=== PATIENT | female | born 1995 | race Caucasian/White ===

== ENCOUNTER → 2023-09-09 13:26 | Outpatient (CLI) | payer OTHER, SELFPAY ==
[2023-09-09 19:04] LABS: Basophils # 0.1 K/mm3 (0-0.2); Basophils % 0.6 % (0.1-2.0); Eosinophils # 0.1 K/mm3 (0.0-0.4); Eosinophils % 0.8 % (0.1-12.0); Hematocrit 39.2 % (37.0-47.0); Lymphocytes # 3.3 K/mm3 (0.7-4.5); Lymphocytes % 35.5 % (10-50); Mean Corpuscular HGB Conc 33.3 g/dL (31.8-35.4); Mean Corpuscular Hemoglobin 28.4 pg (27.0-31.2); Mean Corpuscular Volume 85.3 fl (81-99); Monocytes # 0.4 K/mm3 (0.1-1.0); Monocytes % 3.9 % (1.7-9.3); Neutrophils # 5.4 K/mm3 (1.8-7.8); Neutrophils % 59.1 % (37.0-80.0); Platelet Count 339 K/mm3 (142-424); Red Blood Count 4.59 M/mm3 (4.20-5.40); Red Cell Distribution Width 15.4 % (11.5-17.5); White Blood Count 9.1 K/mm3 (4.8-10.8)
[2023-09-09 19:27] LABS: Alanine Aminotransferase 35 U/L (12-78); Albumin Level 5.1 g/dl (3.5-5.0); Albumin/Globulin Ratio 1.4 (1.1-1.8); Alkaline Phosphatase 50 U/L (38-126); Anion Gap 18.2 mEq/L (5-15); Aspartate Amino Transferase 45 U/L (14-36); Bilirubin,Total 0.4 mg/dl (0.2-1.3); Blood Urea Nitrogen 9 mg/dl (7-17); Calcium 9.4 mg/dl (8.4-10.2); Carbon Dioxide 21 mmol/L (22.0-30.0); Chloride 103 mmol/L (98-107); Estimated Glomerular Filt Rate 122 ml/min (>60); GFR (African American) 147 ML/MIN (>60); Globulin 3.7 g/dL (1.3-3.2); Glucose 93 mg/dl (74-100); Potassium 4.2 mmoL/L (3.5-5.1); Sodium 138 mmol/L (136-145); Total Protein,Serum 8.8 g/dl (6.3-8.2)
[2023-09-09 19:45] LABS: 25-OH Vitamin D, Total 46.1 ng/mL (30-100); T4 (Thyroxine) 10.7 ug/dl (5.53-11.0); Triiodothryronine (T3) Uptake 28 % (23.5-40.5)
[2023-09-09 19:57] LABS: Thyroid Stimulating Hormone 1.21 uIU/mL (0.465-4.68)
[2023-09-09 20:16] LABS: Vitamin B12 261 pg/mL (239-931)
== END ==
PROVIDERS: PCP Family Medicine; Visit Provider Family Medicine
DX: Z00.00 Encounter for general adult medical examination without abnormal findings (principal); R53.83 Other fatigue; E66.9 Obesity, unspecified; Z68.32 Body mass index [BMI] 32.0-32.9, adult; Z79.899 Other long term (current) drug therapy
CPT/HCPCS: 80053; 82306; 82607; 84436; 84443; 84479; 85025

== ENCOUNTER 2023-10-09 09:34 | Outpatient (CLI) | payer OTHER, SELFPAY | END 2023-10-09 23:59 | LOC: RT 09:35 | PROVIDERS: PCP Family Medicine; Visit Provider Family Medicine | DX: R00.2 Palpitations (principal) | CPT/HCPCS: 93270 ==

== ENCOUNTER → 2024-05-01 07:48 | Outpatient (CLI) | payer OTHER, SELFPAY | LOC: SL 07:51 | PROVIDERS: PCP Family Medicine; Visit Provider Family Medicine | DX: R06.83 Snoring (principal); R40.0 Somnolence; G47.33 Obstructive sleep apnea (adult) (pediatric) | CPT/HCPCS: G0399 ==

== ENCOUNTER → 2024-10-15 20:23 | Outpatient (CLI) | payer OTHER, SELFPAY | LOC: SL 20:26 | PROVIDERS: PCP Family Medicine; Visit Provider Family Medicine | DX: F51.5 Nightmare disorder (principal); R06.83 Snoring | CPT/HCPCS: 95810 ==

== ENCOUNTER 2025-03-09 11:53 | Emergency (ER) | payer OTHER, SELFPAY ==
--- OUTSIDE RECORDS SUMMARY | 2025-02-18 09:43 | XMS_ITS | Continuity of Care Document ---
Author Organization [facility] Phone Care Team Providers Care Utilization Management Rn Name Role Phone KEERTHI MACK Unavailable SEVERO HERNADEZ Unavailable KEERTHI MACK Admitting KEERTHI MACK Primary Attending NO, FAMILY P Primary Care ALLERGIES AND ADVERSE REACTIONS ALLERGIES AND ADVERSE REACTIONS Code System Allergy Substance Adverse Reaction Date Reaction (Severity) Comment Status Reported By Updated By Jose Enrique (Free Text Allergy) Anaphylaxis due to substance (Moderate) active [id number] on February 11, 2025 2:28:08 PM [place] 7804 RXNorm oxyCODONE Anaphylaxis due to substance (Moderate) active [id number] on February 11, 2025 2:28:08 PM UTC Percocet (Free Text Allergy) Anaphylaxis due to substance (Moderate) active [id number] on February 11, 2025 2:28:08 PM UTC ASSESSMENTS Suicidal thoughts ; Anxiety ; Depressive disorder ; PROBLEMS PATIENT PROBLEMS Code Description/Comments Category Status Upda chip By [id number] Suicidal thoughts active [id number] on February 11, 2025 1:58:56 PM UTC [id number] Anxiety active [id number] on February 11, 2025 1:59:02 PM UTC [id number] Depressive disorder active [id number] on February 11, 2025 1:59:09 PM UTC RESULTS Patient: NIKHIL Gonzalez Date of : [birth year] 0 LABORATORY RESULTS ORDER 600: LIPID PANEL (CECELIA C: 40480-5) ORDER DATE: February 11, 2025 2:00:00 PM UTC Specimen Source: Serum/Plasm a Specimen Type: Acellular blo od (serum or plasma) specimen PERFORMING LAB: [address] [id number] Result Comment: Final Result Date: February 12, 2025 10:58:00 AM UTC (TECH: LT) LOINC TEST FLAG RESULT REFERENCE RANGE UPDA CHIP BY 2571-8 Triglyceride [Mass/volume] in Serum or Plasma N 125 mg/dL 20 mg/dL - 200 mg/dL February 12, 2025 10:58:00 AM UTC (TECH: LT) 2093-3 Cholesterol [Mass/volume] in Serum or Plasma N 143 mg/dL 0 mg/dL - 200 mg/dL February 12, 2025 10:58:00 AM UTC (TECH: LT) 2084-9 Cholesterol in HDL [Mass/volume] in Serum or Plasma L 53 mg/dL 60 mg/dL February 12, 2025 10:58:00 AM UTC (TECH: LT) 72851-5 Cholesterol in LDL [Mass/volume] in Serum or Plasma by calculation L 65 mg/dL 100 mg/dL February 12, 2025 10:58:00 AM UTC (TECH: LT) 2094-8 Cholesterol in HDL/Cholesterol.tota l [Mass Ratio] in Serum or Plasma N 3 - 5 February 12, 2025 10:58:00 AM UT (TECH: LT) ORDER 700: THYROID STIMULATI NG HORMONE (LOINC: 3016-3) ORDER DATE: February 11, 2025 2:00:00 PM UT Specimen Source: Serum/Plasm a Specimen Type: Acellular blo od (serum or plasma) specimen PERFORMING LAB: [address] [id number] Result Comment: Final Result Date: February 12, 2025 10:58:00 AM UT (TECH: LT) LOINC TEST FLAG RESULT REFERENCE RANGE UPDA CHIP BY 3016-3 Thyrotropin [Units/volume] in Serum or Plasma N 2.32 mIU/mL 0.34 mIU/mL - 4.80 mIU/mL February 12, 2025 10:58:00 AM UT (TECH: LT) ORDER 800: RPR QUAL W REFLEX (LOINC: 01973-5) ORDER DATE: February 11, 2025 2:00:00 PM UTC Specimen Source: Serum Specimen Type: Serum specime n PERFORMING LAB: [address] [id number] Result Comment: February 13, 2025 12:11:00 PM UTC Performed at: [facility] Result Comment: February 13, 2025 12:11:00 PM UTC [address] [place] [id number] Result Comment: February 13, 2025 12:11:00 PM UTC Merchandising Director: Joon Jamison PhD, Phone: [phone] Result Comment: February 13, 2025 12:11:00 PM UTC Final Result Date: February 12, 2025 10:19:00 AM UTC (TECH: LAB) LOINC TEST [place] [address]-2 Reagin Ab [Presence] in Serum by RPR N Non Reactive Non Reactive February 12, 2025 10:19:00 AM UT (TECH: LAB) ORDER 900: BILIRUBIN DIRECT (LOINC: 1967-) ORDER DATE: February 11, 2025 2:00:00 PM UTC Specimen Source: Serum/Plasm a Specimen Type: Acellular blo od (serum or plasma) specimen PERFORMING LAB: [address] [id number] Result Comment: Final Result Date: February 12, 2025 10:58:00 AM UT (TECH: LT) LOINC TEST FLAG RESULT REFERENCE RANGE UPDA CHIP BY 1968-03 Bilirubin.direct [Mass/volume] in Serum or Plasma N 0.2 mg/dL 0.0 mg/dL - 0.3 mg/dL February 12, 2025 10:58:00 AM UT (TECH: LT) ORDER 1000: T4 TOTAL (LOINC: 3026-2) ORDER DATE: February 11, 2025 2:00:00 PM UT Specimen Source: Serum/Plasm a Specimen Type: Acellular blo od (serum or plasma) specimen PERFORMING LAB: [address] [id number] Result Comment: Final Result Date: February 12, 2025 10:58:00 AM UT (TECH: LT) LOINC TEST FLAG RESULT REFERENCE RANGE UPDA CHIP BY 3026-2 Thyroxine (T4) [Mass/volume] in Serum or Plasma N 6.6 ug/dL 4.8 ug/dL - 13.9 ug/dL February 12, 2025 10:58:00 AM UTC (TECH: LT) ORDER 1100: GLUCOSE (LOINC: 2345-7) ORDER DATE: February 11, 2025 2:00:00 PM UTC Specimen Source: Serum/Plasm a Specimen Type: Acellular blo od (serum or plasma) specimen PERFORMING LAB: [address] [id number] Result Comment: Final Result Date: February 12, 2025 10:58:00 AM UTC (TECH: LT) LOINC TEST FLAG RESULT REFERENCE RANGE UPDA CHIP BY 2345-7 Glucose [Mass/volume] in Serum or Plasma N 86 mg/dL 70 mg/dL - 110 mg/dL February 12, 2025 10:58:00 AM UTC (TECH: LT) ORDER 1200: HEMOGLOBIN A1C ( LOINC: 4548-4) ORDER DATE: February 11, 2025 2:00:00 PM UTC Specimen Source: Whole Blood Specimen Type: Whole blood s ample PERFORMING LAB: [address] [id number] Result Comment: Final Result Date: February 12, 2025 10:41:00 AM UTC (TECH: LT) LOINC TEST FLAG RESULT REFERENCE RANGE UPDA CHIP BY 4548-4 Hemoglobin A1c/Hemoglobin.tota l in Blood N 5.5 % 4.5 % - 6.2 % February 12, 2025 10:41:00 AM UT (TECH: LT) 82006-2 Glucose mean value [Mass/volume] in Blood Estimated from glycated hemoglobin N 111 mg/dl 82 mg/dl - 131 mg/dl February 12, 2025 10:41:00 AM UTC (TECH: LT) ORDER 1400: CBC AUTO W DIFF (LOINC: 26585-1) ORDER DATE: February 11, 2025 6:53:00 PM UTC Specimen Source: Whole Blood Specimen Type: Whole blood s ample PERFORMING LAB: [address] [id number] Result Comment: Final Result Date: February 12, 2025 10:28:00 AM UTC (TECH: LT) LOINC TEST FLAG RESULT REFERENCE RANGE UPDA CHIP BY 6690-2 Leukocytes [#/volume ] in Blood by Automated count N 8.3 10^3/uL 4.5 10^3/uL - 11.5 10^3/uL February 12, 2025 10:28:00 AM UTC (TECH: LT) 789-8 Erythrocytes [#/volu me] in Blood by Automated count N 4.34 10^6/uL 4.25 10^6/uL - 5.57 10^6/uL February 12, 2025 10:28:00 AM UTC (TECH: LT) 718-7 Hemoglobin [Mass/volume] in Blood N 12.7 g/dL 12.0 g/dL - 15.7 g/dL February 12, 2025 10:28:00 AM UTC (TECH: LT) 60457-4 Hematocrit [Volume Fraction] of Blood N 38.6 % 36.0 % - 47.0 % February 12, 2025 10:28:00 AM UTC (TECH: LT) 787-2 Erythrocyte mean corpuscular volume [Entitic volume] by Automated count N 88.9 fl 80 fl - 95 fl February 12, 2025 10:28:00 AM UTC (TECH: LT) 71547-4 Erythrocyte mean corpuscular hemoglobin [Entitic mass] in Blood from Fetus by Automated count N 29.3 pg 27.0 pg - 34.0 pg February 12, 2025 10:28:00 AM UTC (TECH: LT) 04281-8 Erythrocyte mean corpuscular hemoglobin concentration [Mass/volume] in Blood from Fetus by Automated count N 32.9 g/dL 32.0 g/dL - 36.0 g/dL February 12, 2025 10:28:00 AM UTC (TECH: LT) 58081-9 Platelets [#/volume] in Blood N 315 10^3/uL 150 10^3/uL - 450 10^3/uL February 12, 2025 10:28:00 AM UTC (TECH: LT) 56321-8 Erythrocyte distribution width [Ratio] N 13.5 % 12.3 % - 15.1 % February 12, 2025 10:28:00 AM UTC (TECH: LT) 79835-1 Platelet mean volume [Entitic volume] in Blood by Automated count H 10.7 fl 7.4 fl - 10.4 fl February 12, 2025 10:28:00 AM UTC (TECH: LT) 33171-7 Granulocytes/100 leukocytes in Blood by Automated count N 47.0 % 40 % - 75 % February 12, 2025 10:28:00 AM UTC (TECH: LT) 736-9 Lymphocytes/100 leukocytes in Blood by Automated count N 42.0 % 15 % - 57 % February 12, 2025 10:28:00 AM UTC (TECH: LT) 5905-5 Monocytes/100 leukocytes in Blood by Automated count N 7.9 % 4.0 % - 12.0 % February 12, 2025 10:28:00 AM UTC (TECH: LT) 713-8 Eosinophils/100 leukocytes in Blood by Automated count N 1.9 % 0.0 % - 4.0 % February 12, 2025 10:28:00 AM UTC (TECH: LT) 706-2 Basophils/100 leukocytes in Blood by Automated count N 0.5 % 0.0 % - 1.0 % February 12, 2025 10:28:00 AM UTC (TECH: LT) 80660-3 Immature granulocyte s [#/volume] in Blood N 0.7 % 0.0 % - 0.8 % February 12, 2025 10:28:00 AM UTC (TECH: LT) 62671-6 Granulocytes [#/volu me] in Blood by Automated count N 3.91 10^3/uL February 12, 2025 10:28:00 AM UTC (TECH: LT) 731-0 Lymphocytes [#/volum e] in Blood by Automated count N 3.50 10^3/uL February 12, 2025 10:28:00 AM UTC (TECH: LT) 742-7 Monocytes [#/volume] in Blood by Automated count N 0.66 10^3/uL February 12, 2025 10:28:00 AM UTC (TECH: LT) 711-2 Eosinophils [#/volum e] in Blood by Automated count N 0.16 10^3/uL February 12, 2025 10:28:00 AM UTC (TECH: LT) 704-7 Basophils [#/volume] in Blood by Automated count N 0.04 10^3/uL February 12, 2025 10:28:00 AM UTC (TECH: LT) 18769-3 Immature granulocyte s [#/volume] in Blood N 0.06 10^3/uL February 12, 2025 10:28:00 AM UTC (TECH: LT) 93414-5 Manual differential performed [Presence] in Blood N NO February 12, 2025 10:28:00 AM UTC (TECH: LT) LABORATORY NARRATIVE RESULTS Information is not available RADIOLOGY RESULTS Information is not available PATHOLOGY NARRATIVE RESULTS Information is not available MICROBIOLOGY RESULTS No Micro Labs/Results Exist for Patient BLOOD ADMIN RESULTS Information is not available TREATMENT PLAN DISCHARGE MEDICATIONS Status RXNORM Medication Dose Route Frequency Dates Comments U pdated By Continued 426022 folic acid (FOLATE) 1 MG ORAL ONCE DAILY Prescri bed: February 16, 2025 1:33:21 PM UT supplement [id number] on February 16, 2025 1:33:21 PM [facility] Continued 288361 propranolol (INDERAL) 10 MG ORAL THREE TIMES A DAY Prescri bed: February 16, 2025 1:33:21 PM UT Hold if BP is less than 90/60 or MO less than 60/mt [id number] on February 16, 2025 1:33:21 PM [facility] Continued 428382 SEROquel Oral Tablet 100 MG 100 MG ORAL AT BEDTIME Prescri bed: February 16, 2025 1:33:21 PM [facility] [id number] on February 16, 2025 1:33:21 PM [facility] Continued 894245 lisinopril (ZESTRIL) 5 MG ORAL ONCE DAILY Prescri bed: February 16, 2025 1:33:21 PM [facility] [id number] on February 16, 2025 1:33:21 PM [facility] Continued 356142 THIAMINE MONONITRATE 100 MG ORAL ONCE DAILY Prescri bed: February 16, 2025 1:33:21 PM [facility] supplement [id number] on February 16, 2025 1:33:21 PM [facility] Continued 799790 DULoxetine HCl Oral Capsule Delayed Release Particles 60 MG 60 MG ORAL ONCE DAILY Prescri bed: February 16, 2025 1:33:21 PM [facility] [id number] on February 16, 2025 1:33:21 PM [facility] PATIENT OPEN ORDERS Code System Description Frequency Occurrences Priority Start Date Ordering Physician Updated By Patient open order informati on is not available. SCHEDULED PROCEDURES Code System Description Status Scheduled Date Upd ated By Patient scheduled procedure information is not available. MEDICATIONS HOME MEDICATIONS Status RXNORM [facility] Medication Dose Route Frequency Dates Comments Reported By Updated By Active [id number] 9611 lisinopril (ZESTRIL) 5.0 MG ORAL DAILY Last Dose: [id number] on February 11, 2025 2:25:27 PM [facility] DISCHARGE MEDICATIONS Status RXNORM NDC Medication Dose Route Frequency Dates Comments Physician Updated By Continue d 078259 40795 47699 1 folic acid (FOLATE) 1.0 MG ORAL ONCE DAILY Prescr ibed: February 16, 2025 1:33:2 1 PM UT rachel PENDLETON MD Y [id number] on February 16, 2025 1:33:21 PM UTC Continue d 346271 84675 07550 1 propranolol (INDERAL) 10.0 MG ORAL THREE TIMES A DAY Prescr ibed: February 16, 2025 1:33:2 1 PM UT Hold if BP is less than 90/60 or MO less than 60/mt MARTINA PENDLETON MD Ro [id number] on February 16, 2025 1:33:21 PM UTC Continue d 472996 72462 87171 0 SEROquel Oral Tablet 100 MG 100.0 MG ORAL AT BEDTIME Prescr ibed: February 16, 2025 1:33:2 1 PM UT MARTINA PENDLETON MD [facility] [id number] on February 16, 2025 1:33:21 PM UT Continue d 997190 98207 16952 1 lisinopril (ZESTRIL) 5.0 MG ORAL ONCE DAILY Prescr ibed: February 16, 2025 1:33:2 1 PM UT MARTINA PENDLETON MD Y [id number] on February 16, 2025 1:33:21 PM UTC Continue d 006464 28319 76711 1 THIAMINE MONONITRATE 100.0 MG ORAL ONCE DAILY Prescr ibed: February 16, 2025 1:33:2 1 PM UT rachel PENDLETON MD Y [id number] on February 16, 2025 1:33:21 PM UT Continue d 451871 10598 38316 5 DULoxetine HCl Oral Capsule Delayed Release Particles 60 MG 60.0 MG ORAL ONCE DAILY Prescr ibed: February 16, 2025 1:33:2 1 PM UT MARTINA PENDLETON MD Y [id number] on February 16, 2025 1:33:21 PM UT INPATIENT MEDICATIONS Status RXNORM [facility] Medication Dose Route Frequency Rat e Quantity Dates Comments Physician Updated By Mari inued 0012 1176 130 MAG-AL PLUS 200-200-20 MG/5 ML LIQD 30.0 ML ORAL EVERY TWO HOURS NEEDED Start: February 11, 2025 1:58:0 0 PM UTC End: February 16, 2025 1:33:2 1 PM UTC MARTINA PENDLETON MD [id number] on February 17, 2025 4:25:00 AM UTC Discont inued 973900 2299 9069 020 loperamide (IMODIUM) 2 MG CAPS 4.0 MG ORAL NEEDED Start: February 11, 2025 1:58:0 0 PM UTC End: February 11, 2025 3:19:3 7 PM UTC MARTINA PENDLETON MD [id number] on February 11, 2025 3:19:00 PM UTC Discont inued 376671 2059 9069 020 loperamide (IMODIUM) 2 MG CAPS 2.0 MG ORAL NEEDED Start: February 11, 2025 1:58:0 0 PM UTC End: February 16, 2025 1:33:2 1 PM UTC MARTINA PENDLETON MD [id number] on February 17, 2025 4:25:00 AM UTC Discont inued 397824 5430 7062 211 SENNOSIDES- DOCUSATE SODIUM 8.6-50 MG TABS 1.0 TAB ORAL TWICE A DAY NEEDED Start: February 11, 2025 1:58:0 0 PM UTC End: February 16, 2025 1:33:2 1 PM UTC MARTINA PENDLETON MD [id number] on February 17, 2025 4:25:00 AM UTC Discont inued 521395 5698 7036 911 dicyclomine (BENTYL) 10 MG CAPS 10.0 MG ORAL EVERY EIGHT HOURS NEEDED Start: February 11, 2025 1:58:0 0 PM UTC End: February 11, 2025 3:19:3 7 PM UTC MARTINA PENDLETON MD [id number] on February 11, 2025 3:19:00 PM UTC Discont inued 380559 2459 4019 501 promethazin e (PHENERGAN) 25 MG TABS 25.0 MG ORAL EVERY FOUR HOURS NEEDED Start: February 11, 2025 1:58:0 0 PM UTC End: February 11, 2025 3:19:3 7 PM UTC MARTINA PENDLETON MD [id number] on February 11, 2025 3:19:00 PM UTC Discont inued 372535 8770 7055 811 cyclobenzap rine (FLEXERIL) 10 MG TABS 10.0 MG ORAL EVERY EIGHT HOURS NEEDED Start: February 11, 2025 1:58:0 0 PM UTC End: February 11, 2025 3:19:3 7 PM UTC MARTINA PENDLETON MD [id number] on February 11, 2025 3:19:00 PM UTC Discont inued 557988 5357 9007 820 hydrOXYzine PAMOATE (VISTARIL) 50 MG CAPS 50.0 MG ORAL EVERY FOUR HOURS NEEDED Start: February 11, 2025 1:58:0 0 PM UTC End: February 11, 2025 3:19:5 7 PM UTC MARTINA PENDLETON MD [id number] on February 11, 2025 3:19:00 PM UTC Discont inued 870203 4949 4032 055 OLANZapine (ZYPREXA ZYDIS) 5 MG TBDP 5.0 MG ORAL EVERY SIX HOURS NEEDED Start: February 11, 2025 1:58:0 0 PM UTC End: February 16, 2025 1:33:2 1 PM UTC MARTINA PENDLETON MD [id number] on February 17, 2025 4:25:00 AM UTC Discont inued 381368 7489 7044 311 traZODone (DESYREL) 50 MG TABS 50.0 MG ORAL AT BEDTIME NEEDED Start: February 11, 2025 1:58:0 0 PM UTC End: February 11, 2025 3:19:3 7 PM UTC MARTINA PENDLETON MD [id number] on February 11, 2025 3:19:00 PM UTC Discont inued 8068 1014 202 CERTAVITE/A NTIOXIDANTS TABS 1.0 TAB ORAL ONCE DAILY Start: February 12, 2025 1:00:0 0 PM UTC End: February 16, 2025 1:33:2 1 PM UTC MARTINA PENDLETON MD [id number] on February 17, 2025 4:25:00 AM UTC Discont inued 006273 8592 7068 111 folic acid (FOLATE) 1 MG TABS 1.0 MG ORAL ONCE DAILY Start: February 12, 2025 1:00:0 0 PM UTC End: February 16, 2025 3:13:0 0 PM UTC MARTINA PENDLETON MD [id number] on February 17, 2025 4:25:00 AM UTC Discont inued 271759 7350 8085 111 THIAMINE MONONITRATE 100 MG TABS 100.0 MG ORAL ONCE DAILY Start: February 12, 2025 1:00:0 0 PM UTC End: February 16, 2025 3:13:0 0 PM UTC MARTINA PENDLETON MD [id number] on February 17, 2025 4:25:00 AM UTC Discont inued 142964 9872 0762 730 ibuprofen (MOTRIN) 600 MG TABS 600.0 MG ORAL EVERY SIX HOURS NEEDED Start: February 11, 2025 1:58:0 0 PM UTC End: February 16, 2025 1:33:2 1 PM UTC MARTINA PENDLETON MD [id number] on February 17, 2025 4:25:00 AM UTC Discont inued 066228 7987 7044 311 traZODone (DESYREL) 50 MG TABS 50.0 MG ORAL AT BEDTIME NEEDED Start: February 11, 2025 3:19:0 0 PM UTC End: February 11, 2025 3:21:4 4 PM UTC MARTINA PENDLETON MD [id number] on February 11, 2025 3:21:00 PM UTC Discont inued 535173 4202 4655 061 propranolol (INDERAL) 10 MG TABS 10.0 MG ORAL THREE TIMES A DAY Start: February 11, 2025 7:00:0 0 PM UTC End: February 16, 2025 3:13:0 0 PM UTC MARTINA PENDLETON MD [id number] on February 17, 2025 4:25:00 AM UTC Discont inued 199324 3826 4068 311 DULOXETINE HCL 30 MG CPEP 30.0 MG ORAL ONCE DAILY Start: February 11, 2025 3:31:0 0 PM UTC End: February 12, 2025 1:02:4 7 PM UTC MARTINA PENDLETON MD [id number] on February 12, 2025 1:02:00 PM UTC Discont inued 293097 2097 509 588 QUEtiapine (SEROQUEL) 200 MG TABS 100.0 MG ORAL AT BEDTIME Start: February 12, 2025 1:00:0 0 AM UTC End: February 16, 2025 1:33:2 1 PM UTC MARTINA PENDLETON MD [id number] on February 17, 2025 4:25:00 AM UTC Discont inued 171562 1062 4019 611 lisinopril (ZESTRIL) 5 MG TABS 5.0 MG ORAL ONCE DAILY Start: February 12, 2025 1:00:0 0 PM UTC End: February 16, 2025 3:13:0 0 PM UTC SATYA FAVIA HOURLY CAREGIVER [id number] on February 17, 2025 4:25:00 AM UTC Discont inued 848806 4304 4068 311 DULOXETINE HCL 30 MG CPEP 60.0 MG ORAL ONCE DAILY Start: February 13, 2025 1:00:0 0 PM UTC End: February 16, 2025 1:33:2 1 PM UTC TONE Akhtar MD [id number] on February 17, 2025 4:25:00 AM UTC Discont inued XXXX XXX0 063 *PATIENT INFORMATION [facility] [place] 1.0 EA SEE COMMEN TS NEEDED Start: February 15, 2025 5:35:0 0 PM UTC End: February 16, 2025 1:33:2 1 PM UTC TONE Akhtar MD [id number] on February 17, 2025 4:25:00 AM UT SOCIAL HISTORY SOCIAL HISTORY SNOMED-CT Social History Element Description Effective Dates Offered Cessation Comment UpdatedBy [id number] Current Tobacco smoking status Never Smoked [id number] on February 11, 2025 2:26:53 PM UT SOCIAL HISTORY - Gender Sex: Female SOCIAL HISTORY - Status : status i nformation is not available Intention in Next Year: intention information is not available SOCIAL HISTORY - Sexual Behavior Sexual Orientation Gender Identity SNOMED-CT Description SNO MED -CT Description Activity Level No of Partners Partner Type UpdatedBy Information is not available VITAL SIGNS PATIENT VITAL SIGNS This section displays the mo st recent value for each vital sign as of February 18, 2025 1:43:07 PM UT Loinc Code Vital Sign Activity Date Result Updated By 8302-2 Body height February 11, 2025 2:24:03 PM UT 162.56 cm (64.0 in) [id number] on February 11, 2025 2:24:03 PM UTC 8310-5 Body temperature February 15, 2025 11:05:00 PM UTC 98.6 [degF] [id number] on February 16, 2025 2:33:07 AM UTC 8462-4 Diastolic blood pressure February 15, 2025 11:05:00 PM UTC 62.0 mm[Hg] OHT7903 on February 16, 2025 2:33:07 AM UTC 8867-4 Heart rate February 15, 2025 11:05:00 PM UTC 75 /min [id number] on February 16, 2025 2:33:07 AM UTC 23494-2 Oxygen saturation in Arterial blood by Pulse oximetry February 15, 2025 11:05:00 PM UTC 99.0 % [id number] on February 16, 2025 2:33:07 AM UTC 9279-1 Respiratory rate February 15, 2025 11:05:00 PM UTC 18 /min [id number] on February 16, 2025 2:33:07 AM UTC 8480-6 Systolic blood pressure February 15, 2025 11:05:00 PM UTC 105.0 mm[Hg] [id number] on February 16, 2025 2:33:07 AM UTC PEDIATRIC GROWTH CHART - VITAL SIGNS This section displays Head C ircumference Percentile, Weight for Length Percentile and BMI Percentile Loinc Code Pediatric Measure Age (Months) Result Updat ed By No Pediatric Growth Chart Pe rcentile Information Available. GOALS PATIENT GOALS Goal Assigned Date Updated By REBECCA TEJEDA REMAINS [place]YTON E FROM COMPLICATIONS FOR BEHAVIORAL HEALTH ADMIT February 11, 2025 [id number] on February 11, 2025 2:02 :03 PM UT REBECCA PRETTYBERT WILL REMAIN FREE FROM SELF HARM DURING THE CARE PERIOD February 11, 2025 [id number] on February 11 2:02:03 PM [facility] REBECCA PERTTYBERT REMAINS [place] E FROM COMPLICATIONS OF ALCOHOL ABUSE - WITHDRAWAL DURING THE CARE PERIOD February 11, 2025 [id number] on February 11 2:02:07 PM UT HEALTH CONCERNS Problems Concern Status Health Concern problem infor mation not available. Smoking Status Status Years Used Consumed packs p er day Health Concern smoking histo ry information not available. Family History Concern Status Health Concern family histor y information not available. ENCOUNTERS ENCOUNTER INFORMATION Reason for Visit MDD W/ SI Admission February 11, 2025 1:52:00 PM [facility] [address] [facility] [id number] Discharge February 16, 2025 3:13:00 PM [facility] DISC HARGED TO HOME OR SELF CARE ENCOUNTER DIAGNOSES Notes information is not eda ilable. Code System Diagnosis Onset Date Diagnosis information is not available. ABSTRACT DIAGNOSES Code System Diagnosis Updated By F33.2 ICD10 MAJOR DEPRESSIVE DISORDER, RECURRENT SEVERE WITHOUT PSYCHOTIC FEATURES [id number] on February 18, 2025 1:42:42 PM UT F33.2 ICD10 MAJOR DEPRESSIVE DISORDER, RECURRENT SEVERE WITHOUT PSYCHOTIC FEATURES [id number] on February 18, 2025 1:42:42 PM [facility] R45.851 ICD10 SUICIDAL IDEATIONS [id number] o n February 18, 2025 1:42:42 PM UT F43.12 ICD10 POST-TRAUMATIC S TRESS DISORDER, CHRONIC [id number] on February 18, 2025 1:42:42 PM UT F41.9 ICD10 ANXIETY DISORDER, UNSPECIFIE D [id number] on February 18, 2025 1:42:42 PM UT F51.5 ICD10 NIGHTMARE DISORDER [id number] o n February 18, 2025 1:42:42 PM UT Z81.3 ICD10 FAMILY HISTORY O F OTHER PSYCHOACTIVE SUBSTANCE ABUSE AND DEPENDENCE [id number] on February 18, 2025 1:42:42 PM UT Z81.8 ICD10 FAMILY HISTORY O F OTHER MENTAL AND BEHAVIORAL DISORDERS [id number] on February 18, 2025 1:42:42 PM UT Z88.5 ICD10 ALLERGY STATUS TO NARCOTIC A GENT [id number] on February 18, 2025 1:42:42 PM UT Z88.8 ICD10 ALLERGY STATUS T O OTHER DRUGS, MEDICAMENTS AND BIOLOGICAL SUBSTANCES [id number] on February 18, 2025 1:42:42 PM UT I10 ICD10 ESSENTIAL (PRIMARY) HYPERTEN ELIE [id number] on February 18, 2025 1:42:42 PM UT Z91.51 ICD10 PERSONAL HISTORY OF SUICIDAL BEHAVIOR [id number] on February 18, 2025 1:42:42 PM UT Z79.899 ICD10 OTHER MASTER PLANNER (CURRENT) DR CRAIN THERAPY [id number] on February 18, 2025 1:42:42 PM [facility] D72.829 ICD10 ELEVATED WHITE B LOOD CELL COUNT, UNSPECIFIED [id number] on February 18, 2025 1:42:42 PM [facility] CARE TEAM Care Utilization Management Rn Role KEERTHI MACK Referring SEVERO CYRP Consulting KEERTHI MACK Admitting KEERTHI MACK Primary Attending FAMILY NO Primary Care HOSPITAL DISCHARGE INSTRUCTION DISCHARGE INSTRUCTION Encounter [id number] Admit Date February 11, 2025 1:52:00 PM UT Discharge Date February 16, 2025 3:13:00 PM [facility] PATIENT EDUCATION SUMMARY Patient/Visit Information: Patient Name: REBECCA TEJEDA Diag: Attending Caregiver: MARTINA PENDLETON MD Discharge Instruction Sheets Provided: *[facility] Transition Record () () Patient Instructions: Followup Appointments/Instructions: To schedule or confirm your next appointment, please contact: February 23, 2025 8am: - [facility] [address] [facility] [address] [place] [address] If you need assistance finding another health care provider, call the number on your health insurance card. HISTORY AND PHYSICAL NOTE HISTORY AND PHYSICAL NOTE Note Title Behavioral Health Me dical Admission H&P Date Of Service February 11, 2025 1:58:14 PM [facility] Created By [id number] on February 11 1:58:14 PM [facility] Signed By [id number] on February 11 6:52:24 PM [facility] Chief Complaint Depressive disorder, suicidal ideation Reason for consultation: Admission history and physical History of Present Illness 29-year-old female admitted from [facility] after being medically cleared. She reported feeling depressed and suicidal. She stated she attempted to take her life when her was 2-month-old. She stated she overdosed on gabapentin. She recently started having suicidal thoughts again. She stated she drank up to 6 alcoholic beverages last night. She states she does not consume alcohol regularly. She reports she had also been taking Adipex for weight loss. She denies any physical complaints other than occasional headache which she attributes to crying and stress. She also reports weight loss, loss of appetite. Past Medical History Suicide attempt H/O: depression H/O: hypertension Anemia Past Surgical History Esophagogastroduodenoscopy section Extraction of wisdom tooth Home Medications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
[2025-03-09] VITALS (61 sets, daily range): BP systolic 61–137; BP diastolic 31–100; PULSE 66–103; RESP 16–19; TEMP 34.2–37.6; O2SAT 96–100; BMI 28.0
--- NOTE | 2025-03-09 11:54 | PC.NURSE ---
RESPIRATORY REQUESTED FOR INTUBATION
--- NOTE | 2025-03-09 11:55 | PC.NURSE ---
[facility] called for wether check
--- NOTE | 2025-03-09 11:58 | PC.NURSE ---
[facility] declined due to weather
--- NOTE | 2025-03-09 12:04 | PC.NURSE ---
I spoke with Jerald at poison control. He explained some symptoms that may arise. He states supportive care is the plan of treatment. He states if IVF are not adequate for her pressure to try glucagon then pressors. I notified him of the medications the pt may have potentially taken and the amounts that should be in her bottles versus no meds in bottles. He states he will check in later.
--- NOTE | 2025-03-09 12:04 | XR_ITS ---
FINAL REPORT CLINICAL HISTORY: AMS, overdose COMPARISON: None FINDINGS: CHEST 1 VIEW FRONTAL Three images of the chest were obtained. On the first image taken at 1:14 PM, the ET tube extends approximately 1.5 cm into the right mainstem bronchus and needs to be retracted approximately 3 cm. On the second image taken at 1:19 PM, the ET tube has been retracted and now extends 1 cm above the roger. The heart size is normal. There is linear atelectasis noted at the left lung base. There are no pleural effusions. There is no pneumothorax. There is no osseous abnormality. IMPRESSION: On the second image, the ET tube extends 1 cm above the roger. Linear atelectasis left lung base. Reviewed, Interpreted and Dictated by Otto Morales MD Transcribed by Tiffanie Weiss Authenticated and [facility]
--- NOTE | 2025-03-09 12:11 | ED_ITS ---
Discharge Plan Disposition Patient Disposition: Xfer Short-Term Hosp Condition: Critical Prescriptions Prescriptions: No Action propranolol 40 mg tablet 40 mg PO ONCE Qty: 30 2RF sumatriptan succinate 25 mg tablet See Rx Instructions PO .COMPLEX Qty: 14 0RF Rx Instructions: take 1 tab at onset of headache; if no relief may repeat 1 tab after at least 2 hrs; max = 4 tabs/24 hr PO desvenlafaxine succinate [Pristiq] 50 mg tablet extended release 24 hr 50 mg PO DAILY Qty: 30 2RF hydroxyzine HCl 25 mg tablet 25 mg PO TID PRN (Reason: anxiety) Qty: 90 1RF Referrals Follow up/Referrals: Provider,Referral, MD [Primary Care Provider, Medical] - See instructions Clinical Impressions Clinical Impression: Intentional overdose, Intentional propranolol overdose, Altered mental status Print Language Print Language: German Discharge ED Provider: Deepali Jesus General Adult HPI General Chief complaint: Overdose Stated complaint: OD Time Seen by Provider: 03/09/25 11:55 History of Present Illness HPI narrative: This patient is a 29-year-old female with a history of PTSD, OCD, bipolar disorder, and multiple prior suicide attempts presenting to the emergency department for evaluation with concern for intentional overdose. History is provided by EMS and police officers who are on scene. They report that the patient was found unresponsive in her home by her dad this morning with multiple suicide notes. She was found next to empty bottles of propranolol, quetiapine, and Tylenol PM. The quetiapine bottle was #30 100 mg tablets which was filled 02/16/2025, propranolol #90 10 mg tablets (TID), acetaminophen/diphehydramine hcl (500mg/25mg) #24 tablets. If she takes the quetiapine and propranolol as prescribed, we estimate she likely had 10 (1,000mg) and 30 tablets (300mg) left respectively. EMS note that the patient was persistently hypotensive en route with systolics in the 70s. They were unable to establish IV access because the patient was combative. Fingerstick blood Leukos was normal per EMS. Upon arrival, patient is somnolent but arouses to sternal rub and painful stimuli. She does not contribute to history, falling back asleep very quickly. Her father arrived and helped provide further history. He noted that he was with her last night because she was having a hard time and was upset. He states that he left after she fell asleep, and he spoke with her around 3:45 in the morning and she seemed to be doing well. he states that she texted him around 7:00 this morning and said I am sorry. Once he found this message around 9:30 AM, he went to her house and found her unresponsive with suicide notes written to multiple people in her family. He got a blood pressure cuff and checked her blood pressure, and it was very low. He found multiple pill bottles as above and called EMS. Related Data Previous Rx's ?Medication ?Instructions ?Recorded desvenlafaxine succinate 50 mg 50 mg PO DAILY #30 tabs 11/25/23 tablet,extended release 24 hr (Pristiq) hydroxyzine HCl 25 mg tablet 25 mg PO TID PRN anxiety #90 tabs 11/25/23 propranolol 40 mg tablet 40 mg PO ONCE migraine #30 tabs 12/02/23 sumatriptan succinate 25 mg tablet See Rx Instructions PO .COMPLEX 12/02/23 #14 tabs Allergies Allergy/AdvReac Type Severity Reaction Status Date / Time acetaminophen (From PERCOCET) Allergy Unknown ANAPHYLAXIS Verified 12/02/23 13:51 hydrocodone (From LORTAB) Allergy Unknown ITCHING Verified 12/02/23 13:51 oxycodone (From PERCOCET) Allergy Unknown ANAPHYLAXIS Verified 12/02/23 13:51 PFSH PFSH Disclaimer: The information contained in this section may have been updated after the patient was seen, as this information can be updated by other users. Medical History Chronic post-traumatic stress disorder (PTSD) OCD (obsessive compulsive disorder) Generalized anxiety disorder with panic attacks Iron deficiency anemia Anemia Family History Grandmother Cancer Grandfather Cancer Diabetes Mother COPD (chronic obstructive pulmonary disease) Social History Smoking Status: Unknown if ever smoked alcohol intake: current alcohol intake frequency: holidays/special occasions only substance use type: denies use current occupational status: employed Travel in the last 8 weeks?: None household members: children number of children: 2 Have you lived/traveled outside [place] in past 30 days?: No Contact w/someone who lives/traveled outside [place] past 30 days?: No Exposure to someone with infectious disease in past 14 days?: No Do you have a fever (greater than 100.4 F or 38 C)?: No Have you tested positive for COVID-19?: No Exposed to someone with COVID-19 in past 14 days?: No Do you have a sore throat?: No Do you have a cough?: No Do you have any weakness?: No Do you have any diarrhea?: No Are you experiencing any unusual bleeding?: No Do you have any muscle aches/pain?: No Do you have any abdominal pain?: No Are you experiencing loss of taste or smell?: No Other Medical History Have you received the Pneumonia Vaccine: No ROS Obtained: Yes unobtainable due to mental status Physical Exam General General appearance: obtunded Head Head exam: atraumatic and normocephalic Eye Eye exam: Present normal appearance, PERRL and EOMI ENT ENT exam: Present normal exam and normal oropharynx Neck Neck exam: Present normal inspection Chest Chest inspection: Present normal inspection and symmetric chest wall rise Respiratory Respiratory exam: Present normal lung sounds bilaterally; Absent respiratory distress Cardiovascular Cardiovascular exam: Present regular rate and normal rhythm Abdominal Exam Abdominal exam: Present soft; Absent distention, tenderness or guarding Extremities Exam Extremities exam: Present normal inspection; Absent tenderness or edema Back Exam Back exam: Present normal inspection Neurological Exam Neurological exam: Absent alert Expanded Neurological Exam Coma scale eye opening: To pain Coma scale motor response: Localizes to pain Coma scale verbal response: Inappropriate Coma scale total: 10 Skin Skin exam: Present warm and dry Medical Decision Making Medical Records Screening: Per USPSTF and CDC recommendations, given the prevalence of disease in our region, it is our hospital?s policy to screen for HIV and viral Hepatitis for all patients aged 18 and over and those with ongoing risk factors. [place] Inquiry Pt receiving controlled substance: No Vital Signs: 03/09/25 12:00 03/09/25 12:09 03/09/25 12:23 Temperature 93.6 F L 96.3 F L Temperature Source Core Pulse Rate 78 Pulse Rate [Left] 77 Respiratory Rate 16 19 Blood Pressure 74/44 L 73/44 L Blood Pressure [Right Arm] 90/50 L Blood Pressure Mean 54 51 Blood Pressure Mean [Right Arm] 63 Blood Pressure Source [Right Arm] Manual Cuff/ Auscultation Blood Pressure Position [Right Arm] Supine 02 Sat by Pulse Oximetry 97 98 Oxygen Delivery Method Room Air Fraction of Inspired Oxygen 03/09/25 12:30 03/09/25 12:45 03/09/25 13:00 Temperature 97.3 F L 97.3 F L 97.3 F L Temperature Source Pulse Rate 73 103 H 85 Pulse Rate [Left] Respiratory Rate 19 Blood Pressure 76/48 L 85/48 L 82/46 L Blood Pressure [Right Arm] Blood Pressure Mean 54 59 57 Blood Pressure Mean [Right Arm] Blood Pressure Source [Right Arm] Blood Pressure Position [Right Arm] 02 Sat by Pulse Oximetry 98 100 96 Oxygen Delivery Method Fraction of Inspired Oxygen 03/09/25 13:30 03/09/25 13:33 03/09/25 13:35 Temperature 97.3 F L 97.3 F L 97.3 F L Temperature Source Pulse Rate 77 77 72 Pulse Rate [Left] Respiratory Rate 16 16 16 Blood Pressure 61/31 L 63/31 L 65/31 L Blood Pressure [Right Arm] Blood Pressure Mean 41 41 40 Blood Pressure Mean [Right Arm] Blood Pressure Source [Right Arm] Blood Pressure Position [Right Arm] 02 Sat by Pulse Oximetry 97 99 Oxygen Delivery Method Fraction of Inspired Oxygen 03/09/25 13:40 03/09/25 13:45 03/09/25 13:45 Temperature 97.3 F L 97.3 F L Temperature Source Pulse Rate 76 80 Pulse Rate [Left] Respiratory Rate 16 16 17 Blood Pressure 67/35 L 70/35 L Blood Pressure [Right Arm] Blood Pressure Mean 46 44 Blood Pressure Mean [Right Arm] Blood Pressure Source [Right Arm] Blood Pressure Position [Right Arm] 02 Sat by Pulse Oximetry 99 98 Oxygen Delivery Method Fraction of Inspired Oxygen 30 03/09/25 13:50 03/09/25 14:00 03/09/25 14:05 Temperature 97.3 F L 97.5 F L 97.5 F L Temperature Source Pulse Rate 74 71 78 Pulse Rate [Left] Respiratory Rate 17 16 16 Blood Pressure 68/34 L 80/46 L 84/52 L Blood Pressure [Right Arm] Blood Pressure Mean 43 44 Blood Pressure Mean [Right Arm] Blood Pressure Source [Right Arm] Blood Pressure Position [Right Arm] 02 Sat by Pulse Oximetry 99 99 99 Oxygen Delivery Method Mechanical Ventilation Mechanical Ventilation Fraction of Inspired Oxygen 03/09/25 14:10 03/09/25 14:15 03/09/25 14:20 Temperature 97.5 F L 97.5 F L 97.5 F L Temperature Source Pulse Rate 76 80 75 Pulse Rate [Left] Respiratory Rate 16 16 16 Blood Pressure 81/38 L 81/39 L 88/50 L Blood Pressure [Right Arm] Blood Pressure Mean 52 52 Blood Pressure Mean [Right Arm] Blood Pressure Source [Right Arm] Blood Pressure Position [Right Arm] 02 Sat by Pulse Oximetry 100 99 100 Oxygen Delivery Method Mechanical Ventilation Mechanical Ventilation Mechanical Ventilation Fraction of Inspired Oxygen 03/09/25 14:25 03/09/25 14:30 03/09/25 14:40 Temperature 97.7 F 97.9 F Temperature Source Pulse Rate 84 79 Pulse Rate [Left] Respiratory Rate 16 16 Blood Pressure 80/39 L 91/52 L 92/52 L Blood Pressure [Right Arm] Blood Pressure Mean 54 54 54 Blood Pressure Mean [Right Arm] Blood Pressure Source [Right Arm] Blood Pressure Position [Right Arm] 02 Sat by Pulse Oximetry 99 99 Oxygen Delivery Method Mechanical Ventilation Fraction of Inspired Oxygen Lab Data Lab Results 03/09/25 11:55: WBC 12.6 H, RBC 3.95 L, Hgb 11.8 L, Hct 36.1 L, MCV 91.4, MCH 29.9, MCHC 32.7, RDW 14.8, Plt Count 255, MPV 10.9 H, Neut % (Auto) 80.5 H, Lymph % (Auto) 15.5, [place] % (Auto) 2.9, Eos % (Auto) 0.5, Baso % (Auto) 0.4, N eut # (Auto) 10.1 H, Lymph # (Auto) 2.0, [place] # (Auto) 0.4, Eos # (Auto) 0.1, Baso # (Auto) 0.1, PT 11.3, INR 1.02, Sodium 141, Potassium 3.8, Chloride 105, Carbon Dioxide 26, Anion Gap 13.8, BUN 13, Creatinine 1.00, Estimated GFR 67, Est GFR ( Amer) 80, Glucose 132 H, Calcium 9.2, Magnesium 1.6, Total Bilirubin 0.4, AST 25, ALT 20, Alkaline Phosphatase 45, Troponin I < 0.01, Total Protein 7.1, Albumin 4.3, Globulin 2.8, Albumin/Globulin Ratio 1.5, Serum HCG, Qual Negative, Salicylates < 1.0 L, Acetaminophen < 10 L, Plasma/Serum Alcohol 152 H, HCV Ab KARLY w/Rflx PCR Qn Negative, HIV Ag/Ab Combo Qual Negative 03/09/25 12:04: VBG pH 7.33, VBG pCO2 43.7, VBG pO2 44.7 H, VBG HCO3 22.7 L, VBG Total CO2 24.1, VBG O2 Saturation 74.7 H, VBG Base Excess -3.1 L, VBG Lactic Acid 3.2 H 03/09/25 12:16: Urine Color Yellow, Urine Appearance Clear, Urine pH 5.5, Ur Specific Dickinson >= 1.030, Urine Protein 2+ A, Urine Glucose (UA) Negative, Urine Ketones Negative, Urine Blood Negative, Urine Nitrate Negative, Urine Bilirubin 1+ A, Urine Urobilinogen 0.2, Ur Leukocyte Esterase Negative, Urine WBC 10-20, Ur Squamous Epith Cells 3-5, Urine Bacteria 2+, Urine Opiates Screen Negative, Urine Methadone Screen Negative, Ur Barbituates Screen Negative, Ur Phencyclidine Scrn Negative, Ur Amphetamines Screen Negative, U Benzodiazepines Scrn Negative, Urine Cocaine Screen Negative, U Marijuana (THC) Screen Negative 03/09/25 12:30: Specimen Source Art line, O2 % Room air, ABG pH 7.36, ABG pCO2 33.6 L, ABG pO2 86.7, ABG HCO3 18.4 L, ABG Total CO2 19.5 L, ABG O2 Saturation 95, ABG Base Excess -7.1 L, Frankie Test Patient unable 03/09/25 13:38: Specimen Source A line, O2 % 30%, ABG pH 7.30 L, ABG pCO2 34.0 L , ABG pO2 121.1 H, ABG HCO3 16.4 L, ABG Total CO2 17.4 L, ABG O2 Saturation 98, ABG Base Excess -10.0 L, Vent Rate 16, Tidal Volume 420, PEEP 5 03/09/25 11:55 03/09/25 11:55 Orders (Tests/Meds): ED MEDICATIONS Generic Name Dose Route Start Last Admin Trade Name Freq PRN Reason Stop Dose Admin Miscellaneous 5 ml/ Sodium 50 mls @ 20 mls/hr 03/09/25 13:00 03/09/25 13:57 Chloride IV 03/09/25 15:29 20 mls/hr ONCE ONE Administration Fentanyl Citrate 1,000 mcg/ 100 mls @ 1 mls/hr 03/09/25 13:15 03/09/25 13:49 Sodium Chloride IV 04/08/25 13:14 25 mcg/hr .Q24H SHABNAM 2.5 mls/hr Protocol Administration 10 MCG/HR Midazolam/Sodium Chloride 50 mg in 50 mls @ 1.579 mls/hr 03/09/25 13:15 03/09/25 13:57 Midazolam 50 Mg/50 Ml-0.9%Nacl IV 04/08/25 13:14 0.05 mg/kg/hr .Q24H SHABNAM 3.95 mls/hr Protocol Titration 0.02 MG/KG/HR Norepinephrine/Dextrose 8 mg in 250 mls @ 15 mls/hr 03/09/25 14:00 03/09/25 14:21 Levophed 8mg/250ml-D5w Premix IV 04/08/25 13:59 22 mcg/min .[id number] SHABNAM 41.25 mls/hr Protocol Titration 8 MCG/MIN Calcium Gluconate/Sodium Chloride 2 gm in 100 mls @ 50 mls/hr 03/09/25 15:01 Calcium Gluconate 2,000mg/100ml Nacl Premix IV 03/09/25 17:00 ONCE ONE Sodium Chloride 10 ml 03/09/25 12:04 Sodium Chloride 0.9% 10ml Flush Syringe IV 04/08/25 12:03 NEEDED PRN Maintain IV Site Discontinued Medications Generic Name Dose Route Start Last Admin Trade Name Freq PRN Reason Stop Dose Admin Etomidate 20 mg 03/09/25 12:45 03/09/25 12:51 Etomidate 40mg/20ml Vial IV 03/09/25 12:46 20 mg ONCE ONE Administration Fentanyl Citrate 100 mcg 03/09/25 13:02 03/09/25 13:05 Fentanyl 100mcg/2ml Vial IV 03/09/25 13:03 100 mcg ONCE ONE Administration Glucagon 5 mg 03/09/25 12:56 03/09/25 12:41 Glucagon 1 Mg/Ml Vial IV 03/09/25 12:57 5 mg ONCE ONE Administration Glucagon 5 mg 03/09/25 12:50 03/09/25 12:52 Glucagon 1 Mg/Ml Vial IV 03/09/25 12:51 5 mg ONCE ONE Administration Lactated Ringer's 1,000 mls @ 2,000 mls/hr 03/09/25 12:09 03/09/25 12:20 Lactated Ringer's 1000 Ml Bag IV 03/09/25 12:38 2,000 mls/hr .Q30M ONE Administration Succinylcholine Chloride 80 mg 03/09/25 12:45 03/09/25 12:52 Succinylcholine 20mg/Ml 10 Ml Mdv IV 03/09/25 12:46 80 mg ONCE ONE Administration ORDERS Category Date Time Status Consult to Behavioral Health [CONS] Stat Cons 03/09/25 12:54 Active Consult to Case Management [CONS] Routine Cons 03/09/25 12:04 Active XR chest portable Stat Exams 03/09/25 12:04 Taken Acetaminophen Stat Lab 03/09/25 11:55 Completed Complete Blood Count Auto Diff Stat Lab 03/09/25 11:55 Completed Comprehensive Metabolic Panel Stat Lab 03/09/25 11:55 Completed Drug Screen,Urine Stat Lab 03/09/25 12:16 Completed Ethyl Alcohol Stat Lab 03/09/25 11:55 Completed HCG Qualitative, Serum Stat Lab 03/09/25 11:55 Completed HIV Combo Stat Lab 03/09/25 11:55 Completed Hepatitis C Ab Qual. W/ RFX Stat Lab 03/09/25 11:55 Completed Magnesium Stat Lab 03/09/25 11:55 Completed Prothrombin Time INR Stat Lab 03/09/25 11:55 Completed Salicylate Stat Lab 03/09/25 11:55 Completed Troponin I Q3H Lab 03/09/25 15:15 Ordered Troponin I Q3H Lab 03/09/25 18:15 Ordered Troponin I Stat Lab 03/09/25 11:55 Completed Urinalysis and Microscopic Stat Lab 03/09/25 12:16 Completed Sputum Culture & Gram Stain Stat Micro 03/09/25 13:11 Received Urine Culture Stat Micro 03/09/25 12:16 Received Arterial Blood Gas Routine RT 03/09/25 12:30 Completed Arterial Blood Gas Routine RT 03/09/25 13:38 Completed Venous Blood Gas Stat RT 03/09/25 12:04 Completed ECG Data Tracing #1: I reviewed this ECG and interpreted as documented below: Normal sinus rhythm with a ventricular rate of 77 beats per minute, no acute ST changes concerning for STEMI, normal intervals ECG initial impression date: 03/09/25 ECG initial impression time: 11:56 Medical Decision Narrative: In summary, this patient is a 29-year-old female presenting to the Emergency Department for evaluation of intentional overdose. Differential diagnoses considered include but are not limited to intentional overdose, hypoglycemia, hypotension, acetaminophen toxicity, QTc prolongation, among others. Ruling out the most morbid conditions drove assessment. It should be noted patient's history includes extensive psychiatric history which is not at goal therapy. This complicates all aspects of care by increasing patient's risk for morbidity. I reviewed patient's past medical records and noted prior behavioral health evaluations in the past. On exam, the patient is obtunded with a GCS of 10. She is hypotensive with systolics in the 70s. Fingerstick glucose is normal, heart rate is in the 70s. She is protecting her airway upon arrival. 2 large-bore peripheral IVs were placed and a right radial arterial line was placed for hemodynamic monitoring because we had a difficult time getting good blood pressure measurements. Patient was given 2 pressure bags of IV fluids without good improvement in her pressure. Patient was given 5 mg of IV glucagon with good improvement in her blood pressure and heart rate. Her blood glucose increased appropriately afterward. Once the glucagon had worn off after about 15 minutes, her blood pressure dropped down again into the 70s, so she was given a second push of glucagon and glucagon drip was prepped. She was then initiated on a glucagon drip and maintenance IV fluids at 200 mL/h. We closely monitored her glucose and vital signs on cardiac telemetry with art line in place. Workup included broad lab evaluation to evaluate for toxic, metabolic derangements. Nursing had an interactive discussion with poison control on my behalf who recommended glucagon, blood pressure support, and further supportive care. Ultimately, mental status progressively declined while in the emergency department with GCS of 6. Given concern that she may not protect her airway with continued decline, I elected to intubate the patient with RSI. Patient was given IV etomidate and succinylcholine was intubated with 1 attempt successfully with no immediate complications. Sedation was initiated with IV fentanyl and Versed. With initiation of sedation despite being on the glucagon drip, she did have a drop in blood pressure and thus was started on Levophed. She was maintained on minimal ventilator settings, as she was not requiring any supplemental oxygen beforehand. She was simply intubated for airway protection. I independently interpreted x-ray after intubation and OG tube placement and noted satisfactory placement of both tubes. Labs obtained demonstrate mild leukocytosis at 12.6, mild anemia with hemoglobin of 11.8. Blood gas demonstrates mildly elevated lactic acid but otherwise is reassuring. Chemistry is reassuring. Ethanol level is elevated at 152. Salicylate and acetaminophen levels initially are negative. Unclear what time of ingestion was, though believed to be sometime around 7 AM according to dad. No one witnessed this, however. Patient tolerated support well on IV fentanyl, Versed, glucagon, and Levophed drips. Blood glucose was appropriately elevated in the setting of glucagon drip. IV fluid resuscitation continues. I administered IV calcium gluconate for persistent hypotension. Given intentional overdose, I feel patient would benefit from transfer to higher level of care with toxicology and psychiatric services. I then had an interactive discussion with Dr. Robles in the transfer center at who graciously excepted the patient for transfer to [facility]. As of 1418, we are awaiting callback for ICU bed placement. We have depleted the hospital's stores of glucagon preparing our drip, which is enough to run for a total of 2 hours. Ultimately, EMS transport was arranged and the patient was transferred in stable condition. Procedures Intubation Mallampati Score:: Class II Time out performed: Yes sedative: Etomidate Mg Given: 20 paralytic: Succinylcholine Mg Given: 80 Laryngoscope: Oswaldo (MAC3 video-assisted) ET Tube Size: 7.5 ET Tube Uncuffed: No Tube Secured Depth (cm): 21 Tube Secured Location: teeth Tube Placement Confirmation: visualized tube passing through cords, equal breath sounds bilaterally, no breath sounds over epigastrium and confirmation by capnometry Patient Tolerated Procedure: well and no complications Intubation Complications: none Arterial Line Time Out Performed: Yes Size (Gauge): 20 Technique Used: direct puncture technique Post-Procedure: line sutured into place and dry sterile dressing placed Patient Tolerated Procedure: well and no complications Complications: none Site: right and radial Critical Care Critical Care Time Critical Care Time: Yes Attestation: On 03/09/25, the high probability of a clinically significant, sudden or life threatening deterioration of the following system(s) required my full and direct attention, intervention and personal management. The time I documented below is in addition to time spent performing reported procedures but includes the following listed in this critical care notation. Total Time Total Critical Care Time: 75
[2025-03-09 12:12] LABS: Basophils # 0.1 K/mm3 (0-0.2); Basophils % 0.4 % (0.1-2.0); Eosinophils # 0.1 Kmm3 (0.0-0.4); Eosinophils % 0.5 % (0.1-12.0); Hematocrit 36.1 % (37.0-47.0); Hemoglobin 11.8 g/dL (12.2-16.2); Immature Granulocytes # 0.03 10^3uL; Immature Granulocytes % 0.2 %; Lymphocytes % 15.5 % (10-50); Mean Corpuscular HGB Conc 32.7 g/dL (31.8-35.4); Mean Corpuscular Hemoglobin 29.9 pg (27.0-31.2); Mean Corpuscular Volume 91.4 fl (81-99); Mean Platelet Volume 10.9 fl (7.4-10.4); Monocytes # 0.4 K/mm3 (0.1-1.0); Monocytes % 2.9 % (1.7-9.3); Neutrophils # 10.1 K/mm3 (1.8-7.8); Neutrophils % 80.5 % (37.0-80.0); Nucleated Red Blood Cells # 0 10^3/uL; Nucleated Red Blood Cells % 0 %; Platelet Count 255 K/mm3 (142-424); Red Blood Count 3.95 M/mm3 (4.20-5.40); Red Cell Distribution Width 14.8 % (11.5-17.5); Red Cell Distribution Width-SD 49.7 fL; White Blood Count 12.6 K/mm3 (4.8-10.8)
--- OUTSIDE RECORDS SUMMARY | 2025-03-09 12:12 | XMS_ITS | Clinical Summary ---
Author Organization Healthcare Address [address] [place] [address] Care Team Providers Care Produce Specialist Name Role Phone Provider, Moon Newby Primary Care Provid er Unavailable Allergies Active Allergy Reactions Criticality Noted Date Comments Hydrocodone Itching Medium 07/28/2021 Oxycodone Anaphylaxis High 07/28/2021 Medications * This document contains information received from the source organization and may not represent a complete record from that organization. famotidine (Pepcid) 20 MG tablet Take 1 tablet (20 mg) by mouth 2 (two) times a day. 120 tablet 2 4 Active Additional Information Patient not taking.Reported on 12/11/2024 Oral Electrolytes (Liquid I.V.) pack Take by mouth if needed. Active Ferrous Sulfate (Iron) 325 (65 Fe) MG tablet Take 1 tablet by mouth 2 (two) times a day. 60 tablet 11 4 Active Additional Information Patient not taking.Reported on 12/11/2024 lisinopril 10 MG tabletIndication s:Hypertension, unspecified type Take 1 tablet (10 mg) by mouth 1 (one) time each day. 30 tablet 11 5 10/16/19 26 Active cariprazine (Vraylar) 1.5 MG capsule Take 1 capsule (1.5 mg) by mouth in the morning. 30 capsule 5 Active sertraline (Zoloft) 50 MG tablet Take 1 tablet by mouth daily. 30 tablet 5 5 06/29/20 25 Active Active Problems Problem Noted Date Diagnosed Date Encounter for routine follow-up 09/25 History of shoulder dystocia in prior 09/02/2024 Family history of congenital heart defect 2023 Psychophysiological insomnia 11/07/2022 Overview (07/08/2023): Last Assessment & Plan: Psychological condition is newly identified. Start trazodone 50 mg 1/2 to 1 tablet at bedtime. Side effects discussed Psychological condition will be reassessed in 4 weeks. Bipolar depression 10/03/2022 07/08/2023 Overview (07/08/2023): Last Assessment & Plan: Psychological condition is improving with treatment. Patient will decrease Vraylar to 3 times weekly to see if this will help with insomnia and tremor Psychological condition will be reassessed in 4 weeks. ALLYSON (generalized anxiety disorder) 10/03/2022 07/08/2023 Resolved Problems Problem Noted Date Diagnosed Date Resolved Date 39 weeks gestation of 08/28/2024 09/25/2024 Breech presentation 08/13/2024 09/02/20 36 weeks gestation of 06/25/2024 09/02/2024 Uterine size-date discrepanc y in third trimester 06/25/2024 09/25/2024 Supervision of high risk pre gnancy, antepartum 03/30/2024 06/25/2024 Increased nuchal translucenc y space on ultrasound 03/03/2024 09/25/2024 Supervision of other normal , antepartum 01/15/2024 06/25/2024 Complete 02/15/2021 06/25/2024 Encounters Date Type Department Care Team Description 12/31/2024 Telephone Obstetrics & Gynecology [address] [place] [address] Kg Leal MD 12/24/2024 Results Follow-Up Obstetrics & Gynecology [address] [place] [address] Mae Villa MD 12/22/2024 3:00 PM EDT Clinical Support Obstetrics & Gynecology [address] [place] [address] Urinary tract infection without hematuria, site unspecified (Primary Dx) 12/22/2024 Travel 12/22/2024 Telephone Obstetrics & Gynecology [address] [place] [address] [address] Mae Villa MD from Last 3 Months Immunizations Immunization Administration Dates Next Due DTaP, Unspecified 11/03/2002, 9,05/23/1998,12/24 HPV, Quadrivalent 11/16/2015, 2,06/18/2011,03/28 Hep B, Adolescent or Pediatric 1997,1997 HiB, unspecified 03/17/1998,1997 Hib / Hep B 10/28/1998 IPV 11/03/2002,1997 Influenza, Unspecified 08/12/2019 Influenza, injectable, quadr ivalent, preservative free 11/29/2022 MMR 11/03/2002,10/28/1998 Meningococcal B, Recombinant 11/16/2015 Meningococcal MCV4, Unspecified 03/28/2011 Meningococcal MPSV4 11/16/2015 OPV 10/28/1998,03/17/1998 Tdap 07/10/2024,05/04/2009 Varicella 03/28/2011,01/18/1999 Family History Medical History Relation Name Comments No Known Problems Brother 1 No Known Problems Brother 2 Heart defect Daughter BAV No Known Problems Father No Known Problems Father's Brother No Known Problems Maternal Grandfather COPD Maternal Grandmother COPD Mother Lung cancer Mother No Known Problems Mother's Sister No Known Problems Paternal Grandfather Breast cancer Paternal Grandmother Relation Name Status Comments Brother 1 Alive Brother 2 Daughter Alive Father Alive Father's Brother Alive Maternal Grandfather Maternal Grandmother Mother Mother's Sister Alive Paternal Grandfather Alive Paternal Grandmother Social History Tobacco Use Types Packs/Day Years Used Date Smoking Tobacco: Never Passive Smoke Exposure: Never Smokeless Tobacco: Never Tobacco Cessation:Counseling Given: Not Answered Alcohol Use Standard Drinks/Week Comments Not Currently 1 (1 standard drink = 0.6 oz pur e alcohol) 1 drink a month PHQ-2 Answer Date Recorded Patient Health Questionnaire-2 Score 3 11/30/2024 [place] Depression Scale Answer Date Recorded [place] Depression Scale Total 19 11/09/2024 The thought of harming myself has occurred to me . Never 11/09/2024 PHQ-9 Answer Date Recorded Patient Health Questionnaire-9 Score 21 11/30/2024 PHQ-2A Answer Date Recorded Depression Risk 0 08/13/2024 PHQ-9A Answer Date Recorded Depression Risk Score 0 08/13/2024 Comments No Sex and Gender Information Value Date Recorded Sex Assigned at Not on file Legal Sex Female 6:41 PM EDT Gender Identity Not on file Sexual Orientation Not on file Last Filed Vital Signs Vital Sign Reading Time Taken Comments Blood Pressure 126/74 11/30/2024 1:28 AM EDT Pulse 108 11/30/2024 1:28 AM EDT Temperature 36.6 C (97.8 F) 11/30/2024 1:28 AM EDT Respiratory Rate 20 11/29/2024 10:48 PM EDT Oxygen Saturation 98% 11/30/2024 1:28 AM EDT Inhaled Oxygen Concentration - - Weight 88 kg (194 lb) 11/30/2024 1:31 AM EDT Height 162.6 cm (5' 4 ) 11/30/2024 1:31 AM EDT Body Mass Index 33.3 11/30/2024 1:31 AM EDT Plan of Treatment Health Maintenance Due Date Last Done Comments [facility]-Infant/Child/Adol SDOH Screenings 1997 [facility]- SDOH Screenings 2015 [facility]-Adult SDOH Screenings 2015 [facility]-Pap Smear 2018 [facility]-GDVOP-13 Vaccine ( season) 2024 10/25/2020, 10/04/2020 [facility]-Influenza Vaccine (Season Ended) 2025 11/29/2022, 08/12/2019 [facility]-Depression Screening 11/30/2025 025, 11/30/2024, 11/09/2024, Additional history exists [facility]-DTaP,Tdap,and Td Vaccines (7 - Td or Tdap) 07/10/2034 07/10/2024, 05/04/2009, 11/03/2002, Additional history exists [facility]-Zoster Vaccines (1 of 2) 2047 03/28/2011, 01/18/1999 [facility]-HIB Vaccines Completed 10/28/1998, , 1997 [facility]-Hepatitis B Vaccines Completed 999, 1997, 1997 [facility]-IPV Vaccines Completed 11/03/2002, 01/1999, 03/17/1998, Additional history exists [facility]-Varicella Vaccines Completed 03/28/2011, 1998 HPV Vaccines Completed 11/16/2015, 11/21, 06/18/2011, Additional history exists [facility]-HIV Screening Completed 01/15/2024, , 02/01/2021, Additional history exists [facility]-Hepatitis C Screening Completed 2023, 04/16/2023, 02/01/2021, Additional history exists [facility]-Obesity Intervention Completed 025, 11/09/2024, 10/16/2024, Additional history exists [facility]-Hepatitis A Vaccines Aged Out No longer eligible based on patient's age to complete this topic [facility]-Pneumococcal Vaccine: Pediatrics (0 to 5 Years) and At-Risk Patients (6 to 49 Years) Aged Out No longer eligible based on patient's age to complete this topic [facility]-Rotavirus Vaccines Aged Out No lo nger eligible based on patient's age to complete this topic Procedures Procedure Name Priority Date/Time Associated Diagnosis Comments POCT URINALYSIS DIPSTICK Routine 12/22/2024 3:43 PM EDT Urinary tract infection without hematuria, site unspecified URINE CULTURE Routine 12/22/2024 3:34 PM EDT Urinary tract infection without hematuria, site unspecified HEPATITIS C ANTIBODY W/REFLEX TO HCV QUANT PCR Routine 01/15/2024 3:19 PM EDT Missed period HIV 1/2 ANTIBODY/ANTIGEN SCREEN WITH REFLEX TO HIV I/II DIFFERENTIATION Routine 01/15/2024 3:19 PM EDT Missed period from Last 3 Months or Most Recently Relevant to Health Maintenance Results * (ABNORMAL) POCT Urinalysis Dipstick (12/22/2024 3:43 PM EDT) [facility] POCT Urine Color Yellow POCT Urine Clarity Clear POCT Glucose Urine Negative Negative mg/dL POCT Bilirubin, Urine Negative Negative POCT Ketones, Urine Trace(A) Negative mg/dL POCT Specific Ranson, Urine >=1.030 POCT Blood, Urine Negative Negative POCT pH, Urine 6.0 5.0 to 8.0 POCT Protein, Urine 100(A) Negative mg/dL POCT Urobilinogen, Urine 0.2 0.2, 1 E.U./dL POCT Nitrite, Urine Negative Negative POCT Leukocyte Esterase, Urine Negative Negative Test Strip Lot Number [id number] Test Strip Lot Expiration 07/23/25 Urine Urine specimen obtained by clean catch procedure / Unknown 12/22/2024 3:43 PM EDT Mae Villa MD POINT OF CARE TEST ENTER /EDIT ORDERABLES Final Result * Urine Culture (12/22/2024 3:34 PM EDT) [facility] Culture <10,000 CFU/mL Mixed urogenital, fecal, or skin adela present. 12/24/2024 10:37 AM EDT [facility] Urine Urine specimen obtained by clean catch procedure / Unknown Non-blood Collection / Unknown 12/22/2024 3:34 PM EDT 12/22/2024 6:18 PM EDT Mae Villa MD LAB MICROBIOLOGY - GENER AL ORDERABLES Final Result [facility] [address] [place] [address] * HIV 1 & 2 Antibody/Antigen Screen (01/15/2024 3:19 PM EDT) [facility] HIV 1 & 2 Antibody/Antigen Screen Non Reactive Non Reactive 01/15/2024 7:02 PM EDT [facility] Comment:Screening for HIV 1 & 2 antibodies, and P24 antigen is NONREACTIVE. No confirmatory testing is required. Blood Venous blood specimen / Unknown Venipuncture / Unknown 01/15/2024 3:19 PM EDT 01/15/2024 6:29 PM EDT Chioma Wilson APRN, [facility] LAB BLOOD ORDERABLE S Final Result [facility] [address] [place] [address] * Hepatitis C Antibody w/Reflex to HCV Quant PCR (01/15/2024 3:19 PM EDT) Hepatitis C Antibody Negative Negative 01/15/2024 6:56 PM EDT [facility] Blood Venous blood specimen / Unknown Venipuncture / Unknown 01/15/2024 3:19 PM EDT 01/15/2024 6:14 PM EDT Chioma Wilson APRN, [facility] LAB BLOOD ORDERABLE S Final Result Performing Organization Address City/[facility] Co de Phone Number [facility] [address] [place] [address] from Last 3 Months or Most Recently Relevant to Health Maintenance Insurance [employer] [facility] MEDICAID Care Teams Produce Specialist Relationship Specialty Start Date End Date Provider, Moon [place] PCP - General 03/21/21
--- OUTSIDE RECORDS SUMMARY | 2025-03-09 12:13 | XMS_ITS | Encounter Summary ---
Author Organization Healthcare Address [address] [place] [address] Care Team Providers Care Rail Express Clerk Name Role Phone Provider, Moon [place] Primary Care Provid er Unavailable Encounter Details Date Type Department Care Team ([facility] st Contact Info) Description 12/24/2024 Results Follow-Up Obstetrics & Gynecology [address] [place] [address] Mae Villa MD [address] [place] [address] Social History Tobacco Use Types Packs/Day Years Used Date Smoking Tobacco: Never Passive Smoke Exposure: Never Smokeless Tobacco: Never Alcohol Use Standard Drinks/Week Comments Not Currently 1 (1 standard drink = 0.6 oz pur e alcohol) 1 drink a month PHQ-2 Answer Date Recorded Patient Health Questionnaire-2 Score 3 11/30/2024 [place] Depression Scale Answer Date Recorded [place] Depression Scale Total 19 11/09/2024 The thought [...] on file Sexual Orientation Not on file documented as of this encounter Plan of Treatment Not on file documented as of this encounter Visit Diagnoses Not on filedocumented in this encounter Additional Health Concerns Assessment Noted Time PHQ-9 Depression Total Score: 21 025 1:41 AM EDT A fall risk assessment has been complete d for the patient 11/09/2024 1:11 PM EST A Body Mass Index follow-up plan has been documented for the patient 12/22/2024 3:44 PM EDT documented as of this encounter Care Teams Rail Express Clerk Relationship Specialty Start Date End Date Provider, Moon Newby PCP - General 03/21/21 documented as of this encounter
--- OUTSIDE RECORDS SUMMARY | 2025-03-09 12:13 | XMS_ITS | Data Portability ---
Author Organization [facility] AD[facility] Address [address] [place] [phone] Assessment No assessment recorded. Plan of Treatment Reminders Order Date Submit Date Provider Last Modified By Organization Details Last Modified Time Details Appointments None recorded. Lab rapid strep group A, throat 2021 022 [email or web address] 2 Not available 15:45:55 influenza virus A + B + SARS-CoV-2 (COVID19) Ag panel, rapid IA, upper respiratory specimen 2021 022 [email or web address] 2 Not available 15:45:55 Referral None recorded. Procedures None recorded. Surgeries None recorded. Imaging None recorded. Medication Orders ondansetron HCl 8 mg tablet 2021 [id number], [address] [place], [address], 03:38:12 Patient TargetsNo targets recorded. Patient Instructions Encounter Date Encounter Id Patient Instructions Last Modified By Organization Details Last Modified Time 08/03/2022 [id number] Viral Infections : Care Instructions Overview You don't feel well, but it's not clear what's causing it. You may have a viral infection. Viruses cause many illnesses, such as the common cold, influenza, fever, rashes, and the diarrhea, nausea, and vomiting that are symptoms of a stomach infection. You may wonder if antibiotic medicines could make you feel better. But antibiotics only treat infections caused by bacteria. They don't work on viruses. The good news is that viral infections usually aren't serious. Most will go away in a few days without medical treatment. In the meantime, there are a few things you can do to make yourself more comfortable. Follow-up care is a drake part of your treatment and safety. Be sure to make and go to all appointments, and call your doctor if you are having problems. It's also a good idea to know your test results and keep a list of the medicines you take. How can you care for yourself at home? Get plenty of rest if you feel tired. Take an zoou-dph-emzarar pain medicine if needed, such as acetaminophen (Tylenol), ibuprofen (Advil, Motrin), or naproxen (Aleve). Read and follow all instructions on the label. Be careful when taking mlot-lfb-zxbxqve cold or flu medicines and Tylenol at the same time. Many of these medicines have acetaminophen, which is Tylenol. Read the labels to make sure that you are not taking more than the recommended dose. Too much acetaminophen (Tylenol) can be harmful. Drink plenty of fluids. If you have kidney, heart, or liver disease and have to limit fluids, talk with your doctor before you increase the amount of fluids you drink. Stay home from work, school, and other public places while you have a fever. When should you call for help? Call anytime you think you may need emergency care. For example, call if: You have severe trouble breathing. You passed out (lost consciousness). Call your doctor now or seek immediate medical care if: You seem to be getting much sicker. You have a new or higher fever. You have blood in your stools. You have new belly pain, or your pain gets worse. You have a new rash. Watch closely for changes in your health, and be sure to contact your doctor if: You start to get better and then get worse. You do not get better as expected. Care instructions adapted under license by [employer]. This care instruction is for use with your licensed healthcare professional. If you have questions about a medical condition or this instruction, always ask your healthcare professional. [employer], [employer] disclaims any warranty or liability for your use of this information. [email or web address] Not available 08/03/2022 14:44:51 Reason for Referral None Reported. Results Created Date Observation Date Name Description Value Unit Range Abnormal Flag Note LastModifiedBy Organization Detail LastModifiedTime 08/03/20 22 08/03/2022 influ amira virus A + B + SARS- CoV-2 (COVI D19) Ag panel , rapid IA, upper respi rator y speci men FLU A negati ve Not Available [facility] [address], [place], [address], 08/03/2022 13:59:09 08/03/20 22 08/03/2022 influ amira virus A + B + SARS- CoV-2 (COVI D19) Ag panel , rapid IA, upper respi rator y speci men FLU B negati ve Not Available [facility] [address], [place], [address], 08/03/2022 13:59:09 08/03/20 22 08/03/2022 influ amira virus A + B + SARS- CoV-2 (COVI D19) Ag panel , rapid IA, upper respi rator y speci men SARS COV + SARS OV 2 negati ve Not Available [facility] [address], [place], [address], 08/03/2022 13:59:09 08/03/20 22 08/03/2022 rapid strep group A, throa t Strep negati ve Not Available [facility] [address], [place], [address], 08/03/2022 13:49:01 Result Notes None recorded. Procedures Surgical History Date Name Laterality Status Provider Name and Address Organization Details Recorded Time extraction of wisdom tooth completed Maite Gracia [place] [facility] 08/03/2022 13:46:09 Imaging Results None recorded. Procedure Notes None recorded. Medical Equipment None Reported. Allergies No known drug allergies Medications Name Sig Start Date Stop Date Status Note LastModified by Organization Details LastModified Time Iron (ferrous sulfate) 325 mg (65 mg iron) tablet Take 1 tablet every day by oral route. active Not Available Not Available No t Available ondansetron HCl 8 mg tablet Take 1 tablet every 8 hours by oral route as directed for 5 days. 2021 active Not Available Not Available Not Avai lable Vitals Date Recorded Body height Body mass index (BMI) Body weight Body temperature Oxygen saturation Oxygen saturation in Arterial blood by Pulse oximetry Heart rate Systolic blood pressure Diastolic blood pressure Provider Name and Address Organization Details Last Updated DateTime 2 160.02 cm 32 kg/m2 46542.5 g 98.3 [degF] 100 % 100 % 90 /min 115 mm[Hg] 58 mm[Hg] Maite Garcia [facility] & [place] 2 13:45:17 Social History None recorded. Functional Status None recorded. Mental Status None recorded. Family History Nothing Reported. Medical History Condition Response Coronary Artery Disease N None N Other N Gout N Blood Diseases N Kidney Stones N Hyperthyroidism N Breast Cancer N Blood Transfusion N COPD N Depression N Hypothyroidism N Lung Disease N Defects or Inherited Disease N Developmental or Behavioral Disorders N Breast Problem N Difficulty Swallowing N Anesthesia Complications N Anxiety Disorder N Meniere's disease N Muscle, Joint, or Bone Problems N Vision or Eye Problems N Arthritis N Infertility N Polyps N Cancer N Stroke N Varicosities N Endometriosis N Bladder or Kidney Problems N High Cholesterol N Liver Disease N Headaches N Fibromyalgia N Kidney Disease N Allergies/Hayfever N Heart Problems N Ear or Hearing Problems N Hospitalizations N Thyroid Problems N GI Problems N ADD/ADHD N Eating Disorder N Skin Problems N Anemia N Constipation N Mental Illness N Diabetes N Ovarian Cancer N Bedwetting N Seizures/Epilepsy N Tuberculosis N Eczema N Abuse/Domestic Violence N Diverticulitis N Asthma N Reflux/GERD N Jaundice N Hepatitis N Heart Disease N Pulmonary Embolism N Chronic Ear Infections N Pre-Eclampsia N Hypertension N Chicken Pox N Autism Spectrum Disorder (ASD) N Osteoporosis N Thrombophilias N Gynecological HistoryNo gynecological history recorded. Obstetrics History GPAL:G 0 P 0 0 0 0 Past Encounters Encounter ID Performer Location Encounter Start Date Encounter Closed Date Diagnosis/Indication Diagnosis SNOMED-CT Code Diagnosis ICD10 Code Diagnosis Note [id number] Trudy Fortune in, ENGINEERING DESIGNER [facility] [address] [facility] [address] [place] [address] 08/03/2022 12:18:52 08/03/2022 14:18:47 Pain in throat 388604631 R07.0 Viral gastroenteritis 11 [id number] A08.4 Health Concerns Section Related Observation LastModified by Organization Detai ls LastModified Time None Recorded Concern Status LastModified by Organization Details LastModified Time None Recorded Advance Directives Directive None Recorded Payers Insurance Date Sequence Insurance Name Policy Number Policy Rodrigez Covered Member ID Rodrigez Member ID Guarantor Name 08/03/2022 1 AETNA [facility] (MEDICAID HMO) Jade Aaron [id number] Notes Date Note Type Note Provider Name and Address Organization Details Recorded Time 08/03/2022 text/html patient presents to clinic for stomach cramps, nausea, vomiting, and diarrhea over the last few days. Denies any fever. Reports some chills. Denies any headache. Deneis any sore throat. Denies and chest pain or SOB Trudy Ayala, ENGINEERING DESIGNER [address], [place], [address], [facility] - [place] & [place] 08/03/2022 14:55:55 OBGyn Episode No OBEpisode recorded.
[2025-03-09 12:15] LABS: VBG Base Excess -3.1 mmol/L (-2.4-2.3); VBG HCO3 22.7 mmol/L (23-30); VBG Oxygen Saturation 74.7 % (50-70); VBG PCO2 43.7 mmol/L (35-51); VBG PH 7.33 mmol/L (7.31-7.41); VBG PO2 44.7 mmol/L (28-40); VBG Total CO2 24.1 mmol/L (23-27)
[2025-03-09 12:17] LABS: Lactate Venous 3.2 mmol/L (0.4-2.0)
[2025-03-09 12:20] LABS: Ethyl Alcohol 152 mg/dl (0-10)
[2025-03-09] MEDS: LACTATED RINGERS 1000ML 1,000 ML 2000 ML IV (12:20)
[2025-03-09 12:21] LABS: Alanine Aminotransferase 20 U/L (12-78); Albumin Level 4.3 g/dl (3.5-5.0); Albumin/Globulin Ratio 1.5 (1.1-1.8); Alkaline Phosphatase 45 U/L (38-126); Anion Gap 13.8 mEq/L (5-15); Aspartate Amino Transferase 25 U/L (14-36); Bilirubin,Total 0.4 mg/dl (0.2-1.3); Blood Urea Nitrogen 13 mg/dl (7-17); Calcium 9.2 mg/dl (8.4-10.2); Carbon Dioxide 26 mmol/L (22.0-30.0); Chloride 105 mmol/L (98-107); Estimated Glomerular Filt Rate 67 ml/min (>60); GFR (African American) 80 ML/MIN (>60); Globulin 2.8 g/dL (1.3-3.2); Glucose 132 mg/dl (74-100); Magnesium 1.6 mg/dl (1.6-2.3); Potassium 3.8 mmoL/L (3.5-5.1); Sodium 141 mmol/L (136-145); Total Protein,Serum 7.1 g/dl (6.3-8.2)
[2025-03-09 12:22] LABS: Microscopic, Urine URINE MICROSCOPIC (MICROSCOPIC)
[2025-03-09 12:24] LABS: Appearance,Urine CLEAR (Clear); Blood, Urine Negative (Negative); Color,Urine YELLOW (Yellow); Glucose,Urine (UA) Negative (Negative); Ketones,Urine Negative (Negative); Leukocyte Esterase,Urine Negative (Negative); Nitrate,Urine Negative (Negative); PH,Urine 5.5 (5.0-8.5); Protein,Urine 2+ (Negative); Specific Gravity, Urine >= 1.030 (1.005-1.030); Urobilinogen,Urine 0.2 EU/dl (0.2)
[2025-03-09 12:28] LABS: Acetaminophen < 10 ug/ml (10-30); Salicylate < 1.0 mg/dL (2.0-20.0)
[2025-03-09 12:31] LABS: Bilirubin,Urine 1+ (Negative)
[2025-03-09 12:33] LABS: HCG Qualitative, Serum Negative (Negative); Troponin I < 0.01 ng/ml (0.00-0.034)
[2025-03-09 12:35] LABS: INR 1.02 (0.9-1.1); Prothrombin Time 11.3 seconds (10.1-12.5)
[2025-03-09 12:36] LABS: Amphetamine/Metha Screen,Urine Negative ng/ml (<1000)
[2025-03-09 12:37] LABS: Barbiturates Screen,Urine Negative ng/ml (<200); Benzodiazepines Screen,Urine Negative ng/ml (<200)
[2025-03-09 12:37] LABS: ABG Base Excess -7.1 mmol/L (-2.4-2.3); ABG HCO3 18.4 mmhg (22.0-26.0); ABG Oxygen Saturation 95 % (90-100); ABG PCO2 33.6 mmhg (35.0-45.0); ABG PH 7.36 mmol/L (7.35-7.45); ABG PO2 86.7 mmhg (80-100); ABG TCO2 19.5 mmhg (23-27)
[2025-03-09 12:38] LABS: Cannabinoid Screen,Urine Negative ng/ml (<50)
[2025-03-09 12:38] LABS: Allen's Test Patient Unable; Oxygen Room Air %; Source Art Line
[2025-03-09 12:40] LABS: Opiate Screen,Urine Negative ng/ml (<300); Phencyclidine Screen,Urine Negative ng/ml (<25)
[2025-03-09] MEDS: GLUCAGON 1 MG/ML VIAL 5 MG IV ×2 (12:41→12:52)
--- NOTE | 2025-03-09 12:49 | PC.NURSE ---
Called [facility] at 1159 and they called back and declined due to weather
[2025-03-09] MEDS: ETOMIDATE 40MG/20ML VIAL 20 MG IV (12:51)
--- NOTE | 2025-03-09 12:51 | PC.NURSE ---
Called [facility] at 1157 and they called back and declined for weather
[2025-03-09] MEDS: SUCCINYLCHOLINE 20MG/ML 10 ML MDV 80 MG IV (12:52)
[2025-03-09] MEDS: FENTANYL 100MCG/2ML VIAL 100 MCG IV (13:05)
[2025-03-09 13:07] LABS: Bacteria,Urine 2+ /lpf
[2025-03-09 13:13] LABS: Cocaine Screen,Urine Negative ng/ml (<300); Methadone Screen,Urine Negative ng/ml (<300)
--- NOTE | 2025-03-09 13:17 | PC.NURSE ---
Called [facility] to see about tre[facility]ferring this pt. [facility] advised that they would call us back
[2025-03-09] MEDS: MIDAZOLAM HCL IN 0.9 % NACL/PF 50 MG/50 ML PLAST..BAG IV (13:19)
--- NOTE | 2025-03-09 13:30 | PC.NURSE ---
Intubation Documentation 1252 7.[address] Jesus, Positive Color Change per RT Tube secured at 22cm at the Lip Bilateral breath Sound noted per Dr. Jesus 1259 OG 16 Occitan placed, 60 CM at the lip See MAR/Chart for further details.
--- NOTE | 2025-03-09 13:31 | PC.NURSE ---
called back and is speaking with Dr Jesus at this time
[2025-03-09 13:41] LABS: ABG HCO3 16.4 mmhg (22.0-26.0); ABG Oxygen Saturation 98 % (90-100); ABG PO2 121.1 mmhg (80-100); ABG TCO2 17.4 mmhg (23-27)
[2025-03-09 13:43] LABS: Oxygen 30% %; PEEP 5; Source A LINE; Tidal Volume 420; Vent Rate 16
[2025-03-09] MEDS: FENTANYL CITRATE/PF 1,000 MCG in 0.9 % SODIUM CHLORIDE 80 ML 2.5 MCG IV (13:49)
--- NOTE | 2025-03-09 13:52 | PC.NURSE ---
[facility] called back and is speaking with Dr Jesus once again
--- NOTE | 2025-03-09 13:53 | PC.NURSE ---
Katherine Correa checked the FSBS and it was [phone]
[2025-03-09] MEDS: NOREPINEPHRINE BITARTRATE/D5W 8 MG/250 ML PLAST..BAG 30 MG IV (13:54)
[2025-03-09 13:56] LABS: HIV Combo NEGATIVE (Negative)
[2025-03-09 14:03] LABS: Hepatitis C Ab Qual. W/ RFX NEGATIVE (Negative)
--- NOTE | 2025-03-09 14:21 | PC.NURSE ---
call made to [employer] [facility] for weather check
--- NOTE | 2025-03-09 14:21 | PC.NURSE ---
[facility] declined due to weather
--- NOTE | 2025-03-09 15:06 | PC.NURSE ---
Called [facility] again to do a weather check to see if they could fly this pt to . Advised that they would call us back
--- NOTE | 2025-03-09 15:07 | PC.NURSE ---
Mara nieto [facility] called to report Patient has Bed Assignment, ICU 460, Call report to [phone].
--- NOTE | 2025-03-09 15:11 | PC.NURSE ---
[facility] [place] back and [place] both declined due to weather
[2025-03-09] MEDS: CALCIUM GLUC IN NACL, ISO-OSM 2 GM/100 ML BAG IV (15:40)
--- NOTE | 2025-03-09 15:45 | PC.NURSE ---
Patient report called to MAKENZIE Laboy at [facility] ICU.
--- NOTE | 2025-03-09 15:48 | PC.NURSE ---
Called [facility] and they also declined for weather
[2025-03-09] MEDS: SODIUM BICARB 8.4% 50ML SYRINGE (CRASH CART) 50 MEQ IV (16:03)
[2025-03-09 16:18] LABS: Reflex Lactic Add Lactic Reflex
--- NOTE | 2025-03-09 16:55 | PC.NURSE ---
MAKENZIE Reyes spoke with poison control, states the only additional thing they recommend is high doses of insulin. Dr. Cosby notified, no further orders at this time.
--- NOTE | 2025-03-09 17:23 | PC.NURSE ---
Called [employer] [facility] to check weather to see about flying this pt. [facility] would call us back and let us know
[2025-03-09] MEDS: DEXTROSE 10 % AND 0.45 % NACL 1,000 ML 125 ML IV (18:34)
--- NOTE | 2025-03-09 18:38 | PC.NURSE ---
EMS at bedside for transport to [facility].
--- NOTE | 2025-03-09 18:43 | PC.NURSE ---
Updated patient report called to MAKENZIE Laboy at [facility].
[2025-03-09] MEDS: KETAMINE 50MG/1ML SYRINGE 50 MG IV (18:55)
--- NOTE | 2025-03-12 08:35 | PC.NURSE ---
Sputum culture results faxed to [facility].
== END 2025-03-09 19:05 | disposition short-term general hospital (02) ==
PROVIDERS: Emergency Provider Emergency Medicine
DX: T44.7X2A Poisoning by beta-adrenoreceptor antagonists, intentional self-harm, initial encounter (principal); T43.592A Poisoning by other antipsychotics and neuroleptics, intentional self-harm, initial encounter; F43.11 Post-traumatic stress disorder, acute; F31.4 Bipolar disorder, current episode depressed, severe, without psychotic features; Z91.51 Personal history of suicidal behavior
CPT/HCPCS: 31500; 51702; 71045; 80053; 80307; 80320; 80329; 81001; 82803; 83735; 84484; 84703; 85025; 85610; 86803; 87070; 87077; 87086; 87186; 87205; 87389; 96365; 96366; 96375; 99291; J0330; J0612; J1611; J2251; J3010; J7120

== ENCOUNTER 2025-05-05 07:21 | Inpatient (IN) | payer OTHER, SELFPAY ==
--- OUTSIDE RECORDS SUMMARY | 2025-03-09 19:57 | XMS_ITS | Encounter Summary ---
Author Organization Healthcare Address [address] [place] [address] Care Team Providers Care Pest Control Service Technician Name Role Phone Provider, Moon Glencoe Primary Care Provid er Unavailable Reason for Visit * Auth/Cert (Routine) Specialty Diagnoses / Procedures Referred By Jeremi t Referred To Contact Diagnoses Acute respiratory failure Intentional overdose Fransico Teran MD [address] [address] Phone: tel: fax: [facility] [address] [place] [address] Phone: tel: Referral ID Status Reason Start Date Expiration Date Visits Re quested Visits Authorized [id number] 1 1 Encounter Details Date Type Department Care Team (Latest Contact Info) Description 03/09/2025 7:57 PM EDT - 03/10/2025 5:54 PM EDT Hospital Encounter [facility] [address] [place] [address] Fransico Teran MD [address] [facility] [address] [place] [address] Suicide attempt by beta-adrenergic antagonist overdose, initial encounter (CMS/HCC) (Primary Dx); Acute respiratory failure with hypoxia; Shock (CMS/HCC) Discharge Disposition: Psychiatric Hospital Social History Tobacco Use Types Packs/Day Years Used Date Smoking Tobacco: Never Passive Smoke Exposure: Never Smokeless Tobacco: Never Alcohol Use Standard Drinks/Week Comments Yes 6 (1 standard drink = 0.6 oz pur e alcohol) 1 drink a month PHQ-2 Answer Date Recorded Patient Health Questionnaire-2 Score 3 11/30/2024 [place] Depression Scale Answer Date Recorded [place] Depression Scale Total 19 11/09/2024 The thought of harming myself has occurred to me . Never 11/09/2024 PHQ-9 Answer Date Recorded Patient Health Questionnaire-9 Score 21 11/30/2024 Humiliation, Afraid, Rape, and Kick questionnair e Answer Date Recorded Within the last year, have y ou been afraid of your partner or ex-partner? No 03/10/2025 Within the last year, have y ou been humiliated or emotionally abused in other ways by your partner or ex-partner? No Within the last year, have y ou been kicked, hit, slapped, or otherwise physically hurt by your partner or ex-partner? No 03/10/2025 Within the last year, have y ou been raped or forced to have any kind of sexual activity by your partner or ex-partner? No 03/10/2025 Social Connection and Isolation Panel Answer Date Recorded In a typical week, how many times do you talk on the phone with family, friends, or neighbors? More than three times a week 03/10/2025 How often do you get togethe r with friends or relatives? More than three times a week 03/10/2025 How often do you attend [facility] or yarsanism services? Never 03/10/2025 Do you belong to any clubs o r organizations such as congregational groups, unions, fraternal or athletic groups, or school groups? No 03/10/2025 How often do you attend meet ings of the clubs or organizations you belong to? Never 03/10/2025 Are you , , di vorced, , never , or living with a partner? Never 03/10/2025 AUDIT-C Answer Date Recorded Q1: How often do you have a drink containing alc ohol? 2-3 times a week 03/10/2025 Q2: How many drinks containi ng alcohol do you have on a typical day when you are drinking? 3 or 4 03/10/2025 Q3: How often do you have si x or more drinks on one occasion? Less than monthly 03/10/2025 Exercise Vital Sign Answer Date Recorde d On average, how many days pe r week do you engage in moderate to strenuous exercise (like a brisk walk)? 2 days 03/10/2025 On average, how many minutes do you engage in exercise at this level? 60 min 03/10/2025 Hunger Vital Sign Answer Date Recorded Within the past 12 months, y ou worried that your food would run out before you got the money to buy more. Never true 03/10/20 25 Within the past 12 months, t he food you bought just didn't last and you didn't have money to get more. Never true 03/10/2025 PRAPARE - Transportation Answer Date Re corded In the past 12 months, has l ack of transportation kept you from medical appointments or from getting medications? No 02/21 In the past 12 months, has l ack of transportation kept you from meetings, work, or from getting things needed for daily living? No 03/10/2025 Housing Stability Vital Sign Answer Stan e Recorded In the last 12 months, was t here a time when you were not able to pay the mortgage or rent on time? No 03/10/2025 Number of Times Moved in the Last Year Not on fi le 03/10/2025 At any time in the past 12 m [facility], were you homeless or living in a senior care (including now)? No 03/10/2025 Safety and Environment Answer Date Mohit rded Do you worry that your child may have been physically abused? No 03/10/2025 Do you worry that your child may have been sexua lly abused? No 03/10/2025 Are there any guns kept in o r around your home or where your child spends time? No 03/10/2025 Guns Unloaded or Locked Away Not on file Utilities Answer Date Recorded In the past 12 months has th e electric, gas, oil, or water company threatened to shut off services in your home? No 03/10/2025 PHQ-2A Answer Date Recorded Depression Risk 0 08/13/2024 PHQ-9A Answer Date Recorded Depression Risk Score 0 08/13/2024 Comments Unknown Sex and Gender Information Value Date Recorded Sex Assigned at Not on file Legal Sex Female 6:41 PM EDT Gender Identity Not on file Sexual Orientation Not on file documented as of this encounter Last Filed Vital Signs Vital Sign Reading Time Taken Comments Blood Pressure 89/54 03/09/2025 9:00 PM EDT Pulse 66 03/10/2025 4:00 PM EDT Temperature 37.3 C (99.1 F) 03/10/2025 4:00 PM EDT Respiratory Rate 16 03/10/2025 4:00 PM EDT Oxygen Saturation 98% 03/10/2025 4:00 PM EDT Inhaled Oxygen Concentration - - Weight 81 kg (178 lb 9.2 oz) 03/10/2025 9:00 AM EDT Height 162.6 cm (5' 4.02 ) 03/10/2025 9:00 AM ED T Body Mass Index 30.64 03/10/2025 9:00 AM EDT documented in this encounter Functional Status * AUDIT-C Score Answer Date of Assessment Author 5 03/10/2025 6:44 PM EDT Orlando Baker RN * Question Answer Date of Assessment Author Q1: How often do you have a drink containing alcohol? 2-3 times a week 03/10/2025 6:44 PM EDT Amado Baker RN Q2: How many drinks containing alcohol do you have on a typical day when you are drinking? 3 or 4 03/10/2025 6:44 PM EDT Amado Baker RN Q3: How often do you have six or more drinks on one occasion? Less than monthly 03/10/2025 6:44 PM EDT Amado Baker RN * Calculated C-SSRS Risk Score (Lifetime/Recent) Answer Date of Assessment Author High Risk 03/10/2025 6:29 PM EDT Orlando Baker RN * Question Answer Date of Assessment Author 1. Wish to be (Past 1 Month) Yes 025 6:29 PM EDT Amado Baker RN 2. Non-Specific Active Suici karyn Thoughts (Past 1 Month) Yes 03/10/2025 6:29 PM EDT Cristina Baker RN 3. Active Suicidal Ideation with any Methods (Not Plan) Without Intent to Act (Past 1 Month) No 03/10/2025 6:29 PM EDT Wade Baker RN 4. Active Suicidal Ideation with Some Intent to Act, Without Specific Plan (Past 1 Month) No 03/10/2025 6:29 PM EDT Wade Baker RN 5. Active Suicidal Ideation with Specific Plan and Intent (Past 1 Month) Yes 03/10/2025 6:29 PM EDT Amado Baker RN 6. Suicidal Behavior (Lifetime) Yes 6:29 PM EDT Amado Baker RN documented as of this encounter Medications at Time of Discharge lisinopril 10 MG tabletIndications :Hypertension Take 1 tablet (10 mg) by mouth 1 (one) time each day. 30 tablet 11 10/16/2024 10/16/2025 mirtazapine (Remeron) 15 MG tabletIndications :Mood disorder Take 1 tablet by mouth nightly. 30 tablet 03/13/2025 documented as of this encounter Miscellaneous Notes * Discharge Summary - Ron Mendoza APRN - 03/10/2025 4:52 PM EDT Hospitalization Admit Date/Time: 03/09/2025 7:57 PM Admitting Attending: Fransico Teran Discharge Date: 03/10/2025 Discharge Attending Physician: Fransico Teran MD PCP name and Address: Provider, [facility] None Referring provider name and address: Deepali Jesus, [address] [place] [address] Chief Concern, Brief History of Present Illness, and Hospital Course Jacqueline Aaron is a 29 y.o. female with past medical history of depression, anxiety, bipolar and prior suicide attempts. Patient presented to OSH after being found down at home unresponsive secondary to suicide attempt with intentional drug overdose. Per documentation patient had empty bottles of propranolol, quetiapine and Tylenol PM (unsure pill count). She was intubated upon arrival to OSH for airway protection. Patient had some response to glucagon at OSH with SBP 90s but remained hypotensive so levophed gtt was started. She was transferred to [facility] for further care. On arrival, patient required low dose levophed to maintain adequate blood pressure. Toxicology followed patient to assist with management. Family unavailable to obtain further history. She had no acute events overnight. In the AM the propofol was discontinued and soon after the norepinephrine was stopped and the patient was extubated. NAC discontinued after finding normal LFTs and negative Tylenol level. D10 decreased to 50ml/hr, 72 hour hold initiated, suicide precautions with 1:1 sitter ordered. Later in the afternoon was evaluated by psych and transfer requested. She is hemodynamically stable on room air and will be discharged from the MICU and admitted to [facility] service. Surgeries and Procedures Procedures performed in this encounter Procedures Critical Care Critical Care Medication List .. folic acid 1 MG tablet Commonly known as: Folvite Take 1 tablet by mouth daily. lisinopril 10 MG tablet Take 1 tablet (10 mg) by mouth 1 (one) time each day. thiamine 100 MG tablet Commonly known as: Vitamin B-1 Take 1 tablet by mouth daily. Discharge Diagnosis Medical Problems Active and Resolved Hospital Problems Hospital * (Principal) RESOLVED: Acute respiratory failure Post Discharge Instructions NA Outpatient Follow-Up No future appointments. Test Results Pending At Discharge Pending Labs Order Current Status Benzodiazepine Confirm Urine In process Comprehensive Urine Drug Screening, Qualitative Assay, >= 27 Drug Classes In process Fentanyl Urine Confirm In process Methadone Confirm LCMSMS In process Multi Drug Resistance Test In process Blood Culture (Aerobic/Anaerobet Set) Preliminary result Blood Culture (Aerobic/Anaerobet Set) Preliminary result Pertinent Physical Exam At Time of Discharge Physical Exam HENT: Head: Normocephalic and atraumatic. Right Ear: External ear normal. Left Ear: External ear normal. Nose: Nose normal. Mouth/Throat: Mouth: Mucous membranes are dry. Eyes: Extraocular Movements: Extraocular movements intact. Cardiovascular: Rate and Rhythm: Normal rate and regular rhythm. Pulmonary: Effort: Pulmonary effort is normal. Breath sounds: Normal breath sounds. Abdominal: Palpations: Abdomen is soft. Musculoskeletal: General: Normal range of motion. Cervical back: Normal range of motion and neck supple. Skin: General: Skin is warm and dry. Capillary Refill: Capillary refill takes less than 2 seconds. Neurological: General: No focal deficit present. Mental Status: She is alert. Discharge Disposition/Condition Disposition: Psychiatric facility (specify) [facility] Condition: Stable (s/sx potential problems absent or manageable) I spent < 30 minutes of patient care and instruction time in preparation for this discharge. Cosigned by Fransico Teran MD at 03/12/2025 1:22 PM EDT Associated attestation - Fransico Teran MD - 03/12/2025 1:22 PM EDT Signature only. * Consults - Hannah Stone DO - 03/10/2025 3:25 PM EDTAssociated Order(s): IP CONSULT TO TOXICOLOGY Toxicology Consultation I saw and evaluated the patient and performed the history and physical examination. I spent 60 minutes evaluating this patient and reviewing studies/records at least 50% of which was time spent in consultation and coordination of care. Note: Consulting Physician: Marin Arnold MD Referring Physician: Fransico Teran MD Reason for Consultation: Poisoning by Seroquel, unknown intent, Poisoning by Propranolol, unknown intent, Poisoning by Tylenol, unknown intent, Poisoning by Benadryl, unknown intent HPI: Patient is a 29 yo female with PMH of depression, anxiety, BPD, AUD, and prior suicide attempts whopresented to [facility] on 03/09 as a transfer from OSH as a direct admit to [facility] ICU. Patient is currently intubated and sedated. History is obtained from primary team and chart review. Patient was reported found down at home unresponsive after a suspected overdose of multiple substances. There were empty bottles of propranolol, quetiapine and tylenol PM surrounding the patient when she was found. Shewas transported to OSH where she was intubated for airway protection. Systolics in the 90s on arrival to OSH hospital with some response to glucagon. She was started on levophed gtt at OSH and transferred to [facility] for admission to the ICU. On arrival to [facility], patient remained on levophed gtt, was initiated on NAC protocol. This morning, levophed gtt was discontinued, patient was extubated this morning. Her home medications include quetiapine, 100mg PO at bedtime, propranolol 10mg PO TID. She does endorse ETOH use, about 5-6 drinks 2-3 times per week. Denies any other drug use. She denies intentional overdose or thoughts of self-harm. She states he has been struggling with depression and anxiety since giving about 6 months ago. She reports previously taking Zoloft, however, she discontinued this because she was not able to sleep. She states she is taking Adipex as well but has not taken it in two weeks. 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 She also took her 1 tablet of 10 mg propranolol and 100 mg tablet Seroquel. She reports that she was still not able to sleep so she took two more Seroquel 100 mg tablets. She states she laid down and then does not remember anything after that up until she woke up in the hospital here. Shedenies intentional self-harm, denies suicidal or homicidal ideations. Denies hallucinations, nausea, vomiting, fever, chills, headache, abdominal pain. PMH: Past Medical History[1] Meds : Current Facility-Administered Medications Medication Dose Route Frequency Provider Last Rate Last Admin dextrose 10 % continuous infusion 50 mL/hr Intravenous Continuous Ron Mendoza APRN 50 mL/hr at03/10/25 0928 50 mL/hr at 03/10/25 09 glucose (Glutose) 40 % oral gel 15-30 grams of glucose 15-30 grams of glucose Sublingual q15 min PRN Blake Julio APRN Or dextrose 50 % solution 12.5-25 g 12.5-25 g Intravenous q15 min PRN Blake Julio APRN 25 g at 03/09/252008 Or glucagon (human recombinant) injection 1 mg 1 mg Intramuscular q15 min Blake Sheth APRN enoxaparin (Lovenox) syringe 40 mg 40 mg Subcutaneous Daily Ron Mendoza APRN folic acid injection 1 mg 1 mg Intravenous Daily Ron Mendoza APRN insulin regular (HumuLIN R,NovoLIN R) 100 units/mL injection - Correction - Standard Dose 0-5 UnitsSubcutaneous q6h [facility] Blake Julio APRN mupirocin (Bactroban) 2 % ointment 1 Application 1 Application Each Nostril BID Blake Julio APRN 1 Application at 03/10/25 0804 potassium & sodium phosphates (Phos-NaK) 280-160-250 MG packet 1 packet 1 packet Oral q8h Ron Mendoza APRN 1 packet at 03/10/25 0946 sodium chloride 0.9 % flush 3 mL 3 mL Intravenous PRN Blake Julio APRN thiamine (Vitamin B1) injection 200 mg 200 mg Intravenous q8h Ron Mendoza APRN 200 mg at 03/10/25 0946 No current outpatient medications on file. Facility-Administered Medications Ordered in Other Encounters Medication Dose Route Frequency Provider Last Rate Last Admin acetaminophen (Tylenol) tablet 650 mg 650 mg Oral q6h PRN Lumm, Rich B, DO calcium carbonate (Tums) chewable tablet 750 mg 750 mg Oral 4x daily PRN Lumm, Rich B, DO LORazepam (Ativan) injection 2 mg 2 mg Intramuscular q6h PRN Lumm, Rich B, DO And diphenhydrAMINE (Benadryl) injection 50 mg 50 mg Intramuscular q6h PRN Lumm, Rich B, DO And haloperidol lactate (Haldol) injection 5 mg 5 mg Intramuscular q6h PRN Lumm, Rich B, DO hydrOXYzine pamoate (Vistaril) capsule 25 mg 25 mg Oral q6h PRN Lumm, Rich B, DO melatonin tablet 3 mg 3 mg Oral Nightly PRN Lumm, Rich B, DO OLANZapine zydis (ZyPREXA) disintegrating tablet 5 mg 5 mg Sublingual q6h PRN Lumm, Rich B, DO Social: reports that she has never smoked. She has never been exposed to tobacco smoke. She has never used smokeless tobacco. She reports that she does not currently use alcohol after a past usage ofabout 1.0 standard drink of alcohol per week. She reports that she does not use drugs. All: Allergies[2] FHx: Family History[3] ROS: The patient reports no [place], chest pain, shortness of breath, abdominal pain, dysuria, sore throat, vision changes, easy bleeding, rash or weight loss. All systems reviewed and negative except as noted above. Physical Exam _ Vital Signs: Visit Vitals BP 89/54 Pulse 66 Temp 37.3 ??C (99.1 ??F) Resp 16 Ht 1.626 m (5' 4.02 ) Wt 81 kg (178 lb 9.2 oz) SpO2 98% BMI 30.64 kg/m?? OB Status Unknown Smoking Status Never BSA 1.91 m?? General: No acute distress. Cooperative. HEENT: Pupils L 2 mm R 2 mm. PERRL. Neck: No meningismus. Trachea midline. CV: Regular rate and rhythm. Normal S1/S2. 2+ radial and DP pulses bilaterally. Pulm: CTA bilaterally. No wheezes, rales, rhonchi. Abd: Soft/nontender, nondistended. Extremities: Atraumatic. No edema Skin: Warm/Dry. No rash. Neuro: Alert and oriented x 4. moves all extremities spontaneously. Psych: normal mood, cooperative. Pleasant. Labs: APAP level <5.0. CMP AST/ALT WNL UDS (+) benzodiazepines, methadone, fentanyl ECG demonstrates QTC WNL 445. Toxic alcohol: (-) Salicylates (-) Labs in last 18 hours CBC WBC 10.32 (H) Hb 10.1 (L) Plt 176 Hct 30.1 (L) ANC ?? INR 1.1, PTT ??, Anti-Xa ?? BMP Na 141 Cl 108 (H) BUN 7 Glu 107 (H) K 3.9 Co2 24 Cr 0.56 (L) Ca 8.7 (L) iCa 4.7 Mg 3.2 (H), Phos 2.3 (L) Lactate 1.8 (H) LFT AST 18 AlkPhos 44 T Prot 5.7 (L) ALK 16 Bili <0.2 (L) Alb ?? D.Bili ?? Medical Decision Making: Impression: Poisoning by Seroquel, unknown intent Poisoning by Propranolol, unknown intent Poisoning by Tylenol, unknown intent Poisoning by Benadryl, unknown intent Mood Disorder, NOS Recommendations: #Poisoning by Seroquel, unknown intent QTC WNL Levophed gtt d/c'd 03/10 AM patient maintaining BP >65 without vasopressors S/p extubation 03/10, GCS 15, AXOX4 Plan: - no additional intervention necessary #Poisoning by Propranolol, unknown intent Known to cause bradycardia, heart-block and hypotension. Symptoms usually occur within 6 hours, but can be as early as 20 minutes and may be delayed with sustained release products. - levophed gtt dc'd 03/10 AM - HDS - ECG demonstrates NSR, QTC WNL Plan: - no additional intervention necessary - methadone (+) on UDS, possible false positive 2/2 to quetiapine, follow up confirmatory testing #Poisoning by Tylenol, unknown intent APAP level <5.0. CMP AST/ALT WNL S/p NAC protocol Plan: - no additional intervention necessary #Poisoning by Benadryl, unknown intent S/p extubation 03/10 AXOX4, GCS 15 Plan: - no additional intervention necessary #Mood Disorder, NOS - agree with psych consult For any further questions or recommendations contact the Poison Center at [phone]. I can be reached via [employer]. Cat DO Chase, Ed Emergency Medicine PGY-2 Marin Arnold MD Director, Medical Toxicology Security Intern, [facility] [1] Past Medical History: Diagnosis Date Anxiety Bipolar depression (CMS/HCC) Nonscarring hair loss, unspecified Hair loss Other hemorrhoids Internal hemorrhoid Personal history of other complications of , childbirth and the puerperium History of spontaneous Personal history of other complications of , childbirth and the puerperium History of threatened Personal history of other diseases of the digestive system History of rectal bleeding [2] Allergies Allergen Reactions Oxycodone Anaphylaxis Hydrocodone Itching [3] Family History Problem Relation Name Age of Onset Lung cancer Mother COPD Mother No Known Problems Father No Known Problems Brother No Known Problems Brother Heart defect Daughter BAV COPD Maternal Grandmother No Known Problems Maternal Grandfather Breast cancer Paternal Grandmother No Known Problems Paternal Grandfather No Known Problems Mother's Sister No Known Problems Father's Brother Cosigned by Marin Arnold MD at 03/11/2025 7:57 PM EDT Associated attestation - Marin Arnold MD - 03/11/2025 7:57 PM EDT I saw and evaluated the patient with the resident/fellow. I discussed the case with the resident/fellow and agree with the findings and plan as documented. * Care Plan - Maria Alejandra Mo - 03/10/2025 3:10 PM EDT Problem: Adult Inpatient Plan of Care Goal: Plan of Care Review Outcome: Ongoing, Progressing Flowsheets (Taken 03/10/2025 1508) Progress: improving Plan of Care Reviewed With: patient Goal: Patient-Specific Goal (Individualized) Outcome: Ongoing, Progressing Goal: Absence of Hospital-Acquired Illness or Injury Outcome: Ongoing, Progressing Intervention: Identify and Manage Fall Risk Flowsheets (Taken 03/10/2025 1508) Safety Promotion/Fall Prevention: activity supervised Intervention: Prevent Skin Injury Flowsheets (Taken 03/10/2025 1400) Body Position: weight shifting Intervention: Prevent and Manage VTE (Venous Thromboembolism) Risk Flowsheets (Taken 03/10/2025 1200) VTE Prevention/Management: bilateral SCDs (sequential compression devices) on Intervention: Prevent Infection Flowsheets (Taken 03/10/2025 1508) Infection Prevention: hand hygiene promoted Goal: Optimal Comfort and Wellbeing Outcome: Ongoing, Progressing Intervention: Monitor Pain and Promote Comfort Flowsheets (Taken 03/10/2025 1508) Pain Management Interventions: medication (see MAR) Intervention: Provide Person-Centered Care Flowsheets (Taken 03/10/2025 1508) Trust Relationship/Rapport: care explained Goal: Readiness for Transition of Care Outcome: Ongoing, Progressing Intervention: Mutually Develop Transition Plan Flowsheets (Taken 03/10/2025 1508) Concerns to be Addressed: mental health suicidal * Progress Notes - Pau Ramirez - 03/10/2025 2:39 PM EDT Case Management Adult Progress Note Jacqueline Gonzalez Agnieszka 29 y.o. female CSN: [id number] Admission: 03/09/2025 7:57 PM Primary Problem: Acute respiratory failure Additional Comments SW attempted to conduct initial assessment with pt or family. No family was present at bedside and pt was sleeping. SW will continue to follow and assist. Pau Ramirez * Consults - Rich Khan DO - 03/10/2025 1:13 PM EDTAssociated Order(s): Inpatient consult to Psychiatry Images from the original note were not included. Initial Psychiatry Evaluation 03/10/25 Inpatient consult to Psychiatry Consult performed by: Rich Khan DO Consult ordered by: Ron Mendoza APRN Chief Complaint: I just wanted to sleep Subjective Patient is a 29 y.o. female with a reported psychiatric history of depression (post-?), anxiety, bipolar(?) disorder, PTSD, and prior suicide attempts. Psychiatry consulted for risk assessment. Hospital Course/recent hx per chart review: Patient initially presented to OSH after being found down at home unresponsive secondary to suspected suicide attempt via overdose. Per documentation, patient was found with empty bottles of propranolol, quetiapine and Tylenol PM (unclear pill count). Shewas intubated upon arrival to OSH for airway protection. Patient had some response to glucagon at OSH with SBP 90s but remained hypotensive so levophed gtt was started. She was subsequently transferred to [facility] for [facility] care. [facility], patient continued to require low dose Levophed to maintain adequate BP. Toxicology was consulted/following. NAC was initiated for Tylenol OD as indicated per protocol. Patient has subsequently been extubated, weaned off pressors, and cleared by Toxicology/poison control (see note from toxicology). Poison control case #[id number] closed. Per chart additional chart review, patient presented to ED/[facility] earlier this year (11/29/2024). Per chart review, patient had been found by EMS in her car/SUV attempting to hang herself. In the ED, she reported suffering from severe anxiety and depression since August 2024 when she had hermost recent child. She was started on Zoloft 2 months prior, reported no improvement in symptoms orbenefit. On arrival at [facility] it is documented that she reports nothing like this has ever happened and she is no way wants to . She would like to get back onto Vraylar which she states worked inthe past aside from causing some drooling (of note, on further chart review, patient had been takin giancarlo Garciaaylar in the past for ???bipolar depression?? in 2022 per her PCP). 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 Goes on to report that this was when EMS found her in her SUV in her driveway at home attempting to hang herself. Collateral also reported that patient seems to haveissues with alcohol and utilizes to cope. Patient was ultimately discharged home from [facility], with re-initiation of previous/historical medication Vraylar, and plan for her [id number] to stay withher for several days following event. She was scheduled for follow-up with Umer Chapman on 12/01/2024. Upon my evaluation today, patient is notably evasive and guarded throughout duration of discussion.When asked about events leading to current presentation, patient states ???I was not trying to killmyself, I just wanted to be able to sleep ???. She goes on to state that she typically takes 1 tab of Seroquel 50 mg nightly for sleep, and occasionally takes Tylenol PM as well if she can not fall asleep still. Reports that she used to take Seroquel 100 mg nightly, but somewhat recently dose was decreased due to morning drowsiness/grogginess per patient. She states that last night she took 1 Seroquel in 2 Tylenol PM after drinking 6-7 vodka cranberry drinks, and still felt that she could not fall asleep, so she decided to take another 50 mg Seroquel tab. States she does not remember what happened after this, aside from remembering that she texted everyone good night and said she was goingto bed early that night. When asked how recently she had filled her medications she stated some time last month, and does not have an explanation for/can not elaborate regarding why her pill bottleswere reportedly empty at the scene when she was found down/unresponsive. She also does not seem to note the discrepancy between her reporting history that she has been able to take Seroquel 100 mg nightly for much of recent history, including on nights when drinking similar amounts, and when occasio jayme using Tylenol PM as well, and nothing similar happened any of those nights, certainly not intubation and/or ICU admission. When asked about propranolol, she states she did not take the and states ???I would not have taken more of that, I know it is a blood pressure medication and I wouldn't be that is stupid???. Appears to have no explanation for why her propranolol bottle was seen to be empty either. Patient states that her OBGYN has referred to her current/recent low mood as ???the baby blues??? and she feels that's all this is , despite continued insignificant low mood lasting 6 months now since mid August 2024, with at least 1 prior suicide attempt at that time before OD leading to current admission. Discussed the significance of her symptom burden and recent actions, and patient does not seem to appreciate the gravity of recent events. Stressors: states none aside from feeling unenthused lately Supports: my ex's mother and really his whole family Access to lethal weapons: denies Reasons to live: future-oriented Collateral: Spoke with Edgard Aaron, patient's father ([phone]) in-person outside patient's room in [facility]. Edgard states that he was the one who found the patient in called 911 following her overdose. He reports receiving a text message stating ???I love you jen, thank you for everything??? out of theblue and felt that something may be wrong, later found out that she had not shown up for work. He went to her house and found her unconscious for unknown period of time, but stated he gives how she was still breathing and called for EMS. He found the empty propranolol, Seroquel, and Tylenol PM bottles near her, as well as 3 detailed suicide notes written to each of her 3 daughters (who were staying with their father at the time). He corroborates chart review that patient has 1 recent interrupted attempt to hang herself in November. He also reports history of several other suicide attempts including 1 other recurrence of overdose. He is not sure when these occurred. He reports feeling at the patient has been on this study decline in terms of her mental health for a long time, worse since giving childbirth to her most recent/youngest child in August 2024. He states that he is very concerned about jacqueline, particularly given that her suicide attempts appear to be escalating and their potential lethality, and he worries that future attempts will have higher risk/potential to be successful. Psychiatric Review Of Systems: Sleep: difficulty falling asleep Appetite changes: decreased but states this is in the setting of recent initiation of phentermine outpatient Energy: no change Anhedonia: absent Guilt: absent Concentration difficulty: absent Anxiety: absent Suicidal thoughts: denies Homicidal thoughts: Denies Auditory/visual hallucinations: denies Carole: absent Past Psychiatric History: Diagnoses: Depression (most recently post-), anxiety, bipolar disorder/bipolar depression? Previous Medications: Vraylar, which patient reports made her feel activated and made it difficult to sleep. Zoloft, which patient reports ???did nothing?? . Current Medications: Seroquel 50 mg nightly for sleep, previously taking 100 mg dose recently decreased due to morning drowsiness per patient Outpatient: [facility] per PCP at this time Inpatient: Reports recently admitted in [facility] on voluntary admission after her family ???convinced her decided for psychiatric admission?? , reports this occurred ???3 weeks ago??? and was 4day stay for ???crying a lot?? and mood lability per patient Previous suicide attempts: Fred, although there is documented history of a recent interrupted attempt in 11/2024 to hang herself, as well as collateral reports other historical attempts as well Past trauma history: Patient reports trauma, possibly PTSD diagnosis from an ex- significant other, does not disclose the nature of the trauma. 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 Legal history: MYRNAI at 20 years old (2015) Support system: my ex's entire family, particularly his mom, the grandmother of my children Substance use History: Tobacco Use: Denies Alcohol Use: Reports drinking 6-7 drinks (reports these to be standard size vodka cranberry) when she drinks, and reports drinking about 3 nights per week when her children are at their dad's house History of complicated withdrawal: N/A Recreational Drug Use: Denies any other substance use Medical Review Of Systems: Patient endorses no specific medical concerns or complaints at this time, states her voice is a bithoarse following extubation but overall she feels alright . A 14 point review of systems was otherwise negative. Objective Visit Vitals BP 89/54 Pulse 72 Temp 37.2 ??C (99 ??F) (Bladder) Resp 18 Ht 1.626 m (5' 4.02 ) Wt 81 kg (178 lb 9.2 oz) SpO2 98% BMI 30.64 kg/m?? OB Status Unknown Smoking Status Never BSA 1.91 m?? Mental Status Evaluation: Appearance: appears stated age, wearing hospital attire, fair hygiene Attitude: evasive, withholding, ambivalent towards treatment Eye Contact: appropriate Speech: appropriate rate and volume, non-pressured Involuntary Movements: absent Psychomotor Activity: no significant depression or agitation Level of Consciousness: alert and attentive Memory: grossly intact Mood: Fine Affect: congruent with stated mood Thought Process: linear, organized Thought Content: no overt delusions, not responding to internal stimuli AVH: denied SI: denied HI: denied Insight: poor Judgment: poor Physical Exam: General: alert, no acute distress Eyes: extraocular movements intact, conjunctivae clear ENT: external ears normal, moist mucus membranes Heart: regular rate Lungs: No overt respiratory distress Abdomen: Nondistended Extremities: no overt clubbing, edema, or cyanosis Skin: no rashes or lesions noted over exposed skin Neuro: oriented x4, moving all 4 extremities spontaneously Data: Recent Results (from the past 24 hours) POCT glucose meter Collection Time: 03/09/25 8:02 PM Result Value Ref Range POCT Glucose 61 (L) 74 - 99 mg/dL Comment Machine Spreader ID StreetOsitode Device ID [id number] Specimen Type POC Capillary ECG Adult Collection Time: 03/09/25 8:19 PM Result Value Ref Range EKG DIAGNOSIS CLASS Normal Ventricular Rate 69 BPM Atrial Rate 69 BPM ME Interval 150 ms QRSD Interval 82 ms QT Interval 432 ms QTC Interval 462 ms P [place] 58 degrees R [place] 48 degrees T Wave [place] 45 degrees Diagnosis Normal sinus rhythm Diagnosis Normal ECG Diagnosis Diagnosis Confirmed by Ron Chahal ([id number]) on 03/09/2025 10:28:54 PM Ionized calcium, serum Collection Time: 03/09/25 8:45 PM Result Value Ref Range Ionized Calcium, Serum 4.7 4.6 - 5.3 mg/dL Hemoglobin A1c Collection Time: 03/09/25 8:45 PM Result Value Ref Range Hemoglobin A1c 5.1 <5.7 % Blood Culture (Aerobic/Anaerobet Set) Collection Time: 03/09/25 8:45 PM Specimen: Foot, Left; Blood Result Value Ref Range Culture Culture in lab Blood Culture (Aerobic/Anaerobet Set) Collection Time: 03/09/25 8:45 PM Specimen: Arm, Right; Blood Result Value Ref Range Culture Culture in lab Creatine Kinase, Total, Plasma Collection Time: 03/09/25 8:45 PM Result Value Ref Range Creatine Kinase, Plasma 200 (H) 37 - 168 U/L Comprehensive Metabolic Panel, Plasma Collection Time: 03/09/25 8:45 PM Result Value Ref Range Glucose, Plasma 131 (H) 74 - 99 mg/dL BUN, Plasma 13 7 - 21 mg/dL Creatinine, Plasma 0.75 0.60 - 1.10 mg/dL BUN/Creatinine Ratio 17 Sodium, Plasma 137 136 - 145 mmol/L Potassium, Plasma 3.1 (L) 3.6 - 4.9 mmol/L Chloride, Plasma 103 97 - 107 mmol/L CO2, Plasma 24 22 - 29 mmol/L Anion Gap 10 6 - 16 mmol/L Total Calcium, Plasma 8.7 (L) 8.9 - 10.2 mg/dL Total Protein 5.5 (L) 6.3 - 7.9 g/dL Albumin, Plasma 3.5 3.5 - 5.2 g/dL AST, Plasma 20 10 - 35 U/L ALT, Plasma 14 10 - 35 U/L Alkaline Phosphatase, Plasma 42 35 - 104 U/L Total Bilirubin, Plasma 0.4 0.2 - 1.1 mg/dL eGFRcr 112.1 mL/min/1.73m*2 CBC and Differential Collection Time: 03/09/25 8:45 PM Result Value Ref Range WBC Count 8.57 3.70 - 10.30 10*3/uL RBC Count 3.23 (L) 3.90 - 5.20 10*6/uL HGB 9.7 (L) 11.2 - 15.7 g/dL HCT 29.2 (L) 34.0 - 45.0 % Platelet Count 165 155 - 369 10*3/uL MCV 90 79 - 98 fL MCH 30.0 26.0 - 32.0 pg MCHC 33.2 30.7 - 35.5 g/dL RDW 14.8 (H) 11.5 - 14.5 % MPV 11.3 8.8 - 12.5 fL nRBC 0.0 <=0.0 per 100 WBCs Differential Type Automated Neutrophils % 64 % Lymphocytes % 28 % Monocytes % 6 % Eosinophils % 1 % Basophils % 1 % Immature Granulocytes % 0 % Neutrophils Absolute 5.54 1.60 - 6.10 10*3/uL Lymphocytes Absolute 2.43 1.20 - 3.90 10*3/uL Monocytes Absolute 0.48 0.30 - 0.90 10*3/uL Eosinophils Absolute 0.05 0.00 - 0.50 10*3/uL Basophils Absolute 0.04 0.00 - 0.10 10*3/uL Immature Granulocytes Absolute 0.03 0.00 - 0.06 10*3/uL IONIZED CALCIUM, WHOLE BLOOD Collection Time: 03/09/25 8:45 PM Result Value Ref Range Ionized Calcium, Whole Blood 4.6 4.6 - 5.1 mg/dL Phosphorus, Plasma Collection Time: 03/09/25 8:45 PM Result Value Ref Range Phosphorus, Plasma 4.0 2.5 - 4.5 mg/dL Magnesium, Plasma Collection Time: 03/09/25 8:45 PM Result Value Ref Range Magnesium, Plasma 1.3 (L) 1.9 - 2.4 mg/dL Prothrombin Time/INR Collection Time: 03/09/25 8:45 PM Result Value Ref Range Prothrombin Time 13.7 12.0 - 14.3 sec INR 1.0 0.9 - 1.1 Ammonia, Plasma Collection Time: 03/09/25 8:45 PM Result Value Ref Range Ammonia 23 11 - 51 umol/L Type and Screen Collection Time: 03/09/25 8:45 PM Result Value Ref Range ABO/Rh O Positive Antibody Screen Negative Specimen Expiration 03/12/2025 23:59 Acetaminophen, Quantitative, Plasma Collection Time: 03/09/25 8:45 PM Result Value Ref Range Acetaminophen <5.0 (L) 10.0 - 30.0 g/mL Salicylate level Collection Time: 03/09/25 8:45 PM Result Value Ref Range Salicylate, Quantitative, Plasma <1.0 <25 mg/dL mg/dL Alcohol Profile Plasma Collection Time: 03/09/25 8:45 PM Result Value Ref Range Methanol Plasma <10 <10 mg/dL Acetone Plasma <10 <10 mg/dL Isopropanol Plasma <10 <10 mg/dL Ethanol Plasma <10 <10 mg/dL Procalcitonin Collection Time: 03/09/25 8:45 PM Result Value Ref Range Procalcitonin, Plasma 0.43 (H) <0.09 ng/mL C-reactive protein Collection Time: 03/09/25 8:45 PM Result Value Ref Range CRP, Plasma <3.0 <=8.0 mg/L TSH Reflex FT4 Collection Time: 03/09/25 8:45 PM Result Value Ref Range Thyroid Stimulating Hormone, Plasma 2.09 0.40 - 4.20 uIU/mL Folate Collection Time: 03/09/25 8:45 PM Result Value Ref Range Folate, Serum 6.7 >4.6 ng/mL Vitamin B12 Collection Time: 03/09/25 8:45 PM Result Value Ref Range Vitamin B12, Serum 245 210 - 1,033 pg/mL Acute Hepatitis Panel Collection Time: 03/09/25 8:45 PM Result Value Ref Range Hepatitis B Surf Antigen Negative Negative Hepatitis C Antibody Negative Negative Hepatitis A Antibody IgM Negative Negative Hepatitis B Core Antibody IgM Negative Negative POCT glucose meter Collection Time: 03/09/25 8:45 PM Result Value Ref Range POCT Glucose 117 (H) 74 - 99 mg/dL Comment Machine Spreader ID ElovaughnHaider hinesy Device ID [id number] Specimen Type POC Venous POCT arterial blood gas gem Collection Time: 03/09/25 8:49 PM Result Value Ref Range pH, Arterial 7.49 (H) 7.35 - 7.45 pCO2, Arterial 35 35 - 48 mm Hg pO2, Arterial 130 (H) 83 - 108 mm Hg SO2, Arterial 100 (H) 94 - 98 % FIO2 30.0 % Base Excess, Arterial 3.3 (H) -2 - 3 mmol/L HCO3, Arterial 26.7 (H) 22 - 26 mmol/L Total Hemoglobin, Arterial, Whole Blood 9.5 (L) 11.2 - 15.7 g/dL Hematocrit, Arterial 29.0 (L) 34.0 - 45.0 % Sodium, Arterial 132 (L) 136 - 145 mmol/L Potassium, Arterial 3.0 (L) 3.6 - 4.9 mmol/L Chloride, Whole Blood 104 97 - 107 mmol/L Glucose, Arterial 115 (H) 74 - 99 mg/dL Ionized Calcium, Arterial 4.9 4.6 - 5.1 mg/dL Lactate, Arterial 2.3 (H) 0.5 - 1.6 mmol/L Body Temperature 37.0 Celsius pH, Temp Corrected, Arterial 7.49 (H) 7.35 - 7.45 pCO2, Temp Corrected, Arterial 35 35 - 48 mm Hg pO2, Temp Corrected, Arterial 130 (H) 83 - 108 mm Hg Machine Spreader ID Toshia Rogers Sandy auris Surveillance by PCR Collection Time: 03/09/25 8:54 PM Specimen: Axilla and Groin; Swab Result Value Ref Range Sandy auris PCR Result Not Detected Not Detected Methicillin Resistant Staphylococcus aureus (MRSA) by PCR Collection Time: 03/09/25 8:54 PM Specimen: Nares; Swab Result Value Ref Range Methicillin Resistant Staphylococcus aureus (MRSA) by PCR Not Detected Not Detected POCT glucose meter Collection Time: 03/09/25 10:37 PM Result Value Ref Range POCT Glucose 143 (H) 74 - 99 mg/dL Comment Machine Spreader ID Estephania Pena Device ID [id number] Specimen Type POC Capillary Streptococcus pneumoniae and Legionella Urinary Antigen Collection Time: 03/09/25 10:59 PM Specimen: Urine, Clean Catch Result Value Ref Range Legionella pneumophila serogroup 1 Antigen Result (Urine) Negative Negative Streptococcus pneumoniae Antigen Result (Urine) Negative Negative Urinalysis with reflex microscopic (Culture NOT Included) Collection Time: 03/09/25 10:59 PM Result Value Ref Range Color, Urine Yellow Clarity, Urine Clear Spec Dar[place], Urine 1.024 1.005 - 1.030 pH, Urine 6.5 5.0 - 8.0 Protein, Urine 30 (A) Negative mg/dL Glucose, Urine 250 (A) Negative mg/dL Ketones, Urine Trace (A) Negative mg/dL Blood, Urine Trace (A) Negative Bilirubin, Urine Negative Negative Urobilinogen, Urine 1.0 0.2 to 1.0 mg/dL Leukocytes, Urine Trace (A) Negative Nitrite, Urine Negative Negative RBC, Urine 4 - 10 (A) 0 to 3 /HPF WBC, Urine 6 - 10 (A) 0 to 5 /HPF Squamous Epithelial Cells 0 - 2 0 to 5 /HPF Hyaline Casts 0 - 2 0 to 5 /LPF Bacteria, Urine Present Negative Mucus Present Urine Gonsalez Panel Collection Time: 03/09/25 10:59 PM Result Value Ref Range Extra Reflex urine culture not indicated Drug Abuse Screen Urine Collection Time: 03/09/25 10:59 PM Result Value Ref Range Amphetamine Screen Urine Negative Cutoff: 500 ng/mL Benzodiazepines Screen Urine Cutoff: 200 ng/mL Presumptive positive. Confirmation by LC-MS/MS to follow. Cannabinoid Screen Urine Negative Cutoff: 50 ng/mL Cocaine Screen Urine Negative Cutoff: 300 ng/mL Barbiturate Screen Urine Negative Cutoff: 200 ng/mL Opiate Screen Urine Negative Cutoff: 300 ng/mL Methadone Screen Urine Cutoff: 300 ng/mL Presumptive positive. Confirmation by LC-MS/MS to follow. Buprenorphine Screen Urine Negative Cutoff: 10 ng/mL Fentanyl Screen Urine Cutoff: 1 ng/mL Presumptive positive. Confirmation by LC-MS/MS to follow. Oxycodone Screen Urine Negative Cutoff: 100 ng/mL Lactate Dehydrogenase, Plasma Collection Time: 03/09/25 11:01 PM Result Value Ref Range LDH, Plasma 124 116 - 250 U/L Prothrombin Time/INR Collection Time: 03/09/25 11:01 PM Result Value Ref Range Prothrombin Time 14.6 (H) 12.0 - 14.3 sec INR 1.1 0.9 - 1.1 POCT glucose meter Collection Time: 03/09/25 11:38 PM Result Value Ref Range POCT Glucose 127 (H) 74 - 99 mg/dL Comment Machine Spreader ID [address] Device ID [id number] Specimen Type POC Capillary POCT glucose meter Collection Time: 03/10/25 6:00 AM Result Value Ref Range POCT Glucose 112 (H) 74 - 99 mg/dL Comment Machine Spreader ID Estephania Pena Device ID [id number] Specimen Type POC Capillary Acetaminophen, Quantitative, Plasma Collection Time: 03/10/25 7:39 AM Result Value Ref Range Acetaminophen <5.0 (L) 10.0 - 30.0 g/mL Comprehensive Metabolic Panel, Plasma Collection Time: 03/10/25 7:39 AM Result Value Ref Range Glucose, Plasma 107 (H) 74 - 99 mg/dL BUN, Plasma 7 7 - 21 mg/dL Creatinine, Plasma 0.56 (L) 0.60 - 1.10 mg/dL BUN/Creatinine Ratio 13 Sodium, Plasma 141 136 - 145 mmol/L Potassium, Plasma 3.9 3.6 - 4.9 mmol/L Chloride, Plasma 108 (H) 97 - 107 mmol/L CO2, Plasma 24 22 - 29 mmol/L Anion Gap 9 6 - 16 mmol/L Total Calcium, Plasma 8.7 (L) 8.9 - 10.2 mg/dL Total Protein 5.7 (L) 6.3 - 7.9 g/dL Albumin, Plasma 3.4 (L) 3.5 - 5.2 g/dL AST, Plasma 18 10 - 35 U/L ALT, Plasma 16 10 - 35 U/L Alkaline Phosphatase, Plasma 44 35 - 104 U/L Total Bilirubin, Plasma <0.2 (L) 0.2 - 1.1 mg/dL eGFRcr 128.5 mL/min/1.73m*2 Hemogram (CBC) Collection Time: 03/10/25 7:39 AM Result Value Ref Range WBC Count 10.32 (H) 3.70 - 10.30 10*3/uL RBC Count 3.38 (L) 3.90 - 5.20 10*6/uL HGB 10.1 (L) 11.2 - 15.7 g/dL HCT 30.1 (L) 34.0 - 45.0 % Platelet Count 176 155 - 369 10*3/uL MCV 89 79 - 98 fL MCH 29.9 26.0 - 32.0 pg MCHC 33.6 30.7 - 35.5 g/dL RDW 14.9 (H) 11.5 - 14.5 % MPV 10.9 8.8 - 12.5 fL nRBC 0.0 <=0.0 per 100 WBCs Ionized calcium, whole blood Collection Time: 03/10/25 7:39 AM Result Value Ref Range Ionized Calcium, Whole Blood 4.7 4.6 - 5.1 mg/dL Magnesium Collection Time: 03/10/25 7:39 AM Result Value Ref Range Magnesium, Plasma 3.2 (H) 1.9 - 2.4 mg/dL Phosphorus Collection Time: 03/10/25 7:39 AM Result Value Ref Range Phosphorus, Plasma 2.3 (L) 2.5 - 4.5 mg/dL Creatine Kinase (CK), Total Collection Time: 03/10/25 7:39 AM Result Value Ref Range Creatine Kinase, Plasma 207 (H) 37 - 168 U/L hCG, Total Beta, Quantitative, Plasma Collection Time: 03/10/25 7:39 AM Result Value Ref Range hCG, Total Beta <1 <5 mIU/mL POCT arterial blood gas gem Collection Time: 03/10/25 7:50 AM Result Value Ref Range pH, Arterial 7.48 (H) 7.35 - 7.45 pCO2, Arterial 34 (L) 35 - 48 mm Hg pO2, Arterial 114 (H) 83 - 108 mm Hg SO2, Arterial 100 (H) 94 - 98 % FIO2 24.0 % Base Excess, Arterial 2.0 -2 - 3 mmol/L HCO3, Arterial 25.3 22 - 26 mmol/L Total Hemoglobin, Arterial, Whole Blood 10.2 (L) 11.2 - 15.7 g/dL Hematocrit, Arterial 31.0 (L) 34.0 - 45.0 % Sodium, Arterial 133 (L) 136 - 145 mmol/L Potassium, Arterial 3.9 3.6 - 4.9 mmol/L Chloride, Whole Blood 107 97 - 107 mmol/L Glucose, Arterial 103 (H) 74 - 99 mg/dL Ionized Calcium, Arterial 4.8 4.6 - 5.1 mg/dL Lactate, Arterial 1.7 (H) 0.5 - 1.6 mmol/L Body Temperature 36.7 Celsius pH, Temp Corrected, Arterial 7.49 (H) 7.35 - 7.45 pCO2, Temp Corrected, Arterial 34 (L) 35 - 48 mm Hg pO2, Temp Corrected, Arterial 112 (H) 83 - 108 mm Hg Machine Spreader ID Deepak Nyrobb ECG Adult Collection Time: 03/10/25 9:21 AM Result Value Ref Range EKG DIAGNOSIS CLASS Normal Ventricular Rate 65 BPM Atrial Rate 65 BPM ME Interval 142 ms QRSD Interval 84 ms QT Interval 428 ms QTC Interval 445 ms P [place] 27 degrees R [place] 35 degrees T Wave [place] 38 degrees Diagnosis Normal sinus rhythm Diagnosis Normal ECG Diagnosis Diagnosis Confirmed by Ron Chahal ([id number]) on 03/10/2025 11:05:32 AM POCT arterial blood gas gem Collection Time: 03/10/25 10:05 AM Result Value Ref Range pH, Arterial 7.48 (H) 7.35 - 7.45 pCO2, Arterial 32 (L) 35 - 48 mm Hg pO2, Arterial 165 (H) 83 - 108 mm Hg SO2, Arterial 100 (H) 94 - 98 % FIO2 40.0 % Base Excess, Arterial 0.7 -2 - 3 mmol/L HCO3, Arterial 23.8 22 - 26 mmol/L ETCO2, Arterial 22 mmol/L Total Hemoglobin, Arterial, Whole Blood 10.2 (L) 11.2 - 15.7 g/dL Hematocrit, Arterial 31.0 (L) 34.0 - 45.0 % Sodium, Arterial 133 (L) 136 - 145 mmol/L Potassium, Arterial 4.0 3.6 - 4.9 mmol/L Chloride, Whole Blood 108 (H) 97 - 107 mmol/L Glucose, Arterial 102 (H) 74 - 99 mg/dL Ionized Calcium, Arterial 4.7 4.6 - 5.1 mg/dL Lactate, Arterial 1.8 (H) 0.5 - 1.6 mmol/L Body Temperature 37.2 Celsius pH, Temp Corrected, Arterial 7.48 (H) 7.35 - 7.45 pCO2, Temp Corrected, Arterial 32 (L) 35 - 48 mm Hg pO2, Temp Corrected, Arterial 166 (H) 83 - 108 mm Hg Machine Spreader ID Yamil Monahan ANTIPSYCHOTIC MONITORING TOOL Current antipsychotic(s): Quetiapine Glucose parameters: Lab Results Component Value Date HGBA1C 5.1 03/09/2025 Lab Results Component Value Date GLUCOSE 107 (H) 03/10/2025 GLUCOSE 131 (H) 03/09/2025 POCGLU 102 (H) 03/10/2025 POCGLU 103 (H) 03/10/2025 Concern for diabetes? No Lipid parameters: No results found for: CHOL , HDL , LDLCALC , TRIG Fasting lipid panel? No Current antidiabetic: N/A Current antilipemic: N/A Blood pressure parameters: BP REVIEW BP (ultimate) 03/09/2025 9:00 PM 89/54 03/09/2025 3:05 PM 96/53 03/09/2025 1:33 PM 73/46 11/30/2024 1:28 AM 126/74 Concern for hypertension? No Weight parameters: Height: 162.6 cm (5' 4.02 ) Weight: 81 kg (178 lb 9.2 oz) BMI (Calculated): 30.64 Current antihypertensive: N/A QTc: 445 EKG Date/Time: 03/10/25 09 Patient is not between the ages of 40-75y, LDL <70, and/or without diagnosis of diabetes, therefore 10-year ASCVD risk was not calculated. The ASCVD Risk score (Fidelina CONKLIN, et al., 2019) failed to calculate for the following reasons: The 2019 ASCVD risk score is only valid for ages 40 to 79 Patient does not require statin therapy at this time. Clinical indication for treatment of metabolic concerns pertaining to ongoing antipsychotic use wasdeferred to primary treatment team for further discussion. Assessment/Plan Diagnoses: Mood Disorder Unspecified Risk Assessment: Patient is currently at an acutely elevated risk of harm to self or others given recent suspected suicide attempt and overdose of high lethality. Patient is not demonstrating ACTIVE suicidal intent at this time, however, she is evasive and guarded, not forthcoming about recent hx and overdose. She DOES NOT appear to be able to control impulsivity, and IS exhibiting pervasive mood symptom burden im pacting daily functioning. It should be noted that this patient is at a chronically elevated risk at baseline due to the following exhibited risk factors NOT modifiable by hospitalization demonstrated in their history: historyof psychiatric disorder, prior suicide attempt(s), never //, living alone, family discord, impulsivity, and history of substance use. The patient does, however, exhibit the following strengths/protective factors: calm/cooperative, adherent to current medications, denying access to firearms, and future-oriented, access to housing, steady employment, financial stability, knowledge of medications, vocational interests/hobbies, and good interpersonal relationships and supports. Risk factors modifiable by psychiatric hospitalization include acute exacerbation of a suspectedpsychiatric condition requiring treatment and are recommended to be addressed by initiating treatment for signs/symptoms of suspected psychiatric condition as appropriate. Involuntary hospitalization on a 72 hour hold for safety, further psychiatric evaluation, and crisis stabilization is currently indicated. Patient is holdable under KRS as she does meet ALL holdcriteria: having a mental illness, being an acute risk of harm to self or others, reasonable expectation of benefit from admission, AND inpatient being least restrictive means of treatment. Formulation: Jacqueline Aaron is a 29 y.o. female with no known significant PMHx, and reported psychiatric hx ofdepression (post-?), anxiety, bipolar(?) disorder, PTSD, who presented to [facility] ICU as direct admission via EMS from OSH ([facility]) with concerns of acute hypoxic respiratory failure r equiring intubation and ventilation and shock with hypotension requiring pressors in the setting ofrecent overdose and suspected suicide attempt, and admitted 03/09/2025 to ICU for continued management of same. The following day, patient successfully extubated and weaned off of pressors (Levophed),deemed appropriate for psychiatric evaluation. Cleared by Poison Control (case #[id number]), toxicology also wrote note documenting no need for further interview or monitoring. Psychiatry consulted for risk assessment. They are subsequently being admitted to [facility] 03/10/2025 on 72 hour hold for continued evaluation and management of mood symptom burden. Psychiatric history significant for recent inpatient stay at [facility] x4 days (3 wks ago) on voluntary status for low mood and mood lability (?), as well as history of multiple suicide attempts per collateral. Additionally, per collateral and per chart review, this is patient's second significant suicide attempt in the past 3 mon ths, with recent [facility] presentation 11/2024 following interrupted attempt to hang herself (interrupted by EMS performing wellness check). Patient denies having any recent psychosocial stressors. Most likely diagnosis at this time is unspecified mood/affective disorder, given history of depression (particularly per chart review and per patient), with recent suspected suicide attempt via overdose of high potential lethality requiring intubation and ICU level care. Patient currently denies all mood symptom burden aside from recent low mood since childbirth (August 2024), however, she is guarded, evasive, and significantly minimizes the severity and risk of events leading to current admission. Most likely depressive disorder given this information, low suspicion for bipolar disorder given patient reports of related symptom burden being daily mood lability and irritability throughout her entire life, inpatient denying history of any occurrences/periods of time consistent withmanic episode. Difficult to exclude PTSD, cluster B traits. Admit Status: Involuntary - 72hr hold signed by [facility] ICU provider. Hold start date/time 03/10/25 at 1230, hold end date/time 03/16/25 at 1230. Diagnoses: PSYCHIATRIC MANAGEMENT 1.) Mood Disorder Unspecified PLAN: Admit to [facility] for further inpatient psychiatric management Behavioral checks q15 minutes per unit protocol Notify physician if medications for agitation required Comfort medications PRN Encourage participation in groups and benefit from therapeutic milieu Daily meetings and supportive therapy from treatment team Further management per primary team on [facility] Defer initiation of any potential psychotropic medications to primary treatment team on U, will elect not to start or resume any scheduled medications this evening given recent OD on psychotropic medications Holding home propranolol - unclear indication, if for anxiety vs HTN?, resume as able pending trended VS/BP (BP currently bordering on hypotensive still s/p recent OD), and pending formal medication reconciliation per pharmacy MEDICAL MANAGEMENT 1.) Insomnia - holding home Seroquel 50 mg nightly in the setting of recent OD, resume as able Disposition: Likely home, TBD Barriers to discharge: Psychiatric Stabilization This patient was staffed with attending psychiatrist, Dr. Albarado, who agrees with the assessment and plan. Rich Khan DO PGY-1, Psychiatry Note to patient: The Century Cures Act makes medical notes like these available to patients inthe interest of transparency. However, be advised this is a medical document. It is intended as peer to peer communication. It is written in medical language and may contain abbreviations or verbiagethat are unfamiliar. It may appear blunt or direct. Medical documents are intended to carry relevant information, facts as evident, and the clinical opinion of the practitioner. [1] Past Medical History: Diagnosis Date Anxiety Bipolar depression ([facility]) Nonscarring hair loss, unspecified Hair loss Other hemorrhoids Internal hemorrhoid Personal history of other complications of , childbirth and the puerperium History of spontaneous Personal history of other complications of , childbirth and the puerperium History of threatened Personal history of other diseases of the digestive system History of rectal bleeding [2] Allergies Allergen Reactions Oxycodone Anaphylaxis Hydrocodone Itching Cosigned by Juan Albarado MD at 03/12/2025 8:39 AM EDT Associated attestation - Juan Albarado MD - 03/12/2025 8:39 AM EDT Signature only. * Consults - Reggie Braga - 03/10/2025 12:35 PM EDT Pastoral Care Note [facility] initiated a relationship of care and support for the patient and family present at the bedside. Referral From: Ancillary services Pastoral Care Provided For: Patient, Parent(s) Patient Profile: Consult Reasons: Initial visit Spiritual Assessment: Support Systems/ Spiritual Resources: Family Interventions: Interventions Provided: Supportive Listening, Introduced Patient/Family to [facility] Pastoral Care Outcomes: * Care Plan - Diane Dan - 03/10/2025 10:57 AM EDT Problem: Mechanical Ventilation Invasive Goal: Effective Communication Outcome: Met Goal: Optimal Device Function Outcome: Met Goal: Mechanical Ventilation Liberation Outcome: Met * Clinician Note - Ankush Fagan - 03/10/2025 8:00 AM EDT Physical Therapy Attempt Patient Name: Jacqueline Aaron Today's Date: 03/10/2025 Patient was attempted to be seen by physical therapy 03/10/2025 for PT Evaluation however Patient intubated and sedated.. Physical therapy team will follow-up when medically appropriate. Written by Ankush Fagan on 03/10/25 at 8:00 AM. * Clinician Note - Ct Jeffries - 03/10/2025 7:49 AM EDT Occupational Therapy Attempt Patient Name: Jacqueline Aaron Today's Date: 03/10/2025 Patient was attempted to be seen by occupational therapy 03/10/2025 for OT Evaluation however Patient intubated and sedated.. Occupational therapy team will follow-up when medically appropriate. Written by Ct Jeffries on 03/10/25 at 7:49 AM. * Care Plan - Yamil Monahan - 03/10/2025 7:11 AM EDT Problem: Mechanical Ventilation Invasive Goal: Effective Communication Outcome: Ongoing, Progressing Goal: Optimal Device Function Outcome: Ongoing, Progressing Goal: Mechanical Ventilation Liberation Outcome: Ongoing, Progressing Goal: Absence of Device-Related Skin and Tissue Injury Outcome: Ongoing, Progressing Goal: Absence of Ventilator-Induced Lung Injury Outcome: Ongoing, Progressing * Teleconsult - Juan Garcia MD - 03/10/2025 3:41 AM EDT 03/10/25 Jacqueline Aaron Asked by RN to review patient and order restraints. Chart reviewed and patient visualized. Patient has need for restraints. Order placed. Juan Garcia MD * H&P - Blake Julio APRN - 03/10/2025 12:13 AM EDTAssociated Order(s): Critical Care Post-Procedure Diagnose(s): Shock ([facility]); Acute respiratory failure with hypoxia; Suicide attempt by beta-adrenergic antagonist overdose, initial encounter ([facility]) MICU H&P Chief Complaint Overdose History Of Present Illness Jacqueline Aaron is a 29 y.o. female with past medical history of depression, anxiety, bipolar and prior suicide attempts. Patient presented to OSH after being found down at home unresponsive secondary to suicide attempt with intentional drug overdose. Per documentation patient had empty bottles of propranolol, quetiapine and Tylenol PM (unsure pill count). She was intubated upon arrival to OSH for airway protection. Patient had some response to glucagon at OSH with SBP 90s but remained hypotensive so levophed gtt was started. She was [facility] for further care. On arrival, patient requiring low dose levophed to maintain adequate blood pressure. Toxicology following patient to assist with management. Family unavailable to obtain further history. Past Medical History She has a past medical history of Anxiety, Bipolar depression (CMS/HCC), Nonscarring hair loss, unspecified, Other hemorrhoids, Personal history of other complications of , childbirth and the puerperium, Personal history of other complications of , childbirth and the puerperium, and Personal history of other diseases of the digestive system. Surgical History She has a past surgical history that includes Riddle tooth extraction; Tonsillectomy; and Dilation and curettage of uterus. Family History Family History[1] Social History She reports that she has never smoked. She has never been exposed to tobacco smoke. She has never used smokeless tobacco. She reports that she does not currently use alcohol after a past usage of about 1.0 standard drink of alcohol per week. She reports that she does not use drugs. Review of Systems: Unable to obtain a complete 14 point review of systems due to patient status and intubation Allergies Oxycodone and Hydrocodone Home Medications Prior to Admission medications Medication Sig Start Date End Date Taking? Authorizing Provider cariprazine (Vraylar) 1.5 MG capsule Take 1 capsule (1.5 mg) by mouth in the morning. 11/30/24 Amparo Davies APRN, JUAN famotidine (Pepcid) 20 MG tablet Take 1 tablet (20 mg) by mouth 2 (two) times a day. Patient not taking: Reported on 12/11/2024 03/13/24 Chioma Wilson APRN, CNM Ferrous Sulfate (Iron) 325 (65 Fe) MG tablet Take 1 tablet by mouth 2 (two) times a day. Patient not taking: Reported on 12/11/2024 06/01/24 Chioma Wilson APRN, CNM lisinopril 10 MG tablet Take 1 tablet (10 mg) by mouth 1 (one) time each day. 10/16/24 10/16/25 Mae Villa MD Oral Electrolytes (Liquid I.V.) pack Take by mouth if needed. Provider, MD John sertraline (Zoloft) 50 MG tablet Take 1 tablet by mouth daily. 12/31/24 06/29/25 Kg Leal MD Medications Current Scheduled Medications[2] Current Continuous Medications[3] Current PRN Medications[4] Physical Exam Vitals reviewed. Constitutional: General: She is not in acute distress. Appearance: She is ill-appearing. Interventions: She is intubated. HENT: Head: Normocephalic and atraumatic. Nose: No rhinorrhea. Mouth/Throat: Mouth: Mucous membranes are moist. Pharynx: No posterior oropharyngeal erythema. Eyes: General: No scleral icterus. Conjunctiva/sclera: Conjunctivae normal. Pupils: Pupils are equal, round, and reactive to light. Neck: Vascular: No carotid bruit. Cardiovascular: Rate and Rhythm: Regular rhythm. Bradycardia present. Pulses: Radial pulses are 1+ on the right side and 1+ on the left side. Posterior tibial pulses are 1+ on the right side and 1+ on the left side. Heart sounds: No murmur heard. No gallop. Pulmonary: Effort: She is intubated. Breath sounds: Normal breath sounds. No wheezing or rhonchi. Abdominal: General: Bowel sounds are normal. There is no distension. Palpations: Abdomen is soft. Tenderness: There is no abdominal tenderness. Genitourinary: Pubic Area: No rash. Labia: Right: No rash or lesion. Left: No rash or lesion. Vagina: No vaginal discharge. Musculoskeletal: General: Normal range of motion. Cervical back: No rigidity. Right lower leg: No edema. Left lower leg: No edema. Skin: General: Skin is warm and dry. Capillary Refill: Capillary refill takes less than 2 seconds. Neurological: General: No focal deficit present. Comments: Withdraws to stimuli in all extremities Last Recorded Vitals Blood pressure 89/54, pulse 59, temperature 36.4 ??C (97.5 ??F), resp. rate 16, weight 80.2 kg (176lb 12.9 oz), SpO2 100%, unknown if currently . Results CBC WBC 8.57 Hb 9.7 (L) Plt 165 Hct 29.2 (L) ANC 5.54 INR 1.1, PTT ??, Anti-Xa ?? BMP Na 137 Cl 103 BUN 13 Glu 131 (H) K 3.1 (L) Co2 24 Cr 0.75 Ca 8.7 (L) iCa 4.6 Mg 1.3 (L), Phos 4.0 Lactate 2.3 (H) LFT AST 20 AlkPhos 42 T Prot 5.5 (L) ALK 14 Bili 0.4 Alb ?? D.Bili ?? Results from last 7 days Lab Units 03/09/252048 PH ART 7.49* PCO2 ART mm Hg 35 PO2 ART mm Hg 130* HCO3 ART mmol/L 26.7* BASE EXC ART mmol/L 3.3* Radiology XR Chest 1 View - bedside Result Date: 03/09/2025 Impression: Endotracheal tube tip at the roger. Left basilar opacities may represent atelectasis or aspiration. CRITICAL RESULT: No. COMMUNICATION: Per this written report. Drafted by Omaira Hager MD on 03/09/2025 8:26 PM Final report signed by Omaira Hager MD on 03/09/2025 8:27 PM Assessment and Plan Acute respiratory failure on mechanical ventilator - Intubated for airway protection Plan: - Continue MV to optimize oxygenation and ventilation, maintain sats >92% - Added propofol gtt to facilitate in vent compliance - ABG and CXR pending - PS trails when medically appropriate - Follow infectious workup Shock secondary to drug overdose (POA) Intentional drug overdose (POA) Suicide attempt (POA) History of suicide attempts History of depression History of anxiety History of bipolar disorder - Empty bottles of propranolol, Seroquel and tylenol PM Plan: - Consult toxicology on admission - Continue levophed to maintain MAPs >65 - EKG to monitor QTC - N-acetyl cysteine protocol - CT head pending - Consult psychiatry when medically appropriate - Pharmacy to reconcile home medications on admission, resume as medically appropriate - 72 hour hold to begin once extubated Obese (POA) - Complicates all aspects of care Disposition: - MICU - Full Code Edited by: Blake Julio APRN at 03/10/2025 0013 Critical Care Performed by: Blake Julio APRN Authorized by: Blake Julio APRN Critical care provider statement: Critical care time (minutes): 120 Critical care time was exclusive of: Separately billable procedures and treating other patients Critical care was time spent personally by me on the following activities: Development of treatmentplan with patient or surrogate, evaluation of patient's response to treatment, examination of patient, obtaining history from patient or surrogate, ordering and performing treatments and interventions, ordering and review of laboratory studies, ordering and review of radiographic studies, review ofold charts and ventilator management Comments: Patient was presented in multidisciplinary rounds. All vital signs, laboratory data, radiographic data, and events were discussed with pulmonary critical care attending, MD Juan Garcia. Pharmacy support services were present. This patient is critically ill with shock in setting of intentional beta rk overdose. Thus far, I have spent the above referenced minutes, devoted solely to this patient managing life/organ supporting interventions that required physical assessment. This includes time spent making adjustments in ventilator settings, reviewing and adjusting antibiotics and all medications, discussion of patient with consultants and other care providers as well as updating patient and/or family (if patient by virtue of his/her condition is unable to participate in decision making). This does not include time spent performing separately billed procedures. Time is not concurrent with that of other providers. [1] Family History Problem Relation Name Age of Onset Lung cancer Mother COPD Mother No Known Problems Father No Known Problems Brother No Known Problems Brother Heart defect Daughter BAV COPD Maternal Grandmother No Known Problems Maternal Grandfather Breast cancer Paternal Grandmother No Known Problems Paternal Grandfather No Known Problems Mother's Sister No Known Problems Father's Brother [2] acetylcysteine (Acetadote) infusion, 250 mg/kg, Intravenous, Once insulin regular, 0-5 Units, Subcutaneous, q6h SHABNAM mupirocin, 1 Application, Each Nostril, BID [3] dextrose, 100 mL/hr, Last Rate: 100 mL/hr (03/09/252058) norepinephrine, 0-0.4 mcg/kg/min, Last Rate: 0.04 mcg/kg/min (03/09/252299) propofol, 10-50 mcg/kg/min, Last Rate: 25 mcg/kg/min (03/09/252299) [4] PRN medications: glucose OR dextrose OR glucagon (human recombinant), Insert peripheralIV AND Saline lock IV AND sodium chloride * Hospital Course - Ron Mendoza APRN - 03/09/2025 4:21 PM EDT Jacqueline Aaron is a 29 y.o. female with past medical history of depression, anxiety, bipolar and prior suicide attempts. Patient presented to OSH after being found down at home unresponsive secondary to suicide attempt with intentional drug overdose. Per documentation patient had empty bottles of propranolol, quetiapine and Tylenol PM (unsure pill count). She was intubated upon arrival to OSH for airway protection. Patient had some response to glucagon at OSH with SBP 90s but remained hypotensive so levophed gtt was started. She was transferred to [facility] for further care. On arrival, patient required low dose levophed to maintain adequate blood pressure. Toxicology followed patient to assist with management. Family unavailable to obtain further history. She had no acute events overnight. In the AM the propofol was discontinued and soon after the norepinephrine was stopped and the patient was extubated. NAC discontinued after finding normal LFTs and negative Tylenol level. D10 decreased to 50ml/hr, 72 hour hold initiated, suicide precautions with 1:1 sitter ordered. Later in the afternoon was evaluated by psych and transfer requested. She is hemodynamically stable on room air and will be discharged from the MICU and admitted to [facility] service. documented in this encounter Plan of Treatment Scheduled Orders Name Type Priority Associated Diagnoses Orde r Schedule POCT Arterial Blood Gas GEM Point of Care Testing - Docked Devices Routine Once (Lab) for 1 Occurrences starting 03/10/2025 until 03/10/2025 documented as of this encounter Procedures Procedure Name Priority Date/Time Associated Diagnosis Comments POCT ARTERIAL BLOOD GAS GEM UNSOLICITED RESULTS Routine 03/10/2025 10:05 AM EDT EXTUBATION Routine 03/10/2025 9:26 AM EDT ECG ADULT STAT 03/10/2025 9:21 AM EDT POCT ARTERIAL BLOOD GAS GEM UNSOLICITED RESULTS Routine 03/10/2025 7:50 AM EDT IONIZED CALCIUM, WHOLE BLOOD Routine 03/10/2025 7:39 AM EDT CREATINE KINASE, TOTAL, PLASMA Add-On 03/10/2025 7:39 AM EDT ACETAMINOPHEN, QUANTATATIVE, PLASMA Routine 03/10/2025 7:39 AM EDT CBC W/O DIFFERENTIAL Routine 03/10/2025 7:39 AM EDT HCG, QUANTITATIVE Add-On 03/10/2025 7:3 9 AM EDT PHOSPHORUS, PLASMA Routine 03/10/2025 7: 39 AM EDT MAGNESIUM, PLASMA Routine 03/10/2025 7:3 9 AM EDT COMPREHENSIVE METABOLIC PANEL, PLASMA Routine 03/10/2025 7:39 AM EDT XR CHEST 1 VIEW STAT 03/10/2025 7:36 AM EDT POCT GLUCOSE METER UNSOLICITED RESULTS Routine 03/10/2025 6:[address] HEAD WO IV CONTRAST STAT 2:33 AM EDT END TIDAL CO2 MONITORING Routine 03/10/2025 1:40 AM EDT END TIDAL CO2 MONITORING Routine 03/10/2025 1:40 AM EDT SBT - SPONTANEOUS BREATHING TRIAL Routine 03/10/2025 1:40 AM EDT VENTILATOR - ADULT Routine 03/10/2025 1: 40 AM EDT VENTILATOR - ADULT Routine 03/10/2025 1: 40 AM EDT ME CRITICAL CARE, ADDL 30 MIN Routine 03/10/2025 12:13 AM EDT Acute respiratory failure with hypoxia Suicide attempt by beta-adrenergic antagonist overdose, initial encounter ([facility]) Shock ([facility]) ME CRITICAL CARE, E/M 30-74 MINUTES Routine 03/10/2025 12:13 AM EDT Acute respiratory failure with hypoxia Suicide attempt by beta-adrenergic antagonist overdose, initial encounter ([facility]) Shock ([facility]) POCT GLUCOSE METER UNSOLICITED RESULTS Routine 03/09/2025 11:38 PM EDT PROTHROMBIN TIME(PT) / INR STAT 03/09/2025 11:01 PM EDT LACTATE DEHYDROGENASE, PLASMA STAT 03/09/2025 11:01 PM EDT STREPTOCOCCUS PNEUMONIAE AND LEGIONELLA URINARY ANTIGEN Routine 03/09/2025 10:59 PM EDT URINALYSIS WITH REFLEX MICROSCOPIC AND CULTURE Routine 03/09/2025 10:59 PM EDT URINE GONSALEZ PANEL Routine 03/09/2025 10:5 9 PM EDT URINALYSIS MICROSCOPIC FOR UA REFLEX Routine 03/09/2025 10:59 PM EDT METHADONE, LCMSMS STAT 03/09/2025 10: 59 PM EDT DRUG ABUSE SCREEN, URINE STAT 03/09/2025 10:59 PM EDT FENTANYL, URINE STAT 03/09/2025 10:59 PM EDT BENZODIAZEPINE, URINE, QUANTITATIVE STAT 03/09/2025 10:59 PM EDT COMPREHENSIVE URINE DRUG SCREENING,QUALITATIVE ASSAY, >= 27 DRUG CLASSES Routine 03/09/2025 10:59 PM EDT URINALYSIS WITH REFLEX MICROSCOPIC Routine 03/09/2025 10:59 PM EDT POCT GLUCOSE METER UNSOLICITED RESULTS Routine 03/09/2025 10:37 PM EDT SANDY AURIS SURVEILLANCE BY PCR Routine 03/09/2025 8:54 PM EDT MULTI DRUG RESISTANCE TEST Routine 03/09/2025 8:54 PM EDT METHICILLIN RESISTANT STAPHYLOCOCCUS AUREUS (MRSA) BY PCR Routine 03/09/2025 8:54 PM EDT POCT ARTERIAL BLOOD GAS GEM UNSOLICITED RESULTS Routine 03/09/2025 8:49 PM EDT TSH REFLEX FT4 Routine 03/09/2025 8:45 PM EDT IONIZED CALCIUM, WHOLE BLOOD Routine 03/09/2025 8:45 PM EDT IONIZED CALCIUM, SERUM Routine 8:45 PM EDT POCT GLUCOSE METER UNSOLICITED RESULTS Routine 03/09/2025 8:45 PM EDT ALCOHOL PROFILE, PLASMA Routine 03/09/2025 8:45 PM EDT CREATINE KINASE, TOTAL, PLASMA STAT 03/09/2025 8:45 PM EDT PROCALCITONIN, PLASMA Routine 03/09/2025 8:45 PM EDT ACETAMINOPHEN, QUANTATATIVE, PLASMA Routine 03/09/2025 8:45 PM EDT ACUTE HEPATITIS PANEL Routine 03/09/2025 8:45 PM EDT BLOOD CULTURE (AEROBIC/ANAEROBIC SET) Routine 03/09/2025 8:45 PM EDT BLOOD CULTURE (AEROBIC/ANAEROBIC SET) Routine 03/09/2025 8:45 PM EDT PROTHROMBIN TIME(PT) / INR STAT 03/09/2025 8:45 PM EDT CBC WITH AUTO DIFFERENTIAL STAT 03/09/2025 8:45 PM EDT TYPE AND SCREEN Routine 03/09/2025 8:45 PM EDT C-REACTIVE PROTEIN, PLASMA Routine 03/09/2025 8:45 PM EDT PHOSPHORUS, PLASMA STAT 03/09/2025 8: 45 PM EDT MAGNESIUM, PLASMA STAT 03/09/2025 8:4 5 PM EDT HEMOGLOBIN A1C Routine 03/09/2025 8:45 PM EDT FOLATE, SERUM Routine 03/09/2025 8:45 PM EDT VITAMIN B12, SERUM Routine 03/09/2025 8: 45 PM EDT AMMONIA, PLASMA STAT 03/09/2025 8:45 PM EDT SALICYLATE, QUANTITATIVE, PLASMA Routine 03/09/2025 8:45 PM EDT COMPREHENSIVE METABOLIC PANEL, PLASMA STAT 03/09/2025 8:45 PM EDT XR CHEST 1 VIEW STAT 03/09/2025 8:22 PM EDT ECG ADULT Routine 03/09/2025 8:19 PM EDT POCT GLUCOSE METER UNSOLICITED RESULTS Routine 03/09/2025 8:02 PM EDT documented in this encounter Results * (ABNORMAL) POCT arterial blood gas gem (03/10/2025 10:05 AM EDT) pH, Arterial 7.48(H) 7.35 - 7.45 03/10/2025 10:07 AM EDT [facility] pCO2, Arterial 32(L) 35 - 48 mm Hg 03/10/2025 10:07 AM EDT [facility] pO2, Arterial 165(H) 83 - 108 mm Hg 03/10/2025 10:07 AM [facility] SO2, Arterial 100(H) 94 - 98 % 03/10/2025 10:07 AM [facility] FIO2 40.0 % 03/10/2025 10:07 AM [facility] Base Excess, Arterial 0.7 -2 - 3 mmol/L 03/10/2025 10:07 AM [facility] HCO3, Arterial 23.8 22 - 26 mmol/L 03/10/2025 10:07 AM [facility] ETCO2, Arterial 22 mmol/L 10:07 AM [facility] Total Hemoglobin, Arterial, Whole Blood 10.2(L) 11.2 - 15.7 g/dL 03/10/2025 10:07 AM [facility] Hematocrit, Arterial 31.0(L) 34.0 - 45.0 % 03/10/2025 10:07 AM [facility] Sodium, Arterial 133(L) 136 - 145 mmol/L 03/10/2025 10:07 AM [facility] Potassium, Arterial 4.0 3.6 - 4.9 mmol/L 03/10/2025 10:07 AM [facility] Chloride, Whole Blood 108(H) 97 - 107 mmol/L 03/10/2025 10:07 AM [facility] Glucose, Arterial 102(H) 74 - 99 mg/dL 03/10/2025 10:07 AM [facility] Ionized Calcium, Arterial 4.7 4.6 - 5.1 mg/dL 03/10/2025 10:07 AM [facility] Lactate, Arterial 1.8(H) 0.5 - 1.6 mmol/L 03/10/2025 10:07 AM [facility] Body Temperature 37.2 Celsius 03/10/2025 10:07 AM [facility] pH, Temp Corrected, Arterial 7.48(H) 7.35 - 7.45 03/10/2025 10:07 AM [facility] pCO2, Temp Corrected, Arterial 32(L) 35 - 48 mm Hg 03/10/2025 10:07 AM [facility] pO2, Temp Corrected, Arterial 166(H) 83 - 108 mm Hg 03/10/2025 10:07 AM EDT [facility] Machine Spreader ID Yamil Monahan 03/10/2025 10:07 AM EDT [facility] Blood, Arterial Whole blood specimen / Unknown 03/10/2025 10:05 AM EDT 03/10/2025 10:07 AM EDT Frasnico Teran MD LAB POINT OF CARE TE ST DOCKED DEVICE UNSOLICITED RESULTS Final Result Performing Organization Address [facility] Co de Phone Number [facility] [address] [place] [address] * ECG Adult (03/10/2025 9:21 AM EDT) EKG DIAGNOSIS CLASS Normal MUSE ECG Ventricular Rate 65 BPM MUSE ECG Atrial Rate 65 BPM MUSE ECG ME Interval 142 ms MUSE ECG QRSD Interval 84 ms MUSE ECG QT Interval 428 ms MUSE ECG QTC Interval 445 ms MUSE ECG P [place] 27 degrees MUSE ECG R [place] 35 degrees MUSE ECG T Wave [place] 38 degrees MUSE ECG Diagnosis Normal sinus rhythm MUSE ECG Diagnosis Normal ECG MUSE ECG Diagnosis MUSE ECG Diagnosis Confirmed by Ron Chahal ([id number]) on 03/10/2025 11:05:32 AM MUSE ECG 03/10/2025 9:21 AM EDT 03/10/2025 11:05 AM EDT Fransico Teran MD ECG ORDERABLES Final Result Performing Organization Address [facility] Co de Phone Number MUSE ECG * (ABNORMAL) POCT arterial blood gas gem (03/10/2025 7:50 AM EDT) pH, Arterial 7.48(H) 7.35 - 7.45 03/10/2025 7:51 AM EDT [facility] pCO2, Arterial 34(L) 35 - 48 mm Hg 03/10/2025 7:51 AM EDT [facility] pO2, Arterial 114(H) 83 - 108 mm Hg 03/10/2025 7:51 AM EDT [facility] SO2, Arterial 100(H) 94 - 98 % 03/10/2025 7:51 AM EDT [facility] FIO2 24.0 % 03/10/2025 7:51 AM EDT [facility] Base Excess, Arterial 2.0 -2 - 3 mmol/L 03/10/2025 7:51 AM EDT [facility] HCO3, Arterial 25.3 22 - 26 mmol/L 03/10/2025 7:51 AM EDT [facility] Total Hemoglobin, Arterial, Whole Blood 10.2(L) 11.2 - 15.7 g/dL 03/10/2025 7:51 AM T [facility] Hematocrit, Arterial 31.0(L) 34.0 - 45.0 % 03/10/2025 7:51 AM EDT [facility] Sodium, Arterial 133(L) 136 - 145 mmol/L 03/10/2025 7:51 AM T [facility] Potassium, Arterial 3.9 3.6 - 4.9 mmol/L 03/10/2025 7:51 AM T [facility] Chloride, Whole Blood 107 97 - 107 mmol/L 03/10/2025 7:51 AM T [facility] Glucose, Arterial 103(H) 74 - 99 mg/dL 03/10/2025 7:51 AM [facility] Ionized Calcium, Arterial 4.8 4.6 - 5.1 mg/dL 03/10/2025 7:51 AM T [facility] Lactate, Arterial 1.7(H) 0.5 - 1.6 mmol/L 03/10/2025 7:51 AM T [facility] Body Temperature 36.7 Celsius 03/10/2025 7:51 AM [facility] pH, Temp Corrected, Arterial 7.49(H) 7.35 - 7.45 03/10/2025 7:51 AM [facility] pCO2, Temp Corrected, Arterial 34(L) 35 - 48 mm Hg 03/10/2025 7:51 AM T [facility] pO2, Temp Corrected, Arterial 112(H) 83 - 108 mm Hg 03/10/2025 7:51 AM T [facility] Machine Spreader ID Srikanth Sotelo 03/10/2025 7:51 AM [facility] Blood, Arterial Whole blood specimen / Unknown 03/10/2025 7:50 AM EDT 03/10/2025 7:51 AM EDT Fransico Teran MD LAB POINT OF CARE TE ST DOCKED DEVICE UNSOLICITED RESULTS Final Result Performing Organization Address [facility] Co de Phone Number [facility] [address] [place] [address] * hCG, Total Beta, Quantitative, Plasma (03/10/2025 7:39 AM EDT) hCG, Total Beta <1 <5 mIU/mL 03/10/2025 11:35 AM EDT [facility] Blood Arterial blood specimen / Unknown Arterial Line / Unknown 03/10/2025 7:39 AM EDT 03/10/2025 7:44 AM EDT Narrative [facility]ALTH[facility]ARE LAB - 03/10/2025 11:35 AM EDT Patients: Normal Range Premenopausal Female < 5 mIU/mL Male < 3 mIU/mL Postmenopausal Female < 8 mIU/mL The Freddy Elecsys hCG+beta assay is standardized to the 4th IS for Chorionic Gonadotropin. The combination of the specific monoclonal antibodies used in this assay recognizes the holo-hormone, nicked forms of hCG, the Beta-core Fragment and the free beta-subunit. Elevated hCG concentrations not associated with are found in patients with gestational trophoblastic disease and choriocarcinoma as well as germ cell, ovarian, bladder, pancreas, stomach, lung and liver tumors. Performed by the Freddy electrochemiluminescent immunoassay which is traceable to the 4th International Standard for hCG (NIBSC 75/589). Results obtained with different test methods or kits cannot be used interchangeably. us Ron Mendoza APRN LAB BLOOD ORDERABLES Final R esult Performing Organization Address [facility] Co de Phone Number [facility] [address] [place] [address] * (ABNORMAL) Creatine Kinase (CK), Total (03/10/2025 7:39 AM EDT) Creatine Kinase, Plasma 207(H) 37 - 168 U/L 03/10/2025 9:06 AM EDT [facility] Blood Arterial blood specimen / Unknown Arterial Line / Unknown 03/10/2025 7:39 AM EDT 03/10/2025 7:44 AM EDT Ron Mendoza POLE FRAME CONSTRUCTION WORKER LAB BLOOD ORDERABLES Final R psychiatric hospital Performing Organization Address [facility] de Phone Number [facility] [address] [place] [address] * (ABNORMAL) Phosphorus (03/10/2025 7:39 AM EDT) Phosphorus, Plasma 2.3(L) 2.5 - 4.5 mg/dL 03/10/2025 8:04 AM EDT [facility] Blood Arterial blood specimen / Unknown Arterial Line / Unknown 03/10/2025 7:39 AM EDT 03/10/2025 7:44 AM EDT Ron Mendoza APRN LAB BLOOD ORDERABLES Final R psychiatric hospital Performing Organization Address [facility] de Phone Number [facility] [address] [place] [address] * (ABNORMAL) Magnesium (03/10/2025 7:39 AM EDT) Magnesium, Plasma 3.2(H) 1.9 - 2.4 mg/dL 03/10/2025 8:04 AM EDT [facility] Blood Arterial blood specimen / Unknown Arterial Line / Unknown 03/10/2025 7:39 AM EDT 03/10/2025 7:44 AM EDT Ron Mendoza [employer]LE [employer]AME CONSTRUCTION WORKER LAB BLOOD ORDERABLES Final R psychiatric hospital Performing Organization Address [facility] de Phone Number [facility] [address] [place] [address] * Ionized calcium, whole blood (03/10/2025 7:39 AM EDT) Ionized Calcium, Whole Blood 4.7 4.6 - 5.1 mg/dL LAB HEMATOLOGY METHOD 03/10/2025 7:46 AM EDT [facility] Blood Arterial blood specimen / Unknown Arterial Line / Unknown 03/10/2025 7:39 AM EDT 03/10/2025 7:44 AM EDT us Ron Mendoza [employer]LE [employer]AME CONSTRUCTION WORKER LAB BLOOD ORDERABLES Final R esult [facility] [address] [place] [address] * (ABNORMAL) Hemogram (CBC) (03/10/2025 7:39 AM EDT) WBC Count 10.32(H) 3.70 - 10.30 10*3/uL LAB HEMATOLOGY METHOD 03/10/2025 7:46 AM EDT [facility] RBC Count 3.38(L) 3.90 - 5.20 10*6/uL LAB HEMATOLOGY METHOD 03/10/2025 7:46 AM EDT [facility] HGB 10.1(L) 11.2 - 15.7 g/dL LAB HEMATOLOGY METHOD 03/10/2025 7:46 AM EDT [facility] HCT 30.1(L) 34.0 - 45.0 % LAB HEMATOLOGY METHOD 03/10/2025 7:46 AM EDT [facility] Platelet Count 176 155 - 369 10*3/uL LAB HEMATOLOGY METHOD 03/10/2025 7:46 AM EDT [facility] MCV 89 79 - 98 fL LAB HEMATOLOGY METHOD 03/10/2025 7:46 AM EDT [facility] MCH 29.9 26.0 - 32.0 pg LAB HEMATOLOGY METHOD 03/10/2025 7:46 AM EDT [facility] MCHC 33.6 30.7 - 35.5 g/dL LAB HEMATOLOGY METHOD 03/10/2025 7:46 AM EDT [facility] RDW 14.9(H) 11.5 - 14.5 % LAB HEMATOLOGY METHOD 03/10/2025 7:46 AM EDT [facility] MPV 10.9 8.8 - 12.5 fL LAB HEMATOLOGY METHOD 03/10/2025 7:46 AM EDT [facility] nRBC 0.0 <=0.0 per 100 WBCs LAB HEMATOLOGY METHOD 03/10/2025 7:46 AM EDT [facility] Blood Arterial blood specimen / Unknown Arterial Line / Unknown 03/10/2025 7:39 AM EDT 03/10/2025 7:44 AM EDT us Ron Mendoza POLE FRAME CONSTRUCTION WORKER LAB BLOOD ORDERABLES Final R esult [facility] [address] [place] [address] * (ABNORMAL) Comprehensive Metabolic Panel, Plasma (03/10/2025 7:39 AM EDT) Glucose, Plasma 107(H) 74 - 99 mg/dL 03/10/2025 8:04 AM EDT [facility] BUN, Plasma 7 7 - 21 mg/dL 03/10/2025 8:04 AM EDT [facility] Creatinine, Plasma 0.56(L) 0.60 - 1.10 mg/dL 03/10/2025 8:04 AM EDT [facility] BUN/Creatinine Ratio 13 03/10/2025 8:04 AM EDT [facility] Sodium, Plasma 141 136 - 145 mmol/L 03/10/2025 8:04 AM EDT [facility] Potassium, Plasma 3.9 3.6 - 4.9 mmol/L 03/10/2025 8:04 AM EDT [facility] Chloride, Plasma 108(H) 97 - 107 mmol/L 03/10/2025 8:04 AM EDT [facility] CO2, Plasma 24 22 - 29 mmol/L 03/10/2025 8:04 AM EDT [facility] Anion Gap 9 6 - 16 mmol/L 03/10/2025 8:04 AM EDT [facility] Total Calcium, Plasma 8.7(L) 8.9 - 10.2 mg/dL 03/10/2025 8:04 AM EDT [facility] Total Protein 5.7(L) 6.3 - 7.9 g/dL 03/10/2025 8:04 AM EDT [facility] Albumin, Plasma 3.4(L) 3.5 - 5.2 g/dL 03/10/2025 8:04 AM EDT [facility] AST, Plasma 18 10 - 35 U/L 03/10/2025 8:04 AM EDT [facility] ALT, Plasma 16 10 - 35 U/L 03/10/2025 8:04 AM EDT [facility] Alkaline Phosphatase, Plasma 44 35 - 104 U/L 03/10/2025 8:04 AM EDT [facility] Total Bilirubin, Plasma <0.2(L) 0.2 - 1.1 mg/dL 03/10/2025 8:04 AM EDT [facility] eGFRcr 128.5 mL/min/1.7 3m*2 03/10/2025 8:04 AM EDT [facility] Comment:Reported eGFRcr in m L/min/1.73m2 is based the CKD-EPI 2020 equation that does not use a race coefficient. Blood Arterial blood specimen / Unknown Arterial Line / Unknown 03/10/2025 7:39 AM EDT 03/10/2025 7:44 AM EDT us Blake Julio APRN LAB BLOOD ORDERABLES Final Re sult Performing Organization Address [facility] de Phone Number [facility] [address] [place] [address] * (ABNORMAL) Acetaminophen, Quantitative, Plasma (03/10/2025 7:39 AM EDT) Acetaminophen <5.0(L) 10.0 - 30.0 g/mL 03/10/2025 8:04 AM EDT [facility] Blood Arterial blood specimen / Unknown Arterial Line / Unknown 03/10/2025 7:39 AM EDT 03/10/2025 7:44 AM EDT Narrative [facility]ALTHCARE LAB - 03/10/2025 8:04 AM EDT Therapeutic: 10 to 30 ug/mL Supratherapeutic: >35 ug/mL us Blake Julio APRN LAB BLOOD ORDERABLES Final Re sult Performing Organization Address [facility] de Phone Number [facility] [address] [place] [address] * XR Chest 1 View (03/10/2025 7:36 AM EDT) Anatomical Region Laterality Modality Chest Digital Radiogra phy Impressions 03/10/2025 8:26 AM EDT ET tube in satisfactory position. Otherwise stable exam. CRITICAL RESULT: No. COMMUNICATION: Per this written report. Drafted by Olivier Jesus MD on 03/10/2025 8:26 AM Final report signed by Olivier Jesus MD on 03/10/2025 8:26 AM Narrative 03/10/2025 8:26 AM EDT CLINICAL INDICATION: resp failure TECHNIQUE: XR CHEST 1 VIEW COMPARISON: March 09, 2025 FINDINGS: Endotracheal tube has been retracted, now has its tip 4.5 cm above the roger. NG tube remains in place. Stable basilar atelectasis, left greater than right. No edema or consolidation. No pneumothorax. Procedure Note Olivier Jesus MD - 03/10/2025 CLINICAL INDICATION: resp failure TECHNIQUE: XR CHEST 1 VIEW COMPARISON: March 09, 2025 FINDINGS: Endotracheal tube has been retracted, now has its tip 4.5 cm above thecarina. NG tube remains in place. Stable basilar atelectasis, left greaterthan right. No edema or consolidation. No pneumothorax. IMPRESSION: ET tube in satisfactory position. Otherwise stable exam. CRITICAL RESULT: No. COMMUNICATION: Per this written report. Drafted by Olivier Jesus MD on 03/10/2025 8:26 AM Final report signed by Olivier Jesus MD on 03/10/2025 8:26 AM Ron Mendoza POLE FRAME CONSTRUCTION WORKER IMG XR PROCEDURES Final Resu lt * (ABNORMAL) POCT glucose meter (03/10/2025 6:00 AM EDT) POCT Glucose 112(H) 74 - 99 mg/dL 03/10/2025 6:02 AM EDT [facility] Comment:Accuracy of a glucos e result obtained from a capillary whole blood specimen relies upon adequate, non-compromised capillary blood flow. If the capillary glucose result is not consistent with the patient's clinical signs and symptoms, glucose testing should be repeated with either an arterial or venous sample on the glucometer or sent to the main labortory for testing. Comment 03/10/2025 6:02 AM EDT [employer] [facility] Machine Spreader ID Estephania Pena 03/10/2025 6:02 AM EDT [employer] [facility] Device ID [id number] 03/10/2025 6:02 AM EDT HEALTHCARE LAB Specimen Type POC Capillary 03/10/2025 6:02 AM EDT [facility] Blood Capillary blood specimen / Unknown 03/10/2025 6:00 AM EDT 03/10/2025 6:02 AM EDT Fransico Teran MD LAB POINT OF CARE TE ST DOCKED DEVICE UNSOLICITED RESULTS Final Result [facility] [address] [place] [address] * CT Head wo IV Contrast (03/10/2025 2:33 AM EDT) Anatomical Region Laterality Modality Head Computed Tomogra phy Impressions 03/10/2025 4:16 AM EDT No acute intracranial abnormality. CRITICAL RESULT: No. COMMUNICATION: Per this written report. Drafted by Ruperto Hodgson MD on 03/10/2025 4:11 AM Final report signed by Ruperto Hodgson MD on 03/10/2025 4:16 AM Narrative 03/10/2025 4:16 AM EDT CLINICAL INDICATION: Mental status change, unknown cause TECHNIQUE: Spiral axial CT images of the head were obtained without contrast administration. Total DLP (Dose-Length Product): 706.52 mGy.cm. Please note: The reported value represents the total of one or more individual components during the CT acquisition on this date and at this time, and as such, the same value may appear in more than one CT report depending on the interpreting/reporting physicians. COMPARISON: None. FINDINGS: Diagnostic Quality: Adequate. Soft Tissues: No significant soft tissue swelling is present. Skull: There are no calvarial destructive lesions or fractures. Sinuses and Mastoids: The visualized portions of the paranasal sinuses are clear. The mastoid air cells are clear. The ventricles and sulci are normal in size. There is no acute large cortical infarct, intracranial hemorrhage or large mass on this noncontrast study. Procedure Note Ruperto Hodgson MD - 03/10/2025 CLINICAL INDICATION: Mental status change, unknown cause TECHNIQUE: Spiral axial CT images of the head were obtained without contrastadministration. Total DLP (Dose-Length Product): 706.52 mGy.cm. Please note: The reportedvalue represents the total of one or more individual components during theCT acquisition on this date and at this time, and as such, the same valuemay appear in more than one CT report depending on theinterpreting/reporting physicians. COMPARISON: None. FINDINGS: Diagnostic Quality: Adequate. Soft Tissues: No significant soft tissue swelling is present. Skull: There are no calvarial destructive lesions or fractures. Sinuses and Mastoids: The visualized portions of the paranasal sinuses areclear. The mastoid air cells are clear. The ventricles and sulci are normal in size. There is no acute large cortical infarct, intracranial hemorrhage or largemass on this noncontrast study. IMPRESSION: No acute intracranial abnormality. CRITICAL RESULT: No. COMMUNICATION: Per this written report. Drafted by Ruperto Hodgson MD on 03/10/2025 4:11 AM Final report signed by Ruperto Hodgson MD on 03/10/2025 4:16 AM Blake Julio APRN IMG CT PROCEDURES Final Resul t * ME CRITICAL CARE, E/M 30-74 MINUTES, ME [facility], ADDL 30 MIN (03/10/2025 12:13 AM EDT) Narrative Blake Julio APRN - 03/10/2025 12:13 AM EDT Blake Julio APRN 03/10/2025 12:23 AM Critical Care Performed by: Blake Julio APRN Authorized by: Blake Julio APRN Critical care provider statement: Critical care time (minutes): 120 Critical care time was exclusive of: Separately billable procedures and treating other patients Critical care was time spent personally by me on the following activities: Development of treatment plan with patient or surrogate, evaluation of patient's response to treatment, examination of patient, obtaining history from patient or surrogate, ordering and performing treatments and interventions, ordering and review of laboratory studies, ordering and review of radiographic studies, review of old charts and ventilator management Comments: Patient was presented in multidisciplinary rounds. All vital signs, laboratory data, radiographic data, and events were discussed with pulmonary critical care attending, MD Juan Garcia. Pharmacy support services were present. This patient is critically ill with shock in setting of intentional beta rk overdose. Thus far, I have spent the above referenced minutes, devoted solely to this patient managing life/organ supporting interventions that required physical assessment. This includes time spent making adjustments in ventilator settings, reviewing and adjusting antibiotics and all medications, discussion of patient with consultants and other care providers as well as updating patient and/or family (if patient by virtue of his/her condition is unable to participate in decision making). This does not include time spent performing separately billed procedures. Time is not concurrent with that of other providers. us Blake Julio APRN IN CLINIC/BEDSIDE ORDERABLES Final Result * (ABNORMAL) POCT glucose meter (03/09/2025 11:38 PM EDT) Pathologist [facility] POCT Glucose 127(H) 74 - 99 mg/dL 03/09/2025 11:39 PM EDT [facility] Comment:Accuracy of a glucos e result obtained from a capillary whole blood specimen relies upon adequate, non-compromised capillary blood flow. If the capillary glucose result is not consistent with the patient's clinical signs and symptoms, glucose testing should be repeated with either an arterial or venous sample on the glucometer or sent to the main labortory for testing. Comment 03/09/2025 11:39 PM EDT [facility]ALTH[facility]ARE LAB Machine Spreader ID [address] 03/09/2025 11:39 PM EDT [facility]ALTH[facility]ARE LAB Device ID [id number] 03/09/2025 11:39 PM EDT [facility]ALTH[facility] LAB Specimen Type POC Capillary 03/09/2025 11:39 PM EDT [facility] Blood Capillary blood specimen / Unknown 03/09/2025 11:38 PM EDT 03/09/2025 11:39 PM EDT us Fransico Teran MD LAB POINT OF CARE TE ST DOCKED DEVICE UNSOLICITED RESULTS Final Result [facility] [address] [place] [id number] * (ABNORMAL) Prothrombin Time/INR (03/09/2025 11:01 PM EDT) Pathologist [facility] Prothrombin Time 14.6(H) 12.0 - 14.3 sec 03/09/2025 11:26 PM EDT [facility]ALTH[facility] INR 1.1 0.9 - 1.1 03/09/2025 11:26 PM EDT [facility] Blood Venous blood specimen / Unknown Venipuncture / Unknown 03/09/2025 11:01 PM EDT 03/09/2025 11:15 PM EDT Narrative [facility] - 03/09/2025 11:26 PM EDT OPTIMAL INR RANGES FOR PATIENT ON ORAL ANTICOAGULANT THERAPY Prevention of venous thromboembolism INR 2.0 to 3.0 In patients with heart disease: Atrial fibrillation INR 2.0 to 3.0 Valvular heart disease INR 2.0 to 3.0 Tissue heart valves INR 2.0 to 3.0 Mechanical prosthetic valves INR 2.5 to 3.5 Prevention of recurrent [place] INR 2.5 to 3.5 us Blake Julio APRN LAB BLOOD ORDERABLES Final Re sult Performing Organization Address City/[facility]/ZIP Co de Phone Number [facility] [address] [place] [address] * Lactate Dehydrogenase, Plasma (03/09/2025 11:01 PM EDT) LDH, Plasma 124 116 - 250 U/L 03/09/2025 11:44 PM EDT [facility] Blood Venous blood specimen / Unknown Venipuncture / Unknown 03/09/2025 11:01 PM EDT 03/09/2025 11:15 PM EDT us Blake Julio APRN LAB BLOOD ORDERABLES Final Re sult Performing Organization Address City/[facility]/ZIP Co de Phone Number [facility] [address] [place] [address] * Methadone Confirm LCMSMS (03/09/2025 10:59 PM EDT) Methadone <50 <50 ng/mL 03/12/2025 12:56 PM EDT [facility] EDDP - Methadone Metabolite <50 <50 ng/mL 03/12/2025 12:56 PM EDT [facility] Urine Urine specimen obtained by clean catch procedure / Unknown Non-blood Collection / Unknown 03/09/2025 10:59 PM EDT 03/09/2025 11:15 PM EDT Narrative [facility] - 03/12/2025 12:56 PM EDT Drug analysis is confirmed by LC-MS/MS (LC Tandem Mass Spectrometry) on Urine specimens. This test was developed and its performance characteristics determined by [facility]. It has not been cleared or approved by the FDA. The laboratory is regulated under CLIA as qualified to perform high-complexity testing. This test is used for clinical purposes. Testing is performed at the [facility]. us Blake Julio APRN LAB URINE ORDERABLES Final Re sult Performing Organization Address [facility] de Phone Number [facility] [address] [place] [address] * (ABNORMAL) Fentanyl Urine Confirm (03/09/2025 10:59 PM EDT) Fentanyl 1(H) <1 ng/mL 03/12/2025 12:56 PM EDT [facility] Norfentanyl 71(H) <2 ng/mL 03/12/2025 12:56 PM EDT [facility] Urine Urine specimen obtained by clean catch procedure / Unknown Non-blood Collection / Unknown 03/09/2025 10:59 PM EDT 03/09/2025 11:15 PM EDT Narrative [facility] - 03/12/2025 12:56 PM EDT Drug analysis is confirmed by LC-MS/MS (LC Tandem Mass Spectrometry) on Urine specimens. This test was developed and its performance characteristics determined by [facility]. It has not been cleared or approved by the FDA. The laboratory is regulated under CLIA as qualified to perform high-complexity testing. This test is used for clinical purposes. Testing is performed at the [facility]. us Blake Julio APRN LAB URINE ORDERABLES Final Re sult Performing Organization Address [facility] [facility] Co de Phone Number [facility] [address] [place] [address] * Benzodiazepine Confirm Urine (03/09/2025 10:59 PM EDT) [place] Alprazolam <20 <20 ng/mL 03/12 12:56 PM EDT [facility] Alpha [place] Midazolam <20 <20 ng/mL 2024 12:56 PM EDT [facility] [place] Triazolam <20 <20 ng/mL 2024 12:56 PM EDT [facility] Alprazolam <10 <10 ng/mL 03/12/2025 12:56 PM EDT [facility] Aminoclonazepam <20 <20 ng/mL 12:56 PM EDT [facility] Clonazepam <10 <10 ng/mL 03/12/2025 12:56 PM EDT [facility] Diazepam <10 <10 ng/mL 03/12/2025 12:56 PM EDT [facility] Lorazepam <20 <20 ng/mL 03/12/2025 12:56 PM EDT [facility] Lorazepam Glucuronide <50 <50 ng/mL 03/12/2025 12:56 PM EDT [facility] Midazolam 03/12/2025 12:56 PM EDT [facility] Nordiazepam <20 <20 ng/mL 03/12/2025 12:56 PM EDT [facility] Oxazepam <20 <20 ng/mL 03/12/2025 12:56 PM EDT [facility] Oxazepam Glucuronide <50 <50 ng/mL 02/22 12:56 PM EDT [facility] Temazepam <20 <20 ng/mL 03/12/2025 12:56 PM EDT [facility] Temazepam Glucuronide <50 <50 ng/mL 03/12/2025 12:56 PM EDT [facility] Triazolam 03/12/2025 12:56 PM EDT [facility] Urine Urine specimen obtained by clean catch procedure / Unknown Non-blood Collection / Unknown 03/09/2025 10:59 PM EDT 03/09/2025 11:15 PM EDT Narrative [facility] - 03/12/2025 12:56 PM EDT Drug analysis is confirmed by LC-MS/MS (LC Tandem Mass Spectrometry) on Urine specimens. This test was developed and its performance characteristics determined by [facility]. It has not been cleared or approved by the FDA. The laboratory is regulated under CLIA as qualified to perform high-complexity testing. This test is used for clinical purposes. Testing is performed at the [facility]. us Blake Julio APRN LAB URINE ORDERABLES Final Re sult Performing Organization Address [facility]/ZIP Co de Phone Number [facility] [address] [place] [address] * Urinalysis Microscopic Examination (03/09/2025 10:59 PM EDT) Urine Urine specimen obtained by clean catch procedure / Unknown Non-blood Collection / Unknown 03/09/2025 10:59 PM EDT 03/09/2025 11:15 PM EDT Blake Julio APRN LAB URINE ORDERABLES Final Re sult Performing Organization Address [facility] Co de Phone Number [facility] [address] [place] [address] * Drug Abuse Screen Urine (03/09/2025 10:59 PM EDT) Amphetamine Screen Urine Negative Cutoff: 500 ng/mL 03/10/2025 12:01 AM EDT [facility] Benzodiazepines Screen Urine Presumptive positive. Confirmation by LC-MS/MS to follow. Cutoff: 200 ng/mL 03/10/2025 12:01 AM EDT [facility] Cannabinoid Screen Urine Negative Cutoff: 50 ng/mL 03/10/2025 12:01 AM EDT [facility] Cocaine Screen Urine Negative Cutoff: 300 ng/mL 03/10/2025 12:01 AM EDT [facility] Barbiturate Screen Urine Negative Cutoff: 200 ng/mL 03/10/2025 12:01 AM EDT [facility] Opiate Screen Urine Negative Cutoff: 300 ng/mL 03/10/2025 12:01 AM EDT [facility] Methadone Screen Urine Presumptive positive. Confirmation by LC-MS/MS to follow. Cutoff: 300 ng/mL 03/10/2025 12:01 AM EDT [facility] Buprenorphine Screen Urine Negative Cutoff: 10 ng/mL 03/10/2025 12:01 AM EDT [facility] Fentanyl Screen Urine Presumptive positive. Confirmation by LC-MS/MS to follow. Cutoff: 1 ng/mL 03/10/2025 12:01 AM EDT [facility] Oxycodone Screen Urine Negative Cutoff: 100 ng/mL 03/10/2025 12:01 AM EDT [facility] Urine Urine specimen obtained by clean catch procedure / Unknown Non-blood Collection / Unknown 03/09/2025 10:59 PM EDT 03/09/2025 11:15 PM EDT us Blake Julio APRN LAB URINE ORDERABLES Final Re sult [facility] [address] [place] [address] * (ABNORMAL) Comprehensive Urine Drug Screening, Qualitative Assay, >= 27 Drug Classes (0:59 PM EDT) Acetaminophen Positive(A) Negative 03/11/2025 8:28 AM EDT [facility] Alprazolam Negative Negative 03/11/2025 8:28 AM EDT [facility] Amantadine Negative Negative 03/11/2025 8:28 AM EDT [facility] Amitriptyline Negative Negative 03/11/2025 8:28 AM EDT [facility] Amphetamine Negative Negative 03/11/2025 8:28 AM EDT [facility] Atenolol Negative Negative 03/11/2025 8:28 AM EDT [facility] Benzoylecgonine Negative Negative 8:28 AM EDT [facility] Bisoprolol Negative Negative 03/11/2025 8:28 AM EDT [facility] Bupropion Negative Negative 03/11/2025 8:28 AM EDT [facility] Butalbital Negative Negative 03/11/2025 8:28 AM EDT [facility] Carbamazepine Negative Negative 03/11/2025 8:28 AM EDT [facility] Carisoprodol Negative Negative 03/11/2025 8:28 AM EDT [facility] Chlorpheniramine Negative Negative 03/11/20 8:28 AM EDT [facility] Citalopram Negative Negative 03/11/2025 8:28 AM EDT [facility] Clindamycin Negative Negative 03/11/2025 8:28 AM EDT [facility] Clonidine Negative Negative 03/11/2025 8:28 AM EDT [facility] Clopidogrel / Ticlopidine Negative Negative 03/11/2025 8:28 AM EDT [facility] Cocaethylene Negative Negative 03/11/2025 8:28 AM EDT [facility] Cocaine Negative Negative 03/11/2025 8:28 AM EDT [facility] Codeine Negative Negative 03/11/2025 8:28 AM EDT [facility] Cyclobenzaprine Negative Negative 8:28 AM EDT [facility] Desvenlafaxine Negative Negative 03/11/2025 8:28 AM EDT [facility] Dextromethorphan Negative Negative 03/11/20 8:28 AM EDT [facility] Diazepam Negative Negative 03/11/2025 8:28 AM EDT [facility] Diltiazem Negative Negative 03/11/2025 8:28 AM EDT [facility] Diphenhydramine Positive(A) Negative 03/11/20 8:28 AM EDT [facility] Doxepine Negative Negative 03/11/2025 8:28 AM EDT [facility] Doxylamine Negative Negative 03/11/2025 8:28 AM EDT [facility] EDDP-Methadone metabolite Negative Negative 03/11/2025 8:28 AM EDT [facility] Fentanyl Negative Negative 03/11/2025 8:28 AM EDT [facility] Fluconazole Negative Negative 03/11/2025 8:28 AM EDT [facility] Fluoxetine Negative Negative 03/11/2025 8:28 AM EDT [facility] Guaifenesin Negative Negative 03/11/2025 8:28 AM EDT [facility] Haloperidol Negative Negative 03/11/2025 8:28 AM EDT [facility] Heroin/6-JUAN F Negative Negative 03/11/2025 8:28 AM EDT [facility] Hydrocodone Negative Negative 03/11/2025 8:28 AM EDT [facility] Hydroxyzine / Cetirizine metabolite Negative Negative 03/11/2025 8:28 AM EDT [facility] Ibuprofen Negative Negative 03/11/2025 8:28 AM EDT [facility] Imipramine Negative Negative 03/11/2025 8:28 AM EDT [facility] Ketamine Positive(A) Negative 03/11/2025 8:28 AM EDT [facility] Labetolol Negative Negative 03/11/2025 8:28 AM EDT [facility] Lamotrigine Negative Negative 03/11/2025 8:28 AM EDT [facility] Levetiracetam Negative Negative 03/11/2025 8:28 AM EDT [facility] Lidocaine Negative Negative 03/11/2025 8:28 AM EDT [facility] MDA Negative Negative 03/11/2025 8:28 AM EDT [facility] MDMA Negative Negative 03/11/2025 8:28 AM EDT [facility] Memantine Negative Negative 03/11/2025 8:28 AM EDT [facility] Meperidine Negative Negative 03/11/2025 8:28 AM EDT [facility] Meprobamate Negative Negative 03/11/2025 8:28 AM EDT [facility] Metaxalone Negative Negative 03/11/2025 8:28 AM EDT [facility] Methamphetamine Negative Negative 8:28 AM EDT [facility] Methocarbamol Negative Negative 03/11/2025 8:28 AM EDT [facility] Methylecgonine Negative Negative 03/11/2025 8:28 AM EDT [facility] Metoclopramide Negative Negative 03/11/2025 8:28 AM EDT [facility] Metoprolol Negative Negative 03/11/2025 8:28 AM EDT [facility] Metronidazole Negative Negative 03/11/2025 8:28 AM EDT [facility] Midazolam Negative Negative 03/11/2025 8:28 AM EDT [facility] Midazolam Metabolite Negative Negative 03/11/2025 8:28 AM EDT [facility] Mirtazapine Negative Negative 03/11/2025 8:28 AM EDT [facility] Misc Test Result Negative Negative 03/11/20 8:28 AM EDT [facility] Naproxen Negative Negative 03/11/2025 8:28 AM EDT [facility] Nefazodone Negative Negative 03/11/2025 8:28 AM EDT [facility] Norfentanyl Negative Negative 03/11/2025 8:28 AM EDT [facility] Nortriptyline Negative Negative 03/11/2025 8:28 AM EDT [facility] Ordanstron Negative Negative 03/11/2025 8:28 AM EDT [facility] Oxcarbazepine Negative Negative 03/11/2025 8:28 AM EDT [facility] Oxycodone Negative Negative 03/11/2025 8:28 AM EDT [facility] Paroxethine Negative Negative 03/11/2025 8:28 AM EDT [facility] Phenobarbital Negative Negative 03/11/2025 8:28 AM EDT [facility] Phentermine Negative Negative 03/11/2025 8:28 AM EDT [facility] Phenytoin Negative Negative 03/11/2025 8:28 AM EDT [facility] Primidone Negative Negative 03/11/2025 8:28 AM EDT [facility] Promethazine Negative Negative 03/11/2025 8:28 AM EDT [facility] Propofol Positive(A) Negative 03/11/2025 8:28 AM EDT [facility] Propranolol Negative Negative 03/11/2025 8:28 AM EDT [facility] Quetiapine Positive(A) Negative 03/11/2025 8:28 AM EDT [facility] Quinine Negative Negative 03/11/2025 8:28 AM EDT [facility] Rantidine Negative Negative 03/11/2025 8:28 AM EDT [facility] Sertraline Negative Negative 03/11/2025 8:28 AM EDT [facility] Spironolactone Negative Negative 03/11/2025 8:28 AM EDT [facility] Tizanidine Negative Negative 03/11/2025 8:28 AM EDT [facility] Topiramate Negative Negative 03/11/2025 8:28 AM EDT [facility] Tramadol Negative Negative 03/11/2025 8:28 AM EDT [facility] Trazadone/ Trazadone metabolite Negative Negative 03/11/2025 8:28 AM EDT [facility] Trimethoprim Negative Negative 03/11/2025 8:28 AM EDT [facility] Valproic Acid Negative Negative 03/11/2025 8:28 AM EDT [facility] Venlafaxine Negative Negative 03/11/2025 8:28 AM EDT [facility] Verapamil Negative Negative 03/11/2025 8:28 AM EDT [facility] Zolpidem Negative Negative 03/11/2025 8:28 AM EDT [facility] Xylazine Negative Negative 03/11/2025 8:28 AM EDT [facility] Urine Urine specimen obtained by clean catch procedure / Unknown Non-blood Collection / Unknown 03/09/2025 10:59 PM EDT 03/09/2025 11:15 PM EDT us Blake Julio APRN LAB URINE ORDERABLES Final Re sult Performing Organization Address City/[facility] Co de Phone Number [facility] [address] [place] [address] * Urine Gonsalez Panel (03/09/2025 10:59 PM EDT) Extra Reflex urine culture not indicated 03/10/2025 1:03 AM EDT [facility] Urine Urine specimen obtained by clean catch procedure / Unknown Non-blood Collection / Unknown 03/09/2025 10:59 PM EDT 03/09/2025 11:15 PM EDT us Blake Julio APRN LAB URINE ORDERABLES Final Re sult Performing Organization Address City/[facility] Co de Phone Number [facility] [address] [place] [address] * (ABNORMAL) Urinalysis with reflex microscopic (Culture NOT Included) (03/09/2025 10:59 PM EDT) Color, Urine Yellow LAB URINALYSIS - AUTOMATED METHOD 03/09/2025 11:38 PM EDT [facility] Clarity, Urine Clear LAB URINALYSIS - AUTOMATED METHOD 03/09/2025 11:38 PM EDT [facility] Spec [place], Urine 1.024 1.005 - 1.030 LAB URINALYSIS - AUTOMATED METHOD 03/09/2025 11:38 PM [facility] pH, Urine 6.5 5.0 - 8.0 LAB URINALYSIS - AUTOMATED METHOD 03/09/2025 11:38 PM [facility] Protein, Urine 30(A) Negative mg/dL LAB URINALYSIS - AUTOMATED METHOD 03/09/2025 11:38 PM [facility] Glucose, Urine 250(A) Negative mg/dL LAB URINALYSIS - AUTOMATED METHOD 03/09/2025 11:[facility] Ketones, Urine Trace(A) Negative mg/dL LAB URINALYSIS - AUTOMATED METHOD 03/09/2025 11:38 PM [facility] Blood, Urine Trace(A) Negative LAB URINALYSIS - AUTOMATED METHOD 03/09/2025 11:38 PM [facility] Bilirubin, Urine Negative Negative LAB URINALYSIS - AUTOMATED METHOD 03/09/2025 11:38 PM [facility] Urobilinogen, Urine 1.0 0.2 to 1.0 mg/dL LAB URINALYSIS - AUTOMATED METHOD 03/09/2025 11:38 PM [facility] Leukocytes, Urine Trace(A) Negative LAB URINALYSIS - AUTOMATED METHOD 03/09/2025 11:38 PM [facility] Nitrite, Urine Negative Negative LAB URINALYSIS - AUTOMATED METHOD 03/09/2025 11:38 PM [facility] RBC, Urine 4 - 10(A) 0 to 3 /HPF 03/09/2025 11:38 PM T [facility] Comment:This result was prev iously suppressed from the chart. WBC, Urine 6 - 10(A) 0 to 5 /HPF 03/09/2025 11:38 PM T [facility] Comment:This result was prev iously suppressed from the chart. Squamous Epithelial Cells 0 - 2 0 to 5 /HPF 03/09/2025 11:38 PM T [facility] Comment:This result was prev iously suppressed from the chart. Hyaline Casts 0 - 2 0 to 5 /LPF 03/09/2025 11:38 PM EDT [facility] Comment:This result was prev iously suppressed from the chart. Bacteria, Urine Present Negative 03/09/2025 11:38 PM EDT [facility] Comment:This result was prev iously suppressed from the chart. Mucus Present 03/09/2025 11:38 PM EDT [facility] Comment:This result was prev iously suppressed from the chart. Urine Urine specimen obtained by clean catch procedure / Unknown Non-blood Collection / Unknown 03/09/2025 10:59 PM EDT 03/09/2025 11:15 PM EDT Narrative [facility] - 03/09/2025 11:38 PM EDT Performed by manual method us Blake Julio APRN LAB URINE ORDERABLES Final Re sult Performing Organization Address [facility] Co de Phone Number [facility] [address] [place] [address] * Streptococcus pneumoniae and Legionella Urinary Antigen (03/09/2025 10:59 PM EDT) [facility] Legionella pneumophila serogroup 1 Antigen Result (Urine) Negative Negative 03/10/2025 6:38 AM EDT [facility] Streptococcus pneumoniae Antigen Result (Urine) Negative Negative 03/10/2025 6:38 AM EDT [facility] Urine Urine specimen obtained by clean catch procedure / Unknown Non-blood Collection / Unknown 03/09/2025 10:59 PM EDT 03/09/2025 11:14 PM EDT us Blake Julio APRN LAB MICROBIOLOGY - GENERAL OR DERABLES Final Result Performing Organization Address [facility]/ZIP Co de Phone Number [facility] [address] [place] [address] * (ABNORMAL) POCT glucose meter (03/09/2025 10:37 PM EDT) [facility] POCT Glucose 143(H) 74 - 99 mg/dL 03/09/2025 10:39 PM EDT [facility] Comment:Accuracy of a glucos e result obtained from a capillary whole blood specimen relies upon adequate, non-compromised capillary blood flow. If the capillary glucose result is not consistent with the patient's clinical signs and symptoms, glucose testing should be repeated with either an arterial or venous sample on the glucometer or sent to the main labortory for testing. Comment 03/09/2025 10:39 PM EDT [facility] Machine Spreader ID Estephania Pena 03/09/2025 10:39 PM EDT [facility] Device ID [id number] 03/09/2025 10:39 PM EDT [facility] Specimen Type POC Capillary 03/09/2025 10:39 PM EDT [facility] Blood Capillary blood specimen / Unknown 03/09/2025 10:37 PM EDT 03/09/2025 10:39 PM EDT Fransico Teran MD LAB POINT OF CARE TE ST DOCKED DEVICE UNSOLICITED RESULTS Final Result Performing Organization Address [facility] Co de Phone Number [facility] [address] [place] [address] * Methicillin Resistant Staphylococcus aureus (MRSA) by PCR (03/09/2025 8:54 PM EDT) Methicillin Resistant Staphylococcus aureus (MRSA) by PCR Not Detected Not Detected 03/10/2025 1:33 AM EDT [facility] Swab Both anterior nares / Unknown Non-blood Collection / Unknown 03/09/2025 8:54 PM EDT 03/09/2025 9:39 PM EDT Narrative [facility] - 03/10/2025 1:33 AM EDT This test is FDA approved for use with nares swab specimens using the eSwabs. This test is used for clinical purposes. It should not be regarded as investigational or for research. This laboratory is certified under the Clinical Laboratory improvement Amendments of 1988 (CLIA-88 as qualified to perform high complexity clinical laboratory testing. us Blake Julio APRN LAB MICROBIOLOGY - GENERAL OR DERABLES Final Result Performing Organization Address City/[facility]/ZIP Co de Phone Number [facility] [address] [place] [address] * Multi Drug Resistance Test (03/09/2025 8:54 PM EDT) Culture No growth at day 1 03/11/2025 6:00 AM EDT [facility] Swab (Nares and Nayeli Rectal) Non-blood Collection / Unknown 03/09/2025 8:54 PM EDT 03/09/2025 9:38 PM EDT Narrative [facility] - 03/11/2025 6:00 AM EDT This test was developed and its performance characteristics determined by the [facility]. Although the media is FDA-approved, it is not FDA-approved for all specimen types submitted. The FDA has determined that such clearance or approval is not necessary. This test is used for surveillance purposes. It should not be regarded as investigational or for research. The [facility] is certified under the Clinical Laboratory Improvement Amendments of 1988 (CLIA-88) as qualified to perform high complexity clinical laboratory testing. Blake LLANOS MICROBIOLOGY - GENERAL OR DERABLES Final Result Performing Organization Address [facility] Co de Phone Number [facility] [address] [place] [address] * Sandy auris Surveillance by PCR (03/09/2025 8:54 PM EDT) Sandy auris PCR Result Not Detected Not Detected 03/10/2025 12:48 PM EDT [facility] Swab (Axilla and Groin) Non-blood Collection / Unknown 03/09/2025 8:54 PM EDT 03/09/2025 9:39 PM EDT Narrative [facility] - 03/10/2025 12:48 PM EDT This PCR assay was developed and its performance characteristics determined by [facility] as appropriate for clinical purposes. This assay has not been cleared or approved by the FDA, but is performed in a CLIA regulated laboratory that is qualified to perform high-complexity testing. us Blake Julio APRN LAB MICROBIOLOGY - GENERAL OR DERABLES Final Result Performing Organization Address [facility] Co de Phone Number [facility] [address] [place] [address] * (ABNORMAL) POCT arterial blood gas gem (03/09/2025 8:49 PM EDT) pH, Arterial 7.49(H) 7.35 - 7.45 03/09/2025 8:50 PM EDT [facility] pCO2, Arterial 35 35 - 48 mm Hg 03/09/2025 8:50 PM EDT [facility] pO2, Arterial 130(H) 83 - 108 mm Hg 03/09/2025 8:50 PM EDT [facility] SO2, Arterial 100(H) 94 - 98 % 03/09/2025 8:50 PM EDT [facility] FIO2 30.0 % 03/09/2025 8:50 PM EDT [facility] Base Excess, Arterial 3.3(H) -2 - 3 mmol/L 03/09/2025 8:50 PM EDT [facility] HCO3, Arterial 26.7(H) 22 - 26 mmol/L 03/09/2025 8:50 PM EDT [facility] Total Hemoglobin, Arterial, Whole Blood 9.5(L) 11.2 - 15.7 g/dL 03/09/2025 8:50 PM EDT [facility] Hematocrit, Arterial 29.0(L) 34.0 - 45.0 % 03/09/2025 8:50 PM EDT [facility] Sodium, Arterial 132(L) 136 - 145 mmol/L 03/09/2025 8:50 PM EDT [facility] Potassium, Arterial 3.0(L) 3.6 - 4.9 mmol/L 03/09/2025 8:50 PM EDT [facility] Chloride, Whole Blood 104 97 - 107 mmol/L 03/09/2025 8:50 PM EDT [facility] Glucose, Arterial 115(H) 74 - 99 mg/dL 03/09/2025 8:50 PM EDT [facility] Ionized Calcium, Arterial 4.9 4.6 - 5.1 mg/dL 03/09/2025 8:50 PM EDT [facility] Lactate, Arterial 2.3(H) 0.5 - 1.6 mmol/L 03/09/2025 8:50 PM EDT [facility] Body Temperature 37.0 Celsius 03/09/2025 8:50 PM EDT [facility] pH, Temp Corrected, Arterial 7.49(H) 7.35 - 7.45 03/09/2025 8:50 PM EDT [facility] pCO2, Temp Corrected, Arterial 35 35 - 48 mm Hg 03/09/2025 8:50 PM EDT [facility] pO2, Temp Corrected, Arterial 130(H) 83 - 108 mm Hg 03/09/2025 8:50 PM EDT [facility] Machine Spreader ID Toshia Rogers 03/09/2025 8:50 PM EDT [facility] Blood, Arterial Whole blood specimen / Unknown 03/09/2025 8:49 PM EDT 03/09/2025 8:50 PM EDT us Fransico Teran MD LAB POINT OF CARE TE ST DOCKED DEVICE UNSOLICITED RESULTS Final Result Performing Organization Address City/[facility] Co de Phone Number [facility] [address] [place] [address] * (ABNORMAL) POCT glucose meter (03/09/2025 8:45 PM EDT) [facility] POCT Glucose 117(H) 74 - 99 mg/dL 03/09/2025 8:46 PM EDT [facility] Comment:Accuracy of a glucos e result obtained from a capillary whole blood specimen relies upon adequate, non-compromised capillary blood flow. If the capillary glucose result is not consistent with the patient's clinical signs and symptoms, glucose testing should be repeated with either an arterial or venous sample on the glucometer or sent to the main labortory for testing. Comment 03/09/2025 8:46 PM EDT [facility] Machine Spreader ID Estephania Pena 03/09/2025 8:46 PM EDT [facility] Device ID [id number] 03/09/2025 8:46 PM EDT [facility] Specimen Type POC Venous 03/09/2025 8:46 PM EDT [facility] Blood Venous blood specimen / Unknown 03/09/2025 8:45 PM EDT 03/09/2025 8:46 PM EDT us Fransico Teran MD LAB POINT OF CARE TE ST DOCKED DEVICE UNSOLICITED RESULTS Final Result [facility] [address] [place] [address] * Acute Hepatitis Panel (03/09/2025 8:45 PM EDT) Pathologist [facility] Hepatitis B Surf Antigen Negative Negative 03/10/2025 12:38 AM EDT [facility] Hepatitis C Antibody Negative Negative 03/10/2025 12:38 AM EDT [facility] Hepatitis A Antibody IgM Negative Negative 03/10/2025 12:38 AM EDT [facility] Hepatitis B Core Antibody IgM Negative Negative 03/10/2025 12:38 AM EDT [facility] Blood Venous blood specimen / Unknown Venipuncture / Unknown 03/09/2025 8:45 PM EDT 03/09/2025 8:59 PM EDT us Blake Julio APRN LAB BLOOD ORDERABLES Final Re sult Performing Organization Address City/[facility]/ZIP Co de Phone Number [facility] [address] [place] [address] * Vitamin B12 (03/09/2025 8:45 PM EDT) Pathologist [facility] Vitamin B12, Serum 245 210 - 1,033 pg/mL 03/10/2025 12:27 AM EDT [facility] Blood Venous blood specimen / Unknown Venipuncture / Unknown 03/09/2025 8:45 PM EDT 03/09/2025 8:59 PM EDT us Blake Julio APRN LAB BLOOD ORDERABLES Final Re sult [facility] [address] [place] [address] * Folate (03/09/2025 8:45 PM EDT) Pathologist [facility] Folate, Serum 6.7 >4.6 ng/mL 03/10/2025 12:27 AM EDT [facility] Blood Venous blood specimen / Unknown Venipuncture / Unknown 03/09/2025 8:45 PM EDT 03/09/2025 8:59 PM EDT us Blake Julio POLE FRAME CONSTRUCTION WORKER LAB BLOOD ORDERABLES Final Re sult Performing Organization Address City/[facility]/ZIP Co de Phone Number [facility] [address] [place] [address] * TSH Reflex FT4 (03/09/2025 8:45 PM EDT) [facility] Thyroid Stimulating Hormone, Plasma 2.09 0.40 - 4.20 uIU/mL 03/09/2025 9:39 PM EDT [facility] Blood Venous blood specimen / Unknown Venipuncture / Unknown 03/09/2025 8:45 PM EDT 03/09/2025 8:59 PM EDT [facility] - 03/09/2025 9:39 PM EDT Trimester Specific Ranges TSH ( IU/mL) 1st Trimester 0.1 - 3.0 2nd Trimester 0.19 - 4.06 3rd Trimester 0.3 - 3.7 us Blake Julio APRN LAB BLOOD ORDERABLES Final Re sult Performing Organization Address [facility] Co de Phone Number [facility] [address] [place] [address] * C-reactive protein (03/09/2025 8:45 PM EDT) [facility] CRP, Plasma <3.0 <=8.0 mg/L 03/09/2025 9:39 PM EDT [facility] Blood Venous blood specimen / Unknown Venipuncture / Unknown 03/09/2025 8:45 PM EDT 03/09/2025 8:59 PM EDT [facility] - 03/09/2025 9:39 PM EDT This CRP test is appropriate for assessment of infection, systemic inflammation and/or tissue injury. To assess cardiovascular disease risk order high sensitivity CRP (CRPH). us Blake Julio POLE FRAME CONSTRUCTION WORKER LAB BLOOD ORDERABLES Final Re sult Performing Organization Address [facility] Co de Phone Number [facility] [address] [place] [address] * (ABNORMAL) Procalcitonin (03/09/2025 8:45 PM EDT) Procalcitonin, Plasma 0.43(H) <0.09 ng/mL 03/09/2025 9:29 PM EDT [facility] Blood Venous blood specimen / Unknown Venipuncture / Unknown 03/09/2025 8:45 PM EDT 03/09/2025 8:59 PM EDT Narrative [facility] - 03/09/2025 9:29 PM EDT Procalcitonin concentrations in healthy individuals are <0.09 ng/mL. Published data support the following interpretive risk assessment: An elevated procalcitonin result does not always indicate sepsis. Various non-infectious conditions are known to increase procalcitonin. Results should be considered in the context of clinical symptoms and other laboratory tests. Procalcitonin >2.0 ng/mL: Concentrations >2.0 ng/mL on the first day of ICU admission are associated with a higher risk of progression to severe sepsis and/or septic shock. The change in PCT over time may help predict 28 day mortality risk. Please consult [email or web address] for more information. Test performed at [facility]. us Blake Julio APRN LAB BLOOD ORDERABLES Final Re sult [facility] [address] [place] [id number] * Alcohol Profile Plasma (03/09/2025 8:45 PM EDT) Methanol Plasma <10 <10 mg/dL 3:02 AM EDT [facility] Acetone Plasma <10 <10 mg/dL 03/10/2025 3:02 AM EDT [facility] Isopropanol Plasma <10 <10 mg/dL 03/10/2025 3:02 AM EDT [facility] Ethanol Plasma <10 <10 mg/dL 03/10/2025 3:02 AM EDT [facility] Blood Venous blood specimen / Unknown Venipuncture / Unknown 03/09/2025 8:45 PM EDT 03/09/2025 8:59 PM EDT Narrative [facility] - 03/10/2025 3:02 AM EDT Test performed by Gas Chromatography at the [facility]. This test was developed and its performance characteristics determined by [facility]. It has not been cleared or approved by the FDA.The laboratory is regulated under CLIA as qualified to perform high-complexity testing. This test is used for clinical purposes only. us Blake Julio APRN LAB BLOOD ORDERABLES Final Re sult Performing Organization Address [facility] de Phone Number [facility] [address] [place] [address] * Salicylate level (03/09/2025 8:45 PM EDT) Salicylate, Quantitative, Plasma <1.0 <25 mg/dL mg/dL 03/09/2025 9:28 PM EDT [facility] Blood Venous blood specimen / Unknown Venipuncture / Unknown 03/09/2025 8:45 PM EDT 03/09/2025 8:59 PM EDT [facility] - 03/09/2025 9:28 PM EDT Therapeutic Range: <25 mg/dL Supratherapeutic Level: >30 mg/dL us Blake Julio APRN LAB BLOOD ORDERABLES Final Re sult Performing Organization Address [facility] de Phone Number [facility] [address] [place] [address] * (ABNORMAL) Acetaminophen, Quantitative, Plasma (03/09/2025 8:45 PM EDT) Acetaminophen <5.0(L) 10.0 - 30.0 g/mL 03/09/2025 9:39 PM EDT [facility] Blood Venous blood specimen / Unknown Venipuncture / Unknown 03/09/2025 8:45 PM EDT 03/09/2025 8:59 PM EDT [facility] - 03/09/2025 9:39 PM EDT Therapeutic: 10 to 30 ug/mL Supratherapeutic: >35 ug/mL us Blake A Julio POLE FRAME CONSTRUCTION WORKER LAB BLOOD ORDERABLES Final Re sult Performing Organization Address [facility] Co de Phone Number [facility] [address] [place] [address] * Type and Screen (03/09/2025 8:45 PM EDT) ABO/Rh O Positive 03/09/2025 7:55 PM EDT [facility]LO[facility] Antibody Screen Negative 03/09/2025 7:55 PM EDT [facility]LO[facility] B[facility] Specimen Expiration 03/12/2025 23:59 03/09/2025 7:55 PM EDT [facility] Blood Venous blood specimen / Unknown Venipuncture / Unknown 03/09/2025 8:45 PM EDT 03/09/2025 8:52 PM EDT us Blake Julio APRN LAB BLOOD BANK TEST ORDERABLE S Final Result Performing Organization Address [facility] de Phone Number BLOOD BANK [address] [place] [address], * Ammonia, Plasma (03/09/2025 8:45 PM EDT) Ammonia 23 11 - 51 umol/L 03/09/2025 9:25 PM EDT [facility] Blood Venous blood specimen / Unknown Venipuncture / Unknown 03/09/2025 8:45 PM EDT 03/09/2025 8:59 PM EDT us Blake Julio APRN LAB BLOOD ORDERABLES Final Re sult Performing Organization Address [facility] Co de Phone Number [facility] [address] [place] [address] * Prothrombin Time/INR (03/09/2025 8:45 PM EDT) Prothrombin Time 13.7 12.0 - 14.3 sec 03/09/2025 9:14 PM EDT [facility] INR 1.0 0.9 - 1.1 03/09/2025 9:14 PM EDT [facility] Blood Venous blood specimen / Unknown Venipuncture / Unknown 03/09/2025 8:45 PM EDT 03/09/2025 9:02 PM EDT [facility] - 03/09/2025 9:14 PM EDT OPTIMAL INR RANGES FOR PATIENT ON ORAL ANTICOAGULANT THERAPY Prevention of venous thromboembolism INR 2.0 to 3.0 In patients with heart disease: Atrial fibrillation INR 2.0 to 3.0 Valvular heart disease INR 2.0 to 3.0 Tissue heart valves INR 2.0 to 3.0 Mechanical prosthetic valves INR 2.5 to 3.5 Prevention of recurrent MN INR 2.5 to 3.5 us Blake Julio APRN LAB BLOOD ORDERABLES Final Re sult Performing Organization Address [facility] Co de Phone Number [facility] [address] [place] [address] * (ABNORMAL) Magnesium, Plasma (03/09/2025 8:45 PM EDT) Magnesium, Plasma 1.3(L) 1.9 - 2.4 mg/dL 03/09/2025 9:39 PM EDT [facility] Blood Venous blood specimen / Unknown Venipuncture / Unknown 03/09/2025 8:45 PM EDT 03/09/2025 8:59 PM EDT us Blake Julio APRN LAB BLOOD ORDERABLES Final Re sult Performing Organization Address [facility] de Phone Number [facility] [address] [place] [address] * Phosphorus, Plasma (03/09/2025 8:45 PM EDT) Phosphorus, Plasma 4.0 2.5 - 4.5 mg/dL 03/09/2025 9:39 PM EDT [facility] Blood Venous blood specimen / Unknown Venipuncture / Unknown 03/09/2025 8:45 PM EDT 03/09/2025 8:59 PM EDT us Blake Julio APRN LAB BLOOD ORDERABLES Final Re sult Performing Organization Address [facility] Co de Phone Number [facility] [address] [place] [address] * IONIZED CALCIUM, WHOLE BLOOD (03/09/2025 8:45 PM EDT) Pathologist [facility] Ionized Calcium, Whole Blood 4.6 4.6 - 5.1 mg/dL LAB HEMATOLOGY METHOD 03/09/2025 9:07 PM EDT [facility] Blood Venous blood specimen / Unknown Venipuncture / Unknown 03/09/2025 8:45 PM EDT 03/09/2025 9:01 PM EDT us Blake Julio APRN LAB BLOOD ORDERABLES Final Re sult [facility] [address] [place] [address] * (ABNORMAL) CBC and Differential (03/09/2025 8:45 PM EDT) [facility] WBC Count 8.57 3.70 - 10.30 10*3/uL LAB HEMATOLOGY METHOD 03/09/2025 9:05 PM EDT [facility] RBC Count 3.23(L) 3.90 - 5.20 10*6/uL LAB HEMATOLOGY METHOD 03/09/2025 9:05 PM EDT [facility] HGB 9.7(L) 11.2 - 15.7 g/dL LAB HEMATOLOGY METHOD 03/09/2025 9:05 PM EDT [facility] HCT 29.2(L) 34.0 - 45.0 % LAB HEMATOLOGY METHOD 03/09/2025 9:05 PM EDT [facility] Platelet Count 165 155 - 369 10*3/uL LAB HEMATOLOGY METHOD 03/09/2025 9:05 PM EDT [facility] MCV 90 79 - 98 fL LAB HEMATOLOGY METHOD 03/09/2025 9:05 PM EDT [facility] MCH 30.0 26.0 - 32.0 pg LAB HEMATOLOGY METHOD 03/09/2025 9:05 PM EDT [facility] MCHC 33.2 30.7 - 35.5 g/dL LAB HEMATOLOGY METHOD 03/09/2025 9:05 PM EDT [facility] RDW 14.8(H) 11.5 - 14.5 % LAB HEMATOLOGY METHOD 03/09/2025 9:05 PM EDT [facility] MPV 11.3 8.8 - 12.5 fL LAB HEMATOLOGY METHOD 03/09/2025 9:05 PM EDT [facility] nRBC 0.0 <=0.0 per 100 WBCs LAB HEMATOLOGY METHOD 03/09/2025 9:05 PM EDT [facility] Differential Type Automated LAB HEMATOLOGY METHOD 03/09/2025 9:05 PM EDT [facility] Neutrophils % 64 % LAB HEMATOLOGY METHOD 03/09/2025 9:05 PM EDT [facility] Lymphocytes % 28 % LAB HEMATOLOGY METHOD 03/09/2025 9:05 PM EDT [facility] Monocytes % 6 % LAB HEMATOLOGY METHOD 03/09/2025 9:05 PM EDT [facility] Eosinophils % 1 % LAB HEMATOLOGY METHOD 03/09/2025 9:05 PM EDT [facility] Basophils % 1 % LAB HEMATOLOGY METHOD 03/09/2025 9:05 PM EDT [facility] Immature Granulocytes % 0 % LAB HEMATOLOGY METHOD 03/09/2025 9:05 PM EDT [facility] Neutrophils Absolute 5.54 1.60 - 6.10 10*3/uL LAB HEMATOLOGY METHOD 03/09/2025 9:05 PM EDT [facility] Lymphocytes Absolute 2.43 1.20 - 3.90 10*3/uL LAB HEMATOLOGY METHOD 03/09/2025 9:05 PM EDT [facility] Monocytes Absolute 0.48 0.30 - 0.90 10*3/uL LAB HEMATOLOGY METHOD 03/09/2025 9:05 PM EDT [facility] Eosinophils Absolute 0.05 0.00 - 0.50 10*3/uL LAB HEMATOLOGY METHOD 03/09/2025 9:05 PM EDT [facility] Basophils Absolute 0.04 0.00 - 0.10 10*3/uL LAB HEMATOLOGY METHOD 03/09/2025 9:05 PM EDT [facility] Immature Granulocytes Absolute 0.03 0.00 - 0.06 10*3/uL LAB HEMATOLOGY METHOD 03/09/2025 9:05 PM EDT [facility] Blood Venous blood specimen / Unknown Venipuncture / Unknown 03/09/2025 8:45 PM EDT 03/09/2025 9:02 PM EDT [facility] - 03/09/2025 9:05 PM EDT Therapeutic decision making should be based on absolute values, rather than percentages. us Blake Julio POLE FRAME CONSTRUCTION WORKER LAB BLOOD ORDERABLES Final Re sult [facility] [address] [place] [address] * (ABNORMAL) Comprehensive Metabolic Panel, Plasma (03/09/2025 8:45 PM EDT) Glucose, Plasma 131(H) 74 - 99 mg/dL 03/09/2025 10:08 PM EDT [facility] BUN, Plasma 13 7 - 21 mg/dL 03/09/2025 10:08 PM EDT [facility] Creatinine, Plasma 0.75 0.60 - 1.10 mg/dL 03/09/2025 10:08 PM EDT [facility] BUN/Creatinine Ratio 17 03/09/2025 10:08 PM EDT [facility] Sodium, Plasma 137 136 - 145 mmol/L 03/09/2025 10:08 PM EDT [facility] Potassium, Plasma 3.1(L) 3.6 - 4.9 mmol/L 03/09/2025 10:08 PM EDT [facility] Chloride, Plasma 103 97 - 107 mmol/L 03/09/2025 10:08 PM EDT [facility] CO2, Plasma 24 22 - 29 mmol/L 03/09/2025 10:08 PM EDT [facility] Anion Gap 10 6 - 16 mmol/L 03/09/2025 10:08 PM EDT [facility] Total Calcium, Plasma 8.7(L) 8.9 - 10.2 mg/dL 03/09/2025 10:08 PM EDT [facility] Total Protein 5.5(L) 6.3 - 7.9 g/dL 03/09/2025 10:08 PM EDT [facility] Albumin, Plasma 3.5 3.5 - 5.2 g/dL 03/09/2025 10:08 PM EDT [facility] AST, Plasma 20 10 - 35 U/L 03/09/2025 10:08 PM EDT [facility] ALT, Plasma 14 10 - 35 U/L 03/09/2025 10:08 PM EDT [facility] Alkaline Phosphatase, Plasma 42 35 - 104 U/L 03/09/2025 10:08 PM EDT [facility] Total Bilirubin, Plasma 0.4 0.2 - 1.1 mg/dL 03/09/2025 10:08 PM EDT [facility] eGFRcr 112.1 mL/min/1.7 3m*2 03/09/2025 10:08 PM EDT [facility] Comment:Reported eGFRcr in m L/min/1.73m2 is based the CKD-EPI 2020 equation that does not use a race coefficient. Blood Venous blood specimen / Unknown Venipuncture / Unknown 03/09/2025 8:45 PM EDT 03/09/2025 8:59 PM EDT us Blake Julio APRN LAB BLOOD ORDERABLES Final Re sult Performing Organization Address [facility] Co de Phone Number [facility] [address] [place] [address] * (ABNORMAL) Creatine Kinase, Total, Plasma (03/09/2025 8:45 PM EDT) Creatine Kinase, Plasma 200(H) 37 - 168 U/L 03/09/2025 9:28 PM EDT [facility] Blood Venous blood specimen / Unknown Venipuncture / Unknown 03/09/2025 8:45 PM EDT 03/09/2025 8:59 PM EDT us Blake Julio APRN LAB BLOOD ORDERABLES Final Re sult Performing Organization Address [facility] Co de Phone Number [facility] [address] [place] [address] * Blood Culture (Aerobic/Anaerobet Set) (03/09/2025 8:45 PM EDT) Culture No growth at day 5 03/15/2025 12:26 AM EDT [facility] Blood Structure of part of right upper limb / Unknown Venipuncture / Unknown 03/09/2025 8:45 PM EDT 03/09/2025 8:58 PM EDT us Blake Julio APRN LAB MICROBIOLOGY - GENERAL OR DERABLES Final Result Performing Organization Address [facility] Co de Phone Number [facility] [address] [place] [address] * Blood Culture (Aerobic/Anaerobet Set) (03/09/2025 8:45 PM EDT) Culture No growth at day 5 03/15/2025 1:05 AM EDT [facility] Blood Structure of left foot / Unknown Venipuncture / Unknown 03/09/2025 8:45 PM EDT 03/09/2025 8:58 PM EDT us Blake Julio APRN LAB MICROBIOLOGY - GENERAL OR DERABLES Final Result [facility] [address] [place] [address] * Hemoglobin A1c (03/09/2025 8:45 PM EDT) Hemoglobin A1c 5.1 <5.7 % 03/10/2025 12:01 PM EDT [facility] Blood Venous blood specimen / Unknown Venipuncture / Unknown 03/09/2025 8:45 PM EDT 03/09/2025 9:02 PM EDT Narrative [facility] - 03/10/2025 12:01 PM EDT HA1C Interpretive Data: Diagnosis of Diabetes: Diabetic > or = 6.5% Pre-diabetic 5.7 to 6.4% Non-diabetic < or = 5.6% Glycemic Targets for Type I and Type II Diabetics: Non- Adults <7.0% Adults <6.0% Children and Adolescents <7.5% Source: [place] [employer]. Standards of medical care in diabetes,2017. Diabetes Care.2017:40 (suppl 1):S1-S135. us Blake Julio APRN LAB BLOOD ORDERABLES Final Re sult [facility] [address] [place] [address] * Ionized calcium, serum (03/09/2025 8:45 PM EDT) Ionized Calcium, Serum 4.7 4.6 - 5.3 mg/dL LAB HEMATOLOGY METHOD 03/09/2025 9:09 PM EDT [facility] Blood Venous blood specimen / Unknown Venipuncture / Unknown 03/09/2025 8:45 PM EDT 03/09/2025 8:59 PM EDT us Blake uJlio APRN LAB BLOOD ORDERABLES Final Re sult [facility] [address] [place] [address] * XR Chest 1 View - bedside (03/09/2025 8:22 PM EDT) Anatomical Region Laterality Modality Chest Digital Radiogra phy Impressions 03/09/2025 8:27 PM EDT Endotracheal tube tip at the roger. Left basilar opacities may represent atelectasis or aspiration. CRITICAL RESULT: No. COMMUNICATION: Per this written report. Drafted by Omaira Hager MD on 03/09/2025 8:26 PM Final report signed by Omaira Hager MD on 03/09/2025 8:27 PM Narrative 03/09/2025 8:27 PM EDT CLINICAL INDICATION: Intubation TECHNIQUE: XR CHEST 1 VIEW COMPARISON: None. FINDINGS: Endotracheal tube tip at the level of the roger. Nasogastric tube terminates below the diaphragm. Streaky left basilar opacities. No pneumothorax. Cardiac silhouette is within normal limits. Procedure Note Omaira Hager MD - 03/09/2025 CLINICAL INDICATION: Intubation TECHNIQUE: XR CHEST 1 VIEW COMPARISON: None. FINDINGS: Endotracheal tube tip at the level of the roger. Nasogastric tubeterminates below the diaphragm. Streaky left basilar opacities. Nopneumothorax. Cardiac silhouette is within normal limits. IMPRESSION: Endotracheal tube tip at the roger. Left basilar opacities may represent atelectasis or aspiration. CRITICAL RESULT: No. COMMUNICATION: Per this written report. Drafted by Omaira Hager MD on 03/09/2025 8:26 PM Final report signed by Omaira Hager MD on 03/09/2025 8:27 PM us Blake Julio APRN IMG XR PROCEDURES Final Resul t * ECG Adult (03/09/2025 8:19 PM EDT) EKG DIAGNOSIS CLASS Normal MUSE ECG Ventricular Rate 69 BPM MUSE ECG Atrial Rate 69 BPM MUSE ECG ME Interval 150 ms MUSE ECG QRSD Interval 82 ms MUSE ECG QT Interval 432 ms MUSE ECG QTC Interval 462 ms MUSE ECG P [place] 58 degrees MUSE ECG R [place] 48 degrees MUSE ECG T Wave [place] 45 degrees MUSE ECG Diagnosis Normal sinus rhythm MUSE ECG Diagnosis Normal ECG MUSE ECG Diagnosis MUSE ECG Diagnosis Confirmed by Ron Chahal ([id number]) on 03/09/2025 10:28:54 PM MUSE ECG 03/09/2025 8:19 PM EDT 03/09/2025 10:28 PM EDT us Blake Julio APRN ECG ORDERABLES Final Result Performing Organization Address [facility] Co de Phone Number MUSE ECG * (ABNORMAL) POCT glucose meter (03/09/2025 8:02 PM EDT) [facility] POCT Glucose 61(L) 74 - 99 mg/dL 03/09/2025 8:04 PM EDT [facility] Comment:Accuracy of a glucos e result obtained from a capillary whole blood specimen relies upon adequate, non-compromised capillary blood flow. If the capillary glucose result is not consistent with the patient's clinical signs and symptoms, glucose testing should be repeated with either an arterial or venous sample on the glucometer or sent to the main labortory for testing. Comment 03/09/2025 8:04 PM EDT [facility] Machine Spreader ID [address] 03/09/2025 8:04 PM EDT [facility] Device ID [id number] 03/09/2025 8:04 PM EDT [facility] Specimen Type POC Capillary 03/09/2025 8:04 PM EDT [facility] Blood Capillary blood specimen / Unknown 03/09/2025 8:02 PM EDT 03/09/2025 8:04 PM EDT us Fransico Teran MD LAB POINT OF CARE TE ST DOCKED DEVICE UNSOLICITED RESULTS Final Result [facility] [address] [place] [address] documented in this encounter Visit Diagnoses Diagnosis Acute respiratory failure- Primary Acute respiratory failure with hypoxia Suicide attempt by beta-adrenergic antagonist overdose, initial encounter ([facility]) Shock ([facility]) Unspecified shock documented in this encounter Admitting Diagnoses Diagnosis Acute respiratory failure documented in this encounter Administered Medications Inactive Administered Medications - up to 3 most recent administrations Medication Order MAR Action Action Date Dose Rate Site acetylcysteine (Acetadote) 12,000 mg in dextrose 5 % 500 mL infusion 12,000 mg (rounded from 12,030 mg = 150 mg/kg 80.2 kg), Intravenous, Once, 1 dose, On Sat03/09/25 at 2115, Administer over 1 Hours, STAT New Bag 03/09/2025 9:42 PM EDT 12,000 mg 605 mL/hr acetylcysteine (Acetadote) 20,000 mg in dextrose 5 % 1,000 mL infusion 20,000 mg (rounded from 20,050 mg = 250 mg/kg 80.2 kg), Intravenous, Once, 1 dose, On Sat03/09/25 at 2215, Administer over 20 Hours, STAT Given 03/09/2025 10:52 PM EDT 20,000 mg 57.3 mL/hr dextrose 10 % continuous infusion 50 mL/hr, Intravenous, Continuous, Starting on Sat03/09/25 at 2100, Until Sat03/10/25 at 1757, Routine Rate/Dose Change 03/10/2025 9:28 AM EDT 50 mL/hr 50 mL/hr New Bag 03/10/2025 9:09 AM EDT 100 mL/hr 100 mL/hr Rate/Dose Verify 03/10/2025 8:00 AM EDT 100 mL/hr 100 mL/ hr dextrose 50 % solution 12.5-25 g 12.5-25 g, Intravenous, Every 15 min PRN, Starting on Sat03/09/25 at 1954, Until Sat03/10/25 at 1757, Routine, low blood sugar Given 03/09/2025 8:09 PM EDT 25 g enoxaparin (Lovenox) syringe 40 mg 40 mg, Subcutaneous, Daily, First dose on Sat03/10/25 at 1015, Until Discontinued, Routine folic acid injection 1 mg 1 mg, Intravenous, Daily, First dose on Sat03/11/25 at 0900, Until Discontinued, Routine glucagon (human recombinant) injection 1 mg 1 mg, Intramuscular, Every 15 min PRN, Starting on Sat03/09/25 at 1954, Until Sat03/10/25 at 1757, Routine, low blood sugar per Hypoglycemia Prevention and Treatment protocol glucose (Glutose) 40 % oral gel 15-30 grams of glucose 15-30 grams of glucose, Sublingual, Every 15 min PRN, Starting on Sat03/09/25 at 4, Until Sat03/10/25 at 1757, Routine, low blood sugar, per Hypoglycemia Prevention and Treatment protocol insulin regular (HumuLIN R,NovoLIN R) 100 units/mL injection - Correction - Standard Dose 0-5 Units, Subcutaneous, Every 6 hours scheduled, First dose on Sat03/09/25 at 2044, Until Discontinued, Routine ketorolac (Toradol) injection 15 mg 15 mg, Intravenous, Once, 1 dose, On Sat03/10/25 at 1300, Routine Given 03/10/2025 12:12 PM EDT 15 mg magnesium sulfate IVPB 4 g 4 g, Intravenous, Every 4 hours, 2 doses, First dose on Sat03/10/25 at 0115, Last dose on Sat03/10/25 at 0515, at 25 mL/hr, Administer over 4 Hours, Routine New Bag 03/10/2025 5:55 AM EDT 4 g 25 mL/hr New Bag 03/10/2025 12:55 AM EDT 4 g 25 mL/hr mupirocin (Bactroban) 2 % ointment 1 Application Each Nostril, 2 times daily, 10 doses, First dose on Sat03/09/25 at 2100, Last dose on Sat03/14/25 at 0900, Routine Given 03/10/2025 8:04 AM EDT 1 Application Given 03/09/2025 10:09 PM EDT 1 Application norepinephrine 8 mg/250 mL (0.032 mg/mL) infusion 0-0.4 mcg/kg/min 80.2 kg (0-60.15 mL/hr), 0.032 mg/mL, Intravenous, Titrated, Starting on Sat03/09/25 at 204, Until Sat03/10/25 at 1100, STAT Rate/Dose Change 03/10/2025 7:58 AM EDT 0.02 mcg/kg/min 3.01 mL/hr Rate/Dose Change 03/10/2025 7:00 AM EDT 0.04 mcg/kg/min 6. 02 mL/hr Rate/Dose Verify 03/10/2025 6:57 AM EDT 0.02 mcg/kg/min 3. 01 mL/hr potassium & sodium phosphates (Phos-NaK) 280-160-250 MG packet 1 packet 1 packet, Oral, Every 8 hours, 3 doses, First dose on Sat03/10/25 at 0915, Last dose on Ying 03/11/25 at 0115, Routine Given 03/10/2025 9:46 AM EDT 1 packe t potassium chloride (Klor-Con) packet 40 mEq 40 mEq, Oral, Every 4 hours, 2 doses, First dose on Sat03/10/25 at 0115, Last dose on Sat03/10/25 at 0515, Routine Given 03/10/2025 5:55 AM EDT 40 mEq Given 03/10/2025 1:08 AM EDT 40 mEq propofol (Diprivan) infusion 10 mg/mL 10-50 mcg/kg/min 80.2 kg (4.812-24.06 mL/hr, rounded to 4.81-24.06 mL/hr), Intravenous, Titrated, Starting on Sat03/09/25 at 2045, Until Sat03/10/25 at 1100, Routine Rate Change - Dual Sign 03/10/2025 8:03 AM EDT 20 mcg/kg/min 9.62 mL/hr New Bag 03/10/2025 6:26 AM EDT 40 mcg/kg/min 19.25 mL/h r Rate/Dose Verify 03/10/2025 6:00 AM EDT 40 mcg/kg/min 19. 25 mL/hr sodium chloride 0.9 % flush 3 mL 3 mL, Intravenous, As needed, Starting on Sat03/09/25 at 1954, Until Sat03/10/25 at 1757, Routine, line care, 3 mL flush for PERIPHERAL IV CARE ONLY. thiamine (Vitamin B1) injection 200 mg 200 mg, Intravenous, Every 8 hours, 9 doses, First dose on Sat03/10/25 at 1015, Last dose on Sat03/13/25 at 0215, Routine Given 03/10/2025 9:46 AM EDT 200 mg documented in this encounter Active and Recently Administered Medications Times are shown in EDT. Scheduled Medication Order 03/08/2025 03/09/2025 03/10/2025 acetylcysteine (Acetadote) 12,000 mg in dextrose 5 % 500 mL infusion (COMPLETED)(Linked Group 1) 12,000 mg (rounded from 12,030 mg = 150 mg/kg 80.2 kg), Intravenous, Once, 1 dose, On Sat03/09/25 at 2115, Administer over 1 Hours, STAT 2142 (New Bag - Provider: Estephania Pena RN) acetylcysteine (Acetadote) 20,000 mg in dextrose 5 % 1,000 mL infusion (COMPLETED)(Linked Group 1) 20,000 mg (rounded from 20,050 mg = 250 mg/kg 80.2 kg), Intravenous, Once, 1 dose, On Sat03/09/25 at 2215, Administer over 20 Hours, STAT 2252 (Given - Provider: Estephania Pena RN) 1054 (Stopped - Provider: Maria Alejandra Mo) enoxaparin (Lovenox) syringe 40 mg 40 mg, Subcutaneous, Daily, First dose on Sat03/10/25 at 1015, Until Discontinued, Routine 0946 (Not Given - Provider: Maria Alejandra Mo - Reason: Patient/family refused) folic acid injection 1 mg 1 mg, Intravenous, Daily, First dose on Sat03/11/25 at 0900, Until Discontinued, Routine insulin regular (HumuLIN R,NovoLIN R) 100 units/mL injection - Correction - Standard Dose 0-5 Units, Subcutaneous, Every 6 hours scheduled, First dose on Sat03/09/25 at 2045, Until Discontinued, Routine 2203 (Not Given - Provider: Estephania Pena RN - Reason: Order parameters not met - Comment: BLOOD SUGAR LESS THAN 150)2347 (Not Given - Provider: Estephania Pena RN - Reason: Order parameters not met - Comment: blood sugar 124) 0605 (Not Given - Provider: Estephania Pena RN - Reason: Order parameters not met - Comment: blood sugar 112)1148 (Not Given - Provider: Maria Alejandra Mo - Reason: Patient/family refused - Comment: pt refused BG stick) ketorolac (Toradol) injection 15 mg (COMPLETED) 15 mg, Intravenous, Once, 1 dose, On Sat03/10/25 at 1300, Routine 1212 (Given - Provid er: Maria Alejandra Mo) magnesium sulfate IVPB 4 g (COMPLETED) 4 g, Intravenous, Every 4 hours, 2 doses, First dose on Sat03/10/25 at 0115, Last dose on Sat03/10/25 at 0515, at 25 mL/hr, Administer over 4 Hours, Routine 0055 (New Bag - Provider: Estephania Pena, MAKENZIE)0555 (New Bag - Provider: Estephania Pena RN) mupirocin (Bactroban) 2 % ointment 1 Application Each Nostril, 2 times daily, 10 doses, First dose on Sat03/09/25 at 2100, Last dose on Sat03/14/25 at 0900, Routine 2209 (Given - Provider: Estephania Pena RN) 0804 (Given - Provider: Maria Alejandra Mo) potassium & sodium phosphates (Phos-NaK) 280-160-250 MG packet 1 packet 1 packet, Oral, Every 8 hours, 3 doses, First dose on Sat03/10/25 at 0915, Last dose on Sat03/11/25 at 0115, Routine 0946 (Given - Provid er: Maria Alejandra Mo)1715 (Due) potassium chloride (Klor-Con) packet 40 mEq (COMPLETED) 40 mEq, Oral, Every 4 hours, 2 doses, First dose on Sat03/10/25 at 0115, Last dose on Sat03/10/25 at 0515, Routine 0108 (Given - Provid er: Estephania Pena, MAKENZIE)0555 (Given - Provider: Estephania Pena RN) thiamine (Vitamin B1) injection 200 mg 200 mg, Intravenous, Every 8 hours, 9 doses, First dose on Sat03/10/25 at 1015, Last dose on Sat03/13/25 at 0215, Routine 0946 (Given - Provid er: Maria Aljeandra Mo) Continuous Medication Order 03/08/2025 03/09/2025 03/10/2025 dextrose 10 % continuous infusion 50 mL/hr, Intravenous, Continuous, Starting on Sat03/09/25 at 2100, Until Sat03/10/25 at 1757, Routine 205 (New Bag - Provider: Estephania Pena RN) 0632 (New Bag - Provider: Estephania Pena RN)0800 (Rate/Dose Verify - Provider: Maria Alejandra Mo)0909 (New Bag - Provider: Maria Alejandra Mo)0928 (Rate/Dose Change - Provider: Maria Alejandra Mo) norepinephrine 8 mg/250 mL (0.032 mg/mL) infusion (CANCELED) 0-0.4 mcg/kg/min 80.2 kg (0-60.15 mL/hr), 0.032 mg/mL, Intravenous, Titrated, Starting on Sat03/09/25 at 2045, Until Sat03/10/25 at 1100, STAT 221 (New Bag - Provider: Estephania Pena RN)2213 (Rate/Dose Change - Provider: Estephania Pena RN)2300 (Rate/Dose Verify - Provider: Estephania Pena RN) 0000 (Rate/Dose Verify - Provider: Estephania Pena RN)0100 (Rate/Dose Verify - Provider: Estephania Pena RN)0200 (Rate/Dose Verify - Provider: Estephania Pena RN)0300 (Rate/Dose Change - Provider: Estephania Pena RN)0400 (Rate/Dose Verify - Provider: Estephania Pena RN)0500 (Rate/Dose Verify - Provider: Estephania Pena RN)0555 (Stopped - Provider: Estephania Pena RN)0657 (Rate/Dose Verify - Provider: Estephania Pena RN)0700 (Rate/Dose Change - Provider: Estephania Pena RN)0758 (Rate/Dose Change - Provider: Maria Alejandra Mo)0809 (Stopped - Provider: Maria Alejandra Mo) propofol (Diprivan) infusion 10 mg/mL (CANCELED) 10-50 mcg/kg/min 80.2 kg (4.812-24.06 mL/hr, rounded to 4.81-24.06 mL/hr), Intravenous, Titrated, Starting on Sat03/09/25 at 2045, Until Sat03/10/25 at 1100, Routine 2213 (New Bag - Provider: Estephania Pena RN - Comment: sedation continued from OSH)2300 (Rate/Dose Verify - Provider: Estephania Pena RN) 0104 (New Bag - Provider: Estephania Pena RN)0200 (Rate/Dose Verify - Provider: Estephania Pena RN)0300 (Rate/Dose Verify - Provider: Estephania Pena RN)0400 (Rate/Dose Verify - Provider: Estephania Pena RN)0500 (Rate/Dose Verify - Provider: Estephania Pena RN)0555 (Rate/Dose Verify - Provider: Estephania Pena RN)0600 (Rate/Dose Verify - Provider: Estephania Pena RN)0626 (New Bag - Provider: Estpehania Pena RN)0803 (Rate Change - Dual Sign - Provider: Maria Alejandra Mo - Comment: [employer] wants to try SPONT)0928 (Stopped - Provider: Maria Alejandra Mo) PRN Medication Order 03/08/2025 03/09/2025 03/10/2025 dextrose 50 % solution 12.5-25 g(Linked Group 2) 12.5-25 g, Intravenous, Every 15 min PRN, Starting on Sat03/09/25 at 1954, Until Sat03/10/25 at 1757, Routine, low blood sugar 2008 (Given - Provider: Estephania Pena, MAKENZIE) glucagon (human recombinant) injection 1 mg(Linked Group 2) 1 mg, Intramuscular, Every 15 min PRN, Starting on Sat03/09/25 at 1954, Until Sat03/10/25 at 1757, Routine, low blood sugar per Hypoglycemia Prevention and Treatment protocol 2008 (See Alternative - Provider: Estephania Pena, MAKENZIE) glucose (Glutose) 40 % oral gel 15-30 grams of glucose(Linked Group 2) 15-30 grams of glucose, Sublingual, Every 15 min PRN, Starting on Sat03/09/25 at 1954, Until Sat03/10/25 at 1757, Routine, low blood sugar, per Hypoglycemia Prevention and Treatment protocol 2008 (See Alternative - Provider: Estephania Pena RN) sodium chloride 0.9 % flush 3 mL(Linked Group 3) 3 mL, Intravenous, As needed, Starting on Sat03/09/25 at 1953, Until Sat03/10/25 at 1757, Routine, line care, 3 mL flush for PERIPHERAL IV CARE ONLY. Linked Groups Order Group 1: acetylcysteine (Acetadote) 12,000 mg in dextrose 5 % 500 mL infusion (COMPLETED)Jump to med 12,000 mg (rounded from 12,030 mg = 150 mg/kg 80.2 kg), Intravenous, Once, 1 dose, On Sat03/09/25 at 2115, Administer over 1 Hours, STAT Followed by acetylcysteine (Acetadote) 20,000 mg in dextrose 5 % 1,000 mL infusion (COMPLETED)Jump to med 20,000 mg (rounded from 20,050 mg = 250 mg/kg 80.2 kg), Intravenous, Once, 1 dose, On Sat03/09/25 at 2215, Administer over 20 Hours, STAT Group 2: glucose (Glutose) 40 % oral gel 15-30 grams of glucoseJump to med 15-30 grams of glucose, Sublingual, Every 15 min PRN, Starting on Sat03/09/25 at 1953, Until Sat03/10/25 at 1757, Routine, low blood sugar, per Hypoglycemia Prevention and Treatment protocol Or dextrose 50 % solution 12.5-25 gJump to med 12.5-25 g, Intravenous, Every 15 min PRN, Starting on Sat03/09/25 at 1953, Until Sat03/10/25 at 1757, Routine, low blood sugar Or glucagon (human recombinant) injection 1 mgJump to med 1 mg, Intramuscular, Every 15 min PRN, Starting on Sat03/09/25 at 1953, Until Sat03/10/25 at 1757, Routine, low blood sugar per Hypoglycemia Prevention and Treatment protocol Group 3: Insert peripheral IV (CANCELED) Once, On Sat03/09/25 at 1954, For 1 occurrence And Saline lock IV (CANCELED) Once, On Sat03/09/25 at 1955, For 1 occurrence And sodium chloride 0.9 % flush 3 mLJump to med 3 mL, Intravenous, As needed, Starting on Sat03/09/25 at 1954, Until Sat03/10/25 at 1757, Routine, line care, 3 mL flush for PERIPHERAL IV CARE ONLY. documented in this encounter Additional Health Concerns Assessment Noted Time PHQ-9 Depression Total Score: 21 025 1:41 AM EDT A fall risk assessment has been complete d for the patient 11/09/2024 1:11 PM EST A Body Mass Index follow-up plan has been documented for the patient 12/22/2024 3:44 PM EDT documented as of this encounter Care Teams Pest Control Service Technician Relationship Specialty Start Date End Date Provider, Moon Costawn PCP - General 03/21/21 documented as of this encounter
--- OUTSIDE RECORDS SUMMARY | 2025-03-10 17:57 | XMS_ITS | Encounter Summary ---
Author Organization Healthcare Address [address] [place] [address] Care Team Providers Care Director Of Rooms Name Role Phone Provider, Moon [place] Primary Care Provid er Unavailable Reason for Visit * Auth/Cert (Routine) Specialty Diagnoses / Procedures Referred By Contanum t Referred To Contact Diagnoses Unspecified mood (affective) disorder (CMS/HCC) Juan Albarado MD [address] [place] [address] Phone: tel: fax: [facility] S Inpatient Psychiatry [address] [place] [address] Phone: tel: Referral ID Status Reason Start Date Expiration Date Visits Re quested Visits Authorized [id number] 1 1 Encounter Details Date Type Department Care Team (Latest Contact Info) Description 03/10/2025 5:57 PM EDT - 03/13/2025 10:03 AM EDT Hospital Encounter [facility] S Inpatient Psychiatry [address] [place] [address] Juan Albarado MD [address] [place] [address] Discharge Disposition: Home or Self Care Social History Tobacco Use Types Packs/Day Years Used Date Smoking Tobacco: Never Passive Smoke Exposure: Never Smokeless Tobacco: Never Alcohol Use Standard Drinks/Week Comments Yes 6 (1 standard drink = 0.6 oz pur e alcohol) 1 drink a month PHQ-2 Answer Date Recorded Patient Health Questionnaire-2 Score 3 11/30/2024 Mclean Depression Scale Answer Date Recorded Mclean Depression Scale Total 19 11/09/2024 The thought [...] week 03/10/2025 How often do you attend chur or moravian services? Never 03/10/2025 Do you belong to any clubs o r organizations such as buddhist groups, unions, fraternal or athletic groups, or [...] any time in the past 12 m [facility], were you homeless or living in a residential (including now)? No 03/10/2025 Safety and Environment [...] Sign Reading Time Taken Comments Blood Pressure 131/87 03/13/2025 6:27 AM EDT Pulse 79 03/13/2025 6:27 AM EDT Temperature 36.8 C (98.2 F) 03/13/2025 6:27 AM EDT Respiratory Rate 18 03/12/2025 6:27 AM EDT Oxygen Saturation 99% 03/13/2025 6:27 AM EDT Inhaled Oxygen Concentration - - Weight 81 kg (178 lb 9.2 oz) 03/12/2025 10:00 PM EDT Height 162.6 cm (5' 4.02 ) 03/12/2025 10:00 PM E DT Body Mass Index 30.64 03/12/2025 10:00 PM EDT documented in this encounter Functional Status [...] as of this encounter Miscellaneous Notes * Nursing Note - Christine Collier RN - 03/13/2025 9:45 AM EDT Patient discharged from unit at 0940 accompanied by [facility] staff- ambulatory. Patient denies current SI/HI/AVH at time of discharge. Patient's belongings/valuables returned and patient verified return of belongings. Safety plan, medications, discharge appointment, crisis information, and discharge summ ash reviewed with the patient. Patient was offered family/significant other involvement which patient declined. Patient was given the opportunity to ask questions and verbally stated understanding ofall information reviewed. Discharge review took place at patient's room. Pt understands that they can return to [facility] ED at any time for further psychiatric evaluation or call the suicide hotline whichwas provided in paperwork. Christine Collier RN * Care Plan - Christine Collier RN - 03/13/2025 9:44 AM EDT Problem: Adult Behavioral Health Plan of Care Goal: Plan of Care Review Outcome: Met Goal: Patient-Specific Goal (Individualization) Outcome: Met Flowsheets (Taken 03/13/2025 0800) Patient/Family-Specific Goals (Include Timeframe): Pt hopes to go home Individualized Care Needs: Emotional support Anxieties, Fears or Concerns: pt hopes to go home Note: Goal Met Goal: Adheres to Safety Considerations for Self and Others Outcome: Met Flowsheets (Taken 03/13/2025938) Adheres to Safety Considerations for Self and Others: achieves outcome Goal: Absence of New-Onset Illness or Injury Outcome: Met Goal: Optimized Coping Skills in Response to Life Stressors Outcome: Met Flowsheets (Taken 03/13/2025938) Optimized Coping Skills in Response to Life Stressors: achieves outcome Goal: Develops/Participates in Therapeutic [place] to Support Successful Transition Outcome: Met Flowsheets (Taken 03/13/2025938) Develops/Participates in Therapeutic [place] to Support Successful Transition: achieves outcome Intervention: Mutually Develop Transition Plan Flowsheets (Taken 03/13/2025938) Transition Support: community resources reviewed crisis management plan promoted crisis management plan verbalized follow-up care coordinated Patient/Family Anticipates Transition to: home Problem: Suicidal Behavior Goal: Suicidal Behavior is Absent or Managed Outcome: Met Flowsheets (Taken 03/13/2025938) Mutually Determined Action Steps (Suicidal Behavior Absent/Managed): identifies crisis plan * Discharge Summary - Kimmie Singh MD - 03/13/2025 8:15 AM EDT Images from the original note were not included. [facility] Behavioral Health Unit Discharge Summary Admit Date/Time: 03/10/2025 5:57 PM Admitting Attending: Juan Albarado Discharge Date: 03/13/25 Length of Stay: 3 Days Discharge Attending Physician: Juan Albarado MD PCP name and Address: ProviderMoon Referring provider name and address: No referring provider defined for this encounter. Chief Concern and Brief History of Present Illness 29-year-old female with a psychiatric history significant for depression, anxiety, bipolar disorder(unconfirmed), alcohol use disorder and multiple prior suicide attempts presented to an outside facility following an intentional polypharmaceutical overdose during alcohol intoxication. She was found unresponsive at home with empty bottles of propranolol, quetiapine, and Tylenol PM at the scene. Upon arrival to OSH, she was intubated for airway protection and initiated on glucagon with mild improvement in systolic blood pressure to the 90s. Due to persistent hypotension, a norepinephrine infusion was started and she was transferred to [facility] MICU. On admission to the MICU, the patient remained on low-dose norepinephrine. Toxicology was consultedfor co-management. Patient norepinephrine was eventually weaned off, and the patient was successfully extubated leading to eventual medical clearance. A 72-hour involuntary psychiatric hold was initiated, and the patient was placed on 1:1 observationfor suicide precautions. Psychiatry evaluated the patient recommended transfer to the Behavioral Health Unit. For further details on history of present illness, please see H&P Hospital Course and Condition on Discharge Prior to U admission, patient was initially evaluated by [facility] C/L physician/ARMOND who determined further inpatient psychiatric management was needed. On initial U evaluation, patient demonstratedguarded and evasive affect with significant mood symptom burden evidenced by recent overdose. Initial workup (vitals, physical exam, labs) revealed metabolic labs grossly within normal limits, UDS Opiates: fentanyl and norfentanyl in very low quantities, and other notable findings: Refer to ICU discharge summary for abnormal labs during that admission... Following medication reconciliation by pharmacy, patient's home medication regimen was found to include Seroquel 50 mg nightly, propranolol 10 mg three times a day, lisinopril 10 mg daily, phentermine. Over the course of U admission, the following medication changes were made: All prior to admission medications were stopped with the exception of lisinopril 10 mg daily which was paused and deferred to outpatient provider as to whether the medication can be resumed or stopped given that the patient's blood pressure on the BHU was within normal limits despite not being given lisinopril 10 mg daily. Patient was started on 15 mg mirtazapine every night Patient tolerated treatment well without notable side effects, EPS. Patient demonstrated gradual improvement in symptom burden, and by day of discharge, patient demonstrated improved mood, improved insight into condition, and willingness to engage in treatment planning and plan for further outpatient engagement. Over hospital course, patient was calm, cooperative, and demonstrated no aggression or acting out behaviors. Prognosis is guarded and dependant upon following up with care recommendations. Patient and her safety relation, Amado Mcgovern, agree to safety planning, including: denying access to firearms, limiting access to medications, being available should the patient need to contact them, attending outpatient follow-up, abstaining from mind-altering substances, and returning to nearest ED or calling 911 with new or worsening symptoms, including active SI. A problem- based plan addressing psychiatricand medical co-morbidities as well as reasoning in formulation is available below. Risk Assessment: Patient IS NOT currently at an acutely elevated risk of harm to self or others given lack of SI/HI.Patient IS NOT demonstrating ANY suicidal intent, DOES appear to be able to control impulsivity on day of discharge, and IS NOT exhibiting any psychiatric symptom burden impacting safety/daily functioning. It should be noted that this patient is at a chronically elevated risk at baseline due to the following exhibited risk factors NOT modifiable by hospitalization demonstrated in their history: historyof psychiatric disorder, prior suicide attempt(s), never //, family discord, impulsivity, and history of substance use. The patient does, however, exhibit the following strengths/protective factors: calm/cooperative, adherent to current medications, demonstrating resolution of symptoms, connected with an outpatient provider, denying access to firearms, and able to identifyreasons for living, awareness of substance issues, motivation for change, access to housing, steadyemployment, knowledge of medications, vocational interests/hobbies, and good interpersonal relationships and supports. No risk factors modifiable by psychiatric hospitalization were identified on evaluation. Involuntary hospitalization on a 72 hour hold for safety, further psychiatric evaluation, and crisis stabilization IS NOT currently indicated. Patient IS NOT holdable [place] as she DOES NOT meet ALL hold criteria: having a mental illness, being an acute risk of harm to self or others, reasonable expectation of benefit from admission, AND inpatient being least restrictive means of treatment. Formulation: Jacqueline Aaron is a 29 y.o. female with PMHx of gestational HTN, and reported psychiatric hx of depression (post-?), anxiety, bipolar(?) disorder, PTSD, AUD, who presented to [facility] ICU as direct admission via EMS from [facility] with concerns of acute hypoxic respiratory failurerequiring intubation and ventilation and shock with hypotension requiring pressors in the setting of recent overdose and suspected suicide attempt, and admitted 03/09/2025 to ICU for continued management of same. The following day, patient successfully extubated and weaned off of pressors (Levophed), deemed appropriate for psychiatric evaluation. Cleared by Poison Control (case #[id number]), toxicology also wrote note documenting no need for further interview or monitoring. Psychiatry consulted forrisk assessment. They were subsequently admitted to [facility] 03/10/2025 on 72 hour hold for continuedevaluation and management of mood symptom burden. Psychiatric history significant for recent inpatient stay at [facility] x4 days (3 wksago) on voluntary status for low mood and mood lability (?), as well as history of multiple suicideattempts per collateral. Additionally, per collateral and per chart review, this is patient's second significant suicide attempt in the past 3 months, with recent [facility] presentation 11/2024 following interrupted attempt to hang herself (interrupted by EMS performing wellness check). Patient denieshaving any recent psychosocial stressors. Most likely diagnosis at this time is unspecified mood/affective disorder, given history of depression (particularly per chart review and per patient), with recent suicide attempt via overdose of high potential lethality requiring intubation and ICU level care. Patient on admission endorsed some mood symptoms including low mood since childbirth(August 2024), anhedonia, sleeping difficulties, low energy, and SI. She openly acknowledged the seriousness of the events that occurred prior to admission, which she now describes as a wake-up call. Low suspicion for bipolar disorder given patient reports of related symptom burden being daily mood lability and irritability throughout her life, inpatient denying history of any occurrences/periods of time consistent with manic episode. Difficult to exclude PTSD as a comorbid diagnosis. In addition difficult to exclude cluster B traits given character traits of impulsivity and multiple suicide attempts in a recent history. On day of discharge, patient no longer met criteria for involuntary hospitalization. Discharge Diagnosis Unspecified mood (affective) disorder ([facility]) Diagnoses: PSYCHIATRIC MANAGEMENT 1.) Mood Disorder Unspecified, complicated by insomnia CGI Status: Compared to admission, how much has the pt's condition changed? 2 (much improved) PLAN: Continue mirtazapine 15 mg every night for mood symptom burden as well as sleep augmentation Patient endorsed prior symptomatic improvement when trialing this medication at this dose in the past Discontinue Seroquel 50 mg every night at this time Discontinue propranolol 10 mg three times a day at this time Discontinue phentermine at this time 2.) Alcohol use disorder, severity unspecified CGI Status: Compared to admission, how much has the pt's condition changed? 4 (no change) PLAN: It should be noted that the patient's overdose on polypharmaceuticals was done in the context of being under the influence of significant alcohol intoxication per patient report Per collateral, patient does struggle with dependence on alcohol Strongly encourage abstinence from alcohol Patient to follow up with [facility] appointment scheduled on March 16 at 10:00a.m. to discuss substance use MEDICAL MANAGEMENT 1.) Reported gestational hypertension - follow up with outpatient provider to discuss resuming or stopping lisinopril 10 mg daily 2.) Weight management - recommend stopping phentermine due to its potential for abuse as a stimulant 3.) Mild anemia with most recent hemoglobin of 10.1 - recommend following up on this on an outpatient basis Surgeries and Procedures No surgeries or procedures were done in the Behavioral Health unit. Please refer to the ICU encounter regarding surgeries and/or procedures including intubation for medical stabilization. Additional Hospital Problem List: Active Hospital Problems *Unspecified mood (affective) disorder (CMS/[facility]) Alcohol use disorder Psychophysiological insomnia Medications at Discharge Medication List PAUSE taking these medications lisinopril 10 MG tablet Wait to take this until your doctor or other care provider tells you to start again. Take 1 tablet (10 mg) by mouth 1 (one) time each day. .. mirtazapine 15 MG tablet Commonly known as: Remeron Take 1 tablet by mouth nightly. Where to Get Your Medications These medications were sent to [facility] [place] [id number] mirtazapine 15 MG tablet Follow-Up / Post-Discharge Instructions Follow up Recommendations: 1.) She was discharged to Home with family. Amado Mcgovern 2.) She should follow up per discharge note. 3.) She should also followup with their Primary Care Physician for routine health maintenance. 4.) She was strongly encouraged to keep all future appointments and advised to take all prescribed medications as instructed. 5.) She should abstain from all mood-altering substances except those prescribed by a licensed direct entry midwife. Her primary supports should monitor her for evidence of substance use and should alert her outpatient provider if use is suspected or confirmed. 6.) A safety plan was given at the time of discharge which included instructions to return to the nearest ER if patient becomes suicidal, homicidal, manic, psychotic, or develops any other urgent/emergent symptoms, or to call the 2-978-EUSCUA line. 7.) She voiced an understanding of the safety plan. Outpatient Follow-Up Initial appointment with Radha Pierre for Sunday March 16, 2025 at 10 am via IN PERSON. Radha Pierre [address] , [address], [place] [address] Test Results Pending At Discharge N/A Appearance: appears stated age, well nourished, wearing hospital attire, well- kempt, and good hygiene Behavior: calm, cooperative, age-appropriate, easy to establish rapport, forthcoming about condition and reasons for presentation, and non-verbal body language and communication appropriate throughout interview Eye Contact: appropriate Involuntary Movements: absent Psychomotor Activity: no significant depression or agitation Speech: normal rate, tone and rhythm, appropriate ranjit, and coherent speech Mood: good Affect: euthymic, congruent with stated mood, broad, full range of affect, and friendly LOC/Orientation: Awake and Alert, oriented to person, place, time, and general circumstances Cognition/Development/Knowledge: Cognition appears grossly normal, appropriate fund of knowledge for age and level of education Thought Process: linear, organized, goal-directed, and easily understandable, fluid thought-process Thought Content/Perceptions (AVH): clear, age-appropriate, on topic , mood- congruent, denies auditory/visual hallucination, and does not appear to be reacting to internal stimuli Suicidal Ideation: denied Homicidal Ideation: denied Reliability: patient appears to be reliable and cooperative informant Insight: fair Judgment: fair Discharge Disposition/Condition Disposition: Home with family Amado Mcgovern Condition: Stable (s/sx potential problems absent or manageable) greater than 30 minutes was spent on evaluation and management of this patient Kimmie Singh MD Cosigned by Juan Albarado MD at 03/13/2025 4:12 PM EDT Associated attestation - Juan Albarado MD - 03/13/2025 4:12 PM EDT I saw and evaluated the patient with the resident/fellow. I discussed the case with the resident/fellow and agree with the findings and plan as documented. and I spent >30 minutes of patient care and instruction time in preparation for this discharge. * Christine Kellogg RN - 03/13/2025 7:59 AM EDT Images from the original note were not included. [id number] Lisinopril Brand Name(s): Prinivil??, Qbrelis??, Zestril??, Zestoretic?? (containing Hydrochlorothiazide, Lisinopril); also available generically ?? This branded product is no longer on the market. Generic alternatives may be available. IMPORTANT WARNING: Do not take lisinopril if you are . If you become while taking lisinopril, call your doctor immediately. Lisinopril may harm the fetus. WHY is this medicine prescribed? Lisinopril is used alone or in combination with other medications to treat high blood pressure in adults and children 6 years of age and older. It is used in combination with other medications to treat heart failure. Lisinopril is also used to improve survival after a heart attack. Lisinopril is blanca class of medications called angiotensin-converting enzyme (KINZA) inhibitors. It works by decreasing certain chemicals that tighten the blood vessels, so blood flows more smoothly and the heart can pump blood more efficiently. High blood pressure is a common condition and when not treated, can cause damage to the brain, heart, blood vessels, kidneys, and other parts of the body. Damage to these organs may cause heart disease, a heart attack, heart failure, stroke, kidney failure, loss of vision, and other problems. In addition to taking medication, making lifestyle changes will also help to control your blood pressure.These changes include eating a diet that is low in fat and salt, maintaining a healthy weight, exercising at least 30 minutes most days, not smoking, and using alcohol in moderation. HOW should this medicine be used? Lisinopril comes as a tablet and a solution (liquid) to take by mouth. It is usually taken once a day. To help you remember to take lisinopril, take it around the same time every day. Follow the directions on your prescription label carefully, and ask your doctor or pharmacist to explain any part you do not understand. Take lisinopril exactly as directed. Do not take more or less of it or take itmore often than prescribed by your doctor. If you are taking the solution, do not use a household spoon to measure your dose. Use an oral syringe made especially for measuring liquid medication. Your doctor will probably start you on a low dose of lisinopril and gradually increase your dose. Lisinopril controls your condition, but it is not a cure. Continue to take lisinopril even if you feel well. Do not stop taking lisinopril without talking to your doctor. Are there OTHER USES for this medicine? This medication may be prescribed for other uses; ask your doctor or pharmacist for more information. What SPECIAL PRECAUTIONS should I follow? Before taking lisinopril, ? tell your doctor and pharmacist if you are allergic to lisinopril; other KINZA inhibitors such as enalapril (Vasotec, in Vaseretic), benazepril (Lotensin, in Lotrel), captopril (Capoten), fosinopril (Monopril), moexipril (Univasc, in Uniretic), perindopril (Aceon), quinapril (Accupril, in Accuretic, in Quinaretic), ramipril (Altace), and trandolapril (Mavik, in Tarka); any other medications; or any ingredients in lisinopril tablets and solution. Ask your pharmacist for a list of the ingredients. ? tell your doctor or pharmacist if you are taking valsartan and sacubitril (Entresto) or if you have stopped taking it within the last 36 hours. Your doctor will probably tell you not to take lisinopril, if you are also taking valsartan and sacubitril. Also, tell your doctor if you have diabetes and you are taking aliskiren (Tekturna, in Amturnide, Tekamlo, Tekturna HCT). Your doctor will probably tell you not to take lisinopril if you have diabetes and you are also taking aliskiren. ? some medications should not be taken with lisinopril. Other medications may cause dosing changes or extra monitoring when taken with lisinopril. Make sure you have discussed any medications you arecurrently taking or plan to take before starting lisinopril with your doctor and pharmacist. Beforestarting, stopping, or changing any medications while taking lisinopril, please get the advice of your doctor or pharmacist. ? the following nonprescription products may interact with lisinopril: aspirin and nonsteroidal anti-inflammatory drugs (NSAIDS) such as ibuprofen (Advil, Motrin, others) and naproxen (Aleve); potassium supplements. Be sure to let your doctor and pharmacist know that you are taking these medications before you start taking lisinopril. Do not start any of these medications while taking lisinopril without discussing with your healthcare provider. ? tell your doctor if you have or have had certain types of angioedema (a condition that causes difficulty swallowing or breathing and painful swelling of the face, throat, tongue, lips, eyes, hands,feet, ankles, or lower legs). Your doctor will probably tell you not to take lisinopril. ? tell your doctor if you have or have ever had heart or kidney disease or diabetes. ? tell your doctor if you are . ? if you are having surgery, including dental surgery, tell the doctor or dentist that you are taking lisinopril. ? you should know that diarrhea, vomiting, not drinking enough fluids, and sweating a lot can causea drop in blood pressure, which may cause lightheadedness and fainting. What SPECIAL DIETARY instructions should I follow? Talk to your doctor before using salt substitutes containing potassium. If your doctor prescribes alow-salt or low-sodium diet, follow these directions carefully. What should I do IF I FORGET to take a dose? Take the missed dose as soon as you remember it. However, if it is almost time for the next dose, skip the missed dose and continue your regular dosing schedule. Do not take a double dose to make up for a missed one. What SIDE EFFECTS can this medicine cause? Some side effects can be serious. If you experience any of these symptoms, call your doctor immediately: ? swelling of the face, throat, tongue, lips, eyes, hands, feet, ankles, or lower legs ? hoarseness ? difficulty breathing or swallowing ? fever, sore throat, chills, and other signs of infection ? yellowing of the skin or eyes ? lightheadedness ? fainting ? chest pain Lisinopril may cause other side effects. Call your doctor if you have any unusual problems while taking this medication. If you experience a serious side effect, you or your doctor may send a report to the Food and Drug Administration's (FDA) MedWatch Adverse Event Reporting program online (https://www.fda.gov/Safety/MedWatch) or by phone ( ). What should I know about STORAGE and DISPOSAL of this medication? Keep this medication in the container it came in, tightly closed, and out of reach of children. Store it at room temperature and away from excess heat and moisture (not in the bathroom). It is important to keep all medication out of sight and reach of children as many containers (such as weekly pill minders and those for eye drops, creams, patches, and inhalers) are not child-resistant and young children can open them easily. To protect young children from poisoning, always lock safety caps and immediately place the medication in a safe location - one that is up and away and out of their sight and reach. https://www.upandaway.org Unneeded medications should be disposed of in special ways to ensure that pets, children, and otherpeople cannot consume them. However, you should not flush this medication down the toilet. Instead,the best way to dispose of your medication is through a medicine take-back program. Talk to your pharmacist or contact your local garbage/recycling department to learn about take-back programs in your community. See the FDA's Safe Disposal of Medicines website (https://goo.gl/c4Rm4p) for more information if you do not have access to a take-back program. What should I do in case of OVERDOSE? In case of overdose, call the poison control helpline at . Information is also available online at https://www.poisonhelp.org/help. If the victim has collapsed, had a seizure, has trouble breathing, or can't be awakened, immediately call emergency services at 911. Symptoms of overdose may include the following: ? lightheadedness ? fainting What OTHER INFORMATION should I know? Keep all appointments with your doctor and the laboratory. Your blood pressure should be checked regularly to determine your response to lisinopril. Your doctor may order certain lab tests to check your body's response to lisinopril. Do not let anyone else take your medication. Ask your pharmacist any questions you have about refilling your prescription. It is important for you to keep a written list of all of the prescription and nonprescription ([id number]-pdb-efllrjv) medicines you are taking, as well as any products such as vitamins, minerals, or otherdietary supplements. You should bring this list with you each time you visit a doctor or if you areadmitted to a hospital. It is also important information to carry with you in case of emergencies. This report on medications is for your information only, and is not considered individual patient advice. Because of the changing nature of drug information, please consult your physician or pharmacist about specific clinical use. The [employer] represents that the information provided hereunder was formulated with a reasonable standard of care, and in conformity with professional standards in the field. The [employer] makes no representations or warranties, express or implied, including, but not limited to, any implied warranty of merchantability and/or fitness for a particular purpose, with respect to such information and specifically disclaims all such warranties. Users are advised that decisions regarding drug therapy are complex medical decisions requiring the independent, informed decision of an appropriate health professional healthcare representative, and the information is provided for informational purposes only. The entire monograph for a drug should be reviewed for a thorough understanding of the drug's actions, uses and side effects. The [employer] does not endorse or recommend the use of any drug.The information is not a substitute for medical care. AHFS?? Patient Medication Information?. ?? Copyright, 2023. The [employer]??, [address], [address], [place], [place]. All Rights Reserved. Duplication for commercial use must be authorized by [facility]. Selected Revisions: November 07, 2020. AHFS?? Patient Medication Information?. ?? Copyright, 2024 * Suhail Perez - Christine Collier RN - 03/13/2025 7:59 AM EDT Images from the original note were not included. [address] Warning Signs of Suicide and What To Do If you think a person may be suicidal, ask them. Say, Have you thought about suicide? Asking won't make it more likely that they will try to do it. In fact, many people with suicidal thoughts say they are relieved when the question is asked. If they say yes, they may already have a plan. They may know how and when they will attempt it. Find out as much as you can. A plan that is detailed and easy to carry out means the person is in danger right now. Know the warning signs The warning signs for suicide include: ? Threats or talk of suicide ? Talking about and dying ? Change in eating habits ? Change in sleeping habits, such as not sleeping or sleeping all of the time ? Feeling hopeless ? Suddenly buying a gun or other weapon ? Saying things such as Soon, I won't be a problem or Nothing matters ? Giving away things they own ? Making out a will or planning their ? Suddenly being happy or calm after being depressed Who?s at risk? Some things put a person at a higher risk of attempting suicide. They include: ? A history of suicide in their family ? Past suicide attempts ? Alcohol and drug use, along with impulsive behaviors ? Having a mood disorder, such as depression or bipolar disorder ? History of trauma or abuse including bullying ? Major loss, such as a divorce or of a loved one ? Money problems ? Legal problems ? Having access to a lethal weapon (such as a gun in the home) ? Long-term (chronic) physical illness, including chronic pain ? Being around others with suicidal behavior Getting help Don't try to handle this alone. Get the person to a trained healthcare provider. Suicidal thoughts may be a sign of depression. This is a serious but treatable illness. Call a mental health clinic or a licensed mental healthcare provider in your area right away. This may be a: ? Psychiatrist ? Clinical psychologist ? Psychiatric or licensed clinical nursing home social worker ? Marriage and family counselor ? Clergy person When to call for crisis help If the person is at immediate risk, call or text the 988 Suicide & Crisis Lifeline at 988. Tellthe crisis counselor you need help for a person who is thinking about suicide. Or take the person to the nearest emergency room. Don't leave the person alone. Anyone who is at immediate risk of suicide needs care right away. Theperson must be constantly watched. They must never be left alone. Crisis help resources These services are free and available 15/04: ? 988 Suicide & Crisis Lifeline. Call or text 988. Lifeline can also be reached at [phone](820-243-ATWU). An online chat choice is also available. Lifeline is free and available 15/04. ? ? National [place] on Mental Illness (TOBIN) at www.tobin.org. Call 645-755-9654. Or text TOBIN to 758147. ? Mental Health [place] at www.mhanational.org. Call 988. Or text MHA to 956253. ? Veterans Crisis Line at www.veteranscrisisline.net. Call 988 then press 1. Or text a message to 865214. Last Reviewed Date: 2024 00:00:00 ?? 4440-3555 [employer]. All rights reserved. This information is not intended as a substitute for professional medical care. Always follow your healthcare professional's instructions. * [facility] Christine Collier RN - 03/13/2025 7:59 AM EDT Images from the original note were not included. 63277 Recognizing Suicide Warning Signs in Yourself People who are thinking about suicide may not know they are depressed. Certain thoughts, feelings, and actions can be signals that let you know you may need help. The best thing you can do is watch for signs that you may be at risk. Then, ask for help. You can talk with your regular health care provider or get help from a mental health provider. Depression Depression is a treatable illness, just like diabetes or heart disease. And like those illnesses, depression is not something that you can just snap out of. To feel better, treatment is needed before depression gets to a point that it can endanger your life. To know if depression is causing you to feel like ending your life, ask yourself: ? Do I feel worthless, guilty, helpless, or hopeless? ? Have I been feeling sad, down, or blue on most days? ? Have I lost interest in my work or people I used to enjoy? ? Do I have trouble sleeping or do I sleep too much? ? Do I eat more or less than normal? ? Do I feel tired, weak, and low on energy? ? Do I feel restless and unable to sit still? ? Do I have trouble thinking or making choices? ? Do I cry more than normal? ? Do I feel life isn't worth living? Warning signs for suicide Contact your health care provider or get help right away if you have any of the warning signs below. You can also call a mental health clinic or the Suicide and Crisis Lifeline for help and support. Warning signs for suicide include: ? Thinking often about taking your life. ? Planning how you may attempt it. ? Talking or writing about suicide. ? Feeling that is the only solution to your problems. ? Feeling a pressing need to make out your will or arrange your . ? Giving away things you own. ? Taking part in risky behaviors, such as having sex with someone you don't know, or drinking and driving. ? Buying a lethal weapon, such as a gun, or hoarding medicines that could be used in an overdose. In a crisis, call or text 988 If you are in immediate risk of harming yourself or others, call 988. When you call or text 988, you will be connected to trained crisis counselors at the Suicide and Crisis Lifeline. An online chat is also available. Lifeline is free and available 15/04. To learn more For more information about depression and suicide prevention: ? Suicide and Crisis Lifeline at Affibody.org or call 835 or 7-880-191-TALK (776-058-0975) ? National [place] on Mental Illness at www.tobin.org or 786-347-6244 ? Mental Health [place] at www.[facility].org or 685-485-0804 ? National [place] of Mental Health at www.nim.nih.gov or 768-039-2639 Last Reviewed Date: 2024 00:00:00 ?? [employer]. All rights reserved. This information is not intended as a substitute for professional medical care. Always follow your healthcare professional's instructions. * Suhail Perez - Christine Collier RN - 03/13/2025 7:59 AM EDT Images from the original note were not included. 22141 Spotting Suicide Warning Signs People who are thinking about suicide may say or do certain things. These are signals that let you know they need help. Watch for these warning signs of suicide. Warning signs ? Threats or talk of suicide ? Buying a gun or other weapon ? Hoarding medicines ? Saying things like, I won't be a problem much longer or Nothing matters ? Giving away items they own ? Making out a will, or planning their ? Suddenly being happy or calm after being depressed for a long time ? Talking of being a burden to others ? Increased use of alcohol, drugs, or other risky behaviors ? Withdrawing from people and activities ? Saying they feel hopeless or trapped ? Sleeping too much or too little ? Saying they feel there is no reason to live ? Calling people to say goodbye ? Having chronic, unbearable pain Ask them If you think a person may be suicidal, ask them. Say, Have you thought about suicide? Asking won't make them more likely to try to do it. People with suicidal thoughts may be relieved when the question is asked. If they say yes, they may already have a plan. They may know how and when they will try it. Find out as much as you can. The more detailed the plan, and the easier it is to carry out, the more danger they are in right now. Tell them you are there for them and don't want them to harm themselves. Don't wait to get help for them. In a crisis, call 8 Call or text the [facility] Suicide & Crisis Lifeline at 8. This is the [facility] Suicide & Crisis Lifeline. You will be connected to a trained counselor the person can talk to. There's also an online chat option. The person can also call [employer] at [phone] ([phone]). The 98 Lifeline is free and available 15/04. You can also call emergency services at 911. Tell them you need help for a person who is thinking about suicide. Or you can call 911 or take the person to the nearest emergency room. A person who is actively suicidal needs help right away. Never leave the person alone or out of sight. Take action. Remove anything they could use to harm themselves. This includes guns, knives and other sharp tools, pills, belts, and scarves. Guard accessto rooftops and high windows. To learn more ? 988 Suicide & Crisis Lifeline at Affibody.[employer] or dial 988 ? National [place] of Mental Health at www.nimh.nih.gov or 010-207-2516 ? National [place] on Mental Illness at www.tobin.org or 429-530-6729 ? Mental Health [place] at www.[facility].org or 922-494-9300 Last Reviewed Date: 2025 00:00:00 ?? [employer]. All rights reserved. This information is not intended as a substitute for professional medical care. Always follow your healthcare professional's instructions. * [facility] - Christine Collier RN - 03/13/2025 7:59 AM EDT Images from the original note were not included. [id number] Mirtazapine Brand Name(s): Remeron??, Remeron?? SolTab; also available generically ?? This branded product is no longer on the market. Generic alternatives may be available. IMPORTANT WARNING: A small number of children, teenagers, and young adults (up to 24 years of age) who took antidepressants ('mood elevators') such as mirtazapine during clinical studies became suicidal (thinking aboutharming or killing oneself or planning or trying to do so). Children, teenagers, and young adults who take antidepressants to treat depression or other mental illnesses may be more likely to become betancourt icidal than children, teenagers, and young adults who do not take antidepressants to treat these conditions. However, experts are not sure about how great this risk is and how much it should be considered in deciding whether a child or teenager should take an antidepressant. Children younger than 18 years of age should not normally take mirtazapine, but in some cases, a doctor may decide that mirtazapine is the best medication to treat a child's condition. You should know that your mental health may change in unexpected ways when you take mirtazapine or other antidepressants even if you are an adult over 24 years of age. You may become suicidal, especially at the beginning of your treatment and any time that your dose is increased or decreased. You, your family, or your caregiver should call your doctor right away if you experience any of the follow ing symptoms: new or worsening depression; thinking about harming or killing yourself, or planning or trying to do so; extreme worry; agitation; panic attacks; difficulty falling asleep or staying asleep; aggressive behavior; irritability; acting without thinking; severe restlessness; and frenzied a bnormal excitement. Be sure that your family or caregiver knows which symptoms may be serious so they can call the doctor if you are unable to seek treatment on your own. Your healthcare provider will want to see you often while you are taking mirtazapine, especially atthe beginning of your treatment. Be sure to keep all appointments for office visits with your doctor. The doctor or pharmacist will give you the journeyman press operator's patient information sheet (Medication Guide) when you begin treatment with mirtazapine. Read the information carefully and ask your doctor orpharmacist if you have any questions. You also can obtain the Medication Guide from the FDA website: https://www.fda.gov/Drugs/DrugSafety/zqo953967.htm. No matter what your age, before you take an antidepressant, you, your parent, or your caregiver should talk to your doctor about the risks and benefits of treating your condition with an antidepressant or with other treatments. You should also talk about the risks and benefits of not treating your condition. You should know that having depression or another mental illness greatly increases the risk that you will become suicidal. This risk is higher if you or anyone in your family has or has ever had bipolar disorder (mood that changes from depressed to abnormally excited) or cecilia (frenzied, abnormally excited mood) or has thought about or attempted suicide. Talk to your doctor about your condition, symptoms, and personal and family medical history. You and your doctor will decide what type of treatment is right for you. WHY is this medicine prescribed? Mirtazapine is used to treat depression. Mirtazapine is in a class of medications called antidepressants. It works by increasing certain types of activity in the brain to maintain mental balance. HOW should this medicine be used? Mirtazapine comes as a tablet and as a disintegrating tablet to take by mouth. It usually is taken once a day at bedtime. It may be taken with or without food. Follow the directions on your prescription label carefully, and ask your doctor or pharmacist to explain any part you do not understand. Take mirtazapine exactly as directed. Do not take more or less of it or take it more often than prescribed by your doctor. To take a mirtazapine disintegrating tablet, open the blister pack with dry hands and place the tablet on your tongue. The tablet will disintegrate on the tongue and can be swallowed with saliva. No water is needed to swallow disintegrating tablets. Once the tablet is removed from the blister pack,it cannot be stored. Do not split mirtazapine disintegrating tablets. It may take several weeks or longer for you to feel the full benefit of mirtazapine. Continue to take mirtazapine even if you feel well. Do not stop taking mirtazapine without talking to your doctor.Your doctor probably will decrease your dose gradually. Are there OTHER USES for this medicine? This medication is sometimes prescribed for other uses; ask your doctor or pharmacist for more information. What SPECIAL PRECAUTIONS should I follow? Before taking mirtazapine, ? tell your doctor and pharmacist if you are allergic to mirtazapine, any other medications, or anyof the ingredients in mirtazapine tablets or disintegrating tablets. Ask your doctor or pharmacist for a list of the ingredients. ? tell your doctor or pharmacist if you are taking the following medications or have stopped takingthem within the past two weeks: a monoamine oxidase (MAO) inhibitor such as isocarboxazid (Marplan), linezolid (Zyvox), methylene blue, phenelzine (Nardil), selegiline (Eldepryl, Emsam, Zelapar), andtranylcypromine (Parnate). ? some medications should not be taken with mirtazapine. Other medications may cause dosing changesor extra monitoring when taken with mirtazapine. Make sure you have discussed any medications you are currently taking or plan to take before starting mirtazapine with your doctor and pharmacist. Before starting, stopping, or changing any medications while taking mirtazapine, please get the advice of your doctor or pharmacist. ? the following nonprescription or herbal products may interact with mirtazapine: Km's wort; trytophan; cimetidine (Tagamet). Be sure to let your doctor and pharmacist know that you are taking these medications before you start taking mirtazapine. Do not start any of these medications while taking mirtazapine without discussing with your healthcare provider.. ? tell your doctor if you have or have ever had a heart attack, low blood pressure, heart, kidney, or liver disease, or high cholesterol. ? tell your doctor if you are , plan to become , or are breast- feeding. If you become while taking mirtazapine, call your doctor. ? if you are having surgery, including dental surgery, tell the doctor or dentist that you are taking mirtazapine. ? you should know that this medication may make you drowsy. Do not drive a car or operate machineryuntil you know how this medication affects you. ? remember that alcohol can add to the drowsiness caused by this medication. ? if you have phenylketonuria (PKU, an inherited condition in which a special diet must be followedto prevent damage to your brain that can cause severe intellectual disability), you should know that the orally disintegrating tablets contain aspartame that forms phenylalanine. ? you should know that mirtazapine may cause angle-closure glaucoma (a condition where the fluid issuddenly blocked and unable to flow out of the eye causing a quick, severe increase in eye pressurewhich may lead to a loss of vision). Talk to your doctor about having an eye examination before youstart taking this medication. If you have nausea, eye pain, changes in vision, such as seeing colored rings around lights, and swelling or redness in or around the eye, call your doctor or get emergency medical treatment right away. What SPECIAL DIETARY instructions should I follow? Unless your doctor tells you otherwise, continue your normal diet. What should I do IF I FORGET to take a dose? Take the missed dose as soon as you remember it. However, if it is almost time for the next dose, skip the missed dose and continue your regular dosing schedule. Do not take a double dose to make up for a missed one. What SIDE EFFECTS can this medicine cause? Some side effects can be serious. If you experience any of the following symptoms or those listed in the IMPORTANT WARNING or SPECIAL PRECAUTIONS section, call your doctor immediately or get emergency medical treatment: ? flu-like symptoms, fever, chills, sore throat, mouth sores, or other signs of infection ? chest pain ? fast heartbeat ? seizures Mirtazapine may cause other side effects. Call your doctor if you have any unusual problems while you are taking this medication. If you experience a serious side effect, you or your doctor may send a report to the Food and Drug Administration's (FDA) MedWatch Adverse Event Reporting program online (https://www.fda.gov/Safety/MedWatch) or by phone ( ). What should I know about STORAGE and DISPOSAL of this medication? Keep this medication in the container it came in, tightly closed, and out of reach of children. Store it at room temperature and away from excess heat and moisture (not in the bathroom). It is important to keep all medication out of sight and reach of children as many containers (such as weekly pill minders and those for eye drops, creams, patches, and inhalers) are not child-resistant and young children can open them easily. To protect young children from poisoning, always lock safety caps and immediately place the medication in a safe location - one that is up and away and out of their sight and reach. https://www.upandPyrolia.org Unneeded medications should be disposed of in special ways to ensure that pets, children, and otherpeople cannot consume them. However, you should not flush this medication down the toilet. Instead,the best way to dispose of your medication is through a medicine take-back program. Talk to your pharmacist or contact your local garbage/recycling department to learn about take-back programs in your community. See the FDA's Safe Disposal of Medicines website (https://goo.gl/c4Rm4p) for more information if you do not have access to a take-back program. What should I do in case of OVERDOSE? In case of overdose, call the poison control helpline at . Information is also available online at https://www.poisonhelp.org/help. If the victim has collapsed, had a seizure, has trouble breathing, or can't be awakened, immediately call emergency services at 851. What OTHER INFORMATION should I know? Keep all appointments with your doctor and the laboratory. Your doctor may order certain lab tests to check your response to mirtazapine. Do not let anyone else take your medication. Ask your pharmacist any questions you have about refilling your prescription. It is important for you to keep a written list of all of the prescription and nonprescription (ojid-dsa-[id number]) medicines you are taking, as well as any products such as vitamins, minerals, or otherdietary supplements. You should bring this list with you each time you visit a doctor or if you areadmitted to a hospital. It is also important information to carry with you in case of emergencies. This report on medications is for your information only, and is not considered individual patient advice. Because of the changing nature of drug information, please consult your physician or pharmacist about specific clinical use. The [employer] represents that the information provided hereunder was formulated with a reasonable standard of care, and in conformity with professional standards in the field. The [employer] makes no representations or warranties, express or implied, including, but not limited to, any implied warranty of merchantability and/or fitness for a particular purpose, with respect to such information and specifically disclaims all such warranties. Users are advised that decisions regarding drug therapy are complex medical decisions requiring the independent, informed decision of an appropriate health professional healthcare representative, and the information is provided for informational purposes only. The entire monograph for a drug should be reviewed for a thorough understanding of the drug's actions, uses and side effects. The [employer] does not endorse or recommend the use of any drug.The information is not a substitute for medical care. AHFS?? Patient Medication Information?. ?? Copyright, 2023. [employer]??, [address], [address], [place], [place]. All Rights Reserved. Duplication for commercial use must be authorized by [facility]. Selected Revisions: October 07, 2021. AHFS?? Patient Medication Information?. ?? Copyright, 2024 * Care Plan - Dorothy Goldberg RN - 03/13/2025 5:55 AM EDT Problem: Adult Behavioral Health Plan of Care Goal: Patient-Specific Goal (Individualization) 03/13/2025 0553 by Dorothy Goldberg RN Flowsheets Taken 03/12/2025 2100 by Dorothy Goldberg RN Patient/Family-Specific Goals (Include Timeframe): none Individualized Care Needs: safety Anxieties, Fears or Concerns: anxiety due to being here Taken 03/11/2025 1024 by Chelsey Ferreira RN Patient Personal Strengths: appropriate judgment/decision-making coping skills expressive of emotions expressive of needs 03/13/2025 0549 by Dorothy Goldberg RN Flowsheets (Taken 03/11/2025 1024 by Chelsey Ferreira RN) Patient Personal Strengths: appropriate judgment/decision-making coping skills expressive of emotions expressive of needs * Nursing Note - Dorothy Goldberg RN - 03/12/2025 9:17 PM EDT Patient alert and oriented X4. Patient states feeling good today. Patient presents with calm mood. Patient noted to be cooperative with staff. Patient rates depression 0 on scale 0-10 (10 being the worst). Patient rates anxiety 2 on scale 0-10 (10 being the worst). Patient denies feeling hopeless about the future. Patient denies SI/HI/AVH. Patient denies self-harm thoughts and behaviors. Patient contracts for safety and feels can keep self safe. Patient reported no pain and having not good sleeping, Melatonin was given. Patient reported having fine appetite. Patient stated nothing bothering her. Patient goal for the day is none stated. No signs of physical distress noted. Though content appears grossly organized. Vital signs stable. Patient compliant with medication regimen and will continue to be medicated per EMAR. Patient encouraged to notify staff of any concerns. Continue current plan of care. Patient is progressing toward treatment goals, Absence of New-Onset Illness or Injury, Optimized Coping Skills in Response to Life Stressors. Staff will continue to provide encouragement and monitor patient Q15min checks as well as hourly nursing rounds. * Care Plan - Dorothy Goldberg RN - 03/12/2025 9:09 PM EDT * Care Plan - Dorothy Goldberg RN - 03/12/2025 9:09 PM EDT Problem: Adult Behavioral Health Plan of Care Goal: Plan of Care Review 03/12/20252108 by Dorothy Goldberg RN Outcome: Ongoing, Progressing Goal: Patient-Specific Goal (Individualization) 03/12/20252108 by Dorothy Goldberg RN Outcome: Ongoing, Progressing Goal: Adheres to Safety Considerations for Self and Others 03/12/20252108 by Dorothy Goldberg RN Outcome: Ongoing, Progressing Intervention: Develop and Maintain Individualized Safety Plan Flowsheets (Taken 03/12/2025 0501) Safety Measures: suicide assessment completed safety plan mutually developed clinical history reviewed Goal: Absence of New-Onset Illness or Injury 03/12/20252108 by Dorothy Goldberg RN Outcome: Ongoing, Progressing Goal: Optimized Coping Skills in Response to Life Stressors 03/12/2025 0501 by Dorothy Goldberg RN Outcome: Ongoing, Progressing Flowsheets (Taken 03/12/2025500) Optimized Coping Skills in Response to Life Stressors: making progress toward outcome 03/12/20252108 by Dorothy Goldberg RN Outcome: Ongoing, Progressing Goal: Develops/Participates in Therapeutic [place] to Support Successful Transition 03/12/20252108 by Dorothy Goldberg RN Outcome: Ongoing, Progressing Problem: Suicidal Behavior Goal: Suicidal Behavior is Absent or Managed 03/12/2025500 by Dorothy Goldberg RN Outcome: Ongoing, Progressing Intervention: Provide Immediate and Ongoing Protective Physical Environment Flowsheets (Taken 03/12/2025500) Safe Transition Promotion: personal safety plan developed resources access evaluated suicide hotline information given to patient * Progress Notes - Delroy Mata MD - 03/12/2025 4:12 PM EDT Images from the original note were not included. [facility] Unit Daily Progress Note 03/12/25 Hospital Day #2 Subjective: Per nursing and whiteboard discussion: Nursing reports that in the last 24 hours, patient Jacqueline Aaron, was calm, cooperative, and required no PRN medications for acting out behaviors Per Resident/Rounds Interview: Jacqueline Aaron states that overnight they had some nighttime awakenings. This morning, they feel much better when compared to admission. Patient was active participant in conversation with treatment team. Reports that suicide attempt was a wake-up call and made her realize how much she truly wants to live. Said while she is not happy it happened, it did change her perspective on life. Endorses experiencing a variety of depressive symptoms over the past 6-8 months, including low mood, anhedonia, crying spells, and poor sleep w/nighttime awakenings due to nightmares/night terrors. Does believe that combination of mirtazapine, propranolol, and seroquel was very beneficial in treating her mood, anxiety, and sleep symptoms, but says 1) that she stopped takingmirtazapine because she was feeling better and didn't think she needed it and 2) that propranolol 10mg may have been too high of a dose for her since it made her feel lightheaded/dizzy. She says she started all three medications at the same time and is therefore not exactly sure what medication specifically addressed which symptom. She is amenable to re-initiation of medications as appropriate. She otherwise denies SI/HI/AVH. She notes she has work tomorrow and is worried about losing her job due to being in the hospital, patient reassured about this. They report No side effects due to medications. Additional Collateral: No ROS: (2-9) Patient denies any problems with pain, N&V, dizziness, or muscle stiffness PFSH: (1) Past Medical History: This was reviewed from the H&P and is unchanged Family Medical History: This was reviewed from the H&P and is unchanged Social History: This was reviewed from the H&P and is unchanged Past Surgical History: This was reviewed from the H&P and is unchanged Objective: Temp: [36.7 ??C (98 ??F)-36.9 ??C (98.5 ??F)] 36.9 ??C (98.5 ??F) Heart Rate: [54-81] 81 Resp: [18] 18 BP: (97-121)/(62-80) 121/80 Sleep: Sleep Total Hours of Sleep: 8 (asleep [id number]) Meals: I&O: I/O last 3 completed shifts: In: 1000 [P.O.:1000] Out: - I/O this shift: In: 700 [P.O.:700] Out: - EXAMINATION: (12 elements/ 2 systems) Neuro: Gait and station are intact. The muscle tone is intact and all the patient moves all extremities. Mental Status Exam: Appearance: appears stated age, well nourished, wearing hospital attire, well- kempt, and good hygiene Behavior: calm, cooperative, age-appropriate, easy to establish rapport, forthcoming about condition and reasons for presentation, and non-verbal body language and communication appropriate throughout interview Eye Contact: appropriate Involuntary Movements: absent Psychomotor Activity: no significant depression or agitation Speech: normal rate, tone and rhythm, appropriate ranjit, and coherent speech Mood: good Affect: euthymic, congruent with stated mood, broad, full range of affect, and friendly LOC/Orientation: Awake and Alert, oriented to person, place, time, and general circumstances Cognition/Development/Knowledge: Cognition appears grossly normal, appropriate fund of knowledge for age and level of education Thought Process: linear, organized, goal-directed, and easily understandable, fluid thought-process Thought Content/Perceptions (AVH): clear, age-appropriate, on topic , mood- congruent, denies auditory/visual hallucination, and does not appear to be reacting to internal stimuli Suicidal Ideation: denied Homicidal Ideation: denied Reliability: patient appears to be reliable and cooperative informant Insight: fair Judgment: fair Medications: Scheduled: Current Scheduled Medications[1] As needed: Current PRN Medications[2] Labs in last 18 hours CBC WBC ?? Hb ?? Plt ?? Hct ?? ANC ?? INR ??, PTT ??, Anti-Xa ?? BMP Na ?? Cl ?? BUN ?? Glu ?? K ?? Co2 ?? Cr ?? Ca ?? iCa ?? Mg ??, Phos ?? Lactate ?? LFT AST ?? AlkPhos ?? T Prot ?? ALK ?? Bili ?? Alb ?? D.Bili ?? Encounter Date: 03/09/25 ECG Adult Result Value EKG DIAGNOSIS CLASS Normal Ventricular Rate 65 Atrial Rate 65 NM Interval 142 QRSD Interval 84 QT Interval 428 QTC Interval 445 P [place] 27 R [place] 35 T Wave [place] 38 Diagnosis Normal sinus rhythm Diagnosis Normal ECG Diagnosis Diagnosis Confirmed by Ron Chahal ([id number]) on 03/10/2025 11:05:32 AM *Note: Due to a large number of results and/or encounters for the requested time period, some results have not been displayed. A complete set of results can be found in Results Review. Assessment/Plan ASSESSMENT/PLAN Risk Assessment: Patient is currently at an acutely elevated risk of harm to self or others given recent suicide attempt and overdose of high lethality. Patient is not demonstrating ANY suicidal intent, DOES appear to be able to control impulsivity, and IS exhibiting pervasive mood symptom burden impacting daily fun ctioning. It should be noted that this patient [...] currently indicated. Patient is holdable under KRS A as she does meet ALL holdcriteria: having a mental illness, being an acute risk of harm to self or others, reasonable expectation of benefit from admission, AND inpatient being least restrictive means of treatment. Formulation: Jacqueline Aaron is a 29 y.o. female with no known significant PMHx, and reported psychiatric hx of depression (post-?), anxiety, bipolar(?) disorder, PTSD, who presented to [facility] ICU as direct admission via EMS from OSH ([facility]) with concerns of acute hypoxic respiratory failure requiring intubation and ventilation and shock with hypotension requiring pressors in the setting of recent overdose and suspected suicide attempt, and admitted 03/09/2025 to ICU for continued managementof same. The following day, patient successfully extubated and weaned off of pressors (Levophed), deemed appropriate for psychiatric evaluation. Cleared by Poison Control (case #[id number]), toxicology a lso wrote note documenting no need for further interview or monitoring. Psychiatry consulted for risk assessment. They were subsequently admitted to [facility] 03/10/2025 on 72 hour hold for continued evaluation and management of mood symptom burden. Psychiatric history significant for recent inpatient stay at [facility] x4 days (3 wksago) on voluntary status for low mood and mood lability (?), as well as history of multiple suicideattempts per collateral. Additionally, per collateral and per chart review, this is patient's second significant suicide attempt in the past 3 months, with recent [facility] presentation 11/2024 following interrupted attempt to hang herself (interrupted by EMS performing wellness check). Patient denieshaving any recent psychosocial stressors. Most likely diagnosis at this time is unspecified mood/affective disorder, given history of depression (particularly per chart review and per patient), with recent suicide attempt via overdose of high potential lethality requiring intubation and ICU level care. Patient currently endorses some mood symptoms including low mood since childbirth (August 2024), anhedonia, sleeping difficulties, low energy, and SI. She openly acknowledged the seriousness of the events that occurred prior to admission, which she now describes as a wake-up call. Low suspicion for bipolar disorder given patient reports of related symptom burden being daily mood lability and irritability throughout her entire life, inpatient denying history of any occurrences/periods of time consistent with manic episode. Difficult to exclude PTSD, cluster B traits. Diagnoses: PSYCHIATRIC MANAGEMENT 1.) Mood Disorder Unspecified CGI Status: Compared to admission, how much has the pt's condition changed? 2 (much improved) PLAN: Initiate Mirtazapine 15mg at bedtime for mood, sleep - patient endorses prior symptomatic improvement at this dose Continue to hold Propranolol 10mg TID - patient reports this dose caused dizziness/light-headedness. Can consider re-initiating at lower dose/frequency (e.g. 5mg BID PRN) if necessary. 2.) Insomnia CGI Status: Compared to admission, how much has the pt's condition changed? 4 (no change) PLAN: Continue to hold home Seroquel 50mg at bedtime, will first attempt to optimize Mirtazapine for sleep prior to re-initiating Disposition: likely home Barriers to discharge: psychiatric stabilization This patient was staffed with and seen by attending psychiatrist, Dr. Albarado, who agrees with the assessment and plan. Delroy Mata MD [1] mirtazapine, 15 mg, Oral, Nightly [2] PRN medications: acetaminophen, benzocaine-menthol, calcium carbonate, LORazepam AND diphenhydrAMINE AND haloperidol lactate, hydrOXYzine pamoate, melatonin, OLANZapine zydis Cosigned by Juan Albarado MD at 03/13/2025 5:56 AM EDT Associated attestation - Juan Albarado MD - 03/13/2025 5:56 AM EDT I saw and evaluated the patient with the resident/fellow. I discussed the case with the resident/fellow and agree with the findings and plan as documented. * Progress Notes - Lydia Dejesus - 03/12/2025 2:27 PM EDT CAROLYN Treatment Plan Update Note: Treatment team (Attending Dr. Albarado, Pharmacists Risa, Nurse Laura, CAROLYN, Lydia & Rachel as well as Resident and medical students) along with Ms. Agnieszka lewis it was determined that she would remain inpatient to monitor symptom burden and start psychiatric medication Remeron 15 mg Nightly, hold Seroquel. See doctors note for additional information regarding update and medication changes. The Resident will attempt to contact collateral to gather additional information. Ms. Aaron's family scheduled an initial appointment with Radha Pierre for Sunday March 16, 2025 at 10 am via IN PERSON. [address], [address], [place] [address] * Discharge Instr - Appointments - Lydia Dejesus - 03/12/2025 2:27 PM EDT Radha Pierre: Initial appointment scheduled for Sunday March 16, 2025 at 10 am via IN PERSON. [address], [address], [place] [address] * Group Note - Cristin Robb - 03/12/2025 12:35 PM EDT Group Topic: Leisure Skills Group Date: 03/12/2025 Start Time: 1130 End Time: 1200 Facilitators: Cristin Robb Department: [facility] Inpatient Psychiatry Number of Participants: 3 Group Focus: coping skills and leisure skills Treatment Modality: Leisure Development Interventions utilized were leisure development Purpose: enhance coping skills Name: Jacqueline Aaron Date of : 1995 MR: [id number] Refused Patients Problems: Patient Active Problem List Diagnosis Bipolar depression (CMS/HCC) ALLYSON (generalized anxiety disorder) Psychophysiological insomnia Family history of congenital heart defect History of shoulder dystocia in prior Encounter for routine follow-up Unspecified mood (affective) disorder (CMS/HCC) * Care Plan - Claire Garvin RN - 03/12/2025 12:28 PM EDT Problem: Adult Behavioral Health Plan of Care Goal: Plan of Care Review Outcome: Ongoing, Progressing Flowsheets (Taken 03/11/2025 214 by Vandana Romano RN) Progress: improving Patient Agreement with Plan of Care: agrees Plan of Care Reviewed With: patient Goal: Patient-Specific Goal (Individualization) Outcome: Ongoing, Progressing Flowsheets Taken 03/12/2025 0904 by Claire Garvin RN Patient/Family-Specific Goals (Include Timeframe): Have a good day Individualized Care Needs: Safety Anxieties, Fears or Concerns: None stated Taken 03/11/2025 1024 by Chelsey Ferreira RN Patient Personal Strengths: appropriate judgment/decision-making coping skills expressive of emotions expressive of needs Goal: Adheres to Safety Considerations for Self and Others Outcome: Ongoing, Progressing Goal: Absence of New-Onset Illness or Injury Outcome: Ongoing, Progressing Goal: Optimized Coping Skills in Response to Life Stressors Outcome: Ongoing, Progressing Goal: Develops/Participates in Therapeutic [place] to Support Successful Transition Outcome: Ongoing, Progressing Problem: Suicidal Behavior Goal: Suicidal Behavior is Absent or Managed Outcome: Ongoing, Progressing * Nursing Note - Claire Garvin RN - 03/12/2025 12:25 PM EDT Pt continues admission on adult behavioral health unit. Pt out and about on the unit today- interactive and cooperative with staff. Pt presents with calm mood and full affect. Pt denies SI/HI/AVH andany self-harm thoughts at this time. Pt reported a sore throat in the AM - PRN lozenge was effective. Pt alert and oriented x4 and pleasant/appropriate. Thought content appears grossly organized. Vital signs stable. Pt attended and participated in groups. Pt continues to comply with medication regimen, and will continue to be medicated per EMAR. Will continue to monitor for safety with q 15 minute checks and hourly nursing rounds, encourage patient to voice safety concerns, and implement current plan of care. Sue Garvin RN * Nursing Note - Vandana Romano RN - 03/12/2025 5:55 AM EDT Patient continues admission on the behavioral health unit. Patient is isolative, withdrawn to the bed during the entire shift. Patient states she feels tired. Patient denies SI/HI/AVH and when asked,states she is able to keep herself safe in the hospital. Patient denies questions or concerns at this time. Patient slept through the night. * Care Plan - Vandana Romano RN - 03/11/2025 9:47 PM EDT Problem: Adult Behavioral Health Plan of Care Goal: Plan of Care Review Outcome: Ongoing, Progressing Flowsheets (Taken 03/11/20252145) Progress: improving Patient Agreement with Plan of Care: agrees Plan of Care Reviewed With: patient Goal: Patient-Specific Goal (Individualization) Outcome: Ongoing, Progressing Flowsheets (Taken 03/11/20252131) Patient/Family-Specific Goals (Include Timeframe): denies no goals expressed Individualized Care Needs: maintain safety and well-being Anxieties, Fears or Concerns: concerned about throat pain - requested and received prn medication per eMAR Goal: Adheres to Safety Considerations for Self and Others Outcome: Ongoing, Progressing Flowsheets (Taken 03/11/20252145) Adheres to Safety Considerations for Self and Others: making progress toward outcome Goal: Absence of New-Onset Illness or Injury Outcome: Ongoing, Progressing Goal: Optimized Coping Skills in Response to Life Stressors Outcome: Ongoing, Progressing Flowsheets (Taken 03/11/20252145) Optimized Coping Skills in Response to Life Stressors: making progress toward outcome Goal: Develops/Participates in Therapeutic [place] to Support Successful Transition Outcome: Ongoing, Progressing Flowsheets (Taken 03/11/20252145) Develops/Participates in Therapeutic [place] to Support Successful Transition: making progress toward outcome Problem: Suicidal Behavior Goal: Suicidal Behavior is Absent or Managed Outcome: Ongoing, Progressing Flowsheets (Taken 03/11/20252145) Mutually Determined Action Steps (Suicidal Behavior Absent/Managed): identifies protective factors shares suicidal thoughts * Treatment Plan - Vandana Romano RN - 03/11/2025 9:46 PM EDT Short-Term Goal: Patient will display improved mood, self-esteem, appropriate coping mechanisms. Patient will identify maladaptive thoughts related to poor self-esteem and replace those with positive, adaptive thoughts as evidenced by self-report and/or staff observation. Intervention: Staff will encourage participation in individual/group leisure education and recreation. Long-Term Goal: Stabilize the current suicidal crisis. Intervention: Staff will work with patient to identify coping skills and encourage patient to practice daily. * Group Note - Hemalatha Ellis - 03/11/2025 3:02 PM EDT Group Topic: Music Therapy Group Date: 03/11/2025 Start Time: 1330 End Time: 1430 Facilitators: Hemalatha Ellis Department: [facility] Integrative Medicine Virtual Dept. Number of Participants: 6 Treatment Modality: Group Music Therapy Interventions Utilized: breathing techniques, music listening, music-assisted relaxation, playing instruments/drumming, singing, Goals Addressed: Reduce anxiety, and Increase autonomy and control, coping skills, self-regulation, Name: Jacqueline Aaron Date of : 1995 MR: [id number] Patient Attendance: No Comments: Pt was invited, but did not attend. Plan: pt will be encouraged to attend groups, * Group Note - Chelsey Ferreira RN - 03/11/2025 1:16 PM EDT Group Topic: Leisure Skills Group Date: 03/11/2025 Start Time: 1100 End Time: 1155 Facilitators: Chelsey Ferreira RN Department: [facility] Psychiatry Number of Participants: 6 Group Focus: leisure skills Treatment Modality: Psychoeducation Interventions utilized were leisure development Purpose: enhance coping skills Name: Jacqueline Aaron Date of : 1995 MR: [id number] Level of Participation: pt declined group and opted to rest in room. Leisure activities made available in day room. Patients Problems: Patient Active Problem List Diagnosis Bipolar depression (CMS/HCC) ALLYSON (generalized anxiety disorder) Psychophysiological insomnia Family history of congenital heart defect History of shoulder dystocia in prior Encounter for routine follow-up Unspecified mood (affective) disorder (CMS/HCC) * Group Note - King Lama - 03/11/2025 10:50 AM EDT Group Topic: Goals Group Date: 03/11/2025 Start Time: 1015 End Time: 1040 Facilitators: King Lama Department: [facility] Psychiatry Number of Participants: 14 Group Focus: Goals Treatment Modality: Discussion Interventions utilized were: N/A Purpose: Goal setting Name: Jacqueline Aaron Date of : 1995 MR: [id number] Patient did not attend group, but was offered a daily goals handout to as an alternative to group. Patients Problems: Patient Active Problem List Diagnosis Bipolar depression (CMS/HCC) ALLYSON (generalized anxiety disorder) Psychophysiological insomnia Family history of congenital heart defect History of shoulder dystocia in prior Encounter for routine follow-up Unspecified mood (affective) disorder (CMS/HCC) * Nursing Note - Chelsey Ferreira RN - 03/11/2025 10:25 AM EDT Pt continues admission on adult behavioral health unit. Pt resting in room most of shift but pleasant on interaction and up for meals. Hygiene, hydration, and nutrition encouraged. Pt presents with anxious mood and full affect. Pt denies SI/HI/AVH at this time. Sore throat from intubation- given PRN chloraseptic lozenge. Pt alert and oriented x4. Thought content appears grosslyorganized. No scheduled meds at this time. Encouragement provided and will continue to monitor for safety, encourage patient to voice safety concerns, and implement current plan of care. * Care Plan - Chelsey Ferreira RN - 03/11/2025 10:25 AM EDT Problem: Adult Behavioral Health Plan of Care Goal: Plan of Care Review Outcome: Ongoing, Progressing Flowsheets Taken 03/10/2025 2157 by Marya Gonzalez RN Plan of Care Reviewed With: patient Taken 03/10/2025 1846 by Amado Baker RN Progress: improving Patient Agreement with Plan of Care: agrees Note: No suicidal thoughts or behaviors Goal: Patient-Specific Goal (Individualization) Outcome: Ongoing, Progressing Flowsheets Taken 03/11/2025 1024 by Chelsey Ferreira RN Patient Personal Strengths: appropriate judgment/decision-making coping skills expressive of emotions expressive of needs Patient/Family-Specific Goals (Include Timeframe): pt hopes to nap for 2 hours before 1400- goal met Anxieties, Fears or Concerns: sore throat Taken 03/10/2025 1900 by Marya Gonzalez RN Individualized Care Needs: safety, meds Goal: Adheres to Safety Considerations for Self and Others Outcome: Ongoing, Progressing Goal: Absence of New-Onset Illness or Injury Outcome: Ongoing, Progressing Goal: Optimized Coping Skills in Response to Life Stressors Outcome: Ongoing, Progressing Goal: Develops/Participates in Therapeutic [place] to Support Successful Transition Outcome: Ongoing, Progressing Problem: Suicidal Behavior Goal: Suicidal Behavior is Absent or Managed Outcome: Ongoing, Progressing * Group Note - Chioma Hester - 03/11/2025 10:08 AM EDT Group Topic: Problem Solving Group Date: 03/11/2025 Start Time: 929 End Time: 1000 Facilitators: Chioma Hester Department: [facility] Inpatient Psychiatry Number of Participants: 6 Group Focus: clarity of thought Treatment Modality: Skills Training Interventions utilized were group exercise Purpose: enhance coping skills Name: Jacqueline Aaron Date of : 1995 MR: [id number] Pt was offered group and declined. Chioma Hester Latasha. Patients Problems: Patient Active Problem List Diagnosis Bipolar depression (CMS/HCC) ALLYSON (generalized anxiety disorder) Psychophysiological insomnia Family history of congenital heart defect History of shoulder dystocia in prior Encounter for routine follow-up Unspecified mood (affective) disorder (CMS/HCC) * H&P - Donya Enriquez MD - 03/11/2025 9:37 AM EDT Images from the original note were not included. Initial Psychiatry Evaluation 03/11/25 Consults Chief Complaint: suicide attempt Subjective Patient is a 29 y.o. female with a reported history of depression and anxiety who presented from [facility] after a suicide attempt for ingestion of quetiapine, propranolol and Tylenol PM. Per Psych Consultation note written by Dr. Khan on 03/10/25: Hospital Course/recent hx per chart review: Patient initially presented to OSH after being found down at home unresponsive secondary to suspected suicide attempt via overdose. Per documentation, patient was found with empty bottles of propranolol, quetiapine and Tylenol PM (unclear pill count). She was intubated upon arrival to OSH for airway protection. Patient had some response to glucagon at OSH with SBP 90s but remained hypotensive so levophed gtt was started. She was subsequently transferred to [facility] for continued care. On arrival to [facility] ICU, patient continued to require low dose Levophed to maintain adequate BP. Toxicology was consulted/following. NAC was initiated for Tylenol OD as indicated per protocol. Patient has subsequently been extubated, weaned off pressors, and cleared by Toxicology/poison control (see note from toxicology). Poison control case #[id number] closed. Per chart additional chart review, patient presented to [facility] earlier this year (11/29/2024). Per chart review, patient had been found by EMS in her car/SUV attempting to hang herself. In the ED, she reported suffering from severe anxiety and depression since August 2024 when she had hermost recent child. She was started on Zoloft 2 months prior, reported no improvement in symptoms orbenefit. On arrival at [facility] it is documented that she reports nothing like this has ever happened and she is no way wants to . She would like to get back onto Vraylar which she states worked inthe past aside from causing some drooling (of note, on further chart review, patient had been takin g Vraylar in the past for ???bipolar depression?? in 2022 per her PCP). Per collateral obtained at[facility] from patient's [id number], patient was ultimately found trying to hang herself when her ex boyfriend called the police for a wellness check because she had not shown up to case picker their daughter, which was atypical for her. Goes on to report that this was when EMS found her in her SUV in her driveway at home attempting to hang herself. Collateral also reported that patient seems to haveissues with alcohol and utilizes to cope. Patient was ultimately discharged home from [facility] with re-initiation of previous/historical medication Vraylar, and plan for her [id number] to stay withher for several days following [...] when drinking similar amounts, and when occasio jayem using Tylenol PM as well, and nothing [...] to live: future-oriented Collateral: Spoke with Edgard Agnieszka, patient's father ([phone]) in-person outside patient's room in [facility] ICU. [...] denies Homicidal thoughts: Denies Auditory/visual hallucinations: denies Cecilia: absent Past Psychiatric History: Diagnoses: Depression (most recently post-), anxiety, bipolar disorder/bipolar depression? Previous Medications: Vraylar, which patient reports made her feel activated and made it difficult to sleep. Zoloft, which patient reports ???did nothing?? . Current Medications: Seroquel 50 mg nightly for sleep, previously taking 100 mg dose recently decreased due to morning drowsiness per patient Outpatient: Denies, med management per PCP at this time Inpatient: Reports recently admitted in [facility] on voluntary admission after her family ???convinced her decided for psychiatric admission?? , reports this occurred ???3 weeks ago??? and was 4day stay for ???crying a lot?? and mood lability per patient Previous suicide attempts: Denies, although there is documented history of a recent interrupted attempt in 11/2024 to hang herself, as well as collateral reports other historical attempts as well Past trauma history: Patient reports trauma, possibly PTSD diagnosis from an ex- significant other, does not disclose the nature of the trauma. 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 Patient was seen on morning rounds. No acute overnight events. On interview she describes that she is feeling good but tired and that her throat is sore after intubation. She shares that she has had no suicidal ideation since waking up yesterday. She has noted that her depression has been worse without medications but feels managemable today. Past Psychiatric History: As above Past Medical History[1] Allergies[2] Family History: As Above Social History: As Above Substance use History: As Above Medical Review Of Systems: Patient endorses throat pain. A 14 point review of systems was otherwise negative. Objective Visit Vitals BP 138/85 Pulse 80 Temp 36.8 ??C (98.2 ??F) Resp 16 LMP (Approximate) SpO2 97% OB Status Unknown Smoking Status Never Mental Status Evaluation: Appearance: appears stated age, wearing street clothes, fair hygiene Attitude: cooperative, interested in treatment Eye Contact: appropriate Speech: appropriate rate and volume, non-pressured Involuntary Movements: absent Psychomotor Activity: no significant depression or agitation Level of Consciousness: alert and attentive Memory: grossly intact Mood: good Affect: congruent with stated mood, constricted Thought Process: linear, organized, goal-directed Thought Content: no overt delusions, not responding to internal stimuli AVH: denied SI: recent suicide attempt. No active SI since yesterday HI: denied Insight: fair Judgment: fair Physical Exam: General: alert, no acute distress Eyes: extraocular movements intact, conjunctivae clear Heart: regular rate and rhythm, no murmurs, rubs or gallops Neuro: oriented x3, moving all 4 extremities spontaneously Data: No results found for this or any previous visit (from the past 24 hours). ANTIPSYCHOTIC MONITORING TOOL Current antipsychotic(s): none Glucose parameters: Lab Results Component Value Date HGBA1C 5.1 03/09/2025 Lab Results Component Value Date GLUCOSE 107 (H) 03/10/2025 GLUCOSE 131 (H) 03/09/2025 POCGLU 102 (H) 03/10/2025 POCGLU 103 (H) 03/10/2025 Concern for diabetes? Pending further work-up, deferred to primary team Lipid parameters: No results found for: CHOL , HDL , LDLCALC , TRIG Fasting lipid panel? N/A Current antidiabetic: N/A Current antilipemic: N/A Blood pressure parameters: BP REVIEW BP (ultimate) 03/11/2025 6:04 AM 138/85 03/10/2025 6:29 PM 112/76 03/10/2025 6:05 PM 112/76 03/09/2025 9:00 PM 89/54 Concern for hypertension? Pending further eval, defer to primary team Weight parameters: Current antihypertensive: N/A QTc: EKG Date/Time: Patient is n/a The ASCVD Risk score (Fidelina CONKLIN, et al., 2019) failed to calculate for the following reasons: The 2019 ASCVD risk score is only valid for ages 40 to 79 Patient does not require statin therapy at this time. Clinical indication for treatment of metabolic concerns pertaining to ongoing antipsychotic use wasdeferred to primary treatment team for further discussion. Assessment/Plan Diagnoses: Mood disorder unspecified Risk Assessment: Patient is currently at an [...] currently indicated. Patient is holdable under KRS A as she does meet ALL holdcriteria: having a mental illness, being an acute risk of harm to self or others, reasonable expectation of benefit from admission, AND inpatient being least restrictive means of treatment. Formulation: erica Aaron is a 29 y.o. female with no known significant PMHx, and reported psychiatric hx of depression (post-?), anxiety, bipolar(?) disorder, PTSD, who presented to [facility] ICU as directadmission via EMS from OSH ([facility]) with concerns of acute hypoxic respiratory failure requiring intubation and ventilation and shock with hypotension requiring pressors in the setting of recent overdose and suspected suicide attempt, and admitted 03/09/2025 to ICU for continued management of same. The following day, patient successfully extubated and weaned off of pressors (Levophed), deemed appropriate for psychiatric evaluation. Cleared by Poison Control (case #[id number]), toxicologyalso wrote note documenting no need for further interview or monitoring. Psychiatry consulted for risk assessment. They are subsequently being admitted to [facility] 03/10/2025 on 72 hour hold for continued evaluation and management of mood symptom burden. Psychiatric history significant for recent inpatient stay at [facility] x4 days (3 wks ago) on voluntary status for low mood and moodlability (?), as well as history of multiple suicide attempts per collateral. Additionally, per collateral and per chart review, this is patient's second significant suicide attempt in the past 3 months, with recent [facility] presentation 11/2024 following interrupted attempt to hang herself (interrupted by EMS performing wellness check). Patient denies having any recent psychosocial stressors. Mostlikely diagnosis at this time is unspecified mood/affective [...] history of any occurrences/periods of time consistent with manic episode. Difficult to exclude PTSD, cluster B traits. Admit Status: Involuntary - 72hr hold signed by [facility] ICU provider. Hold start date/time 03/10/25 at 1230, hold end date/time 03/16/25 at 1230. Diagnoses: PSYCHIATRIC MANAGEMENT 1.) Mood Disorder Unspecified PLAN: Continue hospitalization at [facility] for further inpatient psychiatric management Behavioral checks q15 minutes per unit protocol Notify physician if medications for agitation required Comfort medications PRN + chloraseptic lozenges Encourage participation in groups and benefit from therapeutic milieu Daily meetings and supportive therapy from treatment team Further management per primary team on [facility] Defer initiation of any potential [...] home, TBD Barriers to discharge: Psychiatric Stabilization Donya Enriquez MD Note to patient: The 21st Century Cures Act makes medical notes like [...] Medical History: Diagnosis Date Anxiety Bipolar depression ([facility]) Nonscarring hair loss, unspecified Hair loss Other hemorrhoids Internal hemorrhoid Personal history of other complications of , childbirth and the puerperium History of spontaneous Personal history of other complications of , childbirth and the puerperium History of threatened Personal history of other diseases of the digestive system History of rectal bleeding [2] Allergies Allergen Reactions Oxycodone Anaphylaxis Duloxetine Hives Hydrocodone Itching Clonidine Other - please document in the comment field Could not stay awake Vraylar [Cariprazine] Other - please document in the comment field Knocked me out for 3 days straight * Nursing Note - Marya Gonzalez RN - 03/11/2025 4:17 AM EDT Pt continuing stay in the Adult BHU. Patient is alert and oriented and denies any current physical discomfort. Patient denying any SI/HI/AVH at this time. Has been compliant with current medication regimen. Calm and cooperative. Patient appears to sleep throughout the night. Will continue current treatment plan, safety monitoring rounds, and 15 minute checks. Encouraged continued communication between patient and staff for any safety concerns. * Care Plan - Marya Gonzalez RN - 03/10/2025 9:58 PM EDT Problem: Adult Behavioral Health Plan of Care Goal: Plan of Care Review Outcome: Ongoing, Progressing Flowsheets (Taken 03/10/20252156) Plan of Care Reviewed With: patient Goal: Patient-Specific Goal (Individualization) Outcome: Ongoing, Progressing Goal: Adheres to Safety Considerations for Self and Others Outcome: Ongoing, Progressing Goal: Absence of New-Onset Illness or Injury Outcome: Ongoing, Progressing Goal: Optimized Coping Skills in Response to Life Stressors Outcome: Ongoing, Progressing Goal: Develops/Participates in Therapeutic [place] to Support Successful Transition Outcome: Ongoing, Progressing Problem: Adult Inpatient Plan of Care Goal: Plan of Care Review Outcome: Ongoing, Progressing Goal: Patient-Specific Goal (Individualized) Outcome: Ongoing, Progressing Goal: Absence of Hospital-Acquired Illness or Injury Outcome: Ongoing, Progressing Goal: Optimal Comfort and Wellbeing Outcome: Ongoing, Progressing Goal: Readiness for Transition of Care Outcome: Ongoing, Progressing * Significant Event - Froilan Wan DO - 03/10/2025 8:30 PM EDT Images from the original note were not included. Psychiatry Interim Summary 03/10/25 Jacqueline Aaron arrives to [facility] Behavioral Health Unit from [facility] Medicine Service(s) for inpatient psychiatric admission. Per Policy, patient was personally seen by this provider on arrival to unit. Questions/concerns addressed. Chart reviewed and case discussed with consult-liaison provider. Jessica moya remains medically appropriate for treatment on an inpatient psychiatric unit. Will be evaluated by treatment team on U in the morning. A resident physician is available at all times for changes or questions regarding care. Please utilize appropriate means of communication which can be viewed on [facility] [place]. Froilan Wan DO * Nursing Note - Amado Baker RN - 03/10/2025 6:49 PM EDT Patient newly admitted to the adult behavioral health unit at 1800 from ICU. Pt accompanied by [employer] MANAGER. Pt. Calm and cooperative with staff and admission assessment. Pt presents with good mood and normal affect. Pt denies SI/HI/AVH at this time and agrees to come to staff with any safety concerns. No signs of physical distress noted. Pt alert and oriented x4 and pleasant/appropriate. Though content appears grossly organized. Vital signs stable. Pt oriented to unit, complied with skin assessment, and had belongings and valuables secured. Pt negative for lice and contraband. Consent forms secured by RN. Encouragement provided to patient to voice any safety concerns. Staff will monitor for safety and implement current plan of care. * Care Plan - Amado Baker RN - 03/10/2025 6:46 PM EDT Problem: Adult Behavioral Health Plan of Care Goal: Plan of Care Review Outcome: Ongoing, Progressing Flowsheets (Taken 03/10/2025 1846) Progress: improving Patient Agreement with Plan of Care: agrees Plan of Care Reviewed With: patient Goal: Patient-Specific Goal (Individualization) Outcome: Ongoing, Progressing Goal: Adheres to Safety Considerations for Self and Others Outcome: Ongoing, Progressing Goal: Absence of New-Onset Illness or Injury Outcome: Ongoing, Progressing Goal: Optimized Coping Skills in Response to Life Stressors Outcome: Ongoing, Progressing Goal: Develops/Participates in Therapeutic [place] to Support Successful Transition Outcome: Ongoing, Progressing Problem: Adult Inpatient Plan of Care Goal: Plan of Care Review Outcome: Ongoing, Progressing Goal: Patient-Specific Goal (Individualized) Outcome: Ongoing, Progressing Goal: Absence of Hospital-Acquired Illness or Injury Outcome: Ongoing, Progressing Goal: Optimal Comfort and Wellbeing Outcome: Ongoing, Progressing Goal: Readiness for Transition of Care Outcome: Ongoing, Progressing Problem: Suicidal Behavior Goal: Suicidal Behavior is Absent or Managed Outcome: Ongoing, Progressing documented in this encounter Plan of Treatment Not on file documented as of this encounter Visit Diagnoses Diagnosis Unspecified mood (affective) disorder (CMS/HCC)- Primary Alcohol use disorder Psychophysiological insomnia Persistent disorder of initiating or maintaining sleep Polysubstance overdose Poisoning by unspecified drug or medicinal substance Acute alcoholic intoxication with complication (CMS/HCC) documented in this encounter Admitting Diagnoses Diagnosis Unspecified mood (affective) disorder (CMS/HCC) documented in this encounter Administered Medications Inactive Administered Medications - up to 3 most recent administrations Medication Order MAR Action Action Date Dose Rate Site acetaminophen (Tylenol) tablet 650 mg 650 mg, Oral, Every 6 hours PRN, Starting on 03/10/25 at 1622, Until 03/13/25 at 1203, Routine, mild pain, moderate pain, headaches benzocaine-menthol (Chloraseptic) 6-10 MG lozenge 1 lozenge 1 lozenge, Mouth/Throat, Every 4 hours PRN, Starting on Ying 03/11/25 at 0943, Until 03/13/25 at 1203, Routine, sore throat Given 03/12/2025 6:16 PM EDT 1 lozenge Given 03/12/2025 8:19 AM EDT 1 lozenge Given 03/11/2025 9:06 PM EDT 1 lozenge calcium carbonate (Tums) chewable tablet 750 mg 750 mg, Oral, 4 times daily PRN, Starting on Sat03/10/25 at 1623, Until 03/13/25 at 1203, Routine, indigestion, heartburn diphenhydrAMINE (Benadryl) injection 50 mg 50 mg, Intramuscular, Every 6 hours PRN, Starting on Sat03/10/25 at 1622, Until 03/13/25 at 1203, Routine, severe agitation if patient has refused PO haloperidol lactate (Haldol) injection 5 mg 5 mg, Intramuscular, Every 6 hours PRN, Starting on Sat03/10/25 at 1622, Until 03/13/25 at 1203, Routine, agitation, severe agitation if patient has refused PO hydrOXYzine pamoate (Vistaril) capsule 25 mg 25 mg, Oral, Every 6 hours PRN, Starting on Sat03/10/25 at 1622, Until 03/13/25 at 1203, Routine, anxiety Given 03/11/2025 9:06 PM EDT 25 mg LORazepam (Ativan) injection 2 mg 2 mg, Intramuscular, Every 6 hours PRN, Starting on Sat03/10/25 at 1622, Until 03/13/25 at 1203, Routine, severe agitation if patient has refused PO melatonin tablet 3 mg 3 mg, Oral, Nightly PRN, Starting on Sat03/10/25 at 1623, Until 03/13/25 at 1203, Routine, sleep Given 03/12/2025 8:38 PM EDT 3 mg Given 03/11/2025 9:06 PM EDT 3 mg Given 03/10/2025 9:09 PM EDT 3 mg mirtazapine (Remeron) tablet 15 mg 15 mg, Oral, Nightly, First dose on Sat03/12/25 at 2100, Until Discontinued, Routine Given 03/12/2025 8:34 PM EDT 15 mg OLANZapine zydis (ZyPREXA) disintegrating tablet 5 mg 5 mg, Sublingual, Every 6 hours PRN, Starting on Sat03/10/25 at 1623, Until 03/13/25 at 1203, Routine, agitation documented in this encounter Active and Recently Administered Medications Times are shown in EDT. Scheduled Medication Order 03/11/2025 03/12/2025 03/13/2025 mirtazapine (Remeron) tablet 15 mg 15 mg, Oral, Nightly, First dose on Sat03/12/25 at 2100, Until Discontinued, Routine 2033 (Given - Provider: Kd Goldberg, RN) PRN Medication Order 03/11/2025 03/12/2025 03/13/2025 acetaminophen (Tylenol) tablet 650 mg 650 mg, Oral, Every 6 hours PRN, Starting on Sat03/10/25 at 1622, Until 03/13/25 at 1203, Routine, mild pain, moderate pain, headaches benzocaine-menthol (Chloraseptic) 6-10 MG lozenge 1 lozenge 1 lozenge, Mouth/Throat, Every 4 hours PRN, Starting on Ying 03/11/25 at 0943, Until 03/13/25 at 1203, Routine, sore throat 1017 (Given - Provider: Chelsey Ferreira RN)2106 (Given - Provider: Vandana Romano, MAKENZIE) 0819 (Given - Provider: Claire Garvin, MAKENZIE)1816 (Given - Provider: Claire Garvin, MAKENZIE) calcium carbonate (Tums) chewable tablet 750 mg 750 mg, Oral, 4 times daily PRN, Starting on Sat03/10/25 at 1623, Until 03/13/25 at 1203, Routine, indigestion, heartburn diphenhydrAMINE (Benadryl) injection 50 mg(Linked Group 1) 50 mg, Intramuscular, Every 6 hours PRN, Starting on Sat03/10/25 at 1622, Until 03/13/25 at 1203, Routine, severe agitation if patient has refused PO haloperidol lactate (Haldol) injection 5 mg(Linked Group 1) 5 mg, Intramuscular, Every 6 hours PRN, Starting on Sat03/10/25 at 1622, Until 03/13/25 at 1203, Routine, agitation, severe agitation if patient has refused PO hydrOXYzine pamoate (Vistaril) capsule 25 mg 25 mg, Oral, Every 6 hours PRN, Starting on Sat03/10/25 at 1622, Until 03/13/25 at 1203, Routine, anxiety 2105 (Given - Provider: Vandana Romano RN) LORazepam (Ativan) injection 2 mg(Linked Group 1) 2 mg, Intramuscular, Every 6 hours PRN, Starting on Sat03/10/25 at 1622, Until 03/13/25 at 1203, Routine, severe agitation if patient has refused PO melatonin tablet 3 mg 3 mg, Oral, Nightly PRN, Starting on Sat03/10/25 at 1623, Until 03/13/25 at 1203, Routine, sleep 2105 (Given - Provider: Vandana Romano RN) 2037 (Given - Provider: Dorothy Goldberg RN) OLANZapine zydis (ZyPREXA) disintegrating tablet 5 mg 5 mg, Sublingual, Every 6 hours PRN, Starting on Sat03/10/25 at 1623, Until 03/13/25 at 1203, Routine, agitation Linked Groups Order Group 1: LORazepam (Ativan) injection 2 mgJump to med 2 mg, Intramuscular, Every 6 hours PRN, Starting on Sat03/10/25 at 1622, Until 03/13/25 at 1203, Routine, severe agitation if patient has refused PO And diphenhydrAMINE (Benadryl) injection 50 mgJump to med 50 mg, Intramuscular, Every 6 hours PRN, Starting on Sat03/10/25 at 1622, Until 03/13/25 at 1203, Routine, severe agitation if patient has refused PO And haloperidol lactate (Haldol) injection 5 mgJump to med 5 mg, Intramuscular, Every 6 hours PRN, Starting on Sat03/10/25 at 1622, Until 03/13/25 at 1203, Routine, agitation, severe agitation if patient has refused PO documented in this encounter Additional Health Concerns Assessment Noted Time PHQ-9 Depression Total Score: 21 025 1:41 AM EDT A fall risk assessment has been complete d for the patient 11/09/2024 1:11 PM EST A Body Mass Index follow-up plan has been documented for the patient 03/13/2025 8:24 AM EDT documented as of this encounter Care Teams Director Of Rooms Relationship Specialty Start Date End Date Provider, Generic [place] PCP - General 03/21/21 documented as of this encounter
[2025-05-05] VITALS (64 sets, daily range): BP systolic 78–125; BP diastolic 40–74; PULSE 62–165; RESP 14–22; TEMP 36.1–37.9; O2SAT 92–100; BMI 25.7; BMI 26.4
[2025-05-05] MEDS: NALOXONE 2MG/2ML SYRINGE 2 MG IV ×2 (07:23→07:28)
--- NOTE | 2025-05-05 07:25 | XR_ITS ---
FINAL REPORT CLINICAL HISTORY: unresponsive, ET tube placement COMPARISON: 03/09/2025 FINDINGS: A single frontal view of the chest was obtained. The ET tube is in good position. No acute pulmonary opacity is present. The lungs are hypoinflated. There is no evidence of effusion or pneumothorax. Mediastinum is unremarkable. Heart size is normal. IMPRESSION: No evidence of pneumonia or edema. Reviewed, Interpreted and Dictated by Hardik Carcamo MD Transcribed by Adore Cornejo Authenticated and [facility]
--- OUTSIDE RECORDS SUMMARY | 2025-05-05 07:25 | XMS_ITS | Encounter Summary ---
Author Organization Healthcare Address [address] [place] [address] Care Team Providers Care [employer] Worker Name Role Phone Provider, Moon Ritchie Primary Care Provid er Unavailable Encounter Details Date Type Department Care Team (Late st Contact Info) Description 03/09/2025 - 03/09/2025 1:38 PM EDT Emergency [facility] [address] [place] [address] Discharge Disposition: Admitted as an Inpatient Social History Tobacco Use Types Packs/Day Years Used Date Smoking Tobacco: Never Passive Smoke Exposure: Never Smokeless Tobacco: Never Alcohol Use Standard Drinks/Week Comments Not Currently 1 (1 standard drink = 0.6 oz pur e alcohol) 1 drink a month PHQ-2 Answer Date Recorded Patient Health Questionnaire-2 Score 3 11/30/2024 [place] Depression Scale Answer Date Recorded [place] Depression Scale Total 19 11/09/2024 The thought [...] 03/10/2025 How often do you attend chur ch or hoahaoism services? Never 03/10/2025 Do you belong to any clubs o r organizations such as roman catholic groups, unions, fraternal or athletic groups, or [...] any time in the past 12 m [facility], were you homeless or living in a correction (including now)? No 03/10/2025 Safety and Environment [...] the past 12 months has th e [employer], gas, oil, or water company threatened to [...] on file documented as of this encounter Medications at Time of Discharge lisinopril 10 MG tabletIndications: Hypertension Take 1 tablet (10 mg) by mouth 1 (one) time each day. 30 tablet 11 10/16/2024 6 cariprazine (Vraylar) 1.5 MG capsule Take 1 capsule (1.5 mg) by mouth in the morning. 30 capsule 11/30/2024 5 DULoxetine (Cymbalta) [address] capsule Take 1 capsule by mouth daily. 02/16/2025 5 famotidine (Pepcid) 20 MG tablet Take 1 tablet (20 mg) by mouth 2 (two) times a day. 120 tablet 2 03/13/2024 5 Ferrous Sulfate (Iron) 325 (65 Fe) MG tablet Take 1 tablet by mouth 2 (two) times a day. 60 tablet 11 06/01/2024 5 folic acid (Folvite) 1 MG tablet Take 1 tablet by mouth daily. 02/16/2025 5 nitrofurantoin, macrocrystal-monoh ydrate, (Macrobid) 100 MG capsule Take 1 capsule by mouth 2 times a day. 5 Oral Electrolytes (Liquid I.V.) pack Take by mouth if needed. 5 propranolol (Inderal) 10 MG tablet TAKE 1 TABLET BY MOUTH THREE TIMES DAILY FOR ANXIETY. HOLD IF BLOOD PRESSURE IS LESS THAN 90/60 OR SC LESS THAN 60/MT 02/16/2025 5 QUEtiapine (SEROquel) 100 MG tablet TAKE 1 TABLET BY MOUTH AT BEDTIME FOR DEPRESSION 02/16/2025 5 sertraline (Zoloft) 50 MG tablet Take 1 tablet by mouth daily. 30 tablet 5 12/31/2024 5 thiamine 100 MG tablet Take 1 tablet by mouth daily. 02/16/2025 5 documented as of this encounter Plan of [...] documented as of this encounter Care Teams [employer] Worker Relationship Specialty Start Date End Date Provider, Moon [place] PCP - General 03/21/21 documented as of this encounter
--- OUTSIDE RECORDS SUMMARY | 2025-05-05 07:25 | XMS_ITS | Clinical Summary ---
Author Organization Healthcare Address [address] [place] [address] Care Team Providers Care Script Reader Name Role Phone Provider, [facility] Unavailable Allergies Active Allergy Reactions Criticality Noted Date Comments Clonidine Other - please docum ent in the comment field Low 03/10/2025 Could not stay awake Duloxetine Hives Medium 03/10/2025 Hydrocodone Itching Medium 07/28/2021 Oxycodone Anaphylaxis High 07/28/2021 Cariprazine Other - please docum ent in the comment field Low 03/10/2025 Knocked me out for 3 days straight Medications * This document contains information received from the source organization and may not represent a complete record from that organization. lisinopril 10 MG tabletIndication s:Hypertension Take 1 tablet (10 mg) by mouth 1 (one) time each day. 30 tablet 11 10/16/2024 Active mirtazapine (Remeron) 15 MG tabletIndication s:Mood disorder Take 1 tablet by mouth nightly. 30 tablet 03/13/2025 Active Active Problems Problem Noted Date Diagnosed Date Alcohol use disorder 03/13/2025 Unspecified mood (affective) disorder 03/10/2025 History of shoulder dystocia in prior 09/02/2024 Family history of congenital heart defect 2023 Psychophysiological insomnia 11/07/2022 Overview (07/08/2023): Last Assessment & Plan: Psychological condition is newly identified. Start trazodone 50 mg 1/2 to 1 tablet at bedtime. Side effects discussed Psychological condition will be reassessed in 4 weeks. Resolved Problems Problem Noted Date Diagnosed Date Resolved Date Polysubstance overdose 03/13/202503/13 Acute alcoholic intoxication with complication 03/13/2025 03/13/2025 Acute respiratory failure 03/09/2025 Encounter for routine follow-up 09/25/2024 03/13/2025 39 weeks gestation of 08/28/2024 09/25/2024 Breech presentation 08/13/2024 09/02/20 36 weeks gestation of 06/25/2024 09/02/2024 Uterine size-date discrepanc y in third trimester 06/25/2024 09/25/2024 Supervision of high risk pre gnancy, antepartum 03/30/2024 06/25/2024 Increased nuchal translucenc y space on ultrasound 03/03/2024 09/25/2024 Supervision of other normal , antepartum 01/15/2024 06/25/2024 Complete 02/15/2021 06/25/2024 Encounters Date Type Department Care Team Description 03/10/2025 5:57 PM EDT - 03/13/2025 10:03 AM EDT Hospital Encounter [facility] Inpatient Psychiatry [address] [place] [address] Juan Albarado MD Discharge Disposition: Home or Self Care 03/10/2025 Plan of Care Documentation [facility] Inpatient Psychiatry [address] [place] [address] 03/10/2025 Travel 03/09/2025 7:57 PM EDT - 03/10/2025 5:54 PM EDT Hospital Encounter [facility] Inpatient [address] [place] [place] [address] Fransico Teran MD Suicide attempt by beta-adrenergic antagonist overdose, initial encounter (CMS/[facility]) (Primary Dx); Acute respiratory failure with hypoxia; Shock (CMS/[facility]) Discharge Disposition: Psychiatric Hospital 03/09/2025 Travel 03/09/2025 - 03/09/2025 1:38 PM EDT Emergency [facility] [address] [place] [address] Discharge Disposition: Admitted as an Inpatient from Last 3 Months Immunizations Immunization Administration [...] Not Answered Alcohol Use Standard Drinks/Week Comments Yes 6 (1 standard drink = 0.6 oz pur e alcohol) 1 drink a month PHQ-2 Answer Date Recorded Patient Health Questionnaire-2 Score 3 11/30/2024 [place] Depression Scale Answer Date Recorded [place] Depression Scale Total 19 11/09/2024 The thought [...] week 03/10/2025 How often do you attend [facility] or evangelical services? Never 03/10/2025 Do you belong to any clubs o r organizations such as yarsani groups, unions, fraternal or athletic groups, or [...] any time in the past 12 m [facility] [place], were you homeless or living in a detention (including now)? No 03/10/2025 Safety and Environment [...] Mass Index 30.64 03/12/2025 10:00 PM EDT Plan of Treatment Health Maintenance Due Date Last Done Comments [facility]-Pneumococcal Vaccine: Pediatrics (0 to 5 Years) and At-Risk Patients (6 to 49 Years) (1 of 2 - PCV) 2016 [facility]-Pap Smear 2018 [id number] Vaccine ( season) 2024 10/25/2020, 10/04/2020 [facility]-Influenza Vaccine (#1) 2025 11/29/2022, [facility]- SDOH Screenings 09/09/2025 [facility]-Adult SDOH Screenings 09/09/2025 03/10/2025 [facility]-/Child/Adol SDOH Screenings 09/09/2025 03/10/2025 [facility]-Depression Screening 11/30/2025 025, 11/30/2024, 11/09/2024, Additional [...] Additional history exists [facility]-Hepatitis C Screening Completed 2024, 01/15/2024, 04/16/2023, Additional history exists [facility]-Obesity Intervention Completed 025, 12/22/2024, 11/09/2024, Additional history exists [facility]-Hepatitis A Vaccines Aged [...] UNSOLICITED RESULTS Routine 03/10/2025 7:50 AM EDT HCG, QUANTITATIVE Add-On 03/10/2025 7:3 9 AM EDT CREATINE KINASE, TOTAL, PLASMA Add-On 03/10/2025 7:39 AM EDT PHOSPHORUS, PLASMA Routine 03/10/2025 7: 39 AM EDT MAGNESIUM, PLASMA Routine 03/10/2025 7:3 9 AM EDT IONIZED CALCIUM, WHOLE BLOOD Routine 03/10/2025 7:39 AM EDT CBC W/O DIFFERENTIAL Routine 03/10/2025 7:39 AM EDT COMPREHENSIVE METABOLIC PANEL, PLASMA Routine 03/10/2025 7:39 AM EDT ACETAMINOPHEN, QUANTATATIVE, PLASMA Routine 03/10/2025 7:39 AM EDT XR CHEST 1 VIEW STAT 03/10/2025 7:36 AM EDT POCT GLUCOSE METER UNSOLICITED RESULTS Routine 03/10/2025 6:[address] HEAD WO IV CONTRAST STAT 2:33 AM EDT SBT - SPONTANEOUS BREATHING TRIAL Routine 03/10/2025 1:40 AM EDT END TIDAL CO2 MONITORING Routine 03/10/2025 1:40 AM EDT END TIDAL CO2 MONITORING Routine 03/10/2025 1:40 AM EDT VENTILATOR - ADULT Routine 03/10/2025 1: 40 AM EDT VENTILATOR - ADULT Routine 03/10/2025 1: 40 AM EDT NM CRITICAL CARE, ADDL 30 MIN Routine 03/10/2025 12:13 AM EDT Acute respiratory failure with hypoxia Suicide attempt by beta-adrenergic antagonist overdose, initial encounter (CMS/HCC) Shock (CMS/HCC) NM CRITICAL CARE, E/M 30-74 MINUTES Routine 03/10/2025 12:13 AM EDT Acute respiratory failure with hypoxia Suicide attempt by beta-adrenergic antagonist overdose, initial encounter (CMS/HCC) Shock (CMS/HCC) POCT GLUCOSE METER UNSOLICITED RESULTS Routine 03/09/2025 11:38 PM EDT PROTHROMBIN TIME(PT) / INR STAT 03/09/2025 11:01 PM EDT LACTATE DEHYDROGENASE, PLASMA STAT 03/09/2025 11:01 PM EDT METHADONE, LCMSMS STAT 03/09/2025 10: 59 PM EDT FENTANYL, URINE STAT 03/09/2025 10:59 PM EDT BENZODIAZEPINE, URINE, QUANTITATIVE STAT 03/09/2025 10:59 PM EDT URINALYSIS MICROSCOPIC FOR UA REFLEX Routine 03/09/2025 10:59 PM EDT DRUG ABUSE SCREEN, URINE STAT 03/09/2025 10:59 PM EDT COMPREHENSIVE URINE DRUG SCREENING,QUALITATIVE ASSAY, >= 27 DRUG CLASSES Routine 03/09/2025 10:59 PM EDT URINE GONSALEZ PANEL Routine 03/09/2025 10:5 9 PM EDT URINALYSIS WITH REFLEX MICROSCOPIC Routine 03/09/2025 10:59 PM EDT URINALYSIS WITH REFLEX MICROSCOPIC AND CULTURE Routine 03/09/2025 10:59 PM EDT STREPTOCOCCUS PNEUMONIAE AND LEGIONELLA URINARY ANTIGEN Routine 03/09/2025 10:59 PM EDT POCT GLUCOSE METER UNSOLICITED RESULTS Routine 03/09/2025 10:37 PM EDT METHICILLIN RESISTANT STAPHYLOCOCCUS AUREUS (MRSA) BY PCR Routine 03/09/2025 8:54 PM EDT MULTI DRUG RESISTANCE TEST Routine 03/09/2025 8:54 PM EDT SANDY AURIS SURVEILLANCE BY PCR Routine 03/09/2025 8:54 PM EDT POCT ARTERIAL BLOOD GAS GEM UNSOLICITED RESULTS Routine 03/09/2025 8:49 PM EDT POCT GLUCOSE METER UNSOLICITED RESULTS Routine 03/09/2025 8:45 PM EDT ACUTE HEPATITIS PANEL Routine 03/09/2025 8:45 PM EDT VITAMIN B12, SERUM Routine 03/09/2025 8: 45 PM EDT FOLATE, SERUM Routine 03/09/2025 8:45 PM EDT TSH REFLEX FT4 Routine 03/09/2025 8:45 PM EDT C-REACTIVE PROTEIN, PLASMA Routine 03/09/2025 8:45 PM EDT PROCALCITONIN, PLASMA Routine 03/09/2025 8:45 PM EDT ALCOHOL PROFILE, PLASMA Routine 03/09/20 8:45 PM EDT SALICYLATE, QUANTITATIVE, PLASMA Routine 03/09/2025 8:45 PM EDT ACETAMINOPHEN, QUANTATATIVE, PLASMA Routine 03/09/2025 8:45 PM EDT TYPE AND SCREEN Routine 03/09/2025 8:45 PM EDT AMMONIA, PLASMA STAT 03/09/2025 8:45 PM EDT PROTHROMBIN TIME(PT) / INR STAT 03/09/2025 8:45 PM EDT MAGNESIUM, PLASMA STAT 03/09/2025 8:4 5 PM EDT PHOSPHORUS, PLASMA STAT 03/09/2025 8: 45 PM EDT IONIZED CALCIUM, WHOLE BLOOD Routine 03/09/2025 8:45 PM EDT CBC WITH AUTO DIFFERENTIAL STAT 03/09/2025 8:45 PM EDT COMPREHENSIVE METABOLIC PANEL, PLASMA STAT 03/09/2025 8:45 PM EDT CREATINE KINASE, TOTAL, PLASMA STAT 03/09/2025 8:45 PM EDT HEMOGLOBIN A1C Routine 03/09/2025 8:45 PM EDT IONIZED CALCIUM, SERUM Routine 8:45 PM EDT BLOOD CULTURE (AEROBIC/ANAEROBIC SET) Routine 03/09/2025 8:45 PM EDT BLOOD CULTURE (AEROBIC/ANAEROBIC SET) Routine 03/09/2025 8:45 PM EDT XR CHEST 1 VIEW STAT 03/09/2025 8:22 PM EDT ECG ADULT Routine 03/09/2025 8:19 PM EDT POCT GLUCOSE METER UNSOLICITED RESULTS Routine 03/09/2025 8:02 PM EDT HIV 1/2 ANTIBODY/ANTIGEN SCREEN WITH REFLEX TO HIV I/II DIFFERENTIATION Routine 01/15/2024 3:19 PM EDT Missed period from Last 3 Months or Most Recently Relevant to Health Maintenance Results * (ABNORMAL) POCT arterial blood gas gem (03/10/2025 10:05 AM EDT) Only the most recent of3 resultswithin the time period is included. pH, Arterial 7.48(H) 7.35 - 7.45 03/10/2025 10:07 AM EDT [facility] pCO2, Arterial 32(L) 35 - 48 mm Hg 03/10/2025 10:07 AM EDT [facility] pO2, Arterial 165(H) 83 - 108 mm Hg 03/10/2025 10:07 AM EDT [facility] SO2, Arterial 100(H) 94 - 98 % 03/10/2025 10:07 AM EDT [facility] FIO2 40.0 % 03/10/2025 10:07 AM EDT [facility] Base Excess, Arterial 0.7 -2 - 3 mmol/L 03/10/2025 10:07 AM EDT [facility] HCO3, Arterial 23.8 22 - 26 mmol/L 03/10/2025 10:07 AM EDT [facility] ETCO2, Arterial 22 mmol/L 10:07 AM EDT [facility] Total Hemoglobin, Arterial, Whole Blood 10.2(L) 11.2 - 15.7 g/dL 03/10/2025 10:07 AM EDT [facility] Hematocrit, Arterial 31.0(L) 34.0 - 45.0 % 03/10/2025 10:07 AM EDT [facility] Sodium, Arterial 133(L) 136 - 145 mmol/L 03/10/2025 10:07 AM EDT [facility] Potassium, Arterial 4.0 3.6 - 4.9 mmol/L 03/10/2025 10:07 AM EDT [facility] Chloride, Whole Blood 108(H) 97 - 107 mmol/L 03/10/2025 10:07 AM EDT [facility] Glucose, Arterial 102(H) 74 - 99 mg/dL 03/10/2025 10:07 AM EDT [facility] Ionized Calcium, Arterial 4.7 4.6 - 5.1 mg/dL 03/10/2025 10:07 AM EDT [facility] Lactate, Arterial 1.8(H) 0.5 - 1.6 mmol/L 03/10/2025 10:07 AM EDT [facility] Body Temperature 37.2 Celsius 03/10/2025 10:07 AM EDT [facility] pH, Temp Corrected, Arterial 7.48(H) 7.35 - 7.45 03/10/2025 10:07 AM EDT [facility] pCO2, Temp Corrected, Arterial 32(L) 35 - 48 mm Hg 03/10/2025 10:07 AM EDT [facility] pO2, Temp Corrected, Arterial 166(H) 83 - 108 mm Hg 03/10/2025 10:07 AM EDT [facility] Broke Beater Machine Operator ID Yamil Monahan 03/10/2025 10:07 AM EDT [facility] Blood, Arterial Whole blood specimen / Unknown 03/10/2025 10:05 AM EDT 03/10/2025 10:07 AM EDT Fransico Teran MD LAB POINT OF CARE TE ST DOCKED DEVICE UNSOLICITED RESULTS Final Result Performing Organization Address City/State/[facility] Co de Phone Number [facility] [address] [place] [address] * ECG Adult (03/10/2025 9:21 AM EDT) Only the most recent of2 resultswithin the time period is included. EKG DIAGNOSIS CLASS Normal MUSE ECG Ventricular Rate 65 BPM MUSE ECG Atrial Rate 65 BPM MUSE ECG NM Interval 142 ms MUSE ECG QRSD Interval 84 ms MUSE ECG QT Interval 428 ms MUSE ECG QTC Interval 445 ms MUSE ECG P [place] 27 degrees MUSE ECG R [place] 35 degrees MUSE ECG T Wave [place] 38 degrees MUSE ECG Diagnosis Normal sinus rhythm MUSE ECG Diagnosis Normal ECG MUSE ECG Diagnosis MUSE ECG Diagnosis Confirmed by Ron Chahal ([id number]) on 03/10/2025 11:05:32 AM MUSE ECG 03/10/2025 9:21 AM EDT 03/10/2025 11:05 AM EDT Fransico Teran MD ECG ORDERABLES Final Result MUSE ECG * Ionized calcium, whole blood (03/10/2025 7:39 AM EDT) Only the most recent of2 resultswithin the time period is included. Ionized Calcium, Whole Blood 4.7 4.6 - 5.1 mg/dL LAB HEMATOLOGY METHOD 03/10/2025 7:46 AM EDT [facility] Blood Arterial blood specimen / Unknown Arterial Line / Unknown 03/10/2025 7:39 AM EDT 03/10/2025 7:44 AM EDT Ron Mendoza APRN LAB BLOOD ORDERABLES Final R esult [facility] [address] [place] [address] * (ABNORMAL) Creatine Kinase (CK), Total (03/10/2025 7:39 AM EDT) Only the most recent of2 resultswithin the time period is included. Creatine Kinase, Plasma 207(H) 37 - 168 U/L 03/10/2025 9:06 AM EDT [facility] Blood Arterial blood specimen / Unknown Arterial Line / Unknown 03/10/2025 7:39 AM EDT 03/10/2025 7:44 AM EDT us Ron Mendoza [employer] LAB BLOOD ORDERABLES Final R esult Performing Organization Address City/[facility]/ZIP Co de Phone Number [facility] [address] [place] [address] * (ABNORMAL) Acetaminophen, Quantitative, Plasma (03/10/2025 7:39 AM EDT) Only the most recent of2 resultswithin the time period is included. Acetaminophen <5.0(L) 10.0 - 30.0 g/mL 03/10/2025 8:04 AM EDT [facility] Blood Arterial blood specimen / Unknown Arterial Line / Unknown 03/10/2025 7:39 AM EDT 03/10/2025 7:44 AM EDT Narrative [facility] - 03/10/2025 8:04 AM EDT Therapeutic: 10 to 30 ug/mL Supratherapeutic: >35 ug/mL us Blake Julio [employer] LAB BLOOD ORDERABLES Final Re sult Performing Organization Address City/[facility]/ZIP Co de Phone Number [facility] [address] [place] [address] * (ABNORMAL) Hemogram (CBC) (03/10/2025 7:39 AM EDT) WBC Count 10.32(H) 3.70 - 10.30 10*3/uL LAB HEMATOLOGY METHOD 03/10/2025 7:46 AM EDT [facility] RBC Count 3.38(L) 3.90 - 5.20 10*6/uL LAB HEMATOLOGY METHOD 03/10/2025 7:46 AM EDT [facility] HGB 10.1(L) 11.2 - 15.7 g/dL LAB HEMATOLOGY METHOD 03/10/2025 7:46 AM EDT [facility] HCT 30.1(L) 34.0 - 45.0 % LAB HEMATOLOGY METHOD 03/10/2025 7:46 AM EDT [facility] Platelet Count 176 155 - 369 10*3/uL LAB HEMATOLOGY METHOD 03/10/2025 7:46 AM EDT [facility] MCV 89 79 - 98 fL LAB HEMATOLOGY METHOD 03/10/2025 7:46 AM EDT [facility] MCH 29.9 26.0 - 32.0 pg LAB HEMATOLOGY METHOD 03/10/2025 7:46 AM EDT [facility] MCHC 33.6 30.7 - 35.5 g/dL LAB HEMATOLOGY METHOD 03/10/2025 7:46 AM EDT [facility] RDW 14.9(H) 11.5 - 14.5 % LAB HEMATOLOGY METHOD 03/10/2025 7:46 AM EDT [facility] MPV 10.9 8.8 - 12.5 fL LAB HEMATOLOGY METHOD 03/10/2025 7:46 AM EDT [facility] nRBC 0.0 <=0.0 per 100 WBCs LAB HEMATOLOGY METHOD 03/10/2025 7:46 AM EDT [facility] Blood Arterial blood specimen / Unknown Arterial Line / Unknown 03/10/2025 7:39 AM EDT 03/10/2025 7:44 AM EDT us Ron Mendoza [employer] LAB BLOOD ORDERABLES Final R esult [facility] [address] [place] [address] * hCG, Total Beta, Quantitative, Plasma (03/10/2025 7:39 AM EDT) hCG, Total Beta <1 <5 mIU/mL 03/10/2025 11:35 AM EDT [facility] Blood Arterial blood specimen / Unknown Arterial Line / Unknown 03/10/2025 7:39 AM EDT 03/10/2025 7:44 AM EDT Narrative [facility] - 03/10/2025 11:35 AM EDT [...] methods or kits cannot be used interchangeably. Ron Godinez Mendoza [facility] BLOOD ORDERABLES Final R esult Performing Organization Address [facility] de Phone Number [facility] [address] [place] [address] * (ABNORMAL) Phosphorus (03/10/2025 7:39 AM EDT) Only the most recent of2 resultswithin the time period is included. Phosphorus, Plasma 2.3(L) 2.5 - 4.5 mg/dL 03/10/2025 8:04 AM EDT [facility] Blood Arterial blood specimen / Unknown Arterial Line / Unknown 03/10/2025 7:39 AM EDT 03/10/2025 7:44 AM EDT Ron Herbert Mendoza [facility] BLOOD ORDERABLES Final R [facility] Performing Organization Address [facility] de Phone Number [facility] [address] [place] [address] * (ABNORMAL) Magnesium (03/10/2025 7:39 AM EDT) Only the most recent of2 resultswithin the time period is included. Magnesium, Plasma 3.2(H) 1.9 - 2.4 mg/dL 03/10/2025 8:04 AM EDT [facility] Blood Arterial blood specimen / Unknown Arterial Line / Unknown 03/10/2025 7:39 AM EDT 03/10/2025 7:44 AM EDT Ron Herbert [facility] LAB BLOOD ORDERABLES Final R esult Performing Organization Address [facility] de Phone Number [facility] [address] [place] [address] * (ABNORMAL) Comprehensive Metabolic Panel, Plasma (03/10/2025 7:39 AM EDT) Only the most recent of2 resultswithin the time period is included. Glucose, Plasma 107(H) 74 - 99 mg/dL 03/10/2025 8:[address] [facility] BUN, Plasma 7 7 - 21 mg/dL 03/10/2025 8:[address] [facility] Creatinine, Plasma 0.56(L) 0.60 - 1.10 mg/dL 03/10/2025 [facility] BUN/Creatinine Ratio 13 03/10/2025 8:[address] [facility] Sodium, Plasma 141 136 - 145 mmol/L 03/10/2025 8:[address] [facility] Potassium, Plasma 3.9 3.6 - 4.9 mmol/L 03/10/2025 8:[address] [facility] Chloride, Plasma 108(H) 97 - 107 mmol/L 03/10/2025 8:[address] [facility] CO2, Plasma 24 22 - 29 mmol/L 03/10/2025 8:[address] [facility] Anion Gap 9 6 - 16 mmol/L 03/10/2025 8:[address] [facility] Total Calcium, Plasma 8.7(L) 8.9 - 10.2 mg/dL 03/10/2025 8:[address] [facility] Total Protein 5.7(L) 6.3 - 7.9 g/dL 03/10/2025 8:[address] [facility] Albumin, Plasma 3.4(L) 3.5 - 5.2 g/dL 03/10/2025 8:[address] [facility] AST, Plasma 18 10 - 35 U/L 03/10/2025 8:[address] [facility] ALT, Plasma 16 10 - 35 U/L 03/10/2025 8:[address] [facility] Alkaline Phosphatase, Plasma 44 35 - 104 U/L 03/10/2025 8:[address] [facility] Total Bilirubin, Plasma <0.2(L) 0.2 - 1.1 mg/dL 03/10/2025 8:04 [facility] eGFRcr 128.5 mL/min/1.7 3m*2 03/10/2025 8:04 AM EDT [facility] Comment:Reported eGFRcr in m L/min/1.73m2 is based the CKD-EPI 2020 equation that does not use a race coefficient. Blood Arterial blood specimen / Unknown Arterial Line / Unknown 03/10/2025 7:39 AM EDT 03/10/2025 7:44 AM EDT us Blake Julio [employer] LAB BLOOD ORDERABLES Final Re sult [facility] [address] [place] [id number] * XR Chest 1 View (03/10/2025 7:36 AM EDT) Only the most recent of2 resultswithin the time period is included. Anatomical Region Laterality Modality Chest Digital Radiogra [...] Olivier Jesus MD on 03/10/2025 8:26 AM us Ron Godinez Mendoza [employer] IMG XR PROCEDURES Final Resu lt * (ABNORMAL) POCT glucose meter (03/10/2025 6:00 AM EDT) Only the most recent of5 resultswithin the time period is included. POCT Glucose 112(H) 74 - 99 mg/dL [...] for testing. Comment 03/10/2025 6:02 AM EDT [facility] Broke Beater Machine Operator ID [email or web address] 03/10/2025 6:02 AM EDT [facility] Device ID [id number] 03/10/2025 6:02 AM EDT [facility] Specimen Type POC Capillary 03/10/2025 6:02 AM EDT [facility] Blood Capillary blood specimen / Unknown 03/10/2025 6:00 AM EDT 03/10/2025 6:02 AM EDT us Fransico Teran MD LAB POINT OF CARE TE ST DOCKED DEVICE UNSOLICITED RESULTS Final Result Performing Organization Address City/State/[facility] Co de Phone Number [facility] [address] [place], [place] [id number] * CT Head wo IV Contrast (03/10/2025 [...] MD on 03/10/2025 4:16 AM Blake Julio [employer] CLE[employer] IM CT PROCEDURES Final Resul t * NM CRITICAL CARE, E/M 30-74 MINUTES, NM CRITICAL CARE, ADDL 30 MIN (03/10/2025 12:13 [...] IN CLINIC/BEDSIDE ORDERABLES Final Result * (ABNORMAL) Prothrombin Time/INR (03/09/2025 11:01 PM EDT) Only the most recent of2 resultswithin the time period is included. Prothrombin Time 14.6(H) 12.0 - 14.3 sec 03/09/2025 11:26 PM EDT [facility] INR 1.1 0.9 - 1.1 03/09/2025 11:26 PM EDT [facility] Blood Venous blood specimen / Unknown Venipuncture / Unknown 03/09/2025 11:01 PM EDT 03/09/2025 11:15 PM EDT Narrative [facility] - 03/09/2025 11:26 PM EDT OPTIMAL INR RANGES FOR PATIENT ON ORAL ANTICOAGULANT THERAPY Prevention of venous thromboembolism INR 2.0 to 3.0 In patients with heart disease: Atrial fibrillation INR 2.0 to 3.0 Valvular heart disease INR 2.0 to 3.0 Tissue heart valves INR 2.0 to 3.0 Mechanical prosthetic valves INR 2.5 to 3.5 Prevention of recurrent VA INR 2.5 to 3.5 us Blake Julio APRN LAB BLOOD ORDERABLES Final Re sult Performing Organization Address [facility] de Phone Number [facility] [address] [place] [address] * Lactate Dehydrogenase, Plasma (03/09/2025 11:01 PM EDT) Pathologist [facility] LDH, Plasma 124 116 - 250 U/L 03/09/2025 11:44 PM EDT [facility] Blood Venous blood specimen / Unknown Venipuncture / Unknown 03/09/2025 11:01 PM EDT 03/09/2025 11:15 PM EDT us Blake Julio APRN LAB BLOOD ORDERABLES Final Re sult Performing Organization Address [facility] de Phone Number [facility] [address] [place] [address] * Streptococcus pneumoniae and Legionella Urinary Antigen (03/09/2025 10:59 PM EDT) Pathologist [facility] Legionella pneumophila serogroup 1 Antigen Result (Urine) Negative Negative 03/10/2025 6:38 AM EDT [facility] Streptococcus pneumoniae Antigen Result (Urine) Negative Negative 03/10/2025 6:38 AM EDT [facility] Urine Urine specimen obtained by clean catch procedure / Unknown Non-blood Collection / Unknown 03/09/2025 10:59 PM EDT 03/09/2025 11:14 PM EDT us Blake Julio APRN LAB MICROBIOLOGY - GENERAL OR DERABLES Final Result Performing Organization Address [facility] Co de Phone Number [facility] [address] [place] [address] * Urine Gonsalez Panel (03/09/2025 10:59 PM EDT) Extra Reflex urine culture not indicated 03/10/2025 1:03 AM EDT [facility] Urine Urine specimen obtained by clean catch procedure / Unknown Non-blood Collection / Unknown 03/09/2025 10:59 PM EDT 03/09/2025 11:15 PM EDT us Blake Julio APRN LAB URINE ORDERABLES Final Re sult Performing Organization Address [facility] de Phone Number [facility] [address] [place] [address] * Urinalysis Microscopic Examination (03/09/2025 10:59 PM EDT) Urine Urine specimen obtained by clean catch procedure / Unknown Non-blood Collection / Unknown 03/09/2025 10:59 PM EDT 03/09/2025 11:15 PM EDT Blake Julio APRN LAB URINE ORDERABLES Final Re sult Performing Organization Address [facility] de Phone Number [facility] [address] [place] [address] * Methadone Confirm LCMSMS (03/09/2025 10:59 PM EDT) Methadone <50 <50 ng/mL 03/12/2025 12:56 PM EDT [facility] EDDP - Methadone Metabolite <50 <50 ng/mL 03/12/2025 12:56 PM EDT [facility] Urine Urine specimen obtained by clean catch procedure / Unknown Non-blood Collection / Unknown 03/09/2025 10:59 PM EDT 03/09/2025 11:15 PM EDT Narrative [facility] - 03/12/2025 12:56 PM EDT Drug analysis is confirmed by LC-MS/MS (LC Tandem Mass Spectrometry) on Urine specimens. This test was developed and its performance characteristics determined by [email or web address]. It has not been cleared or approved by the FDA. The laboratory is regulated under CLIA as qualified to perform high-complexity testing. This test is used for clinical purposes. Testing is performed at the [facility], Special [facility] Laboratory. us Blake Julio APRN LAB URINE ORDERABLES Final Re sult Performing Organization Address City/[facility]/ZIP Co de Phone Number [facility] [address] [place] [address] * Drug Abuse Screen Urine (03/09/2025 10:59 PM EDT) [facility] Signature Amphetamine Screen Urine Negative Cutoff: 500 ng/mL 03/10/2025 12:01 AM EDT [facility] Benzodiazepines Screen Urine Presumptive positive. Confirmation by LC-MS/MS to follow. Cutoff: 200 ng/mL 03/10/2025 12:01 AM EDT [facility] Cannabinoid Screen Urine Negative Cutoff: 50 ng/mL 03/10/2025 12:01 AM EDT [facility] Cocaine Screen Urine Negative Cutoff: 300 ng/mL 03/10/2025 12:01 AM EDT [facility] Barbiturate Screen Urine Negative Cutoff: 200 ng/mL 03/10/2025 12:01 AM EDT [facility] Opiate Screen Urine Negative Cutoff: 300 ng/mL 03/10/2025 12:01 AM EDT [facility] Methadone Screen Urine Presumptive positive. Confirmation by LC-MS/MS to follow. Cutoff: 300 ng/mL 03/10/2025 12:01 AM EDT [facility] Buprenorphine Screen Urine Negative Cutoff: 10 ng/mL 03/10/2025 12:01 AM EDT [facility] Fentanyl Screen Urine Presumptive positive. Confirmation by LC-MS/MS to follow. Cutoff: 1 ng/mL 03/10/2025 12:01 AM EDT [facility] Oxycodone Screen Urine Negative Cutoff: 100 ng/mL 03/10/2025 12:01 AM EDT [facility] Urine Urine specimen obtained by clean catch procedure / Unknown Non-blood Collection / Unknown 03/09/2025 10:59 PM EDT 03/09/2025 11:15 PM EDT us Blake Julio APRN LAB URINE ORDERABLES Final Re sult Performing Organization Address City/[facility]/ZIP Co de Phone Number [facility] [address] [place] [address] * (ABNORMAL) Fentanyl Urine Confirm (03/09/2025 10:59 PM EDT) Fentanyl 1(H) <1 ng/mL 03/12/2025 12:56 PM EDT [facility] Norfentanyl 71(H) <2 ng/mL 03/12/2025 12:56 PM EDT [facility] Urine Urine specimen obtained by clean catch procedure / Unknown Non-blood Collection / Unknown 03/09/2025 10:59 PM EDT 03/09/2025 11:15 PM EDT Narrative [facility] - 03/12/2025 12:56 PM EDT Drug analysis is confirmed by LC-MS/MS (LC Tandem Mass Spectrometry) on Urine specimens. This test was developed and its performance characteristics determined by [email or web address]. It has not been cleared or approved by the FDA. The laboratory is regulated under CLIA as qualified to perform high-complexity testing. This test is used for clinical purposes. Testing is performed at the [facility], [facility] Laboratory. us Blake Julio APRN LAB URINE ORDERABLES Final Re sult [facility] [address] [place] [address] * Benzodiazepine Confirm Urine (03/09/2025 10:59 PM EDT) [place] Alprazolam <20 <20 ng/mL 03/12 12:56 PM EDT [facility] Alpha [place] Midazolam <20 <20 ng/mL 2024 12:56 PM EDT [facility] [place] Triazolam <20 <20 ng/mL 2024 12:56 PM EDT [facility] Alprazolam <10 <10 ng/mL 03/12/2025 12:56 PM EDT [facility] Aminoclonazepam <20 <20 ng/mL 12:56 PM EDT [facility] Clonazepam <10 <10 ng/mL 03/12/2025 12:56 PM EDT [facility] Diazepam <10 <10 ng/mL 03/12/2025 12:56 PM EDT [facility] Lorazepam <20 <20 ng/mL 03/12/2025 12:56 PM EDT [facility] Lorazepam Glucuronide <50 <50 ng/mL 03/12/2025 12:56 PM EDT [facility] Midazolam 03/12/2025 12:56 PM EDT [facility] Nordiazepam <20 <20 ng/mL 03/12/2025 12:56 PM EDT [facility] Oxazepam <20 <20 ng/mL 03/12/2025 12:56 PM EDT [facility] Oxazepam Glucuronide <50 <50 ng/mL 02/22 12:56 PM EDT [facility] Temazepam <20 <20 ng/mL 03/12/2025 12:56 PM EDT [facility] Temazepam Glucuronide <50 <50 ng/mL 03/12/2025 12:56 PM EDT [facility] Triazolam 03/12/2025 12:56 PM EDT [facility] Urine Urine specimen obtained by clean catch procedure / Unknown Non-blood Collection / Unknown 03/09/2025 10:59 PM EDT 03/09/2025 11:15 PM EDT Narrative [facility] - 03/12/2025 12:56 PM EDT Drug analysis is confirmed by LC-MS/MS (LC Tandem Mass Spectrometry) on Urine specimens. This test was developed and its performance characteristics determined by [email or web address]. It has not been cleared or approved by the FDA. The laboratory is regulated under CLIA as qualified to perform high-complexity testing. This test is used for clinical purposes. Testing is performed at the [facility], [facility]. us Blake Julio APRN LAB URINE ORDERABLES Final Re sult [facility] [address] [place] [address] * (ABNORMAL) Comprehensive Urine Drug Screening, Qualitative Assay, >= 27 Drug Classes (0:59 PM EDT) Acetaminophen Positive(A) Negative 03/11/2025 8:28 AM EDT [facility] Alprazolam Negative Negative 03/11/2025 8:28 AM EDT [facility] Amantadine Negative Negative 03/11/2025 8:28 AM EDT [facility] Amitriptyline Negative Negative 03/11/2025 8:28 AM EDT [facility] Amphetamine Negative Negative 03/11/2025 8:28 AM EDT [facility] Atenolol Negative Negative 03/11/2025 8:28 AM EDT [facility] Benzoylecgonine Negative Negative 8:28 AM EDT [facility] Bisoprolol Negative Negative 03/11/2025 8:28 AM EDT [facility] Bupropion Negative Negative 03/11/2025 8:28 AM EDT [facility] Butalbital Negative Negative 03/11/2025 8:28 AM EDT [facility] Carbamazepine Negative Negative 03/11/2025 8:28 AM EDT [facility] Carisoprodol Negative Negative 03/11/2025 8:28 AM EDT [facility] Chlorpheniramine Negative Negative 03/11/20 8:28 AM EDT [facility] Citalopram Negative Negative 03/11/2025 8:28 AM EDT [facility] Clindamycin Negative Negative 03/11/2025 8:28 AM EDT [facility] Clonidine Negative Negative 03/11/2025 8:28 AM EDT [facility] Clopidogrel / Ticlopidine Negative Negative 03/11/2025 8:28 AM EDT [facility] Cocaethylene Negative Negative 03/11/2025 8:28 AM EDT [facility] Cocaine Negative Negative 03/11/2025 8:28 AM EDT [facility] Codeine Negative Negative 03/11/2025 8:28 AM EDT [facility] Cyclobenzaprine Negative Negative 8:28 AM EDT [facility] Desvenlafaxine Negative Negative 03/11/2025 8:28 AM EDT [facility] Dextromethorphan Negative Negative 03/11/20 8:28 AM EDT [facility] Diazepam Negative Negative 03/11/2025 8:28 AM EDT [facility] Diltiazem Negative Negative 03/11/2025 8:28 AM EDT [facility] Diphenhydramine Positive(A) Negative 03/11/20 8:28 AM EDT [facility] Doxepine Negative Negative 03/11/2025 8:28 AM EDT [facility] Doxylamine Negative Negative 03/11/2025 8:28 AM EDT [facility] EDDP-Methadone metabolite Negative Negative 03/11/2025 8:28 AM EDT [facility] Fentanyl Negative Negative 03/11/2025 8:28 AM EDT [facility] Fluconazole Negative Negative 03/11/2025 8:28 AM EDT [facility] Fluoxetine Negative Negative 03/11/2025 8:28 AM EDT [facility] Guaifenesin Negative Negative 03/11/2025 8:28 AM EDT [facility] Haloperidol Negative Negative 03/11/2025 8:28 AM EDT [facility] Heroin/6-JUAN F Negative Negative 03/11/2025 8:28 AM EDT [facility] Hydrocodone Negative Negative 03/11/2025 8:28 AM EDT [facility] Hydroxyzine / Cetirizine metabolite Negative Negative 03/11/2025 8:28 AM EDT [facility] Ibuprofen Negative Negative 03/11/2025 8:28 AM EDT [facility] Imipramine Negative Negative 03/11/2025 8:28 AM EDT [facility] Ketamine Positive(A) Negative 03/11/2025 8:28 AM EDT [facility] Labetolol Negative Negative 03/11/2025 8:28 AM EDT [facility] Lamotrigine Negative Negative 03/11/2025 8:28 AM EDT [facility] Levetiracetam Negative Negative 03/11/2025 8:28 AM EDT [facility] Lidocaine Negative Negative 03/11/2025 8:28 AM EDT [facility] MDA Negative Negative 03/11/2025 8:28 AM EDT [facility] MDMA Negative Negative 03/11/2025 8:28 AM EDT [facility] Memantine Negative Negative 03/11/2025 8:28 AM EDT [facility] Meperidine Negative Negative 03/11/2025 8:28 AM EDT [facility] Meprobamate Negative Negative 03/11/2025 8:28 AM EDT [facility] Metaxalone Negative Negative 03/11/2025 8:28 AM EDT [facility] Methamphetamine Negative Negative 8:28 AM EDT [facility] Methocarbamol Negative Negative 03/11/2025 8:28 AM EDT [facility] Methylecgonine Negative Negative 03/11/2025 8:28 AM EDT [facility] Metoclopramide Negative Negative 03/11/2025 8:28 AM EDT [facility] Metoprolol Negative Negative 03/11/2025 8:28 AM EDT [facility] Metronidazole Negative Negative 03/11/2025 8:28 AM EDT [facility] Midazolam Negative Negative 03/11/2025 8:28 AM EDT [facility] Midazolam Metabolite Negative Negative 03/11/2025 8:28 AM EDT [facility] Mirtazapine Negative Negative 03/11/2025 8:28 AM EDT [facility] Misc Test Result Negative Negative 03/11/20 8:28 AM EDT [facility] Naproxen Negative Negative 03/11/2025 8:28 AM EDT [facility] Nefazodone Negative Negative 03/11/2025 8:28 AM EDT [facility] Norfentanyl Negative Negative 03/11/2025 8:28 AM EDT [facility] Nortriptyline Negative Negative 03/11/2025 8:28 AM EDT [facility] Ordanstron Negative Negative 03/11/2025 8:28 AM EDT [facility] Oxcarbazepine Negative Negative 03/11/2025 8:28 AM EDT [facility] Oxycodone Negative Negative 03/11/2025 8:28 AM EDT [facility] Paroxethine Negative Negative 03/11/2025 8:28 AM EDT [facility] Phenobarbital Negative Negative 03/11/2025 8:28 AM EDT [facility] Phentermine Negative Negative 03/11/2025 8:28 AM EDT [facility] Phenytoin Negative Negative 03/11/2025 8:28 AM EDT [facility] Primidone Negative Negative 03/11/2025 8:28 AM EDT [facility] Promethazine Negative Negative 03/11/2025 8:28 AM EDT [facility] Propofol Positive(A) Negative 03/11/2025 8:28 AM EDT [facility] Propranolol Negative Negative 03/11/2025 8:28 AM EDT [facility] Quetiapine Positive(A) Negative 03/11/2025 8:28 AM EDT [facility] Quinine Negative Negative 03/11/2025 8:28 AM EDT [facility] Rantidine Negative Negative 03/11/2025 8:28 AM EDT [facility] Sertraline Negative Negative 03/11/2025 8:28 AM EDT [facility] Spironolactone Negative Negative 03/11/2025 8:28 AM EDT [facility] Tizanidine Negative Negative 03/11/2025 8:28 AM EDT [facility] Topiramate Negative Negative 03/11/2025 8:28 AM EDT [facility] Tramadol Negative Negative 03/11/2025 8:28 AM EDT [facility] Trazadone/ Trazadone metabolite Negative Negative 03/11/2025 8:28 AM EDT [facility] Trimethoprim Negative Negative 03/11/2025 8:28 AM EDT [facility] Valproic Acid Negative Negative 03/11/2025 8:28 AM EDT [facility] Venlafaxine Negative Negative 03/11/2025 8:28 AM EDT [facility] Verapamil Negative Negative 03/11/2025 8:28 AM EDT [facility] Zolpidem Negative Negative 03/11/2025 8:28 AM EDT [facility] Xylazine Negative Negative 03/11/2025 8:28 AM EDT [facility] Urine Urine specimen obtained by clean catch procedure / Unknown Non-blood Collection / Unknown 03/09/2025 10:59 PM EDT 03/09/2025 11:15 PM EDT Blake Pagan Sumanth CHRISTIAN LAB URINE ORDERABLES Final Re sult [facility] [address] [place] [address] * (ABNORMAL) Urinalysis with reflex microscopic (Culture NOT Included) (03/09/2025 10:59 PM EDT) Color, Urine Yellow LAB URINALYSIS - AUTOMATED METHOD 03/09/2025 11:38 PM EDT [facility] Clarity, Urine Clear LAB URINALYSIS - AUTOMATED METHOD 03/09/2025 11:38 PM EDT [facility] Spec [place], Urine 1.024 1.005 - 1.030 LAB URINALYSIS - AUTOMATED METHOD 03/09/2025 11:38 PM EDT [facility] pH, Urine 6.5 5.0 - 8.0 LAB URINALYSIS - AUTOMATED METHOD 03/09/2025 11:38 PM EDT [facility] Protein, Urine 30(A) Negative mg/dL LAB URINALYSIS - AUTOMATED METHOD 03/09/2025 11:38 PM EDT [facility] Glucose, Urine 250(A) Negative mg/dL LAB URINALYSIS - AUTOMATED METHOD 03/09/2025 11:38 PM EDT [facility] Ketones, Urine Trace(A) Negative mg/dL LAB URINALYSIS - AUTOMATED METHOD 03/09/2025 11:38 PM EDT [facility] Blood, Urine Trace(A) Negative LAB URINALYSIS - AUTOMATED METHOD 03/09/2025 11:38 PM EDT [facility] Bilirubin, Urine Negative Negative LAB URINALYSIS - AUTOMATED METHOD 03/09/2025 11:38 PM EDT [facility] Urobilinogen, Urine 1.0 0.2 to 1.0 mg/dL LAB URINALYSIS - AUTOMATED METHOD 03/09/2025 11:38 PM EDT [facility] Leukocytes, Urine Trace(A) Negative LAB URINALYSIS - AUTOMATED METHOD 03/09/2025 11:38 PM EDT [facility] Nitrite, Urine Negative Negative LAB URINALYSIS - AUTOMATED METHOD 03/09/2025 11:38 PM EDT [facility] RBC, Urine 4 - 10(A) 0 to 3 /HPF 03/09/2025 11:38 PM EDT [facility] Comment:This result was prev iously suppressed from the chart. WBC, Urine 6 - 10(A) 0 to 5 /HPF 03/09/2025 11:38 PM EDT [facility] Comment:This result was prev iously suppressed from the chart. Squamous Epithelial Cells 0 - 2 0 to 5 /HPF 03/09/2025 11:38 PM EDT [facility] Comment:This result was prev iously suppressed from the chart. Hyaline Casts 0 - 2 0 to 5 /LPF 03/09/2025 11:38 PM EDT [facility] Comment:This result was prev iously suppressed from the chart. Bacteria, Urine Present Negative 03/09/2025 11:38 PM EDT [facility] Comment:This result was prev iously suppressed from the chart. Mucus Present 03/09/2025 11:38 PM EDT [facility] Comment:This result was prev iously suppressed from the chart. Urine Urine specimen obtained by clean catch procedure / Unknown Non-blood Collection / Unknown 03/09/2025 10:59 PM EDT 03/09/2025 11:[address] [facility] - 03/09/2025 11:38 PM EDT Performed by manual method us Blake Julio APRN LAB URINE ORDERABLES Final Re sult [facility] [address] [place] [id number] * Sandy auris Surveillance by PCR (03/09/2025 8:54 PM EDT) Sandy auris PCR Result Not Detected Not Detected 03/10/2025 12:48 PM EDT [facility] Swab (Axilla and Groin) Non-blood Collection / Unknown 03/09/2025 8:54 PM EDT 03/09/2025 9:39 PM EDT [facility] - 03/10/2025 12:48 PM EDT This PCR assay was developed and its performance characteristics determined by [facility] as appropriate for clinical purposes. This assay has not been cleared or approved by the FDA, but is performed in a CLIA regulated laboratory that is qualified to perform high-complexity testing. Blake Julio APRN LAB MICROBIOLOGY - GENERAL OR DERABLES Final Result Performing Organization Address [facility] Co de Phone Number [facility] [address] [place] [address] * Multi Drug Resistance Test (03/09/2025 8:54 PM EDT) Culture No growth at day 1 03/11/2025 6:[address] [facility] Swab (Nares and Nayeli Rectal) Non-blood Collection / Unknown 03/09/2025 8:54 PM EDT 03/09/2025 9:38 PM EDT Narrative [facility] - 03/11/2025 6:00 AM EDT This test was developed and its performance characteristics determined by the [facility]. Although the media is FDA-approved, it is not FDA-approved for all specimen types submitted. The FDA has determined that such clearance or approval is not necessary. This test is used for surveillance purposes. It should not be regarded as investigational or for research. The [facility] is certified under the Clinical Laboratory Improvement Amendments of 1988 (CLIA-88) as qualified to perform high complexity clinical laboratory testing. us Blake Julio APRN LAB MICROBIOLOGY - GENERAL OR DERABLES Final Result Performing Organization Address [facility] Co de Phone Number [facility] [address] [place] [address] * Methicillin Resistant Staphylococcus aureus (MRSA) by PCR (03/09/2025 8:54 PM EDT) Methicillin Resistant Staphylococcus aureus (MRSA) by PCR Not Detected Not Detected 03/10/2025 1:[address] [facility] Swab Both anterior nares / Unknown Non-blood Collection / Unknown 03/09/2025 8:54 PM EDT 03/09/2025 9:39 PM EDT Narrative [facility] - 03/10/2025 1:33 AM EDT [...] OR DERABLES Final Result Performing Organization Address [facility] de Phone Number [facility] [address] [place] [address] * TSH Reflex FT4 (03/09/2025 8:45 PM EDT) Thyroid Stimulating Hormone, Plasma 2.09 0.40 - 4.20 uIU/mL 03/09/2025 9:39 PM EDT [facility] Blood Venous blood specimen / Unknown Venipuncture / Unknown 03/09/2025 8:45 PM EDT 03/09/2025 8:59 PM EDT Narrative [facility] - 03/09/2025 9:39 PM EDT Trimester Specific Ranges TSH ( IU/mL) 1st Trimester 0.1 - 3.0 2nd Trimester 0.19 - 4.06 3rd Trimester 0.3 - 3.7 us Blake Julio APRN LAB BLOOD ORDERABLES Final Re sult Performing Organization Address [facility] de Phone Number [facility] [address] [place] [address] * Ionized calcium, serum (03/09/2025 8:45 PM EDT) Ionized Calcium, Serum 4.7 4.6 - 5.3 mg/dL LAB HEMATOLOGY METHOD 03/09/2025 9:09 PM EDT [facility] Blood Venous blood specimen / Unknown Venipuncture / Unknown 03/09/2025 8:45 PM EDT 03/09/2025 8:59 PM EDT us Blake Julio APRN LAB BLOOD ORDERABLES Final Re sult Performing Organization Address [facility] Co de Phone Number [facility] [address] [place] [address] * Alcohol Profile Plasma (03/09/2025 8:45 PM EDT) Methanol Plasma <10 <10 mg/dL 3:02 AM EDT [facility] Acetone Plasma <10 <10 mg/dL 03/10/2025 3:02 AM EDT [facility] Isopropanol Plasma <10 <10 mg/dL 03/10/2025 3:02 AM EDT [facility] Ethanol Plasma <10 <10 mg/dL 03/10/2025 3:02 AM EDT [facility] Blood Venous blood specimen / Unknown Venipuncture / Unknown 03/09/2025 8:45 PM EDT 03/09/2025 8:59 PM EDT Narrative [facility] - 03/10/2025 3:02 AM EDT Test performed by Gas Chromatography at the [facility]. This test was developed and its performance characteristics determined by [facility]. It has not been cleared or approved by the FDA.The laboratory is regulated under CLIA as qualified to perform high-complexity testing. This test is used for clinical purposes only. us Blake Julio APRN [facility] BLOOD ORDERABLES Final Re sult Performing Organization Address [facility] Co de Phone Number [facility] [address] [place] [address] * (ABNORMAL) Procalcitonin (03/09/2025 8:45 PM EDT) Procalcitonin, Plasma 0.43(H) <0.09 ng/mL 03/09/2025 9:29 PM EDT [facility] Blood Venous blood specimen / Unknown Venipuncture / Unknown 03/09/2025 8:45 PM EDT 03/09/2025 8:59 PM EDT Narrative [facility] - 03/09/2025 9:29 PM EDT [...] predict 28 day mortality risk. Please consult [email or web address] for more information. Test performed at [facility] Core Laboratory. Blake Julio APRN LAB BLOOD ORDERABLES Final Re sult Performing Organization Address [facility] Co de Phone Number [facility] [address] [place] [address] * Acute Hepatitis Panel (03/09/2025 8:45 PM EDT) Hepatitis B Surf Antigen Negative Negative 03/10/2025 12:38 AM EDT [facility] Hepatitis C Antibody Negative Negative 03/10/2025 12:38 AM EDT [facility] Hepatitis A Antibody IgM Negative Negative 03/10/2025 12:38 AM EDT [facility] Hepatitis B Core Antibody IgM Negative Negative 03/10/2025 12:38 AM EDT [facility] Blood Venous blood specimen / Unknown Venipuncture / Unknown 03/09/2025 8:45 PM EDT 03/09/2025 8:59 PM EDT us Blake Julio APRN LAB BLOOD ORDERABLES Final Re sult Performing Organization Address [facility] Co de Phone Number [facility] [address] [place] [address] * Blood Culture (Aerobic/Anaerobet Set) (03/09/2025 8:45 PM EDT) Only the most recent of2 resultswithin the time period is included. Culture No growth at day 5 03/15/2025 12:26 AM EDT [facility] Blood Structure of part of right upper limb / Unknown Venipuncture / Unknown 03/09/2025 8:45 PM EDT 03/09/2025 8:58 PM EDT us Blake Julio APRN LAB MICROBIOLOGY - GENERAL OR DERABLES Final Result [facility] [address] [place] [address] * (ABNORMAL) CBC and Differential (03/09/2025 8:45 PM EDT) Pathologist [facility] WBC Count 8.57 3.70 - 10.30 10*3/uL LAB HEMATOLOGY METHOD 03/09/2025 9:05 PM EDT [facility] RBC Count 3.23(L) 3.90 - 5.20 10*6/uL LAB HEMATOLOGY METHOD 03/09/2025 9:05 PM EDT [facility] HGB 9.7(L) 11.2 - 15.7 g/dL LAB HEMATOLOGY METHOD 03/09/2025 9:05 PM EDT [facility] HCT 29.2(L) 34.0 - 45.0 % LAB HEMATOLOGY METHOD 03/09/2025 9:05 PM EDT [facility] Platelet Count 165 155 - 369 10*3/uL LAB HEMATOLOGY METHOD 03/09/2025 9:05 PM EDT [facility] MCV 90 79 - 98 fL LAB HEMATOLOGY METHOD 03/09/2025 9:05 PM EDT [facility] MCH 30.0 26.0 - 32.0 pg LAB HEMATOLOGY METHOD 03/09/2025 9:05 PM EDT [facility] MCHC 33.2 30.7 - 35.5 g/dL LAB HEMATOLOGY METHOD 03/09/2025 9:05 PM EDT [facility] RDW 14.8(H) 11.5 - 14.5 % LAB HEMATOLOGY METHOD 03/09/2025 9:05 PM EDT [facility] MPV 11.3 8.8 - 12.5 fL LAB HEMATOLOGY METHOD 03/09/2025 9:05 PM EDT [facility] nRBC 0.0 <=0.0 per 100 WBCs LAB HEMATOLOGY METHOD 03/09/2025 9:05 PM EDT [facility] Differential Type Automated LAB HEMATOLOGY METHOD 03/09/2025 9:05 PM EDT [facility] Neutrophils % 64 % LAB HEMATOLOGY METHOD 03/09/2025 9:05 PM EDT [facility] Lymphocytes % 28 % LAB HEMATOLOGY METHOD 03/09/2025 9:05 PM EDT [facility] Monocytes % 6 % LAB HEMATOLOGY METHOD 03/09/2025 9:05 PM EDT [facility] Eosinophils % 1 % LAB HEMATOLOGY METHOD 03/09/2025 9:05 PM EDT [facility] Basophils % 1 % LAB HEMATOLOGY METHOD 03/09/2025 9:05 PM EDT [facility] Immature Granulocytes % 0 % LAB HEMATOLOGY METHOD 03/09/2025 9:05 PM EDT [facility] Neutrophils Absolute 5.54 1.60 - 6.10 10*3/uL LAB HEMATOLOGY METHOD 03/09/2025 9:05 PM EDT [facility] Lymphocytes Absolute 2.43 1.20 - 3.90 10*3/uL LAB HEMATOLOGY METHOD 03/09/2025 9:05 PM EDT [facility] Monocytes Absolute 0.48 0.30 - 0.90 10*3/uL LAB HEMATOLOGY METHOD 03/09/2025 9:05 PM EDT [facility] Eosinophils Absolute 0.05 0.00 - 0.50 10*3/uL LAB HEMATOLOGY METHOD 03/09/2025 9:05 PM EDT [facility] Basophils Absolute 0.04 0.00 - 0.10 10*3/uL LAB HEMATOLOGY METHOD 03/09/2025 9:05 PM EDT [facility] Immature Granulocytes Absolute 0.03 0.00 - 0.06 10*3/uL LAB HEMATOLOGY METHOD 03/09/2025 9:05 PM EDT [facility] Blood Venous blood specimen / Unknown Venipuncture / Unknown 03/09/2025 8:45 PM EDT 03/09/2025 9:02 PM EDT [facility] - 03/09/2025 9:05 PM EDT Therapeutic decision making should be based on absolute values, rather than percentages. us Blake Julio APRN LAB BLOOD ORDERABLES Final Re sult [facility] [address] [place] [address] * Type and Screen (03/09/2025 8:45 PM [...] ORDERABLE S Final Result Performing Organization Address [facility]/ZIP Co de Phone Number BLOOD BANK [address] [place] [address], * C-reactive protein (03/09/2025 8:45 PM EDT) CRP, Plasma <3.0 <=8.0 mg/L 03/09/2025 9:39 PM EDT [facility] Blood Venous blood specimen / Unknown Venipuncture / Unknown 03/09/2025 8:45 PM EDT 03/09/2025 8:59 PM EDT Narrative [facility] - 03/09/2025 9:39 PM EDT This CRP test is appropriate for assessment of infection, systemic inflammation and/or tissue injury. To assess cardiovascular disease risk order high sensitivity CRP (CRPH). us Blake Julio APRN LAB BLOOD ORDERABLES Final Re sult [facility] [address] [place] [address] * Hemoglobin A1c (03/09/2025 8:45 PM EDT) Hemoglobin A1c 5.1 <5.7 % 03/10/2025 12:01 PM EDT [facility] Blood Venous blood specimen / Unknown Venipuncture / Unknown 03/09/2025 8:45 PM EDT 03/09/2025 9:02 PM EDT Narrative [facility] - 03/10/2025 12:01 PM EDT HA1C Interpretive Data: Diagnosis of Diabetes: Diabetic > or = 6.5% Pre-diabetic 5.7 to 6.4% Non-diabetic < or = 5.6% Glycemic Targets for Type I and Type II Diabetics: Non- Adults <7.0% Adults <6.0% Children and Adolescents <7.5% Source: [place] [employer]. Standards of medical care in diabetes,2017. Diabetes Care.2017:40 (suppl 1):S1-S135. Blake Julio APRN LAB BLOOD ORDERABLES Final Re sult Performing Organization Address [facility] [place] [address] * Folate (03/09/2025 8:45 PM EDT) Folate, Serum 6.7 >4.6 ng/mL 03/10/2025 12:27 AM EDT [facility] Blood Venous blood specimen / Unknown Venipuncture / Unknown 03/09/2025 8:45 PM EDT 03/09/2025 8:59 PM EDT Blake Julio APRN LAB BLOOD ORDERABLES Final Re sult Performing Organization Address [facility] [place] [address] * Vitamin B12 (03/09/2025 8:45 PM EDT) Vitamin B12, Serum 245 210 - 1,033 pg/mL 03/10/2025 12:27 AM EDT [facility] Blood Venous blood specimen / Unknown Venipuncture / Unknown 03/09/2025 8:45 PM EDT 03/09/2025 8:59 PM EDT Blake Julio APRN LAB BLOOD ORDERABLES Final Re sult Performing Organization Address [facility] [place] [address] * Ammonia, Plasma (03/09/2025 8:45 PM EDT) Ammonia 23 11 - 51 umol/L 03/09/2025 9:25 PM EDT [facility] Blood Venous blood specimen / Unknown Venipuncture / Unknown 03/09/2025 8:45 PM EDT 03/09/2025 8:59 PM EDT Blake Julio APRN LAB BLOOD ORDERABLES Final Re sult Performing Organization Address [facility] de Phone Number [facility] [address] [place] [address] * Salicylate level (03/09/2025 8:45 PM EDT) Pathologist [facility] Salicylate, Quantitative, Plasma <1.0 <25 mg/dL mg/dL 03/09/2025 9:28 PM EDT [facility] Blood Venous blood specimen / Unknown Venipuncture / Unknown 03/09/2025 8:45 PM EDT 03/09/2025 8:59 PM EDT Narrative [facility] - 03/09/2025 9:28 PM EDT Therapeutic Range: <25 mg/dL Supratherapeutic Level: >30 mg/dL us Blake Julio APRN LAB BLOOD ORDERABLES Final Re sult Performing Organization Address [facility] Phone Number [facility] [address] [place] [address] * HIV 1 & 2 Antibody/Antigen Screen (01/15/2024 3:19 PM EDT) [facility] HIV 1 & 2 Antibody/Antigen Screen Non Reactive Non Reactive 01/15/2024 7:02 PM EDT [facility] Comment:Screening for HIV 1 & 2 antibodies, and P24 antigen is NONREACTIVE. No confirmatory testing is required. Blood Venous blood specimen / Unknown Venipuncture / Unknown 01/15/2024 3:19 PM EDT 01/15/2024 6:29 PM EDT Chioma Wilson APRN, SUSY LAB BLOOD ORDERABLE S Final Result Performing Organization Address [facility] de Phone Number [facility] [address] [place] [address] from Last 3 Months or Most Recently Relevant to Health Maintenance Insurance [employer] [facility] MEDICAID Advance Directives * Full Code (Latest Code Status on File) Date Activated Date Inactivated Comments 03/10/2025 4:16 PM 03/13/2025 12:08 PM Question Answer Comments Patient has decision-making capacity? Yes Care Teams Script Reader Relationship Specialty Start Date End Date ProviderMoon PCP - General 03/21/21
--- OUTSIDE RECORDS SUMMARY | 2025-05-05 07:25 | XMS_ITS | Encounter Summary ---
Author Organization Healthcare Address [address] [place] [address] Care Team Providers Care Putty Worker Name Role Phone Provider, Moon [place] Primary Care Provid er Unavailable Encounter Details Date Type Department Care Team (Latest Contact Info) Description 03/09/2025 Travel Social History Tobacco Use Types Packs/Day Years Used Date Smoking Tobacco: Never Passive Smoke Exposure: Never Smokeless Tobacco: Never Alcohol Use Standard Drinks/Week Comments Not Currently 1 (1 standard drink = 0.6 oz pur e alcohol) 1 drink a month PHQ-2 Answer Date Recorded Patient Health Questionnaire-2 Score 3 11/30/2024 [place] Depression Scale Answer Date Recorded [place] Depression Scale Total 19 11/09/2024 The thought [...] often do you attend chur ch or mu-ism services? Never 03/10/2025 Do you belong to any clubs o r organizations such as rastafarian groups, unions, fraternal or athletic groups, or [...] any time in the past 12 m [facility], were you homeless or living in a chcf (including now)? No 03/10/2025 Safety and Environment [...] documented as of this encounter Care Teams Putty Worker Relationship Specialty Start Date End Date Provider, Moon [place] PCP - General 03/21/21 documented as of this encounter
--- OUTSIDE RECORDS SUMMARY | 2025-05-05 07:25 | XMS_ITS | Encounter Summary ---
Author Organization Healthcare Address [address] [place] [address] Care Team Providers Care Wireless Sales Expert Name Role Phone Provider, Moon [place] Primary Care Provid er Unavailable Encounter Details Date Type Department Care Team (Latest Contact Info) Description 03/10/2025 Travel Social History Tobacco Use Types Packs/Day Years Used Date Smoking Tobacco: Never Passive Smoke Exposure: Never Smokeless Tobacco: Never Alcohol Use Standard Drinks/Week Comments Yes 6 (1 standard drink = 0.6 oz pur e alcohol) 1 drink a month PHQ-2 Answer Date Recorded Patient Health Questionnaire-2 Score 3 11/30/2024 [place] Depression Scale Answer Date Recorded [place] Depression Scale Total 19 11/09/2024 The thought [...] often do you attend chur ch or baptism services? Never 03/10/2025 Do you belong to any clubs o r organizations such as jehovah's witness groups, unions, fraternal or athletic groups, or [...] any time in the past 12 m [facility], were you homeless or living in a senior living (including now)? No 03/10/2025 Safety and Environment [...] Recorded In the past 12 months has e electric, gas, oil, or water company [...] on file documented as of this encounter Functional Status * AUDIT-C Score Answer Date of Assessment Author 5 03/10/2025 6:44 PM EDT Orlando Baker RN * Question Answer Date of Assessment Author Q1: How often do you have a drink containing alcohol? 2-3 times a week 03/10/2025 6:44 PM MURALIT Amado Baker RN Q2: How many drinks containing alcohol do you have on a typical day when you are drinking? 3 or 4 03/10/2025 6:44 PM Amado Munoz RN Q3: How often do you have six or more drinks on one occasion? Less than monthly 03/10/2025 6:44 PM Amado Munoz RN * Calculated C-SSRS Risk Score (Lifetime/Recent) [...] Baker RN documented as of this encounter Plan of [...] documented as of this encounter Care Teams Wireless Sales Expert Relationship Specialty Start Date End Date Provider, Moon Meade PCP - General 03/21/21 documented as of this encounter
--- OUTSIDE RECORDS SUMMARY | 2025-05-05 07:25 | XMS_ITS | Clinical Summary ---
[facility] Address [address] [place] [address] Care Team Providers Care Propellant Charge Zone Assembler Name Role Phone Jennifer Hernández DO Primary Care Prov ider Allergies No known active allergies Medications Paragard Intrauterine Copper intrauterine device IUD by Intrauterine route. Active ferrous sulfate 325 (65 FE) MG tablet Take 1 tablet by mouth Daily With Breakfast. Active traZODone (DESYREL) 50 MG tabletIndication s:Psychophysiolo gical insomnia Take 1 tablet by mouth Every Night. 30 tablet 5 3 Active Cariprazine HCl (Vraylar) 1.5 MG capsule capsuleIndicatio ns:Bipolar depression Take 1 capsule by mouth Daily. 90 capsule 1 3 Active Active Problems Problem Noted Date Diagnosed Date Psychophysiological insomnia 11/07/2022 Assessment & Plan (11/07/2022 9:59 AM EST): Psychological condition is newly identified. Start trazodone 50 mg 1/2 to 1 tablet at bedtime. Side effects discussed Psychological condition will be reassessed in 4 weeks. Encounter for wellness examination in adult 09/23 Assessment & Plan (11/27/2022 11:06 AM EST): Discussed injury prevention, diet and exercise, safe sexual practices, and screening for common diseases. Encouraged use of sunscreen and seatbelts. Encouraged SBE, avoidance of tobacco, limiting alcohol, and yearly dental and eye exams. Assessment & Plan (10/03/2022 10:39 AM EST): Patient declines lab work today, she is up-to-date on health maintenance ALLYSON (generalized anxiety disorder) 10/03/2022 Family history of bicuspid aortic valve 10/03/19 Assessment & Plan (10/03/2022 10:40 AM EST): Echo ordered to further evaluate, cardiac exam otherwise normal Class 1 obesity due to exces s calories without serious comorbidity with body mass index (BMI) of 32.0 to 32.9 in adult 10/03/2022 Assessment & Plan (11/27/2022 11:16 AM EST): Patient's (Body mass index is 32.96 kg/m .) indicates that they are obese (BMI >30) with health conditions that include none . Weight is unchanged. BMI is above average; BMI management plan is completed. We discussed low calorie, low carb based diet program, portion control and increasing exercise. Assessment & Plan (10/03/2022 10:41 AM EST): Patient's (Body mass index is 32.63 kg/m .) indicates that they are obese (BMI >30) with health conditions that include none . Weight is improving with lifestyle modifications. BMI is is above average; BMI management plan is completed. We discussed portion control and increasing exercise. Bipolar depression 10/03/2022 Assessment & Plan (11/07/2022 9:58 AM EST): Psychological condition is improving with treatment. Patient will decrease Vraylar to 3 times weekly to see if this will help with insomnia and tremor Psychological condition will be reassessed in 4 weeks. Assessment & Plan (10/03/2022 10:41 AM EST): Psychological condition is newly identified. We discussed treatment options and decided to start Vraylar 1.5 mg every other day. Side effects discussed Psychological condition will be reassessed In 3 weeks. Complete 02/15/2021 Immunizations Immunization Administration Dates Next Due Influenza, Unspecified 08/12/2019 Family History Medical History Relation Name Comments No Known Problems Father Cancer Mother Lung Cancer Relation Name Status Comments Father Alive Mother Social History Tobacco Use Types Packs/Day Years Used Date Smoking Tobacco: Never Smokeless Tobacco: Never Alcohol Use Standard Drinks/Week Comments Yes 0 (1 standard drink = 0.6 oz pur e alcohol) socially PHQ-2 Answer Date Recorded Retired PHQ-9: Brief Depression Severity Measure Score 1 11/07/2022 Abuse Screen Answer Date Recorded Unsafe at Home or Work/School Not on file Feels Threatened by Someone? Not on file 06/2023 Does Anyone Keep You from Co ntacting Others or Doint Things Outside the Home? Not on file 07/02/2023 Physical Sign of Abuse Present Not on file 1 Housing Stability Answer Date Recorded Current Living Arrangements Not on file 06/23 Potentially Unsafe Housing Conditions Not on nguyen e 07/02/2023 Family and Community Support Answer Stan e Recorded Help with Day-to-Day Activities Not on file 07/02/2023 Lonely or Isolated Not on file 07/02/2023 Employment Answer Date Recorded Do you want help finding or keeping work or a robby b? Not on file 07/02/2023 Disabilities Answer Date Recorded Concentrating, Remembering, or Making Decisions Difficulty Not on file 07/02/2023 Doing Errands Independently Difficulty Not on fi le 07/02/2023 Education Answer Date Recorded Help with school or training? Not on file Preferred Language Not on file 07/02/2023 PHQ-2 Answer Date Recorded Retired PHQ-9: Brief Depression Severity Measure Score 1 11/07/2022 Comments No Sex and Gender Information Value Date Recorded Sex Assigned at Not on file Legal Sex Female 1:53 PM EDT Gender Identity Not on file Sexual Orientation Not on file Last Filed Vital Signs Vital Sign Reading Time Taken Comments Blood Pressure 118/76 11/27/2022 10:32 AM EST Pulse 91 11/27/2022 10:32 AM EST Temperature 36.7 C (98 F) 11/07/2022 9:19 AM EST Respiratory Rate - - Oxygen Saturation 99% 11/27/2022 10:32 AM EST Inhaled Oxygen Concentration - - Weight 87.1 kg (192 lb) 11/27/2022 10:32 AM EST Height 162.6 cm (5' 4 ) 11/27/2022 10:32 AM EST Body Mass Index 32.96 11/27/2022 10:32 AM EST Plan of Treatment Health Maintenance Due Date Last Done Comments Annual Gynecologic Pelvic an d Breast Exam 1997 TDAP/TD VACCINES (1 - Tdap) 2016 ANNUAL PHYSICAL 11/28/2023 11/27/2022 COVID-19 Vaccine ( - 2023-2 5 season) 2024 INFLUENZA VACCINE 06/23/2025 08/12/2019 CHLAMYDIA SCREENING Discontinued 01/15/2024 HEPATITIS C SCREENING Completed 01/15/2024 Pneumococcal Vaccine 0-49 Aged Out No longer eligible based on patient's age to complete this topic Insurance [facility] Care Teams Propellant Charge Zone Assembler Relationship Specialty Start Date End Date Jennifer Hernández DO PCP - General Family Medicine 10/03/22
--- OUTSIDE RECORDS SUMMARY | 2025-05-05 07:26 | XMS_ITS | Encounter Summary ---
Author Organization Healthcare Address [address] [place] [address] Care Team Providers Care Food Service Representative Name Role Phone Provider, Moon [place] Primary Care Provid er Unavailable Encounter Details Date Type Department Care Team (Late st Contact Info) Description 03/10/2025 Plan of Care Documentation PAV S Inpatient Psychiatry [address] [place] [address] Social History Tobacco Use Types Packs/Day Years Used Date Smoking Tobacco: Never Passive Smoke Exposure: Never Smokeless Tobacco: Never Alcohol Use Standard Drinks/Week Comments Yes 6 (1 standard drink = 0.6 oz pur e alcohol) 1 drink a month PHQ-2 Answer Date Recorded Patient Health Questionnaire-2 Score 3 11/30/2024 [place] Depression Scale Answer Date Recorded [place] Depression Scale Total 19 11/09/2024 The thought [...] How often do you attend chur or restorationism services? Never 03/10/2025 Do you belong to any clubs o r organizations such as taoism groups, unions, fraternal or athletic groups, or [...] any time in the past 12 m [facility], were you homeless or living in a custodial (including now)? No 03/10/2025 Safety and Environment [...] documented as of this encounter Care Teams Food Service Representative Relationship Specialty Start Date End Date Provider, Moon [place] PCP - General 03/21/21 documented as of this encounter
--- NOTE | 2025-05-05 07:28 | ECG_ITS ---
APPROVED REPORT Exam: Resting ECG HR:151 bpm ECG Measurements Heart Rate 151 AXES OH 116 P 64 QRSd 75 QRS 70 QT 300 T 77 QTc 386 Conclusion SINUS TACHYCARDIA WITH SHORT OH INTERVAL, POSSIBLE ATRIAL FLUTTER NONSPECIFIC T-WAVE ABNORMALITY CRITICAL TEST RESULT UNCONFIRMED REPORT Electronically signed by : Juan Julio, 05/05/2025 15:49:24
[2025-05-05] MEDS: 0.9 % SODIUM CHLORIDE 1000ML 1,000 ML 999 ML IV (07:30)
[2025-05-05 07:33] LABS: Hematocrit 33.5 % (37.0-47.0); Hemoglobin 11.0 g/dL (12.2-16.2); Immature Granulocytes % 0.3 %; Mean Corpuscular HGB Conc 32.8 g/dL (31.8-35.4); Mean Corpuscular Hemoglobin 28.8 pg (27.0-31.2); Mean Corpuscular Volume 87.7 fl (81-99); Nucleated Red Blood Cells % 0 %; Platelet Count 272 K/mm3 (142-424); Red Blood Count 3.82 M/mm3 (4.20-5.40); Red Cell Distribution Width-SD 48.8 fL; White Blood Count 7.1 K/mm3 (4.8-10.8)
[2025-05-05] MEDS: SUCCINYLCHOLINE 20MG/ML 10 ML MDV 100 MG IV (07:34)
[2025-05-05] MEDS: ETOMIDATE 40MG/20ML VIAL 20 MG IV (07:34)
[2025-05-05 07:36] LABS: Albumin Level 4.3 g/dl (3.5-5.0); Chloride 106 mmol/L (98-107); Potassium 3.7 mmoL/L (3.5-5.1); Sodium 146 mmol/L (136-145)
[2025-05-05 07:38] LABS: Blood Urea Nitrogen 12 mg/dl (7-17); Creatinine,Serum 0.60 mg/dl (0.52-1.04); Estimated Glomerular Filt Rate 120 ml/min (>60); GFR (African American) 145 ML/MIN (>60)
[2025-05-05 07:39] LABS: Alanine Aminotransferase 17 U/L (12-78); Albumin/Globulin Ratio 1.5 (1.1-1.8); Alkaline Phosphatase 53 U/L (38-126); Anion Gap 14.7 mEq/L (5-15); Aspartate Amino Transferase 27 U/L (14-36); Bilirubin,Total 0.2 mg/dl (0.2-1.3); Calcium 8.8 mg/dl (8.4-10.2); Carbon Dioxide 29 mmol/L (22.0-30.0); Creatine Kinase 45 U/L (30-135); Globulin 2.8 g/dL (1.3-3.2); Glucose 92 mg/dl (74-100); INR 1.02 (0.9-1.1); Magnesium 1.7 mg/dl (1.6-2.3); Prothrombin Time 11.3 seconds (10.1-12.5); Total Protein,Serum 7.1 g/dl (6.3-8.2)
[2025-05-05 07:40] LABS: Acetaminophen < 10 ug/ml (10-30); Salicylate < 1.0 mg/dL (2.0-20.0)
--- NOTE | 2025-05-05 07:40 | CT_ITS ---
FINAL REPORT TECHNIQUE: Axial imaging of the head was obtained without contrast. This study was performed with techniques to keep radiation doses as low as reasonably achievable, (ALARA). Individualized dose reduction techniques using automated exposure control or adjustment of mA and/or kV according to the patient''s size were employed. CLINICAL HISTORY: AMS FINDINGS: The ventricles are normal in size. There is no evidence of hemorrhage. No masses are identified. No extra-axial fluid is seen. The sinuses are normal. There is no acute osseous abnormality. IMPRESSION: No acute intracranial abnormality. Reviewed, Interpreted and Dictated by Hardik Carcamo MD Transcribed by Kaylyn Mays Authenticated and . [facility]
[2025-05-05 07:44] LABS: HCG Qualitative, Serum Negative (Negative)
--- NOTE | 2025-05-05 07:45 | ED_ITS ---
Discharge Plan Disposition Patient Disposition: Admitted Prescriptions Prescriptions: No Action propranolol 40 mg tablet 40 mg PO ONCE Qty: 30 2RF sumatriptan succinate 25 mg tablet See Rx Instructions PO .COMPLEX Qty: 14 0RF Rx Instructions: take 1 tab at onset of headache; if no relief may repeat 1 tab after at least 2 hrs; max = 4 tabs/24 hr PO desvenlafaxine succinate [Pristiq] 50 mg tablet extended release 24 hr 50 mg PO DAILY Qty: 30 2RF hydroxyzine HCl 25 mg tablet 25 mg PO TID PRN (Reason: anxiety) Qty: 90 1RF Referrals Follow up/Referrals: Provider,Referral, MD [Primary Care Provider, Medical] - See instructions Clinical Impressions Clinical Impression: Overdose, Alcohol intoxication, Suicide attempt Instructions Patient Instructions: Subjective Opioid Withdrawal Scale (SOWS) Print Language Print Language: Maori Discharge ED Provider: Herbert Julio General Adult HPI General Chief complaint: Overdose Stated complaint: Overdose Time Seen by Provider: 05/05/25 07:40 History of Present Illness HPI narrative: Patient is a 29-year-old female brought in unresponsive for presumed overdose. She was recently in the hospital for a propranolol and quetiapine overdose was intubated and transferred to another hospital. No definitive history able to be obtained from the patient. The patient was found next to an empty bottle of a prescription pill bottle that had no label on it no medication doses were left we do not know the time of ingestion at this point or exactly what she took. No further history able to be obtained secondary to clinical information other than the fact that EMS were able to give 4 of Narcan and route 2 intranasal and 2 IV. Patient never lost a pulse was being bagged upon arrival. Related Data Previous Rx's ?Medication ?Instructions ?Recorded desvenlafaxine succinate 50 mg 50 mg PO DAILY #30 tabs 11/25/23 tablet,extended release 24 hr (Pristiq) hydroxyzine HCl 25 mg tablet 25 mg PO TID PRN anxiety #90 tabs 11/25/23 propranolol 40 mg tablet 40 mg PO ONCE migraine #30 tabs 12/02/23 sumatriptan succinate 25 mg tablet See Rx Instructions PO .COMPLEX 12/02/23 #14 tabs Allergies Allergy/AdvReac Type Severity Reaction Status Date / Time acetaminophen (From PERCOCET) Allergy Unknown ANAPHYLAXIS Verified 12/02/23 13:51 hydrocodone (From LORTAB) Allergy Unknown ITCHING Verified 12/02/23 13:51 oxycodone (From PERCOCET) Allergy Unknown ANAPHYLAXIS Verified 12/02/23 13:51 [facility] Disclaimer: The information contained in this section may have been updated after the patient was seen, as this information can be updated by other users. Medical History Chronic post-traumatic stress disorder (PTSD) OCD (obsessive compulsive disorder) Generalized anxiety disorder with panic attacks Iron deficiency anemia Anemia Family History Grandmother Cancer Grandfather Cancer Diabetes Mother COPD (chronic obstructive pulmonary disease) Social History Smoking Status: Unknown if ever smoked alcohol intake: current alcohol intake frequency: holidays/special occasions only substance use type: denies use current occupational status: employed Travel in the last 8 weeks?: None household members: children number of children: 2 Have you lived/traveled outside [place] in past 30 days?: No Contact w/someone who lives/traveled outside [place] past 30 days?: No Exposure to someone with infectious disease in past 14 days?: No Do you have a fever (greater than 100.4 F or 38 C)?: No Have you tested positive for COVID-19?: No Exposed to someone with COVID-19 in past 14 days?: No Do you have a sore throat?: No Do you have a cough?: No Do you have any weakness?: No Do you have any diarrhea?: No Are you experiencing any unusual bleeding?: No Do you have any muscle aches/pain?: No Do you have any abdominal pain?: No Are you experiencing loss of taste or smell?: No Other Medical History Have you received the Pneumonia Vaccine: No ROS Obtained: Yes All systems reviewed & no additional complaints except as documented Physical Exam General General appearance: obtunded Respiratory Respiratory exam: Absent respiratory distress Cardiovascular Cardiovascular exam: Present tachycardia (Heart rate 150s to 170s on my initial evaluation good peripheral perfusion warm extremities) Abdominal Exam Abdominal exam: Present soft; Absent distention Neurological Exam Neurological exam: Present alert and oriented X3 Expanded Neurological Exam Coma scale eye opening: None Coma scale motor response: Withdraws to pain Coma scale verbal response: None Coma scale total: 6 Medical Decision Making Medical Records Screening: Per USPSTF and CDC recommendations, given the prevalence of disease in our region, it is our hospital?s policy to screen for HIV and viral Hepatitis for all patients aged 18 and over and those with ongoing risk factors. [place] Inquiry Pt receiving controlled substance: No Vital Signs: 05/05/25 07:20 05/05/25 07:23 05/05/25 07:30 Temperature 96.9 F L Temperature Source Core Pulse Rate 153 H Pulse Rate [Left Radial] 165 H Respiratory Rate 22 16 Blood Pressure 99/72 L 109/61 L Blood Pressure [Right Arm] 99/72 L Blood Pressure Mean Blood Pressure Mean [Right Arm] 81 02 Sat by Pulse Oximetry 97 99 Oxygen Delivery Method Non-Rebreather Oxygen Flow Rate (LPM) 15 Fraction of Inspired Oxygen 05/05/25 07:36 05/05/25 07:37 05/05/25 07:48 Temperature Temperature Source Pulse Rate 62 151 H Pulse Rate [Left Radial] Respiratory Rate 19 14 18 Blood Pressure 105/65 L 106/63 L 125/74 Blood Pressure [Right Arm] Blood Pressure Mean Blood Pressure Mean [Right Arm] 02 Sat by Pulse Oximetry 92 L 94 L Oxygen Delivery Method Oxygen Flow Rate (LPM) Fraction of Inspired Oxygen 05/05/25 07:52 05/05/25 07:55 05/05/25 08:00 Temperature Temperature Source Pulse Rate 136 H 153 H Pulse Rate [Left Radial] Respiratory Rate 19 18 18 Blood Pressure 111/67 122/71 Blood Pressure [Right Arm] Blood Pressure Mean Blood Pressure Mean [Right Arm] 02 Sat by Pulse Oximetry 98 98 Oxygen Delivery Method Oxygen Flow Rate (LPM) Fraction of Inspired Oxygen 30 05/05/25 08:05 05/05/25 08:34 Temperature Temperature Source Pulse Rate Pulse Rate [Left Radial] Respiratory Rate Blood Pressure 120/66 Blood Pressure [Right Arm] Blood Pressure Mean 80 Blood Pressure Mean [Right Arm] 02 Sat by Pulse Oximetry 99 Oxygen Delivery Method Oxygen Flow Rate (LPM) Fraction of Inspired Oxygen 25 Lab Data Lab results reviewed: Yes I reviewed the patient's lab results. Lab Results 05/05/25 07:21: WBC 7.1, RBC 3.82 L, Hgb 11.0 L, Hct 33.5 L, MCV 87.7, MCH 28.8, MCHC 32.8, RDW 15.3, Plt Count 272, MPV 10.0, Neut % (Auto) 30.4 L, Lymph % (Auto) 64.0 H, [place] % (Auto) 3.5, Eos % (Auto) 1.1, Baso % (Auto) 0.7, Neut # (Auto) 2.2, Lymph # (Auto) 4.5, [place] # (Auto) 0.3, Eos # (Auto) 0.1, Baso # (Auto) 0.1, PT 11.3, INR 1.02, Sodium 146 H, Potassium 3.7, Chloride 106, Carbon Dioxide 29, Anion Gap 14.7, BUN 12, Creatinine 0.60, Estimated GFR 120, Est GFR ( Amer) 145, Glucose 92, Calcium 8.8, Magnesium 1.7, Total Bilirubin 0.2, AST 27, ALT 17, Alkaline Phosphatase 53, Total Creatine Kinase 45, Troponin I < 0.01, Total Protein 7.1, Albumin 4.3, Globulin 2.8, Albumin/Globulin Ratio 1.5, Serum HCG, Qual Negative, Salicylates < 1.0 L, Acetaminophen < 10 L, P lasma/Serum Alcohol 314 H 05/05/25 07:25: Specimen Source Right radial, O2 % 100, ABG pH 7.43, ABG pCO2 35.3, ABG pO2 433.4 H, ABG HCO3 22.7, ABG Total CO2 23.8, ABG O2 Saturation 100, ABG Base Excess -1.2, Frankie Test Acceptable 05/05/25 07:59: Urine Color Yellow, Urine Appearance Slightly cloudy, Urine pH 6.0, Ur Specific [place] 1.024, Urine Protein 1+ A, Urine Glucose (UA) Negative, Urine Ketones Trace, Urine Blood Negative, Urine Nitrate Negative, Urine Bilirubin Negative, Urine Urobilinogen 0.2, Ur Leukocyte Esterase Trace, Urine RBC 5-10, Urine WBC 10-20, Ur Squamous Epith Cells 10-20, Calcium Oxalate Crystal Trace, Urine Bacteria 1+, Urine Mucus 2+, Urine Opiates Screen Negative, Urine Methadone Screen Negative, Ur Barbituates Screen Negative, Ur Phencyclidine Scrn Negative, Ur Amphetamines Screen Negative, U Benzodiazepines Scrn Negative, Urine Cocaine Screen Negative, U Marijuana (THC) Screen Negative 05/05/25 07:21 05/05/25 07:21 Orders (Tests/Meds): ED MEDICATIONS Generic Name Dose Route Start Last Admin Trade Name Freq PRN Reason Stop Dose Admin Etomidate 20 mg 05/05/25 07:30 Etomidate 40mg/20ml Vial IV 05/05/25 07:31 ONCE ONE Fentanyl Citrate 1,000 mcg/ 100 mls @ 1 mls/hr 05/05/25 07:45 Sodium Chloride IV 06/04/25 07:44 .Q24H SHABNAM Protocol 10 MCG/HR Lactated Ringer's 1,000 mls @ 999 mls/hr 05/05/25 09:16 Lactated Ringer's 1000 Ml Bag IV 05/05/25 10:16 .Q1H1M ONE Naloxone HCl 2 mg 05/05/25 09:16 Naloxone 2mg/2ml Syringe IV 05/05/25 09:17 ONCE ONE Sodium Chloride 3 ml 05/05/25 07:50 Sodium Chloride 3% 15ml Neb IH 06/04/25 07:49 ONCE PRN INDUCE SPUTUM COLLECTION Succinylcholine Chloride 100 mg 05/05/25 09:16 Succinylcholine 20mg/Ml 10 Ml Mdv IV 05/05/25 09:17 ONCE ONE Discontinued Medications Generic Name Dose Route Start Last Admin Trade Name [place] PRN Reason Stop Dose Admin Sodium Chloride 1,000 mls @ 999 mls/hr 05/05/25 07:30 Sod Chlor 0.9% 1000ml Bag IV 05/05/25 08:30 .Q1H1M SHABNAM Naloxone HCl 2 mg 05/05/25 07:25 Naloxone 2mg/2ml Syringe IV 05/05/25 07:26 ONCE ONE ORDERS Category Date Time Status CT head/brain wo con Stat Cat Scan 05/05/25 07:40 Completed Consult to Behavioral Health [CONS] Routine Cons 05/05/25 08:58 Active Pulmonology Consult [Consult to Pulmonology] [CONS] Cons 05/05/25 09:18 Active Stat CXR --portable [XR chest portable] Stat Exams 05/05/25 07:25 Completed POCUS Point of Care (ER Only) Stat Exams 05/05/25 07:24 Completed Acetaminophen Stat Lab 05/05/25 07:21 Completed CBC w/Auto Diff [Complete Blood Count Auto Diff] Stat Lab 05/05/25 07:21 Completed CK [Creatine Kinase] Stat Lab 05/05/25 07:21 Completed CMP [Comprehensive Metabolic Panel] Stat Lab 05/05/25 07:21 Completed Ethanol [Ethyl Alcohol] Stat Lab 05/05/25 07:21 Completed HCG Qualitative, Serum Stat Lab 05/05/25 07:21 Completed INR [Prothrombin Time INR] Stat Lab 05/05/25 07:21 Completed Lactate Venous Stat Lab 05/05/25 07:25 Ordered Magnesium Stat Lab 05/05/25 07:21 Completed Salicylate Stat Lab 05/05/25 07:21 Completed Troponin I Q3H Lab 05/05/25 07:21 Completed Troponin I Q3H Lab 05/05/25 10:30 Ordered UA [Urinalysis and Microscopic] Stat Lab 05/05/25 07:59 Completed UDS [Drug Screen,Urine] Stat Lab 05/05/25 07:59 Completed Sputum Culture & Gram Stain Stat Micro 05/05/25 07:46 Received Urine Culture Stat Micro 05/05/25 07:59 Received ABG [Arterial Blood Gas] Stat RT 05/05/25 07:25 Completed Insert, Endotracheal Tube Stat RT 05/05/25 09:04 Ordered Lactate Arterial Stat RT 05/05/25 08:08 Ordered Medical Decision Narrative: 29-year-old presenting today with being found unresponsive with a presumed overdose found next to an empty pill bottle. Will move forward as if this is an overdose we do not know exactly what she took she is tachycardic EKG was performed which I personally interpreted which shows a ventricular rate of 151 sinus tachycardia no QRS or QTc prolongation no loss of P waves no definitive evidence of sodium channel blockade beta-rk overdose etc. from this. We will try to obtain more information from family when they arrive. Will get a CT scan of her head chest x-ray to confirm location of endotracheal tube she was mildly hypotensive upon arrival she was given IV fluids prior to being intubated for some resuscitation prior to introducing positive intrathoracic pressure. She tolerated intubation well. Maps are in the 70s oxygenation has been 100% she was starting to wake up a little bit presented initially with a GCS of 6 but was starting to localize pain but was still not protecting her airway and still having incomprehensible sounds therefore the decision was made to intubate primarily for airway protection. She was also given 4 of additional IV of Narcan prior to being intubated and her Accu-Chek was within normal limits. Narcan did not have any significant improvement in her symptoms. At the moment we will presume that this was a suicide attempt with her history. Fentanyl drip and as needed Valium are being given at the moment for additional sedation. Patient's stepfather showed up and stated that the patient was drunk last night and was texting one of her friends stating that she was going to kill her self. Apparently that friend called police or EMS ultimately the patient was found unresponsive. Stepfather states that he is taken her to rehab 5 times and that she is attempted suicide multiple times in the past. No further history able to be obtained. Reassessment 9:19 AM patient was overbreathing the vent requiring increased sedation she is on a fentanyl infusion has had some as needed doses of Valium IV. CT scan of the patient's head was performed which I personally interpreted shows no intracranial abnormalities. Chest x-ray performed which I personally interpreted which shows no cardiopulmonary abnormality endotracheal tube terminating just above the roger. Both lungs are aerated. Labs unremarkable aside from the fact that she has an ethanol level in the 300s. This is certainly contributing. I discussed the case with the patient's family it is unlikely that the patient had a significant hypoxic brain injury but I cannot tell that definitively until she wakes up and is back to normal. I spoke subsequent with her hospital medicine doctor we will keep the patient in our hospital for supportive care until she is cleared medically at which point she will need to be transferred for psychiatric care. A pulmonary consult has been placed from the ED for assistance in managing this case as requested by hospital medicine. Patient hemodynamically remained stable maps above 65 heart rate down into the 1 teens still narrow complex sinus tachycardia no evolving EKG changes to suggest that she has a beta-rk overdose sodium channel blockade etc. Procedures Intubation Mallampati Score:: Class I Time out performed: No sedative: Etomidate Mg Given: 20 paralytic: Succinylcholine Mg Given: 100 Laryngoscope: Oswaldo (3) ET Tube Size: 7.5 ET Tube Uncuffed: Yes Tube Secured Depth (cm): 21 Tube Placement Confirmation: visualized tube passing through cords, equal breath sounds bilaterally and confirmation by capnometry Patient Tolerated Procedure: well Intubation Complications: none Critical Care Critical Care Time Critical Care Time: Yes Attestation: On 05/05/25, the high probability of a clinically significant, sudden or life threatening deterioration of the following system(s) required my full and direct attention, intervention and personal management. The time I documented below is in addition to time spent performing reported procedures but includes the following listed in this critical care notation. Total Time Total Critical Care Time: 65
[2025-05-05] MEDS: FENTANYL CITRATE/PF 1,000 MCG in 0.9 % SODIUM CHLORIDE 80 ML 2.5 MCG IV (07:48)
[2025-05-05] MEDS: diazePAM 10MG/2ML SYRINGE 5 MG IV (07:48)
[2025-05-05] MEDS: FENTANYL 100MCG/2ML VIAL 50 MCG IV (07:48)
[2025-05-05 07:54] LABS: Troponin I < 0.01 ng/ml (0.00-0.034)
[2025-05-05 08:02] LABS: Microscopic, Urine URINE MICROSCOPIC (MICROSCOPIC)
[2025-05-05 08:09] LABS: ABG HCO3 22.7 mmhg (22.0-26.0); ABG PCO2 35.3 mmhg (35.0-45.0); ABG PH 7.43 mmol/L (7.35-7.45); ABG PO2 433.4 mmhg (80-100)
[2025-05-05 08:10] LABS: Bilirubin,Urine Negative (Negative); Color,Urine YELLOW (Yellow); Glucose,Urine (UA) Negative (Negative); Ketones,Urine TRACE (Negative); Leukocyte Esterase,Urine TRACE (Negative); PH,Urine 6.0 (5.0-8.5); Protein,Urine 1+ (Negative); Urobilinogen,Urine 0.2 EU/dl (0.2)
[2025-05-05 08:10] LABS: ABG TCO2 23.8 mmhg (23-27); Source Right Radial
--- NOTE | 2025-05-05 08:15 | PC.NURSE ---
Called Poison Control and opened up a case. Spoke with Jerald who stated their suggestion would be, supportive care, BP management, airway management and that activated charcoal wouldnt be appropriate due to the unknown time of the ingestion. Case #[id number]
[2025-05-05 08:22] LABS: Specific Gravity, Urine 1.024 (1.005-1.030)
[2025-05-05 08:24] LABS: Barbiturates Screen,Urine Negative ng/ml (<200)
[2025-05-05 08:25] LABS: Benzodiazepines Screen,Urine Negative ng/ml (<200)
[2025-05-05 08:26] LABS: Amphetamine/Metha Screen,Urine Negative ng/ml (<1000); Methadone Screen,Urine Negative ng/ml (<300)
[2025-05-05 08:28] LABS: Opiate Screen,Urine Negative ng/ml (<300)
[2025-05-05 08:29] LABS: Phencyclidine Screen,Urine Negative ng/ml (<25)
[2025-05-05 09:02] LABS: Bacteria,Urine 1+ /lpf; Mucus,Urine 2+ /lpf
[2025-05-05 09:03] LABS: Calcium Oxalate Crystals,Urine Trace /lpf
[2025-05-05 09:27] LABS: VBG HCO3 21.3 mmol/L (23-30); VBG PCO2 37.0 mmol/L (35-51); VBG PH 7.38 mmol/L (7.31-7.41); VBG PO2 113.8 mmol/L (28-40)
[2025-05-05 09:29] LABS: Lactate Venous 4.3 mmol/L (0.4-2.0)
[2025-05-05] MEDS: LACTATED RINGERS 1000ML 1,000 ML 999 ML IV (09:41)
--- NOTE | 2025-05-05 09:58 | P.HP_ITS ---
History of Present Illness *Admission Date: 05/05/25 *Reason for visit:: Drug overdose, suicide attempt *History of present illness: Jade Aaron is a 29-year-old female with a medical history significant for anxiety/depression, former suicide attempt with multidrug overdose requiring m echanical ventilation presents after EMS found her unconscious at home. Patient is currently sedated and intubated. Per ED provider and aunt at bedside, patient has had a long standing rosa with anxiety/depression and has unfortunately had a tumultuous life. Recently, patient has had disagreements with her grandparents and texting her friend last night when she was inebriated from alcohol and told her she was going to kill of herself. Friend let family know who asked police to do a welfare check and found the patient unconscious on the floor. Per stepfather, patient has had multiple suicide attempts in the past and has taken her to inpatient rehab at least 5 times. Patient's brother at a young age with whom she was very close, and mother recently as well. She does not have a good relationship with her father. She is also in a custody rosa for her third child with her significant other with whom she does not have a good relationship. She has 2 other children. At this point, it is unclear what medications patient took and when she took them. Apparently pill bottle had no label on it. Her home medications include propranolol, quetiapine, mirtazapine. She previously overdosed on propranolol quetiapine requiring glucagon drip and transferred to . After discussing case with ED provider, I decided to admit patient for further evaluation and management. On my evaluation, patient is intubated and sedated with no signs of distress or agitation. Heart rate in the 110s with sinus tachycardia, with soft pressures with MAP of 60s. Levophed was started. [facility] Disclaimer: The information contained in this section may have been updated after the patient was seen, as this information can be updated by other users. Medical History (Updated 05/05/25 @ 11:20 by Echo Mcknight RN) History of suicidal ideation History of suicide attempt Chronic post-traumatic stress disorder (PTSD) OCD (obsessive compulsive disorder) Generalized anxiety disorder with panic attacks Iron deficiency anemia Anemia Surgical History (Updated 05/05/25 @ 11:20 by Echo Mcknight RN) Previous section Family History Grandmother Cancer Grandfather Cancer Diabetes Mother COPD (chronic obstructive pulmonary disease) Social History Smoking Status: Unknown if ever smoked alcohol intake: current alcohol intake frequency: holidays/special occasions only substance use type: denies use current occupational status: employed Travel in the last 8 weeks?: None household members: children number of children: 2 Have you lived/traveled outside [place] in past 30 days?: No Contact w/someone who lives/traveled outside US past 30 days?: No Exposure to someone with infectious disease in past 14 days?: No Do you have a fever (greater than 100.4 F or 38 C)?: No Have you tested positive for COVID-19?: No Exposed to someone with COVID-19 in past 14 days?: No Do you have a sore throat?: No Do you have a cough?: No Do you have any weakness?: No Do you have any diarrhea?: No Are you experiencing any unusual bleeding?: No Do you have any muscle aches/pain?: No Do you have any abdominal pain?: No Are you experiencing loss of taste or smell?: No Other Medical History Have you received the Pneumonia Vaccine: No Meds Home Medications and Allergies Home Medications ?Medication ?Instructions ?Recorded ?Confirmed ?Type Unobtainable 05/06/25 05/06/25 History New Prescriptions to Start Prescriptions: Allergies Allergy/AdvReac Type Severity Reaction Status Date / Time acetaminophen (From PERCOCET) Allergy Unknown ANAPHYLAXIS Verified 05/05/25 10:59 hydrocodone (From LORTAB) Allergy Unknown ITCHING Verified 05/05/25 10:59 oxycodone (From PERCOCET) Allergy Unknown ANAPHYLAXIS Verified 05/05/25 10:59 Exam Data for Last 24 hours Vital signs and Labs for Last 24 Hours: Temp Pulse Resp BP Pulse Ox O2 Del Method O2 Flow Rate 96.9 F L 153 H 18 120/66 99 Non-Rebreather 15 05/05/25 07:20 05/05/25 08:00 05/05/25 08:00 05/05/25 08:34 05/05/25 08:05 05/05/25 07:20 05/05/25 07:20 FiO2 25 05/05/25 08:05 Laboratory Results - last 24 hr 05/05/25 07:21: WBC 7.1, RBC 3.82 L, Hgb 11.0 L, Hct 33.5 L, MCV 87.7, MCH 28.8, MCHC 32.8, RDW 15.3, Plt Count 272, MPV 10.0, Neut % (Auto) 30.4 L, Lymph % (Auto) 64.0 H, [place] % (Auto) 3.5, Eos % (Auto) 1.1, Baso % (Auto) 0.7, Neut # (Auto) 2.2, Lymph # (Auto) 4.5, [place] # (Auto) 0.3, Eos # (Auto) 0.1, Baso # (Auto) 0.1, PT 11.3, INR 1.02, Sodium 146 H, Potassium 3.7, Chloride 106, Carbon Dioxide 29, Anion Gap 14.7, BUN 12, Creatinine 0.60, Estimated GFR 120, Est GFR ( Amer) 145, Glucose 92, Calcium 8.8, Magnesium 1.7, Total Bilirubin 0.2, AST 27, ALT 17, Alkaline Phosphatase 53, Total Creatine Kinase 45, Troponin I < 0.01, Total Protein 7.1, Albumin 4.3, Globulin 2.8, Albumin/Globulin Ratio 1.5, Serum HCG, Qual Negative, Salicylates < 1.0 L, Acetaminophen < 10 L, Plasma/Serum Alcohol 314 H 05/05/25 07:25: Specimen Source Right radial, O2 % 100, ABG pH 7.43, ABG pCO2 35.3, ABG pO2 433.4 H, ABG HCO3 22.7, ABG Total CO2 23.8, ABG O2 Saturation 100, ABG Base Excess -1.2, Frankie Test Acceptable 05/05/25 07:59: Urine Color Yellow, Urine Appearance Slightly cloudy, Urine pH 6.0, Ur Specific [place] 1.024, Urine Protein 1+ A, Urine Glucose (UA) Negative, Urine Ketones Trace, Urine Blood Negative, Urine Nitrate Negative, Urine Bilirubin Negative, Urine Urobilinogen 0.2, Ur Leukocyte Esterase Trace, Urine RBC 5-10, Urine WBC 10-20, Ur Squamous Epith Cells 10-20, Calcium Oxalate Crystal Trace, Urine Bacteria 1+, Urine Mucus 2+, Urine Opiates Screen Negative, Urine Methadone Screen Negative, Ur Barbituates Screen Negative, Ur Phencyclidine Scrn Negative, Ur Amphetamines Screen Negative, U Benzodiazepines Scrn Negative, Urine Cocaine Screen Negative, U Marijuana (THC) Screen Negative 05/05/25 09:24: VBG pH 7.38, VBG pCO2 37.0, VBG pO2 113.8 H, VBG HCO3 21.3 L, VBG Total CO2 22.5 L, VBG O2 Saturation 97.4 H, VBG Base Excess -3.8 L, VBG Lact ic Acid 4.3 H I & O for Last 24 hours: Intake & Output 05/02/25 05/03/25 05/04/25 05/05/25 23:59 23:59 23:59 23:59 Weight 68.039 kg Microbiology Reports for the Last 24 Hours: Microbiology 05/05/25 07:46 Sputum - Endotracheal Tube Aspirate Gram Stain - Final Constitutional Constitutional: no acute distress *Routine HEENT Exam Head: Present normocephalic Eye: Present EOMI and PERRL ENT: Present mucous membranes moist *Routine Neck Exam Neck: Present supple; Absent lymphadenopathy *Routine Respiratory Exam Respiratory: Present CTA bilaterally *Routine Cardiovascular Exam Cardiovascular: Present RRR and tachycardia *Routine Abdominal Exam Abdominal: Present soft and normoactive bowel sounds; Absent tenderness *Routine Rectal Exam Rectal:: deferred *Routine Genitalia Exam Genitalia:: deferred *Routine Extremities Exam Extremities: Absent cyanosis, clubbing or edema *Routine Skin Exam Skin: Present warm; Absent rash *Routine Neurological Exam Comments: Intubated, sedated. Assessment and Plan *Assessment and plan (1) Suicide attempt: Status: Acute Category: Medical Code(s): T14.91XA - Suicide attempt, initial encounter (2) Overdose: Status: Acute Category: Medical Code(s): T50.901A - Poisoning by unspecified drugs, medicaments and biological substances, accidental (unintentional), initial encounter Plan Jade Aaron is a 29-year-old female with a medical history significant for anxiety/depression, former suicide attempt with multidrug overdose requiring mechanical ventilation presents after EMS found her unconscious at home. Patient is currently sedated and intubated. Per ED provider and aunt at bedside, patient has had a long standing rosa with anxiety/depression and has unfortunately had a tumultuous life. Recently, patient has had disagreements with her grandparents and texting her friend last night when she was inebriated from alcohol and told her she was going to kill of herself. Friend let family know who asked police to do a welfare check and found the patient unconscious on the floor. Per stepfather, patient has had multiple suicide attempts in the past and has taken her to inpatient rehab at least 5 times. Patient's brother at a young age with whom she was very close, and mother recently as well. She does not have a good relationship with her father. She is also in a custody rosa for her third child with her significant other with whom she does not have a good relationship. She has 2 other children. On arrival, GCS was 6 and decision was made to intubate patient by ED provider. At this point, it is unclear what medications patient took and when she took them. Apparently pill bottle had no label on it. Her home medications include propranolol, quetiapine, mirtazapine. She previously overdosed on propranolol quetiapine requiring glucagon drip and transferred to . Serum alcohol 314. CBC, CMP, ABG, UDS unremarkable. UA suggestive of UTI. After discussing case with ED provider, I decided to admit patient for further evaluation and management. On my evaluation, patient is intubated and sedated with no signs of distress or agitation. Heart rate in the 110s with sinus tachycardia, with soft pressures with MAP of 60s. Levophed was started. #Suicide attempt #Drug overdose #Acute toxic encephalopathy #Anxiety/depression ? Patient unfortunately has strong, recurrent history of multidrug overdose, suicide attempts. Most recently in February 2025. Has been to rehab at least 5 times per stepfather. ? Takes mirtazapine, quetiapine, propranolol at home. Empty pill bottle did not have label at home. ? Presented with GCS of 6, intubated in the ED. Currently is showing no signs of agitation, distress. ? Continue fentanyl, propofol drip. Wean as tolerated. Patient became hypotensive after starting propofol drip. ? Ordered phenylephrine 40 mcg/h, discontinued Levophed in the setting of worsening tachycardia. ? Pulmonology consulted, pending further recommendations. Daily SBT's. ? Behavioral health consulted, pending further recommendations. Would benefit from inpatient rehab. Did not have inpatient rehab in February 2025 after transferring to for similar presentation. ? EKG every 6 hours, monitor QTc. Currently 414. Takes mirtazapine, quetiapine at home. ? Lovenox for DVT prophylaxis. ? Famotidine for GI prophylaxis. ? Sandoval in place, follow-up urine output. #UTI #Hypotension #Tachycardia #Lactic acidosis #Hypernatremia #Suspected serotonin syndrome ? Hypotension may be multifactorial. Initial lactate 4.3, sodium 146, WBC 7.1. ? UA grossly abnormal, though could be normal adela. However, temperature uptrending currently 100.2 Fahrenheit. CXR does not show aspiration. ? Patient takes propranolol at home, possible overdose with this. However, hypotension not responsive to glucagon. ? There is concern for serotonin syndrome given hypotension, tachycardia, borderline fevers, encephalopathy and no source of infection. No neuromuscular hyperactivity at this time. ? Continue to monitor, will consider initial dose of cyproheptadine 12 mg if findings worsen and serotonin syndrome more suspicious. ? Started vancomycin, Zosyn 3.375 every 6 hours. ? Follow-up RPR, urine gonorrhea, chlamydia, trichomonas. ? Follow-up urine, blood cultures. ? Continue LR at 100 mL/h. Follow-up repeat lactate. ? Continue phenylephrine for hypotension. Discontinue Levophed due to worsening tachycardia. Wean as tolerated. ? Follow-up morning CBC, CMP, lactic acid. #Alcohol use disorder #Alcohol withdrawal - [facility] protocol, Valium as needed, - IV phenobarbital 130mg given once. Full code DVT prophylaxis: Lovenox 40 mg Diet: N.p.o.
[2025-05-05 10:19] LABS: C-Reactive Protein < 0.3 mg/L (0-4)
[2025-05-05] MEDS: FENTANYL 100MCG/2ML VIAL 12.5 MCG IV ×3 (10:30→14:44)
[2025-05-05 10:39] LABS: Procalcitonin < 0.030 ng/mL (0.0-2.0)
--- NOTE | 2025-05-05 11:09 | PC.NURSE ---
patient tranfer from ER to ICU via bed @[id number]
[2025-05-05 11:10] LABS: Troponin I < 0.01 ng/ml (0.00-0.034)
[2025-05-05] MEDS: GLUCAGON 1 MG/ML VIAL 3 MG IV (12:03)
[2025-05-05] MEDS: LACTATED RINGERS 1000ML 1,000 ML 100 ML IV (12:03)
--- NOTE | 2025-05-05 12:15 | PC.NURSE ---
Spoke with Jerald in [facility]ison Control who called to check on pt. I updated him on pt condition. He stated that they recommend giving a dose of 5mg of glucagon and if it isnt effective in 10 minutes to follow up with a 10mg dose. Dr. Gill notified of their recommendation via telephone at this time.
[2025-05-05 12:21] LABS: POC Glucose,Bedside 89 (70-110)
[2025-05-05] MEDS: NOREPINEPHRINE BITARTRATE/D5W 8 MG/250 ML PLAST..BAG 7.5 MG IV (12:21)
--- NOTE | 2025-05-05 12:22 | CA_ITS ---
APPROVED REPORT EXAM: Comprehensive 2D, Doppler, and color-flow Echocardiogram Straight Truck Driver: Katie Torres RT(R) Ht: 5 ft 4 in Wt: 150lbs BSA: 1.73 BP: 120/66 mmHg Indications: overdose/alcohol intoxication, currently intubated, hypotension. M-Mode Dimensions RVDd 2.91 cm (0.9-2.6) LVDd 3.28 cm (3.5-5.7) LVDs 2.53 cm (3.5-5.7) IVSd 0.75 cm (0.6-1.1) PWd 0.53 cm (0.6-1.1) EF (Teich) 47.10% FS 22.90% EDV (Teich) 43.50 mL ESV (Teich) 23.00 mL LV Diastology E Decel Time 150 (160-240 msec) E/A Ratio 0.7 Mitral Valve MV E Max Kulwant. 68.0 (40-130 cm/s) MV A Velocity 97.0 (40-130 cm/s) E/A Ratio 0.70 MV PHT 44.0 ms Left Ventricle The left ventricle is normal size. Left ventricular systolic function is hyperdynamic There is normal left ventricular wall thickness. There is normal LV segmental wall motion. The left ventricular diastolic function is indeterminate. LVEF is 70% Right Ventricle The right ventricle is not well visualized, but grossly appears normal in size and function. Atria The left atrium size is normal. The right atrium is not well visualized. There is no color Doppler evidence of interatrial shunt. Aortic Valve The aortic valve opens well. There is no hemodynamically significant aortic valvular stenosis. No aortic regurgitation is present. Mitral Valve The mitral valve is normal in structure. No evidence of mitral valve stenosis. Trace mitral regurgitation is present. Tricuspid Valve The tricuspid valve leaflets are not well visualized. Pulmonic Valve The pulmonary valve is not well visualized. Great Vessels The aortic root is normal in size. IVC is normal in size and collapses >50% with inspiration. Pericardium There is no pericardial effusion. Other Information Study Quality: Technically Difficult Conclusion Technically difficult study. Hyperdynamic LV systolic function (LVEF 70%). Grossly, normal RV size and function. No significant valvular stenosis or regurgitation in the visualized valves. No pericardial effusion. Electronically signed by : Jess Bundy MD 05/05/2025 13:38:08
[2025-05-05 12:51] LABS: Reflex Lactic Add Lactic Reflex
[2025-05-05 12:53] LABS: Lactic Acid Follow Up (RFLX 1) 4.1 mmol/L (0.7-2.1)
[2025-05-05 13:05] LABS: Thyroid Stimulating Hormone 2.27 uIU/mL (0.465-4.68)
[2025-05-05] MEDS: PIPERCILLIN/TAZO 3.375 GM in 0.9 % SODIUM CHLORIDE 50 ML IV ×2 (13:10→17:48)
[2025-05-05] MEDS: GLUCAGON 1 MG/ML VIAL 5 MG IV (13:11)
--- NOTE | 2025-05-05 13:38 | PC.NURSE ---
RESP CARE NOTE: Pt ET tube withdrawn 2 cm and FIO2 decreased to 21%, per Dr Grullon telephone order. Follow up chest xray requested. Will continue to monitor patient.
--- NOTE | 2025-05-05 13:53 | XR_ITS ---
FINAL REPORT CLINICAL HISTORY: INTUBATED COMPARISON: 1 hour prior FINDINGS: A single frontal view of the chest was obtained. There is mild atelectasis of the right lung base, worse since the previous exam. No pneumothorax. ET tube has been retracted since the prior exam, now located 4 cm above the roger. There has been interval placement of an NG tube, seen entering the stomach. Mediastinum is unremarkable. Heart size is normal. IMPRESSION: Mild worsening right basilar atelectasis. Interval NG tube placement. Reviewed, Interpreted and Dictated by Hardik Carcamo MD Transcribed by Adore Cornejo Authenticated and [facility]
[2025-05-05 14:19] LABS: D-Dimer 0.71 ug/mL (0.0-0.5)
[2025-05-05] MEDS: ONDANSETRON 4MG/2ML VIAL 4 MG IV (14:29)
[2025-05-05 14:53] LABS: Reflex Lactic (2 hrs) Add Lactic Reflex
--- NOTE | 2025-05-05 15:14 | ECG_ITS ---
APPROVED REPORT Exam: Resting ECG HR:133 bpm ECG Measurements Heart Rate 133 AXES ID 109 P 73 QRSd 73 QRS 67 QT 336 T 72 QTc 414 Conclusion SINUS TACHYCARDIA WITH SHORT ID INTERVAL ABNORMAL RHYTHM ECG UNCONFIRMED REPORT Electronically signed by : Mikel Veloz MD 05/07/2025 07:41:28
[2025-05-05 15:39] LABS: Lactic Acid Follow up (RFLX 2) 2.5 mmol/L (0.7-2.1)
[2025-05-05] MEDS: PHENYLEPHRINE HCL 10 MG in 0.9 % SODIUM CHLORIDE 250 ML 60.24 MG IV (16:36)
[2025-05-05] MEDS: LACTATED RINGERS 1000ML 1,000 ML 500 ML IV (16:39)
[2025-05-05] MEDS: KETOROLAC 30MG/ML VIAL 15 MG IV (16:39)
[2025-05-05] MEDS: VANCOMYCIN CONSULT REQUEST 1 EACH NOTAPPLIC (17:00)
[2025-05-05 17:04] LABS: RPR W/RFX Titers Nonreactive (Nonreactive)
--- NOTE | 2025-05-05 17:07 | PEERSUPPORT ---
Peer Support Note Patient Information Patient Information: DOS: 05/05/2025 Pt still intubated, Echo Anthony RN reported two Aunts have been visiting at pt bedside. Ps will continue to monitor with support, if family is interested please do pass along ps information.
[2025-05-05] MEDS: VANCOMYCIN/WATER FOR INJ (PEG) 1.75 GM/350 ML PIGGYBACK IV (17:47)
[2025-05-05 17:51] LABS: Adenovirus,PCR Not Detected (NotDetected); Chlamydophila Pneumoniae, PCR Not Detected (NotDetected); Coronavirus 19, PCR Not Detected (NotDetected); Coronovirus HKU1,PCR Not Detected (NotDetected); Influenza A, PCR Not Detected (NotDetected); Influenza AH1, 2009 Not Detected (NotDetected); Influenza AH1, PCR Not Detected (NotDetected); Influenza AH3,PCR Not Detected (NotDetected); Influenza B, PCR Not Detected (NotDetected); Mycoplasma Pneumoniae, PCR Not Detected (NotDetected); Parainfluenza 1, PCR Not Detected (NotDetected); Parainfluenza 2, PCR Not Detected (NotDetected); Parainfluenza 3, PCR Not Detected (NotDetected); Parainfluenza 4, PCR Not Detected (NotDetected)
[2025-05-05] MEDS: MVI, ADULT NO.1 WITH VIT K 10 ML, THIAMINE HCL 100 MG, MAGNESIUM SULFATE 2 GM in LACTAT... 125 ML IV (18:55)
--- NOTE | 2025-05-05 19:37 | ECG_ITS ---
APPROVED REPORT Exam: Resting ECG HR:107 bpm ECG Measurements Heart Rate 107 AXES ME 134 P 63 QRSd 78 QRS 55 QT 339 T 47 QTc 402 Conclusion SINUS TACHYCARDIA ABNORMAL RHYTHM ECG UNCONFIRMED REPORT Electronically signed by : Mikel Veloz MD 05/07/2025 07:41:23
[2025-05-05 20:10] LABS: Creatine Kinase 39 U/L (30-135)
[2025-05-05] MEDS: FAMOTIDINE 20MG/2ML VIAL 20 MG IV (20:47)
[2025-05-05] MEDS: PHENobarbital SOD 65MG/ML INJ 130 MG IV (20:47)
[2025-05-05] MEDS: SODIUM CHLORIDE 0.9% 10ML VIAL 8 ML IV (20:47)
[2025-05-05] MEDS: PHENYLEPHRINE HCL 10 MG in 0.9 % SODIUM CHLORIDE 250 ML 45.18 MG IV (21:50)
[2025-05-06] VITALS (44 sets, daily range): BP systolic 106–152; BP diastolic 67–127; PULSE 75–126; RESP 12–30; TEMP 37–37.8; O2SAT 88–100; BMI 26.8
--- NOTE | 2025-05-06 | ECG_ITS ---
APPROVED REPORT Exam: Resting ECG HR:77 bpm ECG Measurements Heart Rate 77 AXES [place] 150 P 40 QRSd 80 QRS 46 QT 400 T 51 QTc 432 Conclusion SINUS RHYTHM NORMAL ECG UNCONFIRMED REPORT Electronically signed by : Mikel Veloz MD 05/07/2025 07:41:17
[2025-05-06] MEDS: PIPERCILLIN/TAZO 3.375 GM in 0.9 % SODIUM CHLORIDE 50 ML IV ×4 (01:47→18:28)
[2025-05-06] MEDS: PHENYLEPHRINE HCL 10 MG in 0.9 % SODIUM CHLORIDE 250 ML 30.12 MG IV (02:34)
[2025-05-06 05:56] LABS: Hematocrit 27.9 % (37.0-47.0); Immature Granulocytes % 0.3 %; Mean Corpuscular HGB Conc 32.6 g/dL (31.8-35.4); Mean Corpuscular Hemoglobin 28.9 pg (27.0-31.2); Mean Corpuscular Volume 88.6 fl (81-99); Nucleated Red Blood Cells % 0 %; Platelet Count 164 K/mm3 (142-424); Red Blood Count 3.15 M/mm3 (4.20-5.40); Red Cell Distribution Width-SD 51.2 fL; White Blood Count 8.7 K/mm3 (4.8-10.8)
[2025-05-06 06:03] LABS: Hemoglobin 8.8 g/dL (12.2-16.2)
--- NOTE | 2025-05-06 06:14 | ECG_ITS ---
APPROVED REPORT Exam: Resting ECG HR:86 bpm ECG Measurements Heart Rate 86 AXES [place] 147 P 57 QRSd 80 QRS 50 QT 365 T 48 QTc 408 Conclusion SINUS RHYTHM NORMAL ECG UNCONFIRMED REPORT Electronically signed by : Mikel Veloz MD 05/07/2025 07:41:11
[2025-05-06 06:15] LABS: Chloride 104 mmol/L (98-107)
[2025-05-06 06:16] LABS: Albumin Level 3.4 g/dl (3.5-5.0); Potassium 3.5 mmoL/L (3.5-5.1); Sodium 137 mmol/L (136-145)
[2025-05-06 06:18] LABS: Blood Urea Nitrogen 10 mg/dl (7-17); Creatinine Clearance Estimated 144 mL/min (50-200); Creatinine,Serum 0.70 mg/dl (0.52-1.04); Estimated Glomerular Filt Rate 100 ml/min (>60); GFR (African American) 121 ML/MIN (>60)
[2025-05-06 06:19] LABS: Alanine Aminotransferase 13 U/L (12-78); Albumin/Globulin Ratio 1.4 (1.1-1.8); Alkaline Phosphatase 56 U/L (38-126); Anion Gap 8.5 mEq/L (5-15); Aspartate Amino Transferase 23 U/L (14-36); Bilirubin,Total 0.8 mg/dl (0.2-1.3); Calcium 8.3 mg/dl (8.4-10.2); Carbon Dioxide 28 mmol/L (22.0-30.0); Globulin 2.4 g/dL (1.3-3.2); Glucose 78 mg/dl (74-100); Magnesium 2.2 mg/dl (1.6-2.3); Total Protein,Serum 5.8 g/dl (6.3-8.2)
[2025-05-06] MEDS: LACTATED RINGERS 1000ML 1,000 ML 100 ML IV ×2 (06:20→14:29)
[2025-05-06] MEDS: SODIUM CHLORIDE 0.9% 10ML VIAL 8 ML IV (08:18)
[2025-05-06] MEDS: FAMOTIDINE 20MG/2ML VIAL 20 MG IV ×2 (08:18→21:38)
[2025-05-06] MEDS: THIAMINE 100MG TABLET 100 MG PO (08:19)
[2025-05-06] MEDS: FOLIC ACID 1MG TABLET 1 MG PO (08:19)
[2025-05-06] MEDS: VANCOMYCIN HCL 1,500 MG in 0.9 % SODIUM CHLORIDE 250 ML 125 MG IV (08:23)
--- NOTE | 2025-05-06 08:32 | P.CONPHA_ITS ---
Pharmacy Consult Date: 05/06/25 Time: 08:32 Referring provider: DR. KAN Reason for Consult:: VANCOMYCIN DOSING Allergies Allergy/AdvReac Type Severity Reaction Status Date / Time acetaminophen (From PERCOCET) Allergy Unknown ANAPHYLAXIS Verified 05/05/25 10:59 hydrocodone (From LORTAB) Allergy Unknown ITCHING Verified 05/05/25 10:59 oxycodone (From PERCOCET) Allergy Unknown ANAPHYLAXIS Verified 05/05/25 10:59 Home Medications ?Medication ?Instructions ?Recorded ?Confirmed ?Type Unobtainable 05/06/25 05/06/25 History New Prescriptions to Start Prescriptions: Height: 1.68 m Weight: 75.6 kg Laboratory Results:: Laboratory Results - last 24 hr 05/05/25 07:01: TSH 2.27 05/05/25 07:08: RPR w/Rflx to Titer Nonreactive, HIV Ag/Ab Combo Qual Negative 05/05/25 07:11: C-Reactive Protein < 0.3, Procalcitonin < 0.030 05/05/25 07:27: D-Dimer 0.71 H 05/05/25 07:59: Urine Color Yellow, Urine Appearance Slightly cloudy, Urine pH 6.0, Ur Specific [place] 1.024, Urine Protein 1+ A, Urine Glucose (UA) Negative, Urine Ketones Trace, Urine Blood Negative, Urine Nitrate Negative, Urine Bilirubin Negative, Urine Urobilinogen 0.2, Ur Leukocyte Esterase Trace, Urine RBC 5-10, Urine WBC 10-20, Ur Squamous Epith Cells 10-20, Calcium Oxalate Crystal Trace, Urine Bacteria 1+, Urine Mucus 2+, Urine Opiates Screen Negative, Urine Methadone Screen Negative, Ur Barbituates Screen Negative, Ur Phencyclidine Scrn Negative, Ur Amphetamines Screen Negative, U Benzodiazepines Scrn Negative, Urine Cocaine Screen Negative, U Marijuana (THC) Screen Negative 05/05/25 09:24: VBG pH 7.38, VBG pCO2 37.0, VBG pO2 113.8 H, VBG HCO3 21.3 L, VBG Total CO2 22.5 L, VBG O2 Saturation 97.4 H, VBG Base Excess -3.8 L, VBG Lactic Acid 4.3 H 05/05/25 10:40: Troponin I < 0.01 05/05/25 12:14: POC Glucose 89 05/05/25 15:12: Lactate 2.5 H 05/05/25 16:41: Chlamy pneumoniae PCR Not detected, Adenovirus (PCR) Not detected, B. pertussis DNA (PCR) Not detected, Coronavirus OC43 (PCR) Not detected, Coronavirus HKU1 (PCR) Not detected, Coronavirus 229E (PCR) Not detected, SARS-CoV-2 (PCR) Not detected, Coronavirus NL63 (PCR) Not detected, Human Metapneumovir PCR Not detected, Influenza A (H1) PCR Not detected, Influ A (H1N1/09) PCR Not detected, Influenza A (H3) PCR Not detected, Influenza Type A (PCR) Not detected, Influenza Type B (PCR) Not detected, M. pneumoniae (PCR) Not detected, Parainfluenza 1 (PCR) Not detected, Parainfluenza 2 (PCR) Not detected, Parainfluenza 3 (PCR) Not detected, Parainfluenza 4 (PCR) Not detected, RSV (PCR) Not detected, Entero/Rhino (PCR) Not detected 05/05/25 19:26: Total Creatine Kinase 39 05/05/25 : Lactate 4.1 H 05/06/25 04:56: WBC 8.7, RBC 3.15 L, Hgb 8.8 L D, Hct 27.9 L, MCV 88.6, MCH 28.9, MCHC 32.6, RDW 15.6, Plt Count 164 D, MPV 10.7 H, Neut % (Auto) 66.2, Lymph % (Auto) 28.5, [place] % (Auto) 3.7, Eos % (Auto) 1.0, Baso % (Auto) 0.3, Neut # (Auto) 5.8, Lymph # (Auto) 2.5, [place] # (Auto) 0.3, Eos # (Auto) 0.1, Baso # (Auto) 0.0, Sodium 137, Potassium 3.5, Chloride 104, Carbon Dioxide 28, Anion Gap 8.5, BUN 10, Creatinine 0.70, Estimated Creat Clear 144, Estimated GFR 100, Est GFR ( Amer) 121, Glucose 78, Calcium 8.3 L, Magnesium 2.2 D, Total Bilirubin 0.8, AST 23, ALT 13, Alkaline Phosphatase 56, Total Protein 5.8 L, Albumin 3.4 L D, Globulin 2.4, Albumin/Globulin Ratio 1.4 Medical History: Medical History (Updated 05/05/25 @ 11:20 by Echo Mcknight RN) History of suicidal ideation History of suicide attempt Chronic post-traumatic stress disorder (PTSD) OCD (obsessive compulsive disorder) Generalized anxiety disorder with panic attacks Iron deficiency anemia Anemia Assessment and Plan Assessment and plan all Dx Assessment and Plan for all problems:: Pharmacokinetic dosing service Objective: Patient: Floor: Age: 29 yo Serum creatinine: 0.7 mg/dL Height: 66.1 Inches Weight (kg): 75.6 Assessment: IBW (kg): 59.53 Dosing wt(kg): 75.6 Estimated Creatinine clearance (ml/min): 113.4 CRCL method: Cockcroft and Gault using ibw(default). Drug selected: Vancomycin Loading dose (mg): 0 Vd (liters): 60.5 (factor used: 0.8 L/kg) Amaury (hr-1): 0.099 Half life (hrs): 7.00 Recommended dose: 1500 mg Interval: 12 hrs Infusion time (hrs): 2.0 Predicted peak (mcg/mL): 32.4 Predicted trough (mcg/mL): 12.04 Total body weight is being used for vancomycin dosing. Recommendations: Give Vancomycin 1500 mg q 12 hrs with an expected Cpeak of 32.4 mcg/ml and an expected Ctrough of 12.04 mcg/ml ----Vanco only - ignore for aminoglycosides----- CLvanco= 5.99 L/hr AUC 0-24 /LITO Data: LITO 0.5 mcg/mL: AUC/LITO: 1001.7 LITO 1.0 mcg/mL: AUC/LITO: 500.8 --------- LITO 1.5 mcg/mL: AUC/LITO: 333.9 LITO 2.0 mcg/mL: AUC/LITO: 250.4
--- NOTE | 2025-05-06 08:49 | PC.NURSE ---
SBT started @ this time. Pt tolerating well. Aunt at bedside. No needs @ this time.
--- NOTE | 2025-05-06 08:55 | PC.NURSE ---
Proprofol & Fentanyl turned off @ 0850 for SBT. RT to return to bedside to begin SBT in about 15 min.
--- NOTE | 2025-05-06 09:48 | PC.NURSE ---
SBT started by RT @ 4196
--- NOTE | 2025-05-06 10:14 | P.CONS_ITS ---
History of Present Illness History of present illness: Ms. Aaron is a 29-year-old female with reported history of anxiety depression prior suicide attempt with drug overdose presented to the ER found unconscious at home needing intubation mechanical ventilation for airway protection and pulmonary was called for further evaluation and management. [facility] Disclaimer: The information contained in this section may have been updated after the patient was seen, as this information can be updated by other users. Medical History (Updated 05/06/25 @ 15:41 by Quincy Grullon MD) Pneumonia On mechanically assisted ventilation History of suicidal ideation History of suicide attempt Chronic post-traumatic stress disorder (PTSD) OCD (obsessive compulsive disorder) Generalized anxiety disorder with panic attacks Iron deficiency anemia Anemia Surgical History (Updated 05/05/25 @ 11:20 by Echo Mcknight RN) Previous section Family History Grandmother Cancer Grandfather Cancer Diabetes Mother COPD (chronic obstructive pulmonary disease) Social History Smoking Status: Unknown if ever smoked alcohol intake: current alcohol intake frequency: holidays/special occasions only substance use type: denies use current occupational status: employed Travel in the last 8 weeks?: None household members: children number of children: 2 Have you lived/traveled outside [place] in past 30 days?: No Contact w/someone who lives/traveled outside US past 30 days?: No Exposure to someone with infectious disease in past 14 days?: No Do you have a fever (greater than 100.4 F or 38 C)?: No Have you tested positive for COVID-19?: No Exposed to someone with COVID-19 in past 14 days?: No Do you have a sore throat?: No Do you have a cough?: No Do you have any weakness?: No Do you have any diarrhea?: No Are you experiencing any unusual bleeding?: No Do you have any muscle aches/pain?: No Do you have any abdominal pain?: No Are you experiencing loss of taste or smell?: No Review of Systems Review of Systems Review of systems (narrative): Intubated, Limited ROS obtained as she was off sedation Constitutional Constitutional: Reports body ache(s) *Respiratory Respiratory: Reports chest congestion, Reports excessive phlegm production and Denies wheezing *Gastrointestinal Gastrointestinal: Denies abdominal pain Allergic/Immunologic Allergic/Immunologic: Denies wheezing Pulmonology Exam Inpatient Vital signs and Labs for Last 24 Hours: Temp Pulse Resp BP Pulse Ox O2 Del Method O2 Flow Rate 99.1 F 101 H 14 122/79 96 Mechanical Ventilation 15 05/06/25 10:00 05/06/25 10:00 05/06/25 10:04 05/06/25 10:00 05/06/25 10:04 05/06/25 10:00 05/05/25 07:20 FiO2 21 05/06/25 10:04 Laboratory Results - last 24 hr 05/05/25 07:01: TSH 2.27 05/05/25 07:08: RPR w/Rflx to Titer Nonreactive, HIV Ag/Ab Combo Qual Negative 05/05/25 07:11: C-Reactive Protein < 0.3, Procalcitonin < 0.030 05/05/25 07:27: D-Dimer 0.71 H 05/05/25 10:40: Troponin I < 0.01 05/05/25 12:14: POC Glucose 89 05/05/25 15:12: Lactate 2.5 H 05/05/25 16:41: Chlamy pneumoniae PCR Not detected, Adenovirus (PCR) Not detected, B. pertussis DNA (PCR) Not detected, Coronavirus OC43 (PCR) Not detected, Coronavirus HKU1 (PCR) Not detected, Coronavirus 229E (PCR) Not detected, SARS-CoV-2 (PCR) Not detected, Coronavirus NL63 (PCR) Not detected, Human Metapneumovir PCR Not detected, Influenza A (H1) PCR Not detected, Influ A (H1N1/09) PCR Not detected, Influenza A (H3) PCR Not detected, Influenza Type A (PCR) Not detected, Influenza Type B (PCR) Not detected, M. pneumoniae (PCR) Not detected, Parainfluenza 1 (PCR) Not detected, Parainfluenza 2 (PCR) Not detected, Parainfluenza 3 (PCR) Not detected, Parainfluenza 4 (PCR) Not detected, RSV (PCR) Not detected, Entero/Rhino (PCR) Not detected 05/05/25 19:26: Total Creatine Kinase 39 05/05/25 : Lactate 4.1 H 05/06/25 04:56: WBC 8.7, RBC 3.15 L, Hgb 8.8 L D, Hct 27.9 L, MCV 88.6, MCH 28.9, MCHC 32.6, RDW 15.6, Plt Count 164 D, MPV 10.7 H, Neut % (Auto) 66.2, Lymph % (Auto) 28.5, [place] % (Auto) 3.7, Eos % (Auto) 1.0, Baso % (Auto) 0.3, Neut # (Auto) 5.8, Lymph # (Auto) 2.5, [place] # (Auto) 0.3, Eos # (Auto) 0.1, Baso # (Auto) 0.0, Sodium 137, Potassium 3.5, Chloride 104, Carbon Dioxide 28, Anion Gap 8.5, BUN 10, Creatinine 0.70, Estimated Creat Clear 144, Estimated GFR 100, Est GFR ( Amer) 121, Glucose 78, Calcium 8.3 L, Magnesium 2.2 D, Total Bilirubin 0.8, AST 23, ALT 13, Alkaline Phosphatase 56, Total Protein 5.8 L, A lbumin 3.4 L D, Globulin 2.4, Albumin/Globulin Ratio 1.4 I & O for Labs for Last 24 Hours: Intake & Output 05/03/25 05/04/25 05/05/25 05/06/25 23:59 23:59 23:59 23:59 Intake Total 2068.631 / 2068.631 1807.824 / 1807.824 Output Total 395 / 420 600 / 600 Balance 1673.631 / 9751.457 4234.824 / 1207.824 Weight 163 lb 5.8 oz 166 lb 10.711 oz Microbiology Reports for the Last 24 Hours: Microbiology 05/05/25 07:46 Sputum - Endotracheal Tube Aspirate Gram Stain - Final 05/05/25 07:46 Sputum - Endotracheal Tube Aspirate Sputum Culture - Preliminary Gram Negative Rods Constitutional: Present mild distress Comment:: Intubated and Sedated Head: Present normocephalic and atraumatic Neck: Present normal inspection and trachea midline Respiratory: Present patient mechanically ventilated; Absent prolonged expiratory phase, respiratory distress, rhonchi or wheezes Cardiac: Present S1/S2 and Tachycardia GI: Present soft; Absent distention or tenderness Skin: Present intact; Absent cyanosis Neuro: Present awake Comment:: Intubated Extremities: Present normal inspection; Absent clubbing or cyanosis Psychiatric: Present unable to assess Meds Home Medications and Allergies Home Medications ?Medication ?Instructions ?Recorded ?Confirmed ?Type Unobtainable 05/06/25 05/06/25 History New Prescriptions to Start Prescriptions: Allergies Allergy/AdvReac Type Severity Reaction Status Date / Time acetaminophen (From PERCOCET) Allergy Unknown ANAPHYLAXIS Verified 05/05/25 10:59 hydrocodone (From LORTAB) Allergy Unknown ITCHING Verified 05/05/25 10:59 oxycodone (From PERCOCET) Allergy Unknown ANAPHYLAXIS Verified 05/05/25 10:59 Results Laboratory Findings 05/06/25 04:56 05/06/25 04:56 ABG ABG pH 7.43 mmol/L (7.35-7.45) 05/05/25 07:25 ABG pCO2 35.3 mmhg (35.0-45.0) 05/05/25 07:25 ABG pO2 433.4 mmhg (80-100) H 05/05/25 07:25 ABG O2 Saturation 100 % (90-100) 05/05/25 07:25 PT/INR, D-dimer PT 11.3 seconds (10.1-12.5) 05/05/25 07:21 INR 1.02 (0.9-1.1) 05/05/25 07:21 D-Dimer 0.71 ug/mL (0.0-0.5) H 05/05/25 07:27 Abnormal lab findings: Abnormal Labs 05/05/25 05/05/25 05/05/25 07:21 07:25 07:27 RBC 3.82 L Hgb 11.0 L Hct 33.5 L MPV Neut % (Auto) 30.4 L Lymph % (Auto) 64.0 H D-Dimer 0.71 H ABG pO2 433.4 H VBG pO2 VBG HCO3 VBG Total CO2 VBG O2 Saturation VBG Base Excess VBG Lactic Acid Sodium 146 H Lactate Calcium Total Protein Albumin Urine Protein Salicylates < 1.0 L Acetaminophen < 10 L Plasma/Serum Alcohol 314 H 05/05/25 05/05/25 05/05/25 07:59 09:24 15:12 RBC Hgb Hct MPV Neut % (Auto) Lymph % (Auto) D-Dimer ABG pO2 VBG pO2 113.8 H VBG HCO3 21.3 L VBG Total CO2 22.5 L VBG O2 Saturation 97.4 H VBG Base Excess -3.8 L VBG Lactic Acid 4.3 H Sodium Lactate 2.5 H Calcium Total Protein Albumin Urine Protein 1+ A Salicylates Acetaminophen Plasma/Serum Alcohol 05/05/25 05/06/25 Unknown 04:56 RBC 3.15 L Hgb 8.8 L D Hct 27.9 L MPV 10.7 H Neut % (Auto) Lymph % (Auto) D-Dimer ABG pO2 VBG pO2 VBG HCO3 VBG Total CO2 VBG O2 Saturation VBG Base Excess VBG Lactic Acid Sodium Lactate 4.1 H Calcium 8.3 L Total Protein 5.8 L Albumin 3.4 L D Urine Protein Salicylates Acetaminophen Plasma/Serum Alcohol Assessment and Plan *Assessment and plan (1) On mechanically assisted ventilation: Status: Acute Category: Medical Code(s): Z99.11 - Dependence on respirator [ventilator] status (2) Pneumonia: Status: Acute Category: Medical Code(s): J18.9 - Pneumonia, unspecified organism Plan Ms. Aaron is a 29-year-old female with reported history of anxiety depression prior suicide attempt with drug overdose presented to the ER found unconscious at home needing intubation mechanical ventilation for airway protection and pulmonary was called for further evaluation and management. Afebrile. No evidence of leukocytosis. Comprehensive respiratory viral PCR panel negative. Next chest x-ray, right lower lobe airspace disease. ET tube at roger, already retracted by 2 cm. D-dimer upon admission elevated at 0.71. CK within normal limit UDS otherwise negative. Serum alcohol level at 340. Sputum cultures from this admission gram-negative rods. Blood cultures pending. Most recent sputum cultures from February 2025 for Streptococcus anginosus. Currently receiving vancomycin and Zosyn. Unknown oral dosing medications. On examination undergoing SBT. Blood gas no evidence of hypoxia. Following commands well. Plan: Extubate to room air Continue Zosyn pending final sputum culture results DuoNebs 4 times daily as needed basis # Thank you for involving pulmonary in this patient care. Will continue to follow.
[2025-05-06 11:09] LABS: Lactate Venous 0.7 mmol/L (0.4-2.0); VBG HCO3 20.4 mmol/L (23-30); VBG PO2 159.0 mmol/L (28-40)
[2025-05-06 11:13] LABS: VBG PCO2 21.5 mmol/L (35-51); VBG PH 7.59 mmol/L (7.31-7.41)
--- NOTE | 2025-05-06 11:48 | PC.NURSE ---
1136 - Pt extubated at this time and placed on nasal cannula @ 2 lpm. Tolerated extubation well. Min amount of thick yellow/blood tinged secretions noted post extubation. Pt currently sitting up in bed, family remains 2 bedside. Pt now 1:1 obs r/t suicide attempt. POC ongoing. No needs @ this time.
--- NOTE | 2025-05-06 11:59 | P.PN_ITS ---
Subjective *Date: 05/06/25 *Time: 18:31 Interval history: Patient extubated today, alert and oriented and pleasant. Denies SI/HI, regrets taking multiple Seroquel to help sleep prior to presentation. Pending [facility] inpatient psychiatry evaluation. Exam Data for Last 24 hours Vital signs and Labs for Last 24 Hours: Temp Pulse Resp BP Pulse Ox O2 Del Method O2 Flow Rate 99.7 F H 114 H 20 132/78 94 L Nasal Cannula 2 05/06/25 11:45 05/06/25 11:45 05/06/25 11:45 05/06/25 11:45 05/06/25 11:45 05/06/25 11:45 05/06/25 11:45 FiO2 21 05/06/25 10:04 Laboratory Results - last 24 hr 05/05/25 07:01: TSH 2.27 05/05/25 07:08: RPR w/Rflx to Titer Nonreactive, HIV Ag/Ab Combo Qual Negative 05/05/25 07:27: D-Dimer 0.71 H 05/05/25 12:14: POC Glucose 89 05/05/25 15:12: Lactate 2.5 H 05/05/25 16:41: Chlamy pneumoniae PCR Not detected, Adenovirus (PCR) Not detected, B. pertussis DNA (PCR) Not detected, Coronavirus OC43 (PCR) Not detected, Coronavirus HKU1 (PCR) Not detected, Coronavirus 229E (PCR) Not detected, SARS-CoV-2 (PCR) Not detected, Coronavirus NL63 (PCR) Not detected, Human Metapneumovir PCR Not detected, Influenza A (H1) PCR Not detected, Influ A (H1N1/09) PCR Not detected, Influenza A (H3) PCR Not detected, Influenza Type A (PCR) Not detected, Influenza Type B (PCR) Not detected, M. pneumoniae (PCR) Not detected, Parainfluenza 1 (PCR) Not detected, Parainfluenza 2 (PCR) Not detected, Parainfluenza 3 (PCR) Not detected, Parainfluenza 4 (PCR) Not detected, RSV (PCR) Not detected, Entero/Rhino (PCR) Not detected 05/05/25 19:26: Total Creatine Kinase 39 05/05/25 : Lactate 4.1 H 05/06/25 04:56: WBC 8.7, RBC 3.15 L, Hgb 8.8 L D, Hct 27.9 L, MCV 88.6, MCH 28.9, MCHC 32.6, RDW 15.6, Plt Count 164 D, MPV 10.7 H, Neut % (Auto) 66.2, Lymph % (Auto) 28.5, [place] % (Auto) 3.7, Eos % (Auto) 1.0, Baso % (Auto) 0.3, Neut # (Auto) 5.8, Lymph # (Auto) 2.5, [place] # (Auto) 0.3, Eos # (Auto) 0.1, Baso # (Auto) 0.0, Sodium 137, Potassium 3.5, Chloride 104, Carbon Dioxide 28, Anion Gap 8.5, BUN 10, Creatinine 0.70, Estimated Creat Clear 144, Estimated GFR 100, Est GFR ( Amer) 121, Glucose 78, Calcium 8.3 L, Magnesium 2.2 D, Total Bilirubin 0.8, AST 23, ALT 13, Alkaline Phosphatase 56, Total Protein 5.8 L, Albumin 3.4 L D, Globulin 2.4, Albumin/Globulin Ratio 1.4 05/06/25 11:05: VBG pH 7.59 H, VBG pCO2 21.5 L, VBG pO2 159.0 H, VBG HCO3 20.4 L , VBG Total CO2 21.0 L, VBG O2 Saturation 99.0 H, VBG Base Excess -1.3, VBG La ctic Acid 0.7 I & O for Last 24 hours: Intake & Output 05/03/25 05/04/25 05/05/25 05/06/25 23:59 23:59 23:59 23:59 Intake Total 2068.631 / 2068.631 1807.824 / 1807.824 Output Total 395 / 420 1200 / 1200 Balance 1673.631 / 1648.631 607.824 / 607.824 Weight 74.1 kg 75.6 kg Microbiology Reports for the Last 24 Hours: Microbiology 05/05/25 07:46 Sputum - Endotracheal Tube Aspirate Gram Stain - Final 05/05/25 07:46 Sputum - Endotracheal Tube Aspirate Sputum Culture - Preliminary Gram Negative Rods Constitutional Constitutional: no acute distress *Routine HEENT Exam Head: Present normocephalic Eye: Present EOMI and PERRL ENT: Present mucous membranes moist *Routine Neck Exam Neck: Present supple; Absent lymphadenopathy *Routine Respiratory Exam Respiratory: Present CTA bilaterally *Routine Cardiovascular Exam Cardiovascular: Present RRR *Routine Abdominal Exam Abdominal: Present soft and normoactive bowel sounds; Absent tenderness *Routine Extremities Exam Extremities: Absent cyanosis, clubbing or edema *Routine Skin Exam Skin: Present warm; Absent rash *Routine Neurological Exam Neurological: Present alert and oriented X3 Assessment and Plan *Assessment and plan (1) Suicide attempt: Status: Acute Category: Medical Code(s): T14.91XA - Suicide attempt, initial encounter (2) Overdose: Status: Acute Category: Medical Code(s): T50.901A - Poisoning by unspecified drugs, medicaments and biological substances, accidental (unintentional), initial encounter Plan Jade Aaron is a 29-year-old female with a medical history significant for anxiety/depression, former suicide attempt with multidrug overdose requiring mechanical ventilation presents after EMS found her unconscious at home. Patient is currently sedated and intubated. Per ED provider and aunt at bedside, patient has had a long standing rosa with anxiety/depression and has unfortunately had a tumultuous life. Recently, patient has had disagreements with her grandparents and texting her friend last night when she was inebriated from alcohol and told her she was going to kill of herself. Friend let family know who asked police to do a welfare check and found the patient unconscious on the floor. Per stepfather, patient has had multiple suicide attempts in the past and has taken her to inpatient rehab at least 5 times. Patient's brother at a young age with whom she was very close, and mother recently as well. She does not have a good relationship with her father. She is also in a custody rosa for her third child with her significant other with whom she does not have a good relationship. She has 2 other children. On arrival, GCS was 6 and decision was made to intubate patient by ED provider. At this point, it is unclear what medications patient took and when she took them. Apparently pill bottle had no label on it. Her home medications include propranolol, quetiapine, mirtazapine. She previously overdosed on propranolol quetiapine requiring glucagon drip and transferred to . Serum alcohol 314. CBC, CMP, ABG, UDS unremarkable. UA suggestive of UTI. After discussing case with ED provider, I decided to admit patient for further evaluation and management. On my evaluation, patient is intubated and sedated with no signs of distress or agitation. Heart rate in the 110s with sinus tachycardia, with soft pressures with MAP of 60s. Levophed was started. #Suicide attempt #Drug overdose #Acute toxic encephalopathy #Anxiety/depression ? Patient unfortunately has strong, recurrent history of multidrug overdose, suicide attempts. Most recently in February 2025. Has been to rehab at least 5 times per stepfather. ? Takes mirtazapine, quetiapine, propranolol at home. ? Presented with GCS of 6, intubated in the ED. Extubated successfully today 05/06/2025. Patient alert and oriented, without distress. ? I had a extensive and productive conversation with the patient this afternoon. She notes she has had significant depression and has been battling through that, has been following up with therapist frequently. She states she had been drinking with her friends and returned to her home and became sad as it was empty without her kids. She was unable to sleep and it was 3 AM, so she took 3-1/2 tabs of Seroquel 50 mg to help sleep. She states she is very sensitive to medications, and even 25 mg Seroquel makes her drowsy in the morning. She had no intent of suicide, and denies texting her friend that she wanted to kill herself. She did tell her friend that she was very sad that her kids were not home with her. At this time, she denies SI/HI and has no plans to do so further after speaking with her daughter who asked her why are you always always with a doctor . I discussed a safety plan with the patient, she states she trusts her closest friend who lives 10 minutes away from her. Patient states she plans to immediately reach out to her friend if she had any thoughts of suicide in the future. I will discuss with her friend regarding the safety plan, then will decide whether patient needs inpatient psychiatry versus outpatient. ? Behavioral health consulted, recommend [facility] inpatient psychiatry evaluation which is pending at this time. Patient states she did have an inpatient psych rehab in February 2025 after transferring to for similar presentation. ? Bedside swallow evaluation, then clear liquids of tolerated. Speech therapy evaluation in the morning. #UTI #Hypotension #Tachycardia #Lactic acidosis #Hypernatremia #Suspected serotonin syndrome ? Hypotension, tachycardia, lactic acidosis, hypernatremia resolved with fluid resuscitation, phenylephrine. ? Initially suspected serotonin syndrome, but vital signs improved and no neuromuscular hyperactivity. ? UA grossly abnormal, though could be normal adela. However, temperature uptrending currently 100.2 Fahrenheit. CXR does not show aspiration. ? Follow-up RPR, urine gonorrhea, chlamydia, trichomonas. ? Follow-up urine, blood cultures. ? Continue Zosyn pending urine, sputum culture. ? Follow-up morning CBC, CMP, lactic acid. #Alcohol use disorder #Alcohol withdrawal - WA protocol, Valium as needed, Full code DVT prophylaxis: Lovenox 40 mg
--- NOTE | 2025-05-06 12:34 | PC.NURSE ---
Behavioral Health @ bedside speaking to pt.
--- NOTE | 2025-05-06 14:18 | P.CONS_ITS ---
History of Present Illness *Admission Date: 05/05/25 *Reason for visit:: Behavioral Health Consult *History of present illness: Jade Aaron is a 29-year-old female with a medical history significant for anxiety/depression, former suicide attempt with multidrug overdose requiring mechanical ventilation presents after EMS found her unconscious at home. Patient is currently sedated and intubated. Per ED provider and aunt at bedside, patient has had a long standing rosa with anxiety/depression and has unfortunately had a tumultuous life. Recently, patient has had disagreements with her grandparents and texting her friend last night when she was inebriated from alcohol and told her she was going to kill of herself. Friend let family know who asked police to do a welfare check and found the patient unconscious on the floor. Per stepfather, patient has had multiple suicide attempts in the past and has taken her to inpatient rehab at least 5 times. Patient's brother at a young age with whom she was very close, and mother recently as well. She does not have a good relationship with her father. She is also in a custody rosa for her third child with her significant other with whom she does not have a good relationship. She has 2 other children. At this point, it is unclear what medications patient took and when she took them. Apparently pill bottle had no label on it. Her home medications include propranolol, quetiapine, mirtazapine. She previously overdosed on propranolol quetiapine requiring glucagon drip and transferred to . After discussing case with ED provider, I decided to admit patient for further evaluation and manag ement. On my evaluation, patient is intubated and sedated with no signs of distress or agitation. Heart rate in the 110s with sinus tachycardia, with soft pressures with MAP of 60s. Levophed was started. [facility] Disclaimer: The information contained in this section may have been updated after the patient was seen, as this information can be updated by other users. Medical History (Updated 05/06/25 @ 10:14 by Quincy Grullon MD) On mechanically assisted ventilation History of suicidal ideation History of suicide attempt Chronic post-traumatic stress disorder (PTSD) OCD (obsessive compulsive disorder) Generalized anxiety disorder with panic attacks Iron deficiency anemia Anemia Surgical History (Updated 05/05/25 @ 11:20 by Echo Mcknight RN) Previous section Family History Grandmother Cancer Grandfather Cancer Diabetes Mother COPD (chronic obstructive pulmonary disease) Social History Smoking Status: Unknown if ever smoked alcohol intake: current alcohol intake frequency: holidays/special occasions only substance use type: denies use current occupational status: employed Travel in the last 8 weeks?: None household members: children number of children: 2 Have you lived/traveled outside US in past 30 days?: No Contact w/someone who lives/traveled outside US past 30 days?: No Exposure to someone with infectious disease in past 14 days?: No Do you have a fever (greater than 100.4 F or 38 C)?: No Have you tested positive for COVID-19?: No Exposed to someone with COVID-19 in past 14 days?: No Do you have a sore throat?: No Do you have a cough?: No Do you have any weakness?: No Do you have any diarrhea?: No Are you experiencing any unusual bleeding?: No Do you have any muscle aches/pain?: No Do you have any abdominal pain?: No Are you experiencing loss of taste or smell?: No Review of Systems Review of Systems Review of systems:: other Constitutional Constitutional: Reports as per HPI Eyes Eyes: Reports as per HPI ENT Ears, Nose, Mouth, and Throat: Reports as per HPI *Cardiovascular Cardiovascular: Reports rapid heart rate *Respiratory Respiratory: Reports as per HPI *Gastrointestinal Gastrointestinal: Reports as per HPI *Genitourinary Genitourinary: Reports as per HPI *Musculoskeletal Musculoskeletal: Reports as per HPI Integumentary/Breasts Skin/Breast: Reports as per HPI *Neurologic Neurologic: Reports system reviewed and no additional complaints, except as docu mented Psychiatric Comments: 29yo female was extubated today after suicide attempt. She is alert to person, place, time, and situation. She reports a diagnosis of PTSD and depression. She states that she is embarrassed. She denies any current suicidal ideation. She states she does not remember texting a friend that she wanted to kill herself. She reports she has been struggling with depression. She reports splitting from her significant other in October and that they have a child that is 7 months old. She states she lives alone with her 3 children that are ages 7, 5, and 7 months. She reports that she just wanted to go to sleep and that she took 3-4 tablets of seroquel 50mg but that she did not take them all at once and that she took 2-3 and then took the rest about 3 hours later. She states she no longer has remeron at home and that she had previously dumped them out because they were not effective. She admits to a suicide attempt last year and that she took all of her Gabapentin that she was prescribed after a . She reports previous inpatient treatment at [facility] in [facility] and [facility]. She denies being interested in going to inpatient treatment voluntarily. She reports that she follows with Kwesi Cheung with [facility] in [place], [place] for counseling and that he is the only person she feels comfortable with. She denies any substance use, but reported that she once tested positive for fentanyl at [facility] and that she has been trying to obtain her records. She reports that she may drink alcohol once or twice a week when she doesn't have her children. Endocrine Endocrine: Reports as per HPI Hematologic/Lymphatic Hematologic/Lymphatic: Reports as per HPI Allergic/Immunologic Allergic/Immunologic: Reports as per HPI Meds Home Medications and Allergies Home Medications ?Medication ?Instructions ?Recorded ?Confirmed ?Type Unobtainable 05/06/25 05/06/25 History New Prescriptions to Start Prescriptions: Allergies Allergy/AdvReac Type Severity Reaction Status Date / Time acetaminophen (From PERCOCET) Allergy Unknown ANAPHYLAXIS Verified 05/05/25 10:59 hydrocodone (From LORTAB) Allergy Unknown ITCHING Verified 05/05/25 10:59 oxycodone (From PERCOCET) Allergy Unknown ANAPHYLAXIS Verified 05/05/25 10:59 Assessment and Plan *Assessment and plan (1) Suicide attempt: Status: Acute Category: Medical Code(s): T14.91XA - Suicide attempt, initial encounter Plan Recommend evaluation with [facility] for inpatient treatment. Recommend continuing outpatient therapy with Kwesi Cheung. Recommend follow-up with [facility] Behavioral Health upon discharge for evaluation/medication management.
--- NOTE | 2025-05-06 14:30 | PC.NURSE ---
Dr. Gill speaking w/ pt @ bedside.
--- NOTE | 2025-05-06 15:00 | CARE MANAGER ---
Addendum entered by Frances Horton RN 05/07/25 08:16: Alonso Atkinson emailed back response @ [phone] on 05/06/2025: I am the weatherization specialist trial commissioner presently and received the request for a 72 hour hold concerning Jade Aaron. Based on the information presented in the Petition, I do not believe?that this meets the requirements that would permit me to enter the examination and transport order. Based on what is contained in the Petition, this seems more like a drug issue and that a Jhony's Law case would be the appropriate avenue to take. However, if there are additional details that evidence an examination and transport order being warranted, an amended petition can be filed and sent directly to me at [email or web address]. I spoke with , who requested that additional information be sent, as he felt that a 72 hour hold was needed. Additional information sent back to Alonso Atkinson for re-review. No further communication was received in return. Dr. Gill states this morning, that after a long conversation with patient yesterday afternoon, he no longer feels as though an involuntary hold is warranted. Original Note: MATT notified that MD was requesting patient be placed on a 72 hour hold for involuntary admission to inpatient psych facility. Forms 710 and 711 completed and emailed to Rhona Murrieta. Phone call was also placed to Rhona, who stated it would be sent to .
--- NOTE | 2025-05-06 16:45 | PC.NURSE ---
Dr. Gill at bedside speaking to patient.
[2025-05-06 17:05] LABS: POC Glucose,Bedside 91 (70-110)
[2025-05-06 17:05] LABS: POC Glucose,Bedside 98 (70-110)
[2025-05-06 17:05] LABS: POC Glucose,Bedside 86 (70-110)
--- NOTE | 2025-05-06 17:40 | PC.NURSE ---
Noelle w/ Peer Support @ bedside speaking w/ pt.
[2025-05-06] MEDS: MULTIVITAMIN TABLET 1 EACH PO (18:28)
--- NOTE | 2025-05-06 18:56 | PC.NURSE ---
[id number] - EMPATH CONTACTED PER DR KAN'S REQUEST. CALL BACK # GIVEN TO SPEAK W/ PHYSICIAN.
[2025-05-07] VITALS (12 sets, daily range): BP systolic 105–134; BP diastolic 66–98; PULSE 58–85; RESP 13–20; TEMP 36.6–37.1; O2SAT 96–100; BMI 26.9
[2025-05-07] MEDS: PIPERCILLIN/TAZO 3.375 GM in 0.9 % SODIUM CHLORIDE 50 ML IV ×2 (00:11→06:12)
[2025-05-07 06:18] LABS: Hematocrit 28.7 % (37.0-47.0); Hemoglobin 9.2 g/dL (12.2-16.2); Immature Granulocytes % 0.3 %; Mean Corpuscular HGB Conc 32.1 g/dL (31.8-35.4); Mean Corpuscular Hemoglobin 28.4 pg (27.0-31.2); Mean Corpuscular Volume 88.6 fl (81-99); Nucleated Red Blood Cells % 0 %; Platelet Count 141 K/mm3 (142-424); Red Blood Count 3.24 M/mm3 (4.20-5.40); Red Cell Distribution Width-SD 48.1 fL; White Blood Count 6.3 K/mm3 (4.8-10.8)
[2025-05-07 06:29] LABS: Albumin Level 3.6 g/dl (3.5-5.0); Chloride 104 mmol/L (98-107); Potassium 3.4 mmoL/L (3.5-5.1); Sodium 135 mmol/L (136-145)
[2025-05-07 06:31] LABS: Alanine Aminotransferase 14 U/L (12-78); Aspartate Amino Transferase 34 U/L (14-36); Blood Urea Nitrogen 4 mg/dl (7-17); Creatinine Clearance Estimated 169 mL/min (50-200); Creatinine,Serum 0.60 mg/dl (0.52-1.04); Estimated Glomerular Filt Rate 120 ml/min (>60); GFR (African American) 145 ML/MIN (>60)
[2025-05-07 06:32] LABS: Albumin/Globulin Ratio 1.3 (1.1-1.8); Alkaline Phosphatase 70 U/L (38-126); Anion Gap 7.4 mEq/L (5-15); Bilirubin,Total 0.5 mg/dl (0.2-1.3); Calcium 8.7 mg/dl (8.4-10.2); Carbon Dioxide 27 mmol/L (22.0-30.0); Globulin 2.8 g/dL (1.3-3.2); Glucose 78 mg/dl (74-100); Magnesium 2.1 mg/dl (1.6-2.3); Total Protein,Serum 6.4 g/dl (6.3-8.2)
[2025-05-07] MEDS: FOLIC ACID 1MG TABLET 1 MG PO (08:13)
[2025-05-07] MEDS: POTASSIUM CHLORIDE 20MEQ TAB 40 MEQ PO (08:13)
[2025-05-07] MEDS: THIAMINE 100MG TABLET 100 MG PO (08:15)
--- NOTE | 2025-05-07 08:45 | P.DS_ITS ---
General Admission date:: 05/05/25 HPI HPI HPI: Jade Aaron is a 29-year-old female with a medical history significant for anxiety/depression, former suicide attempt with multidrug overdose requiring mechanical ventilation presents after EMS found her unconscious at home. Patient is currently sedated and intubated. Per ED provider and aunt at bedside, patient has had a long standing rosa with anxiety/depression and has unfortunately had a tumultuous life. Recently, patient has had disagreements with her grandparents and texting her friend last night when she was inebriated from alcohol and told her she was going to kill of herself. Friend let family know who asked police to do a welfare check and found the patient unconscious on the floor. Per stepfather, patient has had multiple suicide attempts in the past and has taken her to inpatient rehab at least 5 times. Patient's brother at a young age with whom she was very close, and mother recently as well. She does not have a good relationship with her father. She is also in a custody rosa for her third child with her significant other with whom she does not have a good relationship. She has 2 other children. At this point, it is unclear what medications patient took and when she took them. Apparently pill bottle had no label on it. Her home medications include propranolol, quetiapine, mirtazapine. She previously overdosed on propranolol quetiapine requiring glucagon drip and transferred to . After discussing case with ED provider, I decided to admit patient for further evaluation and management. On my evaluation, patient is intubated and sedated with no signs of distress or agitation. Heart rate in the 110s with sinus tachycardia, with soft pressures with MAP of 60s. Levophed was started. Hospital Course Hospital Course Hospital Course: Jade Aaron is a 29-year-old female with a medical history significant for anxiety/depression, former suicide attempt with multidrug overdose requiring mechanical ventilation presents after EMS found her unconscious at home. Patient is currently sedated and intubated. Per ED provider and aunt at bedside, patient has had a long standing rosa with anxiety/depression and has unfortunately had a tumultuous life. Recently, patient has had disagreements with her grandparents and texting her friend last night when she was inebriated from alcohol and told her she was going to kill of herself. Friend let family know who asked police to do a welfare check and found the patient unconscious on the floor. Per stepfather, patient has had multiple suicide attempts in the past and has taken her to inpatient rehab at least 5 times. Patient's brother at a young age with whom she was very close, and mother recently as well. She does not have a good relationship with her father. She is also in a custody rosa for her third child with her significant other with whom she does not have a good relationship. She has 2 other children. On arrival, GCS was 6 and decision was made to intubate patient by ED provider. At this point, it is unclear what medications patient took and when she took them. Apparently pill bottle had no label on it. Her home medications include propranolol, quetiapine, mirtazapine. She previously overdosed on propranolol quetiapine requiring glucagon drip and transferred to . Serum alcohol 314. CBC, CMP, ABG, UDS unremarkable. UA suggestive of UTI. After discussing case with ED provider, I decided to admit patient for further evaluation and management. On my evaluation, patient is intubated and sedated with no signs of distress or agitation. Heart rate in the 110s with sinus tachycardia, with soft pressures with MAP of 60s. Levophed was started. #Suicide attempt #Drug overdose #Acute toxic encephalopathy #Anxiety/depression ? Patient unfortunately has strong, recurrent history of multidrug overdose, suicide attempts. Most recently in February 2025. Has been to rehab at least 5 times per stepfather. ? Takes mirtazapine, quetiapine, propranolol at home. ? Presented with GCS of 6 for airway protection, intubated in the ED. Extubated successfully 05/06/2025. Patient alert and oriented, without distress. ? I had a extensive and productive conversation with the patient. She notes she has had significant depression and has been battling through that, has been following up with therapist frequently. She states she had been drinking with her friends and returned to her home and became sad as it was an empty house without her kids. She was unable to sleep and it was 3 AM, so she took 3-1/2 tabs of Seroquel 50 mg to help sleep. She states she is very sensitive to medications, and even 25 mg Seroquel makes her drowsy in the morning. She had no intent of suicide, and denies texting her friend that she wanted to kill herself. She did tell her friend that she was very sad that her kids were not home with her. At this time, she denies SI/HI and has no plans to do so further after speaking with her daughter who asked her why are you always always with a doctor . I discussed a safety plan with the patient, she states she trusts her closest friend who lives 10 minutes away from her. Patient states she plans to immediately reach out to her friend if she had any thoughts of suicide in the future. Behavioral health spoke with friend and confirmed safety plan. Patient does not have interest in inpatient psychiatry, and does not meet criteria at this time. ? Behavioral health consulted, will follow-up with patient over the phone tomorrow and Saturday. Recommended close follow-up with her on 05/10/2025. Patient will also follow-up with her therapist within the next week. ? Discontinued mirtazapine, quetiapine, propranolol until follow-up with behavioral health. Patient states they have not been helping. #UTI #Hypotension #Tachycardia #Lactic acidosis #Hypernatremia #Suspected serotonin syndrome ? Hypotension, tachycardia, lactic acidosis, hypernatremia resolved with fluid resuscitation, phenylephrine. ? Initially suspected serotonin syndrome, but vital signs improved and no neuromuscular hyperactivity. ? UA grossly abnormal, though could be normal adela. However, temperature uptrending currently 100.2 Fahrenheit. CXR does not show aspiration. ? Treated UTI with Zosyn, discharged with cefdinir for 2 more days. #Alcohol use disorder #Alcohol withdrawal - No significant withdrawal symptoms. Total time spent on discharge: 40 minutes on chart review, counseling, documentation, and direct care with patient. Exam Data for Last 24 hours Vital signs and Labs for Last 24 Hours: Temp Pulse Resp BP Pulse Ox O2 Del Method O2 Flow Rate 97.8 F 69 18 134/98 H 100 Room Air 1 05/07/25 08:00 05/07/25 08:00 05/07/25 08:00 05/07/25 08:00 05/07/25 08:00 05/07/25 08:00 05/06/25 16:00 FiO2 21 05/06/25 10:04 Laboratory Results - last 24 hr 05/05/25 18:14: POC Glucose 98 05/05/25 23:56: POC Glucose 91 05/06/25 04:50: Ur C. trach DNA (PCR) Negative, U N.gonorrhoeae DNA PCR Negative, T. vaginalis (PCR) Negative 05/06/25 06:38: POC Glucose 86 05/06/25 11:05: VBG pH 7.59 H, VBG pCO2 21.5 L, VBG pO2 159.0 H, VBG HCO3 20.4 L , VBG Total CO2 21.0 L, VBG O2 Saturation 99.0 H, VBG Base Excess -1.3, VBG Lactic Acid 0.7 05/07/25 05:19: WBC 6.3 D, RBC 3.24 L, Hgb 9.2 L, Hct 28.7 L, MCV 88.6, MCH 28.4, MCHC 32.1, RDW 15.0, Plt Count 141 L, MPV 10.9 H, Neut % (Auto) 65.3, Lymph % (Auto) 27.8, Howard % (Auto) 3.9, Eos % (Auto) 2.1, Baso % (Auto) 0.6, Neut # (Auto) 4.1, Lymph # (Auto) 1.8, Howard # (Auto) 0.3, Eos # (Auto) 0.1, Baso # (Auto) 0.0, Sodium 135 L, Potassium 3.4 L, Chloride 104, Carbon Dioxide 27, Anion Gap 7.4, BUN 4 L D, Creatinine 0.60, Estimated Creat Clear 169, Estimated GFR 120, Est GFR ( Amer) 145, Glucose 78, Calcium 8.7, Magnesium 2.1, Total Bilirubin 0.5, AST 34 D, ALT 14, Alkaline Phosphatase 70, Total Protein 6.4, Albumin 3.6, Globulin 2.8, Albumin/Globulin Ratio 1.3 I & O for Last 24 hours: Intake & Output 05/04/25 05/05/25 05/06/25 05/07/25 23:59 23:59 23:59 23:59 Intake Total 2068.631 / 2068.631 2617.824 / 2617.824 Output Total 395 / 420 2200 / 2200 0 / 0 Balance 1673.631 / 1648.631 417.824 / 417.824 0 / 0 Weight 74.1 kg 75.6 kg 75.9 kg Microbiology Reports for the Last 24 Hours: Microbiology 05/05/25 10:50 Rectum CRE Surveillance Culture - Final Negative 05/05/25 07:46 Sputum - Endotracheal Tube Aspirate Gram Stain - Final 05/05/25 07:46 Sputum - Endotracheal Tube Aspirate Sputum Culture - Preliminary Gram Negative Rods Gram Positive Cocci 05/05/25 07:59 Urine,Clean Catch Urine Culture - Final NO GROWTH AFTER 48 HOURS 05/05/25 12:00 Blood Blood Culture - Preliminary NO GROWTH AFTER 24 HOURS 05/05/25 12:06 Blood Blood Culture - Preliminary NO GROWTH AFTER 24 HOURS Constitutional Constitutional: no acute distress *Routine HEENT Exam Head: Present normocephalic Eye: Present EOMI and PERRL ENT: Present mucous membranes moist *Routine Neck Exam Neck: Present supple; Absent lymphadenopathy *Routine Respiratory Exam Respiratory: Present CTA bilaterally *Routine Cardiovascular Exam Cardiovascular: Present RRR *Routine Abdominal Exam Abdominal: Present soft and normoactive bowel sounds; Absent tenderness *Routine Extremities Exam Extremities: Absent cyanosis, clubbing or edema *Routine Skin Exam Skin: Present warm; Absent rash *Routine Neurological Exam Neurological: Present alert and oriented X3 Results Data Completed and Pending Labs on day of discharge: Labs from last 24 hours 05/07/25 05/06/25 05/06/25 05:19 11:05 06:38 WBC 6.3 D RBC 3.24 L Hgb 9.2 L Hct 28.7 L MCV 88.6 MCH 28.4 MCHC 32.1 RDW 15.0 Plt Count 141 L MPV 10.9 H Neut % (Auto) 65.3 Lymph % (Auto) 27.8 Howard % (Auto) 3.9 Eos % (Auto) 2.1 Baso % (Auto) 0.6 Neut # (Auto) 4.1 Lymph # (Auto) 1.8 Howard # (Auto) 0.3 Eos # (Auto) 0.1 Baso # (Auto) 0.0 VBG pH 7.59 H VBG pCO2 21.5 L VBG pO2 159.0 H VBG HCO3 20.4 L VBG Total CO2 21.0 L VBG O2 Saturation 99.0 H VBG Base Excess -1.3 VBG Lactic Acid 0.7 Sodium 135 L Potassium 3.4 L Chloride 104 Carbon Dioxide 27 Anion Gap 7.4 BUN 4 L D Creatinine 0.60 Estimated Creat Clear 169 Estimated GFR 120 Est GFR ( Amer) 145 Glucose 78 POC Glucose 86 Calcium 8.7 Magnesium 2.1 Total Bilirubin 0.5 AST 34 D ALT 14 Alkaline Phosphatase 70 Total Protein 6.4 Albumin 3.6 Globulin 2.8 Albumin/Globulin Ratio 1.3 Ur C. trach DNA (PCR) U N.gonorrhoeae DNA PCR T. vaginalis (PCR) 05/06/25 05/05/25 05/05/25 04:50 23:56 18:14 WBC RBC Hgb Hct MCV MCH MCHC RDW Plt Count MPV Neut % (Auto) Lymph % (Auto) Howard % (Auto) Eos % (Auto) Baso % (Auto) Neut # (Auto) Lymph # (Auto) Howard # (Auto) Eos # (Auto) Baso # (Auto) VBG pH VBG pCO2 VBG pO2 VBG HCO3 VBG Total CO2 VBG O2 Saturation VBG Base Excess VBG Lactic Acid Sodium Potassium Chloride Carbon Dioxide Anion Gap BUN Creatinine Estimated Creat Clear Estimated GFR Est GFR ( Amer) Glucose POC Glucose 91 98 Calcium Magnesium Total Bilirubin AST ALT Alkaline Phosphatase Total Protein Albumin Globulin Albumin/Globulin Ratio Ur C. trach DNA (PCR) Negative U N.gonorrhoeae DNA PCR Negative T. vaginalis (PCR) Negative Preliminary micro results at discharge 05/05/25 07:46 Sputum Culture - Preliminary Sputum - Endotracheal Tube Aspirate Gram Negative Rods Gram Positive Cocci 05/05/25 12:00 Blood Culture - Preliminary Blood NO GROWTH AFTER 24 HOURS 05/05/25 12:06 Blood Culture - Preliminary Blood NO GROWTH AFTER 24 HOURS DS: Diagnosis Discharge Diagnosis (1) Suicide attempt: Status: Acute Code(s): T14.91XA - Suicide attempt, initial encounter (2) Overdose: Status: Acute Code(s): T50.901A - Poisoning by unspecified drugs, medicaments and biological substances, accidental (unintentional), initial encounter Meds Home Medications and Allergies Home Medications ?Medication ?Instructions ?Recorded ?Confirmed ?Type cefdinir 300 mg capsule 300 mg PO BID 2 days #4 caps 05/07/25 Rx New Prescriptions to Start Prescriptions: cefdinir Mick Gill Allergies Allergy/AdvReac Type Severity Reaction Status Date / Time acetaminophen (From PERCOCET) Allergy Unknown ANAPHYLAXIS Verified 05/05/25 10:59 hydrocodone (From LORTAB) Allergy Unknown ITCHING Verified 05/05/25 10:59 oxycodone (From PERCOCET) Allergy Unknown ANAPHYLAXIS Verified 05/05/25 10:59 Discharge Plan Disposition Patient Disposition: Home, Self-Care Condition: Fair Discharge Order Discharge Orders: Discharge Order (Routine); Ordered 05/07/25 Ordered By: Mick Gill Follow up Plan Follow up with: Nickie Carrillo APRN [Nurse Practitioner, Family Practice] - 05/14/25 11:00 am Call,GINO Shrestha [Nurse Practitioner, Behavioral Health] - 05/10/25 3:30 pm Referral Note: Henrietta Call ACCOUNTING SYSTEMS MANAGER to make follow up call with pt tomorrow. if pt does not answer welfare check will be initiated. Prescriptions/Medication Reconciliation: New cefdinir 300 mg capsule 300 mg PO BID 2 Days Qty: 4 0RF Problem Reconciliation Problems Reviewed?: Yes Patient Discharge Instructions Patient Instructions: Intubation and Mechanical Ventilation, Ventilator- Associated Pneumonia, Catheter-Associated Urinary Tract Infection Print Language: Welsh Providers Primary Care Provider: Provider,Referral Admit Provider: Mick Gill Attending Provider: Mick Gill
[2025-05-07] MEDS: FAMOTIDINE 20MG TABLET 20 MG PO (08:47)
--- NOTE | 2025-05-07 09:15 | HMH.SLDYSPHA ---
Speech & Language Evaluation Speech/Language Dysphagia Evaluation Start: 05/07/25 09:04 Freq: ONCE Status: Active Protocol: Document 05/07/25 09:04 BHAKTI (Rec: 05/07/25 09:15 [email or web address] [id number]) Dysphagia Assess/Goals/Plan Assessment Date of Evaluation: 05/07/25 Evaluation Type Initial Certification Assessment/Problems post extubation per MD order Does Patient Qualify No for Service Qualify/Failure Based on clinical observations made throughout CSE pt' Comment s mastication/manipulation of bolus and swallowing are WFL. No further skilled speech therapy services are warranted at this time. Recommendations PHYSICIAN CERTIFICATION: The specified therapy services are required, authorized, and reviewed every 30 days. Diet Recommendations Normal Liquid Type Normal/Thin Recommendations SL Swallow Standard Aspiration Prec. Guidelines Dysphagia Swallow Sitting Upright (90 deg),Small Bites and Sips,Alternate Precautions/ Liquids/Solids Strategies Plan Pt/Guardian verbally Yes ack understanding of dx/prognosis/ goals G -code Required No Education Instructions Discussed CSE results, provided diet recommendations, provided and reviewed standard aspiration precautions with pt, nursing, and care management all of which expressed understanding. Pt/Caregiver able to Able to recall/restate recall information Reinforcement needed No Speech & Language HPI History Present Illness Description of CUSTOMER SALES CONSULTANT pulled following information from chart review and Patient Problem H&P, Jade Aaron is a 29-year-old female with a medical history significant for anxiety/depression, former suicide attempt with multidrug overdose requiring mechanical ventilation presents after EMS found her unconscious at home. Patient is currently sedated and intubated. Per ED provider and aunt at bedside, patient has had a long standing rosa with anxiety/depression and has unfortunately had a tumultuous life. Recently, patient has had disagreements with her grandparents and texting her friend last night when she was inebriated from alcohol and told her she was going to kill of herself. Friend let family know who asked police to do a welfare check and found the patient unconscious on the floor. Per stepfather, patient has had multiple suicide attempts in the past and has taken her to inpatient rehab at least 5 times. Patient's brother at a young age with whom she was very close, and mother recently as well. She does not have a good relationship with her father. She is also in a custody rosa for her third child with her significant other with whom she does not have a good relationship. She has 2 other children. At this point, it is unclear what medications patient took and when she took them. Apparently pill bottle had no label on it. Her home medications include propranolol, quetiapine, mirtazapine. She previously overdosed on propranolol quetiapine requiring glucagon drip and transferred to . After discussing case with ED provider, I decided to admit patient for further evaluation and management. On my evaluation, patient is intubated and sedated with no signs of distress or agitation. Heart rate in the 110s with sinus tachycardia, with soft pressures with MAP of 60s. Levophed was started. PMHx: History of suicidal ideation History of suicide attempt Chronic post-traumatic stress disorder (PTSD) OCD (obsessive compulsive disorder) Generalized anxiety disorder with panic attacks Iron deficiency anemia Anemia CXR impressions: Mild worsening right basilar atelectasis. Interval NG tube placement. Extubated 05/06/25 at 11:36 Language Primary Language [place] General Information General Current Food NPO Consistancy Dentition Good Dentition Dysphagia:Food Presentation Evaluation Food Type Pureed,Mechanical Soft,Regular,Liquid,Pudding Dysphagia Evaluation Pt was seen sitting upright in bed and she was A&Ox4. Summary Oral care provided prior to beginning CSE. She was administered all trial consistencies x2 to assess for consistency/fatigue. No overt s/sxs of aspiration were noted throughout assessment. It is recommended she be placed on a regular/thin with standard aspiration precautions. She was given the following: thin liquids (ice chip, spoonful of water, open cup/straw sip, subsequent sips from open cup/straw), pudding, pureed applesauce, mechanical soft (nutrigrain bar), regular ( domitila cracker.) No further skilled speech therapy services are warranted at this time. Stroke Dysphagia Assessment PHYSICIAN CERTIFICATION: I certify the specified therapy services for Jade Aaron are required, authorized, and reviewed every 30 days.
--- NOTE | 2025-05-07 09:19 | SW/DCPLANNER ---
Addendum entered by Ct O[facility] 05/07/25 13:00: Per [facility] Intake this case does meet criteria for investigation. Addendum entered by Ct O[facility]nor 05/07/25 11:18: Central Intake web ID: [id number]. Addendum entered by Ct Oconnor 05/07/25 09:31: I have scheduled patient w/ [facility] on 05/10 at 2PM. Patient is agreeable w/ appointment date. Original Note: After lengthy discussion with patient, MD (Dr Gill) and Behavioral Health ([facility]) the plan is this patient is safe to return home w/ outpatient follow up. Patient does have a therapy appointments w/ [facility] in [place] this AM that family member will assist w/ transport. Patient stated that she never had SI just needed to be able to sleep. Patient voices that she has a great support system. Patient does have three children: 7 months (50/50 custody w/ father), 5 year old and 7 year old (full custody due to father incarcerated). Patient does have transportation and is interested in [facility]. I will make appointment for patient this AM w/ Flavia. 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 Due to children in the home I will make a Central Intake referral. I did provide patient w/ [facility] Resource List as a future reference. Patient will be discharging home this AM to make her outpatient appointment in [place].
--- NOTE | 2025-05-09 07:52 | PC.NURSE ---
pts sputum results forwarded to the hospitalist as the pt was admitted.
--- NOTE | 2025-05-10 14:02 | SW/DCPLANNER ---
Spoke with patient on the phone. Patient stated that she is doing good and that she had to cancel her upcoming appointment for today with behavioral health due to her having a stomach bug. Patient stated that she rescheduled it for this Saturday. Patient stated that she was not prescribed any new medicine. Patient stated that she has no concerns or questions at this time. Olga Harvey
== END 2025-05-07 09:46 | disposition home or self-care (01) | DRG 917 ==
LOC: ER 09:19 → ICU 09:52
PROVIDERS: Emergency Medicine; Internal Medicine Pulmonary Disease; Admitting Provider Student in an Organized Health Care Education/Training Program; Emergency Provider Student in an Organized Health Care Education/Training Program; Visit Provider Student in an Organized Health Care Education/Training Program
DX: T50.902A Poisoning by unspecified drugs, medicaments and biological substances, intentional self-harm, initial encounter (principal); G92.8 Other toxic encephalopathy; J15.5 Pneumonia due to Escherichia coli; J15.211 Pneumonia due to Methicillin susceptible Staphylococcus aureus; E87.20 Acidosis, unspecified; E87.0 Hyperosmolality and hypernatremia; F10.139 Alcohol abuse with withdrawal, unspecified; I95.2 Hypotension due to drugs; F10.129 Alcohol abuse with intoxication, unspecified; F32.A Depression, unspecified; F43.12 Post-traumatic stress disorder, chronic; F41.1 Generalized anxiety disorder; F41.0 Panic disorder [episodic paroxysmal anxiety]; F42.9 Obsessive-compulsive disorder, unspecified; R00.0 Tachycardia, unspecified; Y90.8 Blood alcohol level of 240 mg/100 ml or more; Y92.009 Unspecified place in unspecified non-institutional (private) residence as the place of occurrence of the external cause; Z63.0 Problems in relationship with spouse or partner; Z63.4 Disappearance and death of family member; Z62.823 Parent-step child conflict; Z88.5 Allergy status to narcotic agent
CPT/HCPCS: 0223U; 36415; 51702; 70450; 71045; 80053; 80074; 80307; 80320; 80329; 81001; 82550; 82803; 82962; 83605; 83735; 84145; 84443; 84484; 84703; 85025; 85378; 85610; 86140; 86592; 87040; 87070; 87077; 87081; 87086; 87186; 87205; 87389; 87491; 87591; 87661; 92610; 93005; 93306; 94003; 94760; 94761; J0330; J1611; J1650; J1885; J2312; J2371; J2405; J2543; J2560; J2704; J3010; J3360; J3373; J3375; J3411; J3475; J7030; J7050; J7120